=== PATIENT | female | born 1965 | race Caucasian/White ===

== ENCOUNTER 2019-09-28 11:21 | Outpatient (CLI) | payer MEDICARE, MEDICAID, SELFPAY ==
[2019-09-28 11:33] LABS: Basophils Absolute Auto 0.1 K/mm3 (0.0-0.1); Basophils Percent Auto 0.6 % (0.2-1.2); Eosinophils Absolute Auto 0.3 K/mm3 (0-0.3); Eosinophils Percent Auto 2.5 % (0-4.4); Hematocrit 42.4 % (37.0-47.0); Immature Granulocyte Absolute 0.05 K/mm3 (0.00-0.031); Immature Granulocyte Percent A 0.5 % (0-0.5); Lymphocytes Absolute Auto 1.52 K/mm3 (0.9-3.2); Lymphocytes Percent Auto 14.2 % (18.3-44.2); Mean Corpuscular Hemoglobin 30.5 pg (26-34); Mean Corpuscular Volume 92.4 fl (80-100); Monocytes Absolute Auto 0.6 K/mm3 (0.1-0.6); Monocytes Percent Auto 5.6 % (2.6-8.5); Neutrophils Absolute Auto 8.2 K/mm3 (1.3-6.7); Neutrophils Percent Auto 76.6 % (45.5-73.1); Platelet Count Result 306 k/mm3 (150-375); Red Blood Count 4.59 M/mm3 (4.2-5.4); Red Cell Distribution Width 14.4 % (11.5-14.5); White Blood Count 10.7 K/mm3 (4.5-10.0)
[2019-09-28 11:42] LABS: Blood Urea Nitrogen 22 mg/dL (8-26); Carbon Dioxide 29 mmol/L (22-30); Chloride 96 mmol/L (98-109); Estimated Glomerular Filt Rate 43; Glucose 428 mg/dL (70-105); Potassium 4.1 mmol/L (3.5-4.9); Sodium 136 mmol/L (138-146)
[2019-09-28 16:43] LABS: Alanine Aminotransferase 13 U/L (4-35); Albumin Level 3.8 g/dL (3.5-5.1); Alkaline Phosphatase 130 U/L (38-126); Aspartate Amino Transferase 17 U/L (14-36); Bilirubin,Total 0.4 mg/dL (0.2-1.3); Blood Urea Nitrogen 22 mg/dL (7-17); Calcium 9.4 mg/dL (8.4-10.2); Carbon Dioxide 28 mmol/L (22-30); Chloride 94 mmol/L (98-107); Estimated Glomerular Filt Rate 43; Glucose 415 mg/dL (65-105); Potassium 4.3 mmol/L (3.4-5.0); Sodium 137 mmol/L (137-145)
[2019-10-03 12:40] LABS: BCR/abl Prior Result See Report
[2019-10-03 13:28] LABS: BCR/abl P190 Not Detected; BCR/abl P210 Not Detected
[2019-10-03 13:29] LABS: BCR/abl P190 Chg YES; BCR/abl P210 Chg YES
== END 2019-09-28 11:22 | disposition home or self-care (01) ==
PROVIDERS: PCP Physician Assistant; Visit Provider Internal Medicine Hematology & Oncology
DX: C92.10 Chronic myeloid leukemia, BCR/ABL-positive, not having achieved remission (principal)
CPT/HCPCS: 36415; 80048; 80053; 81206; 81207; 85025

== ENCOUNTER 2020-04-04 10:24 | Outpatient (CLI) | payer MEDICARE, MEDICAID, SELFPAY ==
[2020-04-04 10:38] LABS: Basophils Absolute Auto 0.1 K/mm3 (0.0-0.1); Basophils Percent Auto 0.7 % (0.2-1.2); Eosinophils Absolute Auto 0.4 K/mm3 (0-0.3); Eosinophils Percent Auto 3.9 % (0-4.4); Hematocrit 37.6 % (37.0-47.0); Hemoglobin 12.4 g/dL (12.0-15.0); Immature Granulocyte Absolute 0.04 K/mm3 (0.00-0.031); Immature Granulocyte Percent A 0.4 % (0-0.5); Lymphocytes Percent Auto 15.9 % (18.3-44.2); Mean Corpuscular Hemoglobin 31.2 pg (26-34); Mean Corpuscular Volume 94.5 fl (80-100); Monocytes Absolute Auto 0.6 K/mm3 (0.1-0.6); Monocytes Percent Auto 6.8 % (2.6-8.5); Neutrophils Absolute Auto 6.8 K/mm3 (1.3-6.7); Neutrophils Percent Auto 72.3 % (45.5-73.1); Platelet Count Result 296 k/mm3 (150-375); Red Blood Count 3.98 M/mm3 (4.2-5.4); Red Cell Distribution Width 14.3 % (11.5-14.5); White Blood Count 9.5 K/mm3 (4.5-10.0)
[2020-04-09 15:59] LABS: BCR/abl Prior Result See Report
[2020-04-09 16:46] LABS: BCR/abl P190 Not Detected; BCR/abl P210 Not Detected
[2020-04-09 16:47] LABS: BCR/abl P190 Chg YES; BCR/abl P210 Chg YES
== END 2020-04-04 10:25 | disposition home or self-care (01) ==
PROVIDERS: PCP Physician Assistant; Visit Provider Internal Medicine Hematology & Oncology
DX: C92.11 Chronic myeloid leukemia, BCR/ABL-positive, in remission (principal)
CPT/HCPCS: 36415; 81206; 81207; 85025

== ENCOUNTER 2021-03-27 11:37 | Outpatient (CLI) | payer MEDICARE, OTHER, SELFPAY ==
[2021-03-27 12:23] LABS: Basophils Absolute Auto 0.1 K/mm3 (0.0-0.1); Basophils Percent Auto 0.6 % (0.2-1.2); Eosinophils Absolute Auto 0.4 K/mm3 (0-0.3); Eosinophils Percent Auto 2.9 % (0-4.4); Hematocrit 37.2 % (37.0-47.0); Immature Granulocyte Absolute 0.05 K/mm3 (0.00-0.031); Immature Granulocyte Percent A 0.4 % (0-0.5); Lymphocytes Absolute Auto 1.93 K/mm3 (0.9-3.2); Lymphocytes Percent Auto 15.4 % (18.3-44.2); Mean Corpuscular HGB Conc 32.3 g/dl (32-36); Mean Corpuscular Hemoglobin 29.3 pg (26-34); Mean Corpuscular Volume 90.7 fl (80-100); Mean Platelet Volume 9.8 fl (7.4-10.4); Monocytes Absolute Auto 0.7 K/mm3 (0.1-0.6); Monocytes Percent Auto 5.3 % (2.6-8.5); Neutrophils Absolute Auto 9.4 K/mm3 (1.3-6.7); Neutrophils Percent Auto 75.4 % (45.5-73.1); Platelet Count Result 294 k/mm3 (150-375); Red Cell Distribution Width 15.2 % (11.5-14.5); White Blood Count 12.5 K/mm3 (4.5-10.0)
[2021-03-27 12:26] LABS: Blood Urea Nitrogen 20 mg/dL (8-26); Carbon Dioxide 31 mmol/L (22-30); Chloride 100 mmol/L (98-109); Estimated Glomerular Filt Rate 33; Glucose 167 mg/dL (70-105); Potassium 4.5 mmol/L (3.5-4.9); Sodium 141 mmol/L (138-146)
[2021-03-27 14:20] LABS: Alanine Aminotransferase 13 U/L (4-35); Albumin Level 4.2 g/dL (3.5-5.1); Alkaline Phosphatase 81 U/L (38-126); Anion Gap 9 mmol/L (8-16); Aspartate Amino Transferase 22 U/L (14-36); Bilirubin,Total 0.4 mg/dL (0.2-1.3); Blood Urea Nitrogen 20 mg/dL (7-17); Calcium 9.9 mg/dL (8.4-10.2); Carbon Dioxide 28 mmol/L (22-30); Chloride 103 mmol/L (98-107); Estimated Glomerular Filt Rate 39; Glucose 167 mg/dL (65-110); Potassium 4.6 mmol/L (3.4-5.0); Sodium 140 mmol/L (137-145)
[2021-03-31 00:31] LABS: BCR/abl Prior Result See Report
[2021-03-31 01:23] LABS: BCR/abl P190 Not Detected; BCR/abl P190 Chg YES; BCR/abl P210 Not Detected; BCR/abl P210 Chg YES
== END 2021-03-27 11:38 | disposition home or self-care (01) ==
LOC: ANHLAB 12:12
PROVIDERS: PCP Physician Assistant; Visit Provider Internal Medicine Hematology & Oncology
DX: C92.11 Chronic myeloid leukemia, BCR/ABL-positive, in remission (principal)
CPT/HCPCS: 36415; 80048; 80053; 81206; 81207; 85025

== ENCOUNTER 2022-01-14 13:04 | Outpatient (CLI) | payer OTHER, SELFPAY ==
[2022-01-14 13:22] LABS: Basophils Absolute Auto 0.1 K/mm3 (0.0-0.1); Basophils Percent Auto 0.6 % (0.2-1.2); Eosinophils Absolute Auto 0.3 K/mm3 (0-0.3); Eosinophils Percent Auto 2.4 % (0-4.4); Hematocrit 39.5 % (37.0-47.0); Hemoglobin 12.8 g/dL (12.0-15.0); Immature Granulocyte Absolute 0.03 K/mm3 (0.00-0.031); Immature Granulocyte Percent A 0.3 % (0-0.5); Lymphocytes Absolute Auto 2.04 K/mm3 (0.9-3.2); Lymphocytes Percent Auto 18.9 % (18.3-44.2); Mean Corpuscular HGB Conc 32.4 g/dl (32-36); Mean Corpuscular Hemoglobin 30.7 pg (26-34); Mean Corpuscular Volume 94.7 fl (80-100); Mean Platelet Volume 9.9 fl (7.4-10.4); Monocytes Absolute Auto 0.7 K/mm3 (0.1-0.6); Monocytes Percent Auto 6.2 % (2.6-8.5); Neutrophils Absolute Auto 7.7 K/mm3 (1.3-6.7); Neutrophils Percent Auto 71.6 % (45.5-73.1); Platelet Count Result 289 k/mm3 (150-375); Red Blood Count 4.17 M/mm3 (4.2-5.4); Red Cell Distribution Width 14.2 % (11.5-14.5); White Blood Count 10.8 K/mm3 (4.5-10.0)
[2022-01-14 13:27] LABS: Blood Urea Nitrogen 29 mg/dL (8-26); Carbon Dioxide 23 mmol/L (22-30); Chloride 105 mmol/L (98-109); Estimated Glomerular Filt Rate 26; Glucose 152 mg/dL (70-105); Ionized Calcium (POC) 1.12 mmol/L (1.11-1.31); Potassium 4.7 mmol/L (3.5-4.9); Sodium 138 mmol/L (138-146)
[2022-01-14 15:04] LABS: Alanine Aminotransferase 14 U/L (6-35); Albumin Level 4.3 g/dL (3.5-5.1); Alkaline Phosphatase 73 U/L (38-126); Anion Gap 10 mmol/L (8-16); Aspartate Amino Transferase 19 U/L (14-36); Bilirubin,Total 0.3 mg/dL (0.2-1.3); Blood Urea Nitrogen 29 mg/dL (7-17); Carbon Dioxide 22 mmol/L (22-30); Chloride 106 mmol/L (98-107); Estimated Glomerular Filt Rate 29; Glucose 152 mg/dL (65-110); Potassium 4.6 mmol/L (3.4-5.0); Sodium 138 mmol/L (137-145)
== END 2022-01-14 13:05 | disposition home or self-care (01) ==
PROVIDERS: PCP Physician Assistant; Visit Provider Internal Medicine Hematology & Oncology
DX: C92.11 Chronic myeloid leukemia, BCR/ABL-positive, in remission (principal)
CPT/HCPCS: 36415; 80047; 80053; 85025

== ENCOUNTER 2022-09-01 10:59 | Outpatient (CLI) | payer MEDICARE, SELFPAY ==
[2022-09-01 11:13] LABS: Basophils Absolute Auto 0.1 K/mm3 (0.0-0.1); Basophils Percent Auto 0.7 % (0.2-1.2); Eosinophils Absolute Auto 0.3 K/mm3 (0-0.3); Eosinophils Percent Auto 3.1 % (0-4.4); Hematocrit 39.4 % (37.0-47.0); Immature Granulocyte Absolute 0.03 K/mm3 (0.00-0.031); Immature Granulocyte Percent A 0.4 % (0-0.5); Lymphocytes Absolute Auto 1.15 K/mm3 (0.9-3.2); Lymphocytes Percent Auto 13.6 % (18.3-44.2); Mean Corpuscular Hemoglobin 31.3 pg (26-34); Mean Corpuscular Volume 94.9 fl (80-100); Mean Platelet Volume 9.7 fl (7.4-10.4); Monocytes Absolute Auto 0.5 K/mm3 (0.1-0.6); Monocytes Percent Auto 6.2 % (2.6-8.5); Neutrophils Absolute Auto 6.4 K/mm3 (1.3-6.7); Platelet Count Result 260 k/mm3 (150-375); Red Blood Count 4.15 M/mm3 (4.2-5.4); Red Cell Distribution Width 15.1 % (11.5-14.5); White Blood Count 8.5 K/mm3 (4.5-10.0)
[2022-09-01 11:19] LABS: Blood Urea Nitrogen 22 mg/dL (8-26); Carbon Dioxide 28 mmol/L (22-30); Chloride 102 mmol/L (98-109); Estimated Glomerular Filt Rate 39; Glucose 205 mg/dL (70-105); Ionized Calcium (POC) 1.16 mmol/L (1.11-1.31); Potassium 4.3 mmol/L (3.5-4.9); Sodium 139 mmol/L (138-146)
[2022-09-01 15:43] LABS: Alanine Aminotransferase 15 U/L (6-35); Alkaline Phosphatase 115 U/L (38-126); Anion Gap 9 mmol/L (8-16); Aspartate Amino Transferase 18 U/L (14-36); Bilirubin,Total 0.4 mg/dL (0.2-1.3); Blood Urea Nitrogen 22 mg/dL (7-17); Calcium 9.1 mg/dL (8.4-10.2); Carbon Dioxide 26 mmol/L (22-30); Chloride 104 mmol/L (98-107); Estimated Glomerular Filt Rate 46; Glucose 198 mg/dL (65-110); Potassium 4.4 mmol/L (3.4-5.0); Sodium 139 mmol/L (137-145)
[2022-09-05 13:38] LABS: BCR/abl Prior Result See Report
[2022-09-05 14:25] LABS: BCR/abl P190 Not Detected; BCR/abl P210 Not Detected
[2022-09-05 14:26] LABS: BCR/abl P190 Chg YES; BCR/abl P210 Chg YES
== END 2022-09-01 11:00 | disposition home or self-care (01) ==
LOC: ANHLAB 11:01
PROVIDERS: PCP Physician Assistant; Visit Provider Internal Medicine Hematology & Oncology
DX: C92.10 Chronic myeloid leukemia, BCR/ABL-positive, not having achieved remission (principal)
CPT/HCPCS: 36415; 80047; 80053; 81206; 81207; 85025

== ENCOUNTER 2023-03-02 09:10 | Outpatient (CLI) | payer MEDICARE, SELFPAY ==
[2023-03-02 09:25] LABS: Basophils Absolute Auto 0.1 K/mm3 (0.0-0.1); Basophils Percent Auto 0.5 % (0.2-1.2); Eosinophils Absolute Auto 0.3 K/mm3 (0-0.3); Eosinophils Percent Auto 2.9 % (0-4.4); Hematocrit 36.8 % (37.0-47.0); Immature Granulocyte Absolute 0.07 K/mm3 (0.00-0.031); Immature Granulocyte Percent A 0.6 % (0-0.5); Lymphocytes Absolute Auto 1.93 K/mm3 (0.9-3.2); Lymphocytes Percent Auto 17.2 % (18.3-44.2); Mean Corpuscular HGB Conc 32.6 g/dl (32-36); Mean Corpuscular Volume 95.1 fl (80-100); Mean Platelet Volume 9.7 fl (7.4-10.4); Monocytes Absolute Auto 0.7 K/mm3 (0.1-0.6); Monocytes Percent Auto 6.1 % (2.6-8.5); Neutrophils Absolute Auto 8.2 K/mm3 (1.3-6.7); Neutrophils Percent Auto 72.7 % (45.5-73.1); Platelet Count Result 289 k/mm3 (150-375); Red Blood Count 3.87 M/mm3 (4.2-5.4); Red Cell Distribution Width 14.1 % (11.5-14.5); White Blood Count 11.2 K/mm3 (4.5-10.0)
[2023-03-02 11:19] LABS: Alanine Aminotransferase 14 U/L (6-35); Albumin Level 4.2 g/dL (3.5-5.1); Alkaline Phosphatase 92 U/L (38-126); Anion Gap 9 mmol/L (8-16); Aspartate Amino Transferase 18 U/L (14-36); Bilirubin,Total 0.4 mg/dL (0.2-1.3); Blood Urea Nitrogen 35 mg/dL (7-17); Calcium 9.2 mg/dL (8.4-10.2); Carbon Dioxide 25 mmol/L (22-30); Chloride 102 mmol/L (98-107); Estimated Glomerular Filt Rate 21; Glucose 129 mg/dL (65-110); Potassium 4.4 mmol/L (3.4-5.0); Sodium 136 mmol/L (137-145)
[2023-03-06 16:20] LABS: BCR/abl Prior Result See Report
[2023-03-06 17:07] LABS: BCR/abl P190 Not Detected; BCR/abl P210 Not Detected
[2023-03-06 17:08] LABS: BCR/abl P190 Chg YES; BCR/abl P210 Chg YES
== END 2023-03-02 09:11 | disposition home or self-care (01) ==
LOC: ANHLAB 09:12
PROVIDERS: PCP Physician Assistant; Visit Provider Internal Medicine Hematology & Oncology
DX: C92.10 Chronic myeloid leukemia, BCR/ABL-positive, not having achieved remission (principal)
CPT/HCPCS: 36415; 80053; 81206; 81207; 85025

== ENCOUNTER 2024-06-15 13:50 | Outpatient (CLI) | payer MEDICARE, SELFPAY ==
[2024-06-15 14:08] LABS: Basophils Absolute Auto 0.1 K/mm3 (0.0-0.1); Basophils Percent Auto 0.5 % (0.2-1.2); Eosinophils Absolute Auto 0.4 K/mm3 (0-0.3); Eosinophils Percent Auto 3.9 % (0-4.4); Hematocrit 39.7 % (37.0-47.0); Hemoglobin 13.1 g/dL (12.0-15.0); Immature Granulocyte Absolute 0.05 K/mm3 (0.00-0.031); Immature Granulocyte Percent A 0.4 % (0-0.5); Lymphocytes Absolute Auto 1.67 K/mm3 (0.9-3.2); Lymphocytes Percent Auto 14.9 % (18.3-44.2); Mean Corpuscular Hemoglobin 29.9 pg (26-34); Mean Corpuscular Volume 90.6 fl (80-100); Mean Platelet Volume 9.6 fl (7.4-10.4); Monocytes Absolute Auto 0.7 K/mm3 (0.1-0.6); Monocytes Percent Auto 5.8 % (2.6-8.5); Neutrophils Absolute Auto 8.4 K/mm3 (1.3-6.7); Neutrophils Percent Auto 74.5 % (45.5-73.1); Platelet Count Result 310 k/mm3 (150-375); Red Blood Count 4.38 M/mm3 (4.2-5.4); Red Cell Distribution Width 14.6 % (11.5-14.5); White Blood Count 11.2 K/mm3 (4.5-10.0)
[2024-06-15 16:53] LABS: INR 1.1; Prothrombin Time 14.7 Seconds (11.1-14.7)
[2024-06-15 18:49] LABS: Anion Gap 6 mmol/L (4-12); Blood Urea Nitrogen 19 mg/dL (7-17); Calcium 9.2 mg/dL (8.4-10.2); Carbon Dioxide 31 mmol/L (22-30); Chloride 100 mmol/L (98-107); Cholesterol 203 mg/dL (0-200); Estimated Glomerular Filt Rate 42; Glucose 241 mg/dL (65-110); HDL Direct 28 mg/dL; Potassium 4.7 mmol/L (3.4-5.0); Sodium 137 mmol/L (137-145); Triglycerides 462 mg/dL (<150)
[2024-06-15 18:59] LABS: LDL Cholesterol Direct 82 mg/dL
== END 2024-06-15 13:51 | disposition home or self-care (01) ==
LOC: ANHLAB 13:53
PROVIDERS: PCP Physician Assistant
DX: I70.25 Atherosclerosis of native arteries of other extremities with ulceration (principal); I70.223 Atherosclerosis of native arteries of extremities with rest pain, bilateral legs; E11.59 Type 2 diabetes mellitus with other circulatory complications; I50.9 Heart failure, unspecified; D64.9 Anemia, unspecified; L03.90 Cellulitis, unspecified; K59.03 Drug induced constipation; M79.606 Pain in leg, unspecified; E78.1 Pure hyperglyceridemia; I25.2 Old myocardial infarction; I34.0 Nonrheumatic mitral (valve) insufficiency; I47.10 Supraventricular tachycardia, unspecified; I42.9 Cardiomyopathy, unspecified; I47.20 Ventricular tachycardia, unspecified; I49.3 Ventricular premature depolarization; J44.9 Chronic obstructive pulmonary disease, unspecified; I65.23 Occlusion and stenosis of bilateral carotid arteries; G47.33 Obstructive sleep apnea (adult) (pediatric); I87.2 Venous insufficiency (chronic) (peripheral); N18.30 Chronic kidney disease, stage 3 unspecified; R60.1 Generalized edema; E61.1 Iron deficiency; C92.11 Chronic myeloid leukemia, BCR/ABL-positive, in remission; R06.02 Shortness of breath; I70.213 Atherosclerosis of native arteries of extremities with intermittent claudication, bilateral legs; I13.0 Hypertensive heart and chronic kidney disease with heart failure and stage 1 through stage 4 chronic kidney disease, or unspecified chronic kidney disease; I25.10 Atherosclerotic heart disease of native coronary artery without angina pectoris; E78.5 Hyperlipidemia, unspecified; E66.9 Obesity, unspecified; E11.22 Type 2 diabetes mellitus with diabetic chronic kidney disease
CPT/HCPCS: 36415; 80048; 80061; 85025; 85610

== ENCOUNTER 2024-08-09 10:52 | Outpatient (CLI) | payer MEDICARE, SELFPAY ==
[2024-08-09 11:24] LABS: Hematocrit 40.3 % (37.0-47.0); Hemoglobin 12.9 g/dL (12.0-15.0); Mean Corpuscular Hemoglobin 29.5 pg (26-34); Mean Corpuscular Volume 92.2 fl (80-100); Mean Platelet Volume 9.1 fl (7.4-10.4); Platelet Count Result 344 k/mm3 (150-375); Red Blood Count 4.37 M/mm3 (4.2-5.4); Red Cell Distribution Width 15.1 % (11.5-14.5); White Blood Count 9.5 K/mm3 (4.5-10.0)
[2024-08-09 12:51] LABS: Microalbumin Urine Random 68.6 mg/L (0-16.7)
[2024-08-09 12:54] LABS: Creatinine Urine 30.5 mg/dL; MALB Creatinine Ratio 224.9 mg/g (0-30)
[2024-08-09 12:56] LABS: Anion Gap 7 mmol/L (4-12); Blood Urea Nitrogen 16 mg/dL (7-17); Carbon Dioxide 29 mmol/L (22-30); Chloride 102 mmol/L (98-107); Estimated Glomerular Filt Rate 53; Glucose 142 mg/dL (65-110); Magnesium 1.8 mg/dL (1.6-2.3); Phosphorus 3.9 mg/dL (2.5-4.5); Potassium 4.7 mmol/L (3.4-5.0); Sodium 138 mmol/L (137-145); Uric Acid 9.3 mg/dL (2.5-7.5)
[2024-08-09 12:57] LABS: Creatinine Urine 31.8 mg/dL; Total Protein Urine Random 31 mg/dL; Ur Ttl Prot Creatinine Ratio 0.97 mg/mg (0-0.20)
[2024-08-09 19:02] LABS: Hemoglobin A1C 7.6 % (<5.7)
[2024-08-11 12:33] LABS: Cystatin C 1.75 mg/L (0.52-1.14); eGFR 34 (> OR = 60)
== END 2024-08-09 10:53 | disposition home or self-care (01) ==
LOC: ANHLAB 10:53
PROVIDERS: PCP Physician Assistant; Visit Provider Internal Medicine Nephrology
DX: I21.9 Acute myocardial infarction, unspecified (principal); E11.22 Type 2 diabetes mellitus with diabetic chronic kidney disease; N18.32 Chronic kidney disease, stage 3b; R80.1 Persistent proteinuria, unspecified; N30.00 Acute cystitis without hematuria; I73.9 Peripheral vascular disease, unspecified; I25.84 Coronary atherosclerosis due to calcified coronary lesion; C92.Z0 Other myeloid leukemia not having achieved remission; J41.1 Mucopurulent chronic bronchitis; E11.43 Type 2 diabetes mellitus with diabetic autonomic (poly)neuropathy; E78.00 Pure hypercholesterolemia, unspecified; K21.9 Gastro-esophageal reflux disease without esophagitis; E21.1 Secondary hyperparathyroidism, not elsewhere classified
CPT/HCPCS: 36415; 80069; 82043; 82570; 82610; 83036; 83735; 84156; 84550; 85027

== ENCOUNTER 2024-09-26 13:19 | Outpatient (CLI) | payer MEDICARE, SELFPAY ==
[2024-09-26 13:41] LABS: Basophils Absolute Auto 0.1 K/mm3 (0.0-0.1); Basophils Percent Auto 0.8 % (0.2-1.2); Eosinophils Absolute Auto 0.4 K/mm3 (0-0.3); Eosinophils Percent Auto 4.5 % (0-4.4); Hematocrit 39.4 % (37.0-47.0); Hemoglobin 12.7 g/dL (12.0-15.0); Immature Granulocyte Absolute 0.03 K/mm3 (0.00-0.031); Immature Granulocyte Percent A 0.3 % (0-0.5); Lymphocytes Absolute Auto 1.66 K/mm3 (0.9-3.2); Lymphocytes Percent Auto 18.8 % (18.3-44.2); Mean Corpuscular HGB Conc 32.2 g/dl (32-36); Mean Corpuscular Hemoglobin 29.2 pg (26-34); Mean Corpuscular Volume 90.6 fl (80-100); Mean Platelet Volume 9.6 fl (7.4-10.4); Monocytes Absolute Auto 0.6 K/mm3 (0.1-0.6); Monocytes Percent Auto 6.4 % (2.6-8.5); Neutrophils Absolute Auto 6.1 K/mm3 (1.3-6.7); Neutrophils Percent Auto 69.2 % (45.5-73.1); Platelet Count Result 311 k/mm3 (150-375); Red Blood Count 4.35 M/mm3 (4.2-5.4); Red Cell Distribution Width 15.6 % (11.5-14.5); White Blood Count 8.8 K/mm3 (4.5-10.0)
[2024-09-26 14:12] LABS: Alanine Aminotransferase 11 U/L (6-35); Alkaline Phosphatase 92 U/L (38-126); Anion Gap 9 mmol/L (4-12); Aspartate Amino Transferase 19 U/L (14-36); Bilirubin,Total 0.3 mg/dL (0.2-1.3); Blood Urea Nitrogen 16 mg/dL (7-17); Carbon Dioxide 26 mmol/L (22-30); Chloride 104 mmol/L (98-107); Estimated Glomerular Filt Rate 49; Glucose 130 mg/dL (65-110); Potassium 4.8 mmol/L (3.4-5.0); Sodium 139 mmol/L (137-145)
== END 2024-09-26 13:20 | disposition home or self-care (01) ==
LOC: ANHLAB 13:20
PROVIDERS: PCP Physician Assistant; Visit Provider Internal Medicine Hematology & Oncology
DX: C92.10 Chronic myeloid leukemia, BCR/ABL-positive, not having achieved remission (principal)
CPT/HCPCS: 36415; 80053; 85025

== ENCOUNTER 2024-10-17 11:34 | Outpatient (CLI) | payer MEDICARE, SELFPAY ==
[2024-10-17 12:11] LABS: Hematocrit 42.7 % (37.0-47.0); Hemoglobin 13.8 g/dL (12.0-15.0); Mean Corpuscular HGB Conc 32.3 g/dl (32-36); Mean Corpuscular Hemoglobin 29.7 pg (26-34); Mean Corpuscular Volume 91.8 fl (80-100); Mean Platelet Volume 9.7 fl (7.4-10.4); Platelet Count Result 300 k/mm3 (150-375); Red Blood Count 4.65 M/mm3 (4.2-5.4); Red Cell Distribution Width 15.6 % (11.5-14.5); White Blood Count 9.7 K/mm3 (4.5-10.0)
[2024-10-17 13:31] LABS: MALB Creatinine Ratio 217.8 mg/g (0-30); Microalbumin Urine Random 39.2 mg/L (0-16.7)
--- OUTSIDE RECORDS SUMMARY | 2024-10-17 13:39 | XMS_ITS | Encounter Summary ---
Author Organization [facility] Address [address] [facility] [place] [address] Phone Care Team Providers Care Gear Tooth Grinding Machine Operator Name Role Phone Farhad Dolan MD Primary Care Provider [phone] Reason for Visit * Reason Onset Date Comments Med Refill 05/10/2024 Encounter Details Date Type Department Care Team (Late st Contact Info) Description 05/10/2024 Refill [place] [facility] [address] [address] Rachel Temple CMA [address] [place] [address] Social History Tobacco Use Types Packs/Day Years Used Date Smoking Tobacco: Never Alcohol Use Standard Drinks/Week Comments No 0 (1 standard drink = 0.6 oz pur e alcohol) Comments Unknown Sex and Gender Information Value Date Recorded Sex Assigned at Not on file Legal Sex Female 2:53 PM EDT Gender Identity Not on file Sexual Orientation Not on file documented as of this encounter Plan of Treatment Upcoming Encounters Date Type Department Care Team (Late st Contact Info) Description 10/25/2024 1:45 PM CDT Office Visit [place] [facility] [address] [address] Giuseppe Lee DO [address] [place] [address] documented as of this encounter Visit Diagnoses Not on filedocumented in this encounter Care Teams Gear Tooth Grinding Machine Operator Relationship Specialty Start Date End Date Farhad Dolan MD [address] [place] [address] PCP - General Internal Medicine 10/28/22 documented as of this encounter
--- OUTSIDE RECORDS SUMMARY | 2024-10-17 13:39 | XMS_ITS | Encounter Summary ---
Author Organization [facility] , [facility] Address [address] [facility] [place] [address] Phone Care Team Providers Care Business Excellence Manager Name Role Phone Farhad Dolan MD Primary Care Provider [phone] Reason for Visit * Reason Comments Med Refill Encounter Details Date Type Department Care Team (Late st Contact Info) Description 01/16/2024 Refill [place] [facility], [facility] [address] [place] [address] 1 [place] [address] Giuseppe Lee DO [address] [facility] [address] [place] [address] Social History Tobacco Use Types [...] Description 10/25/2024 1:45 PM CDT Office Visit [place] [facility], [facility] [address] [facility] [address] [place] [address] Giuseppe Lee DO [address] [facility] 1 [place] [address] documented as of this encounter Visit Diagnoses Not on filedocumented in this encounter Care Teams Business Excellence Manager Relationship Specialty Start Date End Date Farhad Dolan MD [address] [place] [address] PCP - General Internal Medicine 10/28/22 documented as of this encounter
--- OUTSIDE RECORDS SUMMARY | 2024-10-17 13:39 | XMS_ITS | Data Portability ---
Author Organization [place] [facility] Main Office Address [address] [place] [address] Care Team Providers Care Media Marketing Director Name Role Phone TARYN DALEY Plow And Boring Machine Tender THERESA COHEN OTHER Assessment Encounter Date Assessment Date Assessment LastModified by Organization Details LastModified Time 12/02/2023 12/02/2023 This note is dictated and transcribed by [employer]. Welding Machine Tender variances may occur. Despite proofreading, typographical errors may occur. Occasional wrong-word or 'gycvh-a-lrnf' substitutions may have occurred due to the inherent limitations of voice recording. Read the chart carefully and recognize, using context, where substitutions have occurred. [email or web address] Not available 12/02/2023 15:36:07 Plan of Treatment Reminders Order Date Submit Date Provider Last Modified By Organization Details Last Modified Time Details Appointments None record ed. Lab None record ed. Referral None record ed. Procedures None record ed. Surgeries None record ed. Imaging None record ed. Medication Orders None record ed. Patient TargetsNo targets recorded. Patient InstructionsNo instructions recorded. Reason for Referral None Reported. Results Created Date Observation Date Name Description Value Unit Range Abnormal Flag Note LastModifiedBy Organization Detail LastModifiedTime 11/28/19 24 11/27/2023 imagi ng/di agnos tic resul t No observ ation record ed. [email or web address] [facility] [address], [place], [address], 12/02/2023 13:06:53 11/28/19 24 11/27/2023 imagi ng/di agnos tic resul t No observ ation record ed. [email or web address] [facility] [address], [place], [address], 12/02/2023 13:07:05 03/09/20 24 03/09/2024 imagi ng/di meganos tic resul t No observ ation record ed. [address] [facility] [address], [place], [address], 03/09/2024 16:28:32 Result Notes None recorded. Problems Name Problem SNOMED Code Status Onset Date Resolution Date Notes Provider Name and Address Organization Details Recorded Time Diabetic peripheral neuropathy 512847431 Active 024 Khanh Blackwell DPM [address], [place], [address], [employer] 15:36:23 Skin eschar 729337037 Active 024 Khanh Blackwell DPM [address], [place], [address], [employer] 15:36:27 Diabetes mellitus 38305578 Active 024 Khanh Blackwell DPM [address], [place], [address], [employer] 15:36:58 Ex-smoker 8448125 Active 024 Khanh Blackwell DPM [address], [place], [address], [employer] 15:38:31 Problem Notes None recorded. Procedures Surgical History Date Name Laterality Status Provider Name and Address Organization Details Recorded Time 12/02/2023 Wound Care-Podiat ry completed Ya Dyer, RN [place] [employer] [facility] 12/02/2023 15:28:36 Imaging Results Imaging Date Name Status LastModified by Organiz ation Details LastModified Time 11/27/2023 imaging/diag nostic result completed [address] [facility] [address], [place], [address], 12/02/2023 13:06:53 11/27/2023 imaging/diag nostic result completed [email or web address] [facility] [address], [place], [address], 12/02/2023 13:07:05 03/09/2024 imaging/diag nostic result completed [email or web address] [facility] [address], [place], [address], 03/09/2024 16:28:32 Procedure Notes None recorded. Medical Equipment None Reported. Allergies Allergen ID Allergen Name Allergen Category Reaction Reaction Severity Criticality Documentation Date Start Date Code Code System Note Provider Name and Address Organization Details Recorded Time Jardiance medicatio n rash moderate Not available 12/02/2023 29925 59 RxNorm JAKE Rodriguez, [facility] [employer] [facility] 14:46:15 27287 Trulicity medicatio n rash moderate Not available 12/02/2023 05202 96 RxNorm JAKE Rodriguez, [facility] [employer] [facility] 14:46:33 Medications Name Sig Start Date Stop Date Status Note LastModified by Organization Details LastModified Time carvedilol 6.25 mg tablet 12/01 completed Not Available Not Available Not Available carvedilol 12.5 mg tablet TK 1 T PO BID active Not Available Not Available No t Available nystatin 100,000 unit/gram topical ointment 12/01 completed Not Available Not Available Not Available fluconazole 150 mg tablet TK 1 T PO Q 72 H FOR 9 DAYS PRN IF YEAST INFECTION OCCURS FROM ANTIBIOTI CS 12/01 completed Not Available Not Available Not Available ondansetron HCl 4 mg tablet TK 1 T PO Q 8 H PRF NAUSEA OR VOM active Not Available Not Available No t Available famotidine 40 mg tablet active Not Available Not Available Not Available ciprofloxac in 500 mg tablet 12/01 completed Not Available Not Available Not Available tramadol 50 mg tablet 12/01 completed Not Available Not Available Not Available spironolact one 25 mg tablet 12/01 completed Not Available Not Available Not Available glimepiride 2 mg tablet active Not Available Not Available Not Available metformin 1,000 mg tablet active Not Available Not Available Not Available bumetanide 0.5 mg tablet TK 1 T PO QAM TO BE TAKEN IN COMBINATI ON WITH 1 MG T active Not Available Not Available No t Available bumetanide 1 mg tablet TK 1 T PO QAM ALONG WITH A 0.5MG T. active Not Available Not Available No t Available telmisartan 20 mg tablet TK 1 T PO HS active Not Available Not Available No t Available gabapentin 100 mg capsule active Not Available Not Available Not Available levofloxaci n 500 mg tablet 12/01 completed Not Available Not Available Not Available betamethaso ne dipropionat e 0.05 % topical ointment LANA THIN LAYER EXT AA QD active Not Available Not Available No t Available amoxicillin 875 mg-potassiu m clavulanate 125 mg tablet 12/01 completed Not Available Not Available Not Available ezetimibe 10 mg tablet 12/01 completed Not Available Not Available Not Available metformin ER 1,000 mg tablet,exte nded release 24hr (osmotic) active Not Available Not Available No t Available nitrofurant oin monohydrate /macrocryst als 100 mg capsule 12/01 completed Not Available Not Available Not Available prasugrel HCl 10 mg tablet TK 1 T PO QD active Not Available Not Available No t Available OneTouch Delica Lancets 33 gauge USE ON LANCET DAILY TO CHECK BLOOD SUGAR active Not Available Not Available No t Available Contour Next Test Strips TEST BLOOD SUGAR DAILY. active Not Available Not Available No t Available Bosulif 100 mg tablet active Not Available Not Available No t Available Jardiance 10 mg tablet TK 1 T PO QD 12/01 completed Not Available Not Available Not Available Trulicity 0.75 mg/0.5 mL subcutaneou s pen injector 12/01 completed Not Available Not Available Not Available Vitals Date Recorded Body temperature Oxygen saturation Oxygen saturation in Arterial blood by Pulse oximetry Heart rate Respiratory rate Systolic blood pressure Diastolic blood pressure Provider Name and Address Organization Details Last Updated DateTime 4 98.1 [degF] 95 % 95 % 72 /min 16 /min 144 mm[Hg] 70 mm[Hg] Ya Dyer RN [place] - [facility] [employer] 14:55:05 Social History Question Answer Notes LastModified by Organizat ion Details LastModified Time Tobacco Smoking Status Former Smoker Ya Dyer RN [facility], [place] - [facility] [email or web address] [facility] 12/02/2023 14:47:53 When Did You Quit Smoking? 16+yearssinc elastcigaret te [email or web address] Information not available 12/02/2023 How Many Years Have You Smoked Tobacco? 20 [email or web address] Information not available 12/02/2023 Sex: Unknown Functional Status None recorded. Mental Status None recorded. Family History Nothing Reported. Medical History Condition Response HEADACHES/MIGRAINES Y USE OF BLOOD THINNERS Y VASCULAR DISEASE Y HEART DISEASE/HEART PROBLEMS Y KIDNEY DISEASE Y DIABETES, TYPE Y LUNG DISEASE/DISORDER Y INSOMNIA Y HEARTBURN / REFLUX Y HIGH CHOLESTEROL / HYPERLIPIDEMIA Y CANCER: SPECIFY Y BLOOD CLOTS Y PULMONARY DISEASE Y URINARY/BLADDER/KIDNEY PROBLEMS Y CORONARY ARTERY DISEASE (CAD) Y GOUT Y BACK / NECK PROBLEMS Y Gynecological HistoryNo gynecological history recorded. Obstetrics History GPAL:G 0 P 0 0 0 0 Past Encounters Encounter ID Performer Location Encounter Start Date Encounter Closed Date Diagnosis/Indication Diagnosis SNOMED-CT Code Diagnosis ICD10 Code Diagnosis Note [id number] Khanh Blackwell DPM [facility] [address] [place] [address] 12/02/2023 14:00:07 12/02/2023 16:06:37 Ex-smoker 0524035 Z87.891 recommend continued non-smokin g Diabetes mellitus 655538 09 E11.51 Continue diabetic control per PCP recommenda tionsAIF with Vardi to be scheduledv ascular testing reviewed from vascular off- right lower extremity SFA occlusion 100% Diabetic p eripheral neuropathy 674094381 E11.40 This note is dictated and transcribe d by [employer]. Transcript ion variances may occur. Despite proofreadi ng, typographi nadeem errors may occur. Occasional wrong-word or 'sound-a-l franchesca' substituti ons may have occurred due to the inherent limitation s of voice recording. Read the chart carefully and recognize, using context, where substituti ons have occurred. Skin eschar 895410615 R2 3.4 multiple right lower extremityp ain with Betadineno strenuous activityno tight shoe gear or bandagingf ollow-up in 2-3 weeks Health Concerns Section Related Observation LastModified by Organization Detai ls LastModified Time None Recorded Concern Status LastModified by Organization Details LastModified Time None Recorded Advance Directives Directive None Recorded Payers Encounter Date Sequence Insurance Name Policy Number Policy Dorman Covered Member ID Dorman Member ID Guarantor Name 12/02/[address] [facility] (MEDICARE REPLACEMENT/A DVANTAGE - PPO) [id number] Gill Hough [id number] Gill Hough Notes Date Note Type Note Provider Name and Address Organization Details Recorded Time 12/02/2023 text/html . Patient is a 58-year-old female previous smoker with diabetes who presents to the office with complaints of multiple dry eschars to the right lower extremity. Patient states they have been present for approximately 2 months. Patient states the wounds have stayed dry and are eschars. 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 Patient is awaiting AIF scheduling. Patient denies any other complaints. Khanh Blackwell DPM [address] [facility] [place], [facility] [address], [place], [address], [place] [facility] 12/02/2023 15:39:05 OBGyn Episode No OBEpisode recorded.
--- OUTSIDE RECORDS SUMMARY | 2024-10-17 13:39 | XMS_ITS | Clinical Summary ---
Author Organization [facility] Address [address] [place] [address] Care Team Providers Care Taxonomy Teacher Name Role Phone Unavailable Primary Care Provider Unavailabl e Source Comments [facility],non-owned Affiliates and Associated Physician Practices is amultiple site organization consisting of ambulatory clinics and hospital sitesin [place], [place]. This disclosure is being madepursuant to the Care Everywhere program and may not contain all information available regarding this patient. Last updated 18.[facility] D1G Allergies Active Allergy Reactions Criticality Noted Date Comments Diphenoxylate-Atropine Rash Medium 05/06/2017 Medications * Be aware that medications may not be up to date on this document. Alwaysverify current medications with the patient. Medication Sig Dispensed Refills Start Date End Date Status bosutinib (BOSULIF) 100 MG tablet Take 500 mg by mouth 12/16/2016 A ctive bumetanide (BUMEX) 2 MG tablet Take 2 mg by mouth Active carvedilol (COREG) 6.25 MG tablet Take 6.25 mg by mouth Active VITAMIN D, CHOLECALCIFEROL, PO Take 5,000 Units by mouth Active COBALAMINE COMBINATIONS PO Take 1,000 mcg by mouth Active ondansetron (ZOFRAN) 4 MG tablet Take 4 mg by mouth every 8 hours 01/07/2017 Active prasugrel (EFFIENT) 10 MG tablet Take 10 mg by mouth Act kiel simvastatin (ZOCOR) 80 MG tablet Take 80 mg by mouth Act kiel spironolactone (ALDACTONE) 25 MG tablet Take 25 mg by mouth Activ e traMADol (ULTRAM) 50 MG tablet Take 100 mg by mouth every 6 hours Active olopatadine (PATADAY) 0.2 % ophthalmic solutionIndications: Allergic Conjunctivitis Instill 1 drop into both eyes once daily Reasons: Allergic Conjunctivitis 2.5 mL 05/13/2017 Active Active Problems Problem Noted Date Diagnosed Date Atherosclerosis of ho-chunk co ronary artery without angina pectoris 09/15/2016 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 Chronic renal insufficiency, stage III (moderate ) 09/15/2016 Type 2 diabetes mellitus without complication Social History Tobacco Use Types Packs/Day Years Used Date Smoking Tobacco: Former Cigarettes Smokeless Tobacco: Never Sex and Gender Information Value Date Recorded Sex Assigned at Not on file Gender Identity Not on file Sexual Orientation Not on file Last Filed Vital Signs Vital Sign Reading Time Taken Comments Blood Pressure 108/64 05/13/2017 6:39 PM CDT Pulse 64 05/13/2017 6:39 PM CDT Temperature 37 C (98.6 F) 05/13/2017 6:39 PM CDT Respiratory Rate 20 05/13/2017 6:39 PM CDT Oxygen Saturation - - Inhaled Oxygen Concentration - - Weight - - Height - - Body Mass Index - - Plan of Treatment Health Maintenance Due Date Last Done Comments COLOGUARD (AGES 45-75) - COL ON CA SCREENING 1964 COLON MONITORING 1964 COLONOSCOPY - COLON CA SCREENING 1964 CT COLONOGRAPHY - COLON CA SCREENING 1964 Colorectal Cancer Screening 1964 FIT - COLON CA SCREENING 1964 FLEX SIG - COLON CA SCREENING 1964 MAMMOGRAM 1964 MEDICARE AWV 12 MONTHS 1964 PAP SMEAR 1964 HIV SCREENING 1979 HEPATITIS C SCREENING 06/17/1982 DTAP/TDAP/TD VACCINES (1 - Tdap) 1983 PNEUMOCOCCAL VACCINE (1 of 2 - PCV) 1983 PNEUMOCOCCAL VACCINE 50+ (1 of 1 - PCV) 2014 ZOSTER VACCINE (1 of 2) 2014 COVID-19 VACCINE ( - 2023-2 5 season) 2024 INFLUENZA VACCINE (#1) 2024 DEPRESSION SCREENING 07/27/2024 Respiratory Syncytial Virus (RSV) Vaccine Pt: or over 60 yrs (1 - 1-dose 75+ series) 2039 HEPATITIS B VACCINE Aged Out No longe r eligible based on patient's age to complete this topic HIB VACCINE Aged Out No longer eligi ble based on patient's age to complete this topic HPV VACCINE Aged Out No longer eligi ble based on patient's age to complete this topic MENINGOCOCCAL (Group B) VACC INE SHARED DECISION-MAKING Aged Out No longer eligibl e based on patient's age to complete this topic MENINGOCOCCAL GROUPS A/C/Y/W VACCINE Aged Out No longer eligible b ased on patient's age to complete this topic
--- OUTSIDE RECORDS SUMMARY | 2024-10-17 13:39 | XMS_ITS | Clinical Summary ---
Author Organization [facility] Facility Address [address] [address] Care Team Providers Care Manager Image Name Role Phone Farhad Dolan MD Primary Care Provider [phone] Medications insulin lispro (HumaLOG) 100 UNIT/ML injection Inject 4 Units under the skin 1 (one) time daily 30-60 minutes before a meal 12 mL 1 04/23/2021 Active pregabalin (LYRICA) 75 MG capsule Take 1 capsule (75 mg total) by mouth every night 90 capsule 1 07/09/2021 Active insulin glargine (LANTUS) 100 UNIT/ML injection Inject 8 Units under the skin every night 10 mL 1 02/18/2022 Active amoxicillin (AMOXIL) 875 MG tablet Take 1 tablet (875 mg total) by mouth in the morning and 1 tablet (875 mg total) in the evening. 28 tablet 03/04/2022 Active minocycline (MINOCIN,DYNACI N) 100 MG capsule Take 1 capsule (100 mg total) by mouth in the morning and 1 capsule (100 mg total) in the evening. 28 capsule 03/04/2022 Active insulin degludec (TRESIBA FLEX TOUCH) 100 UNIT/ML injection Inject 25 Units under the skin every night 10 mL 1 03/25/2022 Active Tresiba 100 UNIT/ML solution INJECT 10 UNITS UNDER THE SKIN EVERY NIGHT AT BEDTIME 10 mL 1 04/24/2022 Active Tresiba 100 UNIT/ML solution INJECT 10 UNITS UNDER THE SKIN EVERY NIGHT AT BEDTIME 10 mL 1 04/24/2022 Active magnesium oxide (MAG-OX) 400 MG tablet Take 1 tablet (400 mg total) by mouth in the morning and 1 tablet (400 mg total) in the evening. 180 tablet 1 03/03/2023 Active amoxicillin-cla vulanate (AUGMENTIN) 875-125 MG per tablet Take 1 tablet by mouth in the morning and 1 tablet in the evening. 42 tablet 11/10/2023 Active ciprofloxacin (CIPRO) 500 MG tablet Take 1 tablet (500 mg total) by mouth 1 (one) time each day 5 tablet 12/11/2023 Active gabapentin (NEURONTIN) 100 MG capsule Take 1 capsule (100 mg total) by mouth 1 (one) time each day 90 capsule 1 01/18/2024 Active glimepiride (AMARYL) 4 MG tablet TAKE 1 TABLET(4 MG) BY MOUTH IN THE MORNING AND IN THE EVENING 180 tablet 1 02/11/2024 Active telmisartan (MICARDIS) 40 MG tablet Take 1 tablet (40 mg total) by mouth at bed time 90 tablet 1 05/10/2024 Active nitrofurantoin (MACRODANTIN) 100 MG capsule Take 1 capsule (100 mg total) by mouth in the morning and 1 capsule (100 mg total) in the evening. 10 capsule 05/10/2024 Active famotidine (PEPCID) 40 MG tablet TAKE 1 TABLET(40 MG) BY MOUTH 1 TIME EACH DAY 90 tablet 1 07/12/2024 Active bumetanide (BUMEX) 2 MG tablet Take 1 tablet (2 mg total) by mouth 1 (one) time each day in the morning 90 tablet 1 08/16/2024 Active atorvastatin (LIPITOR) 10 MG tablet Take 1 tablet (10 mg total) by mouth every night 90 tablet 1 08/16/2024 Active gabapentin (NEURONTIN) 300 MG capsule Take 1 capsule (300 mg total) by mouth in the morning and 1 capsule (300 mg total) at noon and 1 capsule (300 mg total) in the evening and 1 capsule (300 mg total) before bedtime. 120 capsule 1 08/29/2024 Active Encounters Date Type Department Care Team Description 08/29/2024 Refill [facility], [address] [address] Rachel Temple CMA 08/29/2024 Office Communication [facility], [address] [address] Giuseppe Lee DO 08/16/2024 1:45 PM TELEPHONE SALES REPRESENTATIVE Office Visit [facility], [facility] [address] [address] Giuseppe Lee DO Stage 3b chronic kidney disease (HCC) (Primary Dx); Persistent proteinuria; Peripheral vascular disease (HCC); Coronary artery disease due to calcified coronary lesion; Chronic myeloid leukemia (HCC); Mucopurulent chronic bronchitis (HCC); Type 2 diabetes mellitus with diabetic autonomic (poly)neuropathy (HCC); Hypertensive chronic kidney disease; Type 2 diabetes mellitus with diabetic chronic kidney disease (HCC); Pure hypercholesterolemia, not otherwise specified; Gastroesophageal reflux disease; Secondary hyperparathyroidism (HCC) 08/16/2024 Refill [facility], [facility] [address] [address] Rachel Temple CMA 08/12/2024 Documentation Only [facility], [address] [address] Giuseppe Lee DO 08/10/2024 Documentation Only [facility], [address] [address] Giuseppe Lee DO 08/10/2024 Documentation Only [facility], [address] [address] Giuseppe Lee DO from Last 3 Months Social History Tobacco Use Types Packs/Day Years [...] Sign Reading Time Taken Comments Blood Pressure 130/70 08/16/2024 1:33 PM TELEPHONE SALES REPRESENTATIVE Pulse 68 08/16/2024 1:33 PM TELEPHONE SALES REPRESENTATIVE Temperature 36.1 C (97 F) 08/16/2024 1:33 PM TELEPHONE SALES REPRESENTATIVE Respiratory Rate 18 08/16/2024 1:33 PM TELEPHONE SALES REPRESENTATIVE Oxygen Saturation 99% 08/16/2024 1:33 PM TELEPHONE SALES REPRESENTATIVE Inhaled Oxygen Concentration - - Weight 93.9 kg (207 lb) 08/16/2024 1:33 PM TELEPHONE SALES REPRESENTATIVE Height 170.2 cm (5' 7 ) 03/25/2022 12:57 PM CDT Body Mass Index 32.42 03/25/2022 12:57 PM CDT Plan of Treatment Upcoming Encounters Date Type Department Care Team (Late st Contact Info) Description 10/25/2024 1:45 PM CDT Office Visit [facility], [facility] [address] [facility] [address] [place] [address] Giuseppe Lee DO [address] [facility] [address] [place] [address] Health Maintenance Due Date Last Done Comments Breast Cancer Screening 1964 Pneumococcal Vaccine: Pediat rics (0 to 5 Years) and At-Risk Patients (6 to 64 Years) (1 of 2 - PCV) 1970 Colorectal Cancer Screening: Annual FOBT 2013 Colorectal Cancer Screening: Colonoscopy 2013 Colorectal Cancer Screening: Sigmoidoscopy 2013 Diabetes: Hemoglobin A1C 12/20/2020 Diabetes: Ophthalmology Exam 12/20/2020 Diabetes: Pedal Pulse Checked 12/20/2020 Diabetes: Sensory Foot Exam 12/20/2020 Diabetes: Visual Foot Exam 12/20/2020 Influenza Vaccine (#1) 2024 Hepatitis B Vaccine Aged Out No longe r eligible based on patient's age to complete this topic Insurance [facility] [place] [address] Care Teams Manager Image Relationship Specialty Start Date End Date Farhad Dolan MD [address] [place] [address] PCP - General Internal Medicine 10/28/22
--- OUTSIDE RECORDS SUMMARY | 2024-10-17 13:39 | XMS_ITS | Encounter Summary ---
Author Organization [facility] [employer] [facility] Address [address] [place] [address] Phone Care Team Providers Care Carding Doubler Name Role Phone Farhad Dolan MD Primary Care Provider [phone] Encounter Details Date Type Department Care Team (Late st Contact Info) Description 08/02/2021 Office Communication [place] [facility] [address] [facility] [address] [place] [address] Giuseppe Lee DO [address] [facility] 1 [place] [address] Social History Tobacco Use Types [...] on file documented as of this encounter Miscellaneous Notes * Telephone Encounter - Amina Rogers - 08/02/2021 10:38 AM CST Pt called an stated she needs diabetic mandy(one touch), insurance will no longer pay for the one she currently has. documented in this encounter Plan of Treatment Upcoming Encounters Date Type Department Care Team (Late st Contact Info) Description 10/25/2024 1:45 PM CDT Office Visit [place] [facility] [address] [facility] [address] [place] [address] Giuseppe Lee DO [address] [place] [address] documented as of this encounter Visit Diagnoses Not on filedocumented in this encounter Care Teams Carding Doubler Relationship Specialty Start Date End Date Farhad Dolan MD [address] [place] [address] PCP - General Internal Medicine 10/28/22 documented as of this encounter
--- OUTSIDE RECORDS SUMMARY | 2024-10-17 13:39 | XMS_ITS | Clinical Summary ---
Author Organization [facility] Address [address] [place] [address] Care Team Providers Care Clinic Specialist Name Role Phone [facility], External Provider Primary Care Provider Celia vailable Allergies Active Allergy Reactions Criticality Noted Date Comments Atropine Other (See Comments) 01/14/2022 Clopidogrel Blood Disorder High 11/15/2012 Diphenoxylate-Atropine Rash,Swelling Medium 05/06/2017 Dulaglutide Rash High 04/25/2020 Empagliflozin Other (See Comments),Rash High 020 Ezetimibe Muscle Pain High 02/25/2021 Medications carvedilol (COREG) 6.25 mg tablet Take 6.25 mg by mouth 2 times daily with meals. Active prasugrel (EFFIENT) 10 mg Tablet Take 10 mg by mouth daily. Active Cholecalciferol , Vitamin D3, 2,000 unit Capsule Take 2,000 Units by mouth daily . Active cyanocobalamin (VITAMIN B-12) 500 mcg tablet Take 1,000 mcg by mouth daily. Active bumetanide (BUMEX) 1 mg tablet 1 mg daily. 1 09/22/19 18 Active PROAIR HFA 90 mcg/actuation inhaler INL 2 PFS PO BID prn 2 03/28/20 18 Active metFORMIN (GLUCOPHAGE) 1,000 mg tablet TK 1 T PO BID. 1 02/09/20 19 Active gabapentin (NEURONTIN) 100 mg capsule Take 300 mg by mouth 3 times daily. 08/23/19 20 Active cholecalciferol , vitamin D3, (CHOLECALCIFERO L, VITD3,, BULK,) 100,000 unit/gram Powder Take 5,000 Units by mouth. Active vit B12/folic/B6 phos/B6/betn (COBALAMINE COMBINATIONS ORAL) Take 1,000 mcg by mouth. Active traMADoL (ULTRAM) 50 mg tabletIndicatio ns:CML in remission (CMS/HCC) TAKE 1 TABLET BY MOUTH EVERY 6 HOURS NEEDED FOR PAIN 90 Tablet 2 02/13/20 20 Active telmisartan (MICARDIS) 20 mg Tablet TK 1 T PO HS 02/21/20 20 Active nitroglycerin (NITROSTAT) 0.3 mg Tablet, Sublingual Place 0.3 mg under tongue. Active famotidine (PEPCID) 40 mg tablet TK 1 T PO D 01/03/20 20 Active ondansetron (ZOFRAN) 4 mg TabletIndicatio ns:CML in remission (CMS/HCC) TAKE 1 TABLET BY MOUTH EVERY 8 HOURS NEEDED FOR NAUSEA OR VOMITING 30 Tablet 01/26/20 21 Active alirocumab (Praluent Pen) 150 mg/mL Pen Injector Praluent Pen 150 mg/mL subcutaneous pen injector 08/16/19 22 Active glimepiride (AMARYL) 4 mg tablet glimepiride 4 mg tablet 02/12/20 22 Active icosapent ethyL (Vascepa) 1 gram Capsule Take by mouth. 01/11/20 21 Active rivaroxaban (Xarelto) 2.5 mg Tablet Xarelto 2.5 mg tablet 05/27/20 21 Active pregabalin (Lyrica) 75 mg Capsule Take 1 Capsule (75 mg) by mouth every 12 hours. 60 Capsule 09/01/19 23 Active bosutinib (Bosulif) 100 mg tabletIndicatio ns:CML (chronic myelocytic leukemia) (CMS/HCC) TAKE 3 TABLETS BY MOUTH EVERY DAY 90 Tablet 6 10/11/19 25 Active bosutinib (Bosulif) 100 mg tabletIndicatio ns:CML (chronic myelocytic leukemia) (CMS/HCC) Take 3 Tablets (300 mg) by mouth daily. 90 Tablet 09/13/19 25 2024 Discontinued nitrofurantoin (MACROBID) 100 mg capsule Take 1 Capsule (100 mg) by mouth 2 times daily for 7 days. 14 Capsule 10/06/19 25 2024 Active Problems Problem Noted Date Diagnosed Date COPD (chronic obstructive pulmonary disease) 03/2020 CML in remission 09/15/2016 Chronic renal insufficiency, stage III (moderate ) 09/15/2016 Type 2 diabetes mellitus without complication Atherosclerosis of nikolski co ronary artery without angina pectoris 09/15/2016 Encounters Date Type Department Care Team Description 10/10/2024 Refill [facility] Oncology and Hematology - [place] Jennifer [address] [place] [place] [id number] Zelalem Shah MD CML (chronic myelocytic leukemia) ([facility]) 10/05/2024 2:15 PM CDT Office Visit [facility] Oncology and Hematology - [place] [address] [place] [id number] Zelalem Shah MD CML (chronic myelocytic leukemia) ([facility]) (Primary Dx) 10/04/2024 Orders Only [facility] Oncology and Hematology - [place] [address] [place] [phone] Zelalem Shah MD 09/27/2024 Orders Only [facility] Oncology and Hematology - [place] [address] [place] [address] Zelalem Shah MD 09/14/2024 External Device Data STL ABSTRACTION Provider, Abstract 09/13/2024 Refill [facility] Oncology and Hematology [facility] [address] [place] [address] Zelalem Shah MD CML (chronic myelocytic leukemia) ([facility]) 08/24/2024 External Device Data STL ABSTRACTION Provider, Abstract 08/18/2024 External Device Data STL ABSTRACTION Provider, Abstract 08/16/2024 Refill [facility] Oncology and Hematology - [place] [address] [place] [address] Zelalem Shah MD CML (chronic myelocytic leukemia) ([facility]) 07/19/2024 Refill [facility] Oncology and Hematology - [place] [address] [place] [phone] Zelalem Shah MD CML (chronic myelocytic leukemia) (CMS/HCC) from Last 3 Months Family History Medical History Relation Name Comments Diabetes Father Heart Disease Father Relation Name Status Comments Brother Alive Father Mother Other Sister Alive Social History Tobacco Use Types Packs/Day Years Used Date Smoking Tobacco: Former Cigarettes 2 26 1 981 - 2006 Tobacco Cessation:Counseling Given: Not Answered Alcohol Use Standard Drinks/Week Comments No 0 (1 standard drink = 0.6 oz pur e alcohol) Comments No Sex and Gender Information Value Date Recorded Sex Assigned at Not on file Legal Sex Female 3:28 PM ACCOUNT EXECUTIVE Gender Identity Not on file Sexual Orientation Not on file Last Filed Vital Signs Vital Sign Reading Time Taken Comments Blood Pressure 130/73 10/05/2024 2:18 PM CDT Pulse 68 10/05/2024 2:18 PM CDT Temperature 36 C (96.8 F) 10/05/2024 2:18 PM CDT Respiratory Rate 16 10/05/2024 2:18 PM CDT Oxygen Saturation 95% 10/05/2024 2:18 PM CDT Inhaled Oxygen Concentration - - Weight 89.9 kg (198 lb 3.2 oz) 10/05/2024 2:18 P M CDT Height 170.2 cm (5' 7 ) 01/14/2022 1:30 PM CDT Body Mass Index 31.04 01/14/2022 1:30 PM CDT Plan of Treatment Upcoming Encounters Date Type Department Care Team (Late st Contact Info) Description 04/10/2025 2:45 PM CDT Office Visit [facility] Oncology and Hematology - [place] [address] [email or web address] [address] [place] [address] Zelalem Shah MD [address] [facility] [address] [place] [address] Health Maintenance Due Date Last Done Comments DIABETES ANNUAL FOOT EXAM 1982 DIABETES MICROALBUMIN ANNUAL SCREEN 1982 LDL CHOLESTEROL ANNUAL 1982 DTAP/TDAP/TD VACCINES (1 - Tdap) 1983 ZOSTER VACCINE (1 of 2) 1983 PAP SMEAR 1985 CERVICAL CANCER SCREENING 1994 HPV/Cotest 1994 PAP SMEAR 1994 BREAST CANCER SCREENING 2004 COLORECTAL SCREENING 2009 Colorectal Cancer Screening 2009 FIT-DNA Q 3 years 2009 FIT/FOBT Q 1 year 2009 Flex Sig/CT Colonography Q 5 years 2009 DIABETES ANNUAL RETINAL EXAM 12/31/2016 01/01/2016, 05/03/2015 DIABETES HBA1C Q 6 MONTHS 04/25/20212020, 09/18/2020, 03/27/2020, Additional history exists INFLUENZA VACCINE (#1) 2024 RSV VACCINE (60+ or ) (1 - Risk 60-74 years 1-dose series) 2024 Medicare [place] ([place]) Preventative Visit/Annual Wellness Visit 07/27/2024 HEPATITIS B VACCINES Aged Out No long er eligible based on patient's age to complete this topic Procedures Procedure Name Priority Date/Time Associated Diagnosis Comments COMPREHENSIVE METABOLIC PANEL Routine 09/26/2024 11:17 AM ACCOUNT EXECUTIVE BCR/ABL DIAGNOSTIC ASSAY W/REFLEX Routine 09/26/2024 10:17 AM ACCOUNT EXECUTIVE from Last 3 Months Results * COMPREHENSIVE METABOLIC PANEL (09/26/2024 11:17 AM ACCOUNT EXECUTIVE) Blood us Zelalem Shah MD CHEMISTRY ORDERABLES Final Resu lt * BCR/ABL DIAGNOSTIC ASSAY W/REFLEX (09/26/2024 10:17 AM ACCOUNT EXECUTIVE) us Zelalem Shah MD BODY FLUIDS AND STOOLS Final Re sult from Last [address] [place], [place] [address]O [facility] [id number] Care Teams Clinic Specialist Relationship Specialty Start Date End Date [facility], External Provider PCP - General 09/01/18
--- OUTSIDE RECORDS SUMMARY | 2024-10-17 13:39 | XMS_ITS | Encounter Summary ---
Author Organization [facility] , [facility] Address [address] [facility] [place] [address] Phone Care Team Providers Care Enrollment Management Director Name Role Phone Farhad Dolan MD Primary Care Provider [phone] Reason for Visit * Reason Comments Med Refill Encounter Details Date Type Department Care Team (Late st Contact Info) Description 02/22/2021 Refill [facility], [address] [place] [address] Giuseppe Lee DO [address] [facility] 1 [place] [address] Social History Tobacco Use Types [...] Description 10/25/2024 1:45 PM CDT Office Visit [facility], [facility] [address] [facility] [address] [place] [address] Giuseppe Lee DO [address] [facility] 1 [place] [address] documented as of this encounter Visit Diagnoses Not on filedocumented in this encounter Care Teams Enrollment Management Director Relationship Specialty Start Date End Date Farhad Dolan MD [address] [place] [address] PCP - General Internal Medicine 10/28/22 documented as of this encounter
--- OUTSIDE RECORDS SUMMARY | 2024-10-17 13:40 | XMS_ITS | CONTINUITY OF CARE DOCUMENT ---
Author Name mari guerra Address Unknown Organization [facility] Address [address] [place] [address] Phone [phone] Care Team Providers Care Warehouse Loader Name Role Phone Joseph Grace MD Unavailable [phone] WALI BAI Unavailable [phone] VIGNESH HERNANDES MD Unavailable [phone] PROBLEMS Condition Status Date Provider Notes Exposure to SARS-associated coronavirus active Amanda Cassius Anemia active Gary Montoya Cellulitis active Gary Montoya Constipation, opioid induced active Antonietand kuldeep Montoya Leg pain, bilateral active Gary Lerner rg Myocardial infarction active Joseph Grace MD SVT active Porsha Puente OBESITY active Ioana Arriaza DIABETES MELLITUS active Ioana Arriaza CAD - OCCL RCA S/P LAD/LCX STENTS 02/2019 active Gary Montoya CHEST PAIN completed - Joseph Grace MD Iron deficiency active Nieves Zimmer MD Tobacco use quit active Joseph Grace MD Chronic kidney disease stage 3 active Joseph Grace MD COPD active Nieves Zimmer MD Ventricular tachycardia, nonsustained active Nieves Zimmer MD Mitral regurgitation active Gary perez CHF active Gary Montoya Atherosclerosis of [place] arteries of the extremities with ulceration, right active Joseph Grace MD Cardiology examination active Joseph Forrest Atherosclerosis of [place] arteries of extremities with rest pain, bilateral legs active Joseph Grace MD Diabetes Mellitus, Type II, uncontrolled w/vascular complication active Linda Saeed Screening - equivocal IgM an d neg swab 01/2020 active Gary Montoya Dehydration completed - Gary Montoya Cardiomyopathy - 12/2018 CAT H EF 35-40% active Gary Montoya PVC's active Nieves Zimmer MD Carotid artery stenosis, <50 % ICA b/l active Nieves Zimmer MD Obstructive sleep apnea active Joseph Grace MD Venous insufficiency active Nieves Zimmer MD Hypercholesterolemia completed - Joseph Grace MD Hypertriglyceridemia active Gary Avalos erg Insomnia active Joseph Grace MD Anasarca active Nieves Zimmer MD CML, in remission active Cruz Peter MD SHORTNESS OF BREATH active Nieves Forrest PVD - B/L SFA STENTS 2019 active Gary Montoya PSEUDOANEURYSM-04/07 LOW EXT DOP NEG completed - Joseph Grace MD PALPITATIONS completed - Gary Montoya HTN - nml renal angio 12/2018 active Gely Dowling LEG PAIN completed - Joseph Grace MD Fatigue completed - Gary Montoya Hypercholesterolemia active Salena Tinoco Angina pectoris active Joseph Grace MD CAD-01/31 PTCA-STENT RCA MID & DIS completed - Joseph Grace MD last vision stent 09/2007 ENCOUNTERS Date Type Provider Location Encounter Diag nosis - In-person encounter Office Visit Joseph Grace MD [facility] Cardiology examination - In-person encounter Office Visit Joseph Grace MD [facility] - In-person encounter Office Visit Joseph Grace MD [facility] Atherosclerosis of [place] arteries of extremities with rest pain, bilateral legsAtherosclerosis of [place] arteries of the extremities with ulceration, right - In-person encounter Office Visit Joseph Grace MD [facility] - In-person encounter Office Visit Joseph Grace MD [facility] - In-person encounter Office Visit Joseph Grace MD [facility] - In-person encounter Office Visit Joseph Grace MD [facility] - In-person encounter Office Visit Joseph Grace MD [facility] - In-person encounter Office Visit Joseph Grace MD [facility] - In-person encounter Office Visit Joseph Grace MD [facility] - In-person encounter Office Visit Joseph Grace MD [facility] - In-person encounter Office Visit Joseph Grace MD [facility] - In-person encounter Office Visit Joseph Grace MD [facility] - In-person encounter Office Visit Joseph Grace MD [facility] Diabetes Mellitus, Type II, uncontrolled w/vascular complication - In-person encounter Office Visit Joseph Grace MD [facility] - In-person encounter Office Visit Joseph Grace MD [facility] Screening - equivocal IgM and neg swab 01/2020 - In-person encounter Office Visit Joseph Grace MD [facility] CHF - In-person encounter Office Visit Joseph Grace MD [facility] Screening - equivocal IgM and neg swab 01/2020 - In-person encounter Office Visit Joseph Grace MD [facility] HTN - nml renal angio 12/2018PALPITATIONSDehydration Screening - equivocal IgM and neg swab 01/2020 - In-person encounter Office Visit Joseph Grace MD [facility] FatigueLEG PAINCHEST PAIN - In-person encounter Office Visit Joseph Grace MD [facility] CAD - OCCL RCA S/P LAD/LCX STENTS 02/2019 - In-person encounter Office Visit Joseph Grace MD [facility] CAD - OCCL RCA S/P LAD/LCX STENTS 02/2019PVD - B/L SFA STENTS 2019Cardiomyopathy - 12/2018 CATH EF 35-40%Mitral regurgitation - In-person encounter Office Visit Joseph Grace MD [facility] PVD - B/L SFA STENTS 2019 - In-person encounter Office Visit Joseph Grace MD [facility] - In-person encounter Office Visit Joseph Grace MD [facility] Cardiomyopathy - 12/2018 CATH EF 35-40% - In-person encounter Office Visit Nieves Zimmer MD [facility] PVD - B/L SFA STENTS 2019SHORTNESS OF BREATHIron deficiencyAnasarcaVenous insufficiencyCarotid artery stenosis, <50% ICA b/lCOPDPVC'sVentricular tachycardia, nonsustained - In-person encounter Office Visit Joseph Grace MD [facility] Angina pectorisCAD - OCCL RCA S/P LAD/LCX STENTS 02/2019HTN - nml renal angio 12/2018PVD - B/L SFA STENTS 2018Chronic kidney disease stage 3HypertriglyceridemiaHyperchol esterolemiaVenous insufficiencyObstructive sleep apnea - In-person encounter Office Visit Cruz Peter MD [facility] - In-person encounter Office Visit Joseph Grace MD [facility] InsomniaChronic kidney disease stage 3 - In-person encounter Office Visit Cruz Peter MD [facility] - In-person encounter Office Visit Cruz Peetr MD [facility] - In-person encounter Office Visit Joseph Grace MD [facility] Angina pectorisFatigueCAD - OCCL RCA S/P LAD/LCX STENTS 02/2019HTN - nml renal angio 12/2018PSEUDOANEURYSM-04/07 LOW EXT DOP NEGTobacco use quit - In-person encounter Office Visit Cruz Peter MD [facility] Anasarca - In-person encounter Office Visit Cruz Peter MD [facility] CML, in remissionIron deficiency - In-person encounter Office Visit Joseph Grace MD [facility] - In-person encounter Office Visit Joseph Grace MD [facility] - In-person encounter Office Visit Joseph Grace MD [facility] - In-person encounter Office Visit Joseph Grace MD [facility] - In-person encounter Office Visit Joseph Grace MD [facility] - In-person encounter Office Visit Joseph Grace MD [facility] - In-person encounter Office Visit Joseph Grace MD [facility] - In-person encounter Office Visit Joseph Grace MD [facility] SHORTNESS OF BREATH - In-person encounter Office Visit Joseph Grace MD [facility] SHORTNESS OF BREATH - In-person encounter Office Visit Joseph Grace MD [facility] - In-person encounter Office Visit Josehp Grace MD [facility] - In-person encounter Office Visit Joseph Grace MD [facility] - In-person encounter Office Visit Joseph Grace MD [facility] - In-person encounter Office Visit Joseph Grace MD [facility] - In-person encounter Office Visit Joseph Grace MD [facility] - In-person encounter Office Visit Joseph Grace MD [facility] - In-person encounter Office Visit Joseph Grace MD [facility] - In-person encounter Office Visit Joseph Grace MD [facility] - In-person encounter Office Visit Joseph Grace MD [facility] CHEST PAIN - In-person encounter Office Visit Joseph Grace MD [facility] - In-person encounter Office Visit Joseph Grace MD [facility] PALPITATIONS - In-person encounter Office Visit Joseph Grace MD [facility] PALPITATIONS - In-person encounter Office Visit Joseph Grace MD [facility] - In-person encounter Office Visit Joseph Grace MD [facility] CHEST PAIN - In-person encounter Office Visit Joseph Grace MD [facility] - In-person encounter Office Visit Joseph Grace MD [facility] - In-person encounter Office Visit Joseph Grace MD [facility] - In-person encounter Office Visit Joseph Grace MD [facility] - In-person encounter Office Visit Joseph Grace MD [facility] LEG PAINCAD - OCCL RCA S/P LAD/LCX STENTS 02/2019 - In-person encounter Office Visit Joseph Grace MD [facility] LEG PAIN - In-person encounter Office Visit Joseph Grace MD [facility] Hypercholesterolemia - In-person encounter Office Visit Joseph Grace MD [facility] CAD-01/31 PTCA-STENT RCA MID & DIS VITAL SIGNS Date Observation Value Provider Body Mass Index (Ratio) 30.56 kg/m2 Franklin adriane Mick blood pressure, diastolic 82 mm[Hg] Milan [facility] blood pressure, systolic 134 mm[Hg] Corazon parry Ruiz blood pressure, cuff size regular [facility] oxygen saturation, oximetry 96 % [facility] pulse rate 76 /min [facility]&M 201.0 [lb_av] [facility] height E&M 68 [in_i] [facility] Body Mass Index (Ratio) 31.01 kg/m2 Franklin Saenzjostin blood pressure, cuff size regular rri Kirillmarrykalinacleveland emergency hospital blood pressure, diastolic 82 mm[Hg] rri [facility] blood pressure, systolic 124 mm[Hg] Michael ri Travis oxygen saturation, oximetry 97 % Dianne Travis respiratory rate E&M 12 /min Dianne G joanneenenfeldkuldeep pulse rate 54 /min Dianne Susan er weight E&M 204 [lb_av] Dianne Susan lder height E&M 68 [in_i] Dianne Susan [facility] Body Mass Index (Ratio) 31.14 kg/m2 Joseph Grace MD blood pressure, cuff size regular Baljit nobles Gormania blood pressure, diastolic 78 mm[Hg] Ta giuliano Gormania blood pressure, systolic 138 mm[Hg] Shaq montana Gormania oxygen saturation, oximetry 98 % Tonia Gormania pulse rate 74 /min Tonia Gormania weight E&M 204.8 [lb_av] Tonia Gormania respiratory rate E&M 12 /min Tonia Gormania height E&M 68 [in_i] Tonia Gormania Body Mass Index (Ratio) 31.17 kg/m2 Bud steven Hawkmispeedy [employer] pulse rate 74 /min Lauren Hector blood pressure, diastolic 70 mm[Hg] An unique Hector blood pressure, systolic 119 mm[Hg] Any mo Young oxygen saturation, oximetry 98 % Lauren Hector weight E&M 205 [lb_av] Lauren Hector blood pressure, cuff size large An unique Hector height E&M 68 [in_i] Lauren Hector Body Mass Index (Ratio) 31.93 kg/m2 Yusuf cuevas Nataliia blood pressure, diastolic 78 mm[Hg] Arlyn nkLogfarhan blood pressure, systolic 115 mm[Hg] Saba Laguerreogfarhan blood pressure, diastolic 78 mm[Hg] hilda Lugo blood pressure, systolic 115 mm[Hg] She meri Brittney weight E&M 210 [lb_av] Chel Brittney pulse rate 80 /min Chel Lugo respiratory rate E&M 20 /min Chel Lugo oxygen saturation, oximetry 98 % Chel Brittney blood pressure, cuff size regular Chasidy mascorrokurtis Lugo height E&M 68 [in_i] Chel Lugo Body Mass Index (Ratio) 31.93 kg/m2 oJseph Grace MD oxygen saturation, oximetry 98 % Lauren Hector pulse rate 82 /min Lauren Hector blood pressure, diastolic 66 mm[Hg] An unique Hector blood pressure, systolic 124 mm[Hg] Any mo Hector weight E&M 210 [lb_av] Lauren Hector blood pressure, cuff size large An unique Hector height E&M 68 [in_i] Lauren Hector Body Mass Index (Ratio) 32.54 kg/m2 Tonja ssa Puhse blood pressure, cuff size regular hilda Brittney blood pressure, diastolic 77 mm[Hg] Sh hilda Lugo blood pressure, systolic 159 mm[Hg] She meri Brittney temperature site 81 [facility] oxygen saturation, oximetry 98 % Chel Brittney weight E&M 214 [lb_av] Chel Lugo height E&M 68 [in_i] Chel Brittney Body Mass Index (Ratio) 32.84 kg/m2 Joseph Grace MD blood pressure, diastolic 71 mm[Hg] Shala Sanabria blood pressure, systolic 124 mm[Hg] [facility] nely Sanabria blood pressure, cuff size large Shala Sanabria oxygen saturation, oximetry 98 % Toña Sanabria respiratory rate E&M 16 /min Veronica Sanabria pulse rate 78 /min Toña forrest weight E&M 216 [lb_av] Toña forrest height E&M 68 [in_i] Toña forrest Body Mass Index (Ratio) 32.87 kg/m2 Kelli Saeed blood pressure, diastolic 75 mm[Hg] St mary Caban blood pressure, systolic 142 mm[Hg] Ewelina martel Arsh oxygen saturation, oximetry 97 % Bertha Arsh respiratory rate E&M 18 /min Bertha Adriane taylor pulse rate 75 /min Bertha Arsh blood pressure, cuff size regular St hernandez Arsh weight E&M 216.2 [lb_av] Bertha Arsh height E&M 68 [in_i] Bertha Arsh Body Mass Index (Ratio) 32.54 kg/m2 Kelli Blissmario blood pressure, cuff size large Shala george Daniele blood pressure, diastolic 64 mm[Hg] Shala george Sanabria blood pressure, systolic 118 mm[Hg] [facility] nely Daniele oxygen saturation, oximetry 97 % Toña Sanabria respiratory rate E&M 16 /min Veronica Sanabria pulse rate 81 /min Toña forrest weight E&M 214 [lb_av] Toña forrest height E&M 68 [in_i] Toña forrest blood pressure, diastolic 66 mm[Hg] Norma Chamorro blood pressure, systolic 138 mm[Hg] Maxx Chamorro oxygen saturation, oximetry 99 % Juwan Chamorro pulse rate 63 /min Juwan pace respiratory rate E&M 18 /min Margarita Chamorro Body Mass Index (Ratio) 32.69 kg/m2 Femi Chamorro weight in kilograms E&M 97.52 kg Femi Chamorro weight E&M 215 [lb_av] Juwan pace blood pressure, cuff size regular Norma Chamorro height E&M 68 [in_i] Juwan pace height in centimeters E&M 172.72 cm Norma Chamorro Body Mass Index (Ratio) 34.42 kg/m2 Kelli Blissmario blood pressure, diastolic 70 mm[Hg] Arlyn nkLogic blood pressure, systolic 118 mm[Hg] Saba kLogic blood pressure, diastolic 70 mm[Hg] Johny Busch blood pressure, systolic 118 mm[Hg] Laura Busch oxygen saturation, oximetry 98 % Sidra Busch respiratory rate E&M 16 /min Faviola Busch pulse rate 80 /min Sidra becerra weight E&M 226.4 [lb_av] Sidra hua height E&M 68 [in_i] Sidra Salcido anyaiman Body Mass Index (Ratio) 33.60 kg/m2 Kelli boone Darlin blood pressure, cuff size large Ke rri Kirillnevalarie blood pressure, diastolic 60 mm[Hg] Ke rri Chanceuenenfleser blood pressure, systolic 112 mm[Hg] Michael ri Travis oxygen saturation, oximetry 96 % Dianne Travis respiratory rate E&M 16 /min Dianne lord pulse rate 68 /min Dianne Gruenenfe lder weight E&M 221 [lb_av] Dianne Gruenenfe lder height E&M 68 [in_i] Dianne Gruenenfe lder Body Mass Index (Ratio) 33.60 kg/m2 Michael Montoya blood pressure, cuff size regular Cy grzegorz Guallpa blood pressure, diastolic 70 mm[Hg] Cy grzegorz Guallpa blood pressure, systolic 134 mm[Hg] Denise thia Guallpa pulse rate 72 /min Wanda enriquez oxygen saturation, oximetry 98 % Wanda Guallpa respiratory rate E&M 16 /min Wanda Guallpa weight E&M 221 [lb_av] Wanda Ramirez l height E&M 68 [in_i] Wanda Ramirez l Body Mass Index (Ratio) 32.84 kg/m2 Michael amalia Lindsay pulse rate 74 /min Gary Malvernresmio [facility] blood pressure, diastolic 71 mm[Hg] [facility], systolic 122 mm[Hg] [facility]per [facility] weight E&M 216 [lb_av] Gary [facility] height E&M 68 [in_i] [facility] Body Mass Index (Ratio) 32.54 kg/m2 Michael [facility] blood pressure, diastolic 95 mm[Hg] Al claytonMedStar [facility] blood pressure, systolic 180 mm[Hg] Piper adityaUC [facility] E&M 214 [lb_av] Gary [facility] height E&M 68 [in_i] Gary [facility] blood pressure, diastolic 65 mm[Hg] Al claytonMedStar [facility] blood pressure, systolic 110 mm[Hg] Piper adityaUC [facility] height E&M 68 [in_i] Gary [facility] Body Mass Index (Ratio) 32.23 kg/m2 Michael varnerer Lindsay blood pressure, diastolic 76 mm[Hg] Cy grzegorz Guallpa blood pressure, systolic 117 mm[Hg] Denise jose Guallpa blood pressure, cuff size regular Cy grzegorz Guallpa pulse rate 75 /min Wanda Ramirez zoe respiratory rate E&M 16 /min Wanda Guallpa oxygen saturation, oximetry 96 % Wanda Guallpa weight E&M 212 [lb_av] Wanda enriquez height E&M 68 [in_i] Wanda enriquez Body Mass Index (Ratio) 33.45 kg/m2 Michael [facility] blood pressure, diastolic 93 mm[Hg] Cy grzegorz Guallpa blood pressure, systolic 157 mm[Hg] Denise Guallpa pulse rate 87 /min Wanda enriquez oxygen saturation, oximetry 97 % Wanda Guallpa respiratory rate E&M 16 /min Wanda Guallpa weight E&M 220 [lb_av] Wanda enriquez blood pressure, cuff size regular Cy grzegorz Guallpa height E&M 68 [in_i] Wanda enriquez Body Mass Index (Ratio) 32.69 kg/m2 [facility] respiratory rate E&M 18 /min [facility] blood pressure, diastolic 84 mm[Hg] To [facility] blood pressure, systolic 134 mm[Hg] [facility] oxygen saturation, oximetry 99 % [facility] pulse rate 77 /min [facility] weight E&M 215 [lb_av] [facility] height E&M 68 [in_i] [facility] Body Mass Index (Ratio) 33.45 kg/m2 [facility] blood pressure, diastolic, left arm 70 mm [Hg] [facility] blood pressure, systolic, left arm 114 mm [Hg] [facility] blood pressure, diastolic, right arm 70 m m[Hg] [facility] blood pressure, systolic, right arm 118 m m[Hg] [facility] blood pressure, diastolic 70 mm[Hg] Reuben hunt [facility] blood pressure, systolic 114 mm[Hg] Piper burgess [facility] oxygen saturation, oximetry 96 % Gary Venegasberg respiratory rate E&M 16 /min Eliza light Lindsay pulse rate 75 /min Gary Venegasb erg weight E&M 220 [lb_av] Gary Venegasb erg height E&M 68 [in_i] Wanda Stewartbel l Body Mass Index (Ratio) 33.90 kg/m2 Michael Montoya blood pressure, cuff size large Cr dequan Hector blood pressure, diastolic 70 mm[Hg] Cr dequan Hector blood pressure, systolic 130 mm[Hg] Cry stazoe Young oxygen saturation, oximetry 98 % China Young respiratory rate E&M 17 /min China Young pulse rate 93 /min China hernandez weight E&M 223 [lb_av] China hernandez height E&M 68 [in_i] China Lee s Body Mass Index (Ratio) 34.82 kg/m2 Michael Montoya blood pressure, cuff size regular Cy grzegorz Guallpa blood pressure, diastolic 68 mm[Hg] Cy grzegorz Guallpa blood pressure, systolic 118 mm[Hg] Denise jose Guallpa oxygen saturation, oximetry 96 % Wandajose Guallpa respiratory rate E&M 16 /min Wanda Guallpa pulse rate 92 /min Wanda Terrybel l weight E&M 229 [lb_av] Wanda Campbel l height E&M 68 [in_i] Wanda Campbel l Body Mass Index (Ratio) 34.33 kg/m2 Michael Montoya blood pressure, diastolic 81 mm[Hg] Johny Busch blood pressure, systolic 127 mm[Hg] Laura Busch oxygen saturation, oximetry 98 % Sidra Busch respiratory rate E&M 18 /min Faviola Busch pulse rate 77 /min Sidra becerra weight E&M 225.8 [lb_av] Sidra hua height E&M 68 [in_i] Sidra becerra Body Mass Index (Ratio) 32.72 kg/m2 Michael Montoya blood pressure, diastolic 74 mm[Hg] Johny Busch blood pressure, systolic 124 mm[Hg] Laura Busch oxygen saturation, oximetry 98 % Sidra Busch respiratory rate E&M 18 /min Faviola Busch pulse rate 67 /min Sidra becerra weight E&M 215.2 [lb_av] Sidra hua height E&M 68 [in_i] Sidra becerra Body Mass Index (Ratio) 35.12 kg/m2 Michael Montoya blood pressure, cuff size regular Norma adkins Mohsen blood pressure, diastolic 80 mm[Hg] Norma adkins Mohsen blood pressure, systolic 110 mm[Hg] Robert Connolly oxygen saturation, oximetry 95 % Sowmya Connolly respiratory rate E&M 16 /min Sowmya Connolly pulse rate 69 /min Sowmya Connolly weight E&M 231 [lb_av] Sowmyamo Connolly height E&M 68 [in_i] Sowmyamo Connolly Body Mass Index (Ratio) 35.27 kg/m2 Michael Montoya blood pressure, resting Yes Joseph Grace MD blood pressure, cuff size large Ke rri Travis blood pressure, diastolic 68 mm[Hg] Ke rri Travis blood pressure, systolic 126 mm[Hg] Michael Robles oxygen saturation, oximetry 95 % Dianne Robles respiratory rate E&M 16 /min Dianne ambrociocleveland emergency [facility] pulse rate 88 /min Dianne Davis er weight E&M 232 [lb_av] Dianne Davis er height E&M 68 [in_i] Dianne Davis [facility] blood pressure, diastolic 70 mm[Hg] Ish Downeyclevel[facility] blood pressure, systolic 140 mm[Hg] Michael ri Nasreencleveland emergency hospital pulse rate 77 /min Dianne Davis [facility] oxygen saturation, oximetry 95 % Dianne Downeycleveland emergency [facility] respiratory rate E&M 16 /min Dianne Ceballos joannetrinicleveland emergency hospital Body Mass Index (Ratio) 34.06 kg/m2 Villanueva jeremie Chanceesperanzacleveland emergency hospital weight E&M 224 [lb_av] Dianne Davis er blood pressure, diastolic 70 mm[Hg] Johny Cutaereymundo Busch blood pressure, systolic 120 mm[Hg] Laura Busch pulse rate 70 /min Sidra becerra oxygen saturation, oximetry 92 % Sidra Busch respiratory rate E&M 16 /min Faviola Busch Body Mass Index (Ratio) 34.09 kg/m2 Jaquelin Busch weight E&M 224.2 [lb_av] Sidra hua blood pressure, diastolic 80 mm[Hg] [place] fatimah Santana blood pressure, systolic 132 mm[Hg] Padmini elidia Santana pulse rate 70 /min Stella Santana oxygen saturation, oximetry 98 % Stella Santana respiratory rate E&M 16 /min Stella Santana Body Mass Index (Ratio) 34.30 kg/m2 Tonja maribel Santana weight E&M 225.6 [lb_av] Stella Santana blood pressure, diastolic 73 mm[Hg] Johny Busch blood pressure, systolic 128 mm[Hg] Laura Busch pulse rate 68 /min Sidra becerra oxygen saturation, oximetry 94 % Sidra Busch respiratory rate E&M 16 /min Faviola Busch Body Mass Index (Ratio) 35.45 kg/m2 Jaquelin Busch weight E&M 233.2 [lb_av] Sidra hua blood pressure, diastolic 74 mm[Hg] Johny Busch blood pressure, systolic 125 mm[Hg] Laura Busch pulse rate 67 /min Sidra becerra oxygen saturation, oximetry 97 % Sidra Busch respiratory rate E&M 16 /min Faviola Busch Body Mass Index (Ratio) 35.00 kg/m2 Jaquelin Busch weight E&M 230.2 [lb_av] Sidra olmoson blood pressure, diastolic 64 mm[Hg] Ke rose Robles blood pressure, systolic 126 mm[Hg] Michael Robles pulse rate 68 /min Dianne petersoner oxygen saturation, oximetry 95 % Dianne Robles respiratory rate E&M 16 /min Dianne lord Body Mass Index (Ratio) 35.12 kg/m2 Villanueva jeremie Robles weight E&M 231 [lb_av] Dianne Davis lder blood pressure, diastolic 93 mm[Hg] Johny Busch blood pressure, systolic 167 mm[Hg] Laura Busch pulse rate 76 /min Sidra Salcido anyaon oxygen saturation, oximetry 98 % Sidra Busch respiratory rate E&M 16 /min Faviola Busch Body Mass Index (Ratio) 32.66 kg/m2 Jaquelin Busch weight E&M 214.8 [lb_av] Sidra hua blood pressure, diastolic 82 mm[Hg] Johny Busch blood pressure, systolic 144 mm[Hg] Laura Busch Body Mass Index (Ratio) 33.99 kg/m2 Jaquelin Busch pulse rate 63 /min Sidra becerra oxygen saturation, oximetry 95 % Sidra Busch respiratory rate E&M 16 /min Faviola Busch weight E&M 223.6 [lb_av] Sidra hua blood pressure, diastolic, left arm 77 mm [Hg] Stella Villagomez blood pressure, systolic, left arm 115 mm [Hg] Stella Villagomez blood pressure, diastolic, right arm 58 m m[Hg] Stella Villagomez blood pressure, systolic, right arm 104 m m[Hg] Stella Villagomez blood pressure, diastolic 77 mm[Hg] Mn fatimah blood pressure, systolic 115 mm[Hg] Padmini elidia Villagomez Body Mass Index (Ratio) 36.03 kg/m2 Tonja maribel pulse rate 85 /min Stella Villagomez oxygen saturation, oximetry 96 % Stella Villagomez respiratory rate E&M 15 /min Stella Villagomez weight E&M 237 [lb_av] Stella Villagomez blood pressure, diastolic, left arm 64 mm [Hg] Stella Villagomez blood pressure, systolic, left arm 125 mm [Hg] Stella Villagomez blood pressure, diastolic, right arm 67 m m[Hg] Stella Villagomez blood pressure, systolic, right arm 139 m m[Hg] Stella Villagomez Body Mass Index (Ratio) 35.12 kg/m2 Tonja ssa Villagomez blood pressure, diastolic 64 mm[Hg] Me fatimah Villagomez blood pressure, systolic 125 mm[Hg] Padmini elidia Villagomez pulse rate 84 /min Stella Villagomez oxygen saturation, oximetry 96 % Stella Villagomez respiratory rate E&M 15 /min Stella Villagomez weight E&M 231 [lb_av] Stella Villagomez Body Mass Index (Ratio) 33.60 kg/m2 Anea romy [facility] blood pressure, diastolic, left arm 76 mm [Hg] Aneatris [facility] blood pressure, systolic, left arm 136 mm [Hg] Aneatris [facility] blood pressure, diastolic, right arm 76 m m[Hg] [facility] 140 m m[Hg] Aneatris [facility] blood pressure, diastolic 76 mm[Hg] An eatris [facility] blood pressure, systolic 140 mm[Hg] Ane atris [facility] pulse rate 82 /min [facility], [facility] /min Aneatri s [facility] weight E&M 221 [lb_av] [facility], [facility], left arm 86 mm [Hg] Stella Villagomez blood pressure, systolic, left arm 145 mm [Hg] Stella Villagomez blood pressure, diastolic, right arm 84 m m[Hg] Stella Villagomez blood pressure, systolic, right arm 153 m m[Hg] Stella Villagomez Body Mass Index (Ratio) 33.75 kg/m2 Tonja ssa Villagomez blood pressure, diastolic 86 mm[Hg] Me fatimah Villagomez blood pressure, systolic 145 mm[Hg] Padmini elidia Villagomez pulse rate 88 /min Stella Villagomez oxygen saturation, oximetry 98 % Stella Villagomez respiratory rate E&M 17 /min Stella Villagomez weight E&M 222 [lb_av] Stella Villagomez pulse rate 98 /min Johnson Villatoro RN oxygen saturation, oximetry 98 % Johnson Villatoro RN Body Mass Index (Ratio) 31.59 kg/m2 Johnson Villatoro RN weight E&M 207 [lb_av] Johnson Villatoro RN blood pressure, diastolic 84 mm[Hg] Shalini Grace MD blood pressure, systolic 150 mm[Hg] Joseph Grace MD respiratory rate E&M 16 /min Joseph vanessa MD Body Mass Index (Ratio) 32.08 kg/m2 Alpesh Love blood pressure, diastolic, left arm 70 mm [Hg] Karin Love blood pressure, systolic, left arm 126 mm [Hg] Karin Love blood pressure, diastolic, right arm 62 m m[Hg] Karin Love blood pressure, systolic, right arm 128 m m[Hg] Karin Love blood pressure, diastolic 70 mm[Hg] Morales blood pressure, systolic 126 mm[Hg] Sebastian Love pulse rate 75 /min Karin Love oxygen saturation, oximetry 98 % Karin Love respiratory rate E&M 16 /min Karin Love weight E&M 210.25 [lb_av] Karin Persaud an blood pressure, diastolic, left arm 97 mm [Hg] Johnson Villatoro RN blood pressure, systolic, left arm 156 mm [Hg] Johnson Villatoro RN blood pressure, diastolic, right arm 85 m m[Hg] Johnson Villatoro RN blood pressure, systolic, right arm 149 m m[Hg] Johnson Villatoro RN blood pressure, diastolic 97 mm[Hg] Segundo Villatoro RN blood pressure, systolic 156 mm[Hg] Johnson Villatoro RN pulse rate 89 /min Johnson Villatoro RN oxygen saturation, oximetry 98 % Johnson Villatoro RN respiratory rate E&M 16 /min Johnson mattson RN weight E&M 203 [lb_av] Johnson Villatoro RN Body Mass Index (Ratio) 30.67 kg/m2 Damir moore [place] blood pressure, diastolic, left arm 88 mm [Hg] Nader [place] blood pressure, systolic, left arm 152 mm [Hg] Nader [place] blood pressure, diastolic, right arm 90 m m[Hg] Nader [place] blood pressure, systolic, right arm 160 m m[Hg] Nader [place] blood pressure, diastolic 90 mm[Hg] Sherice mo [place] blood pressure, systolic 160 mm[Hg] Aman weston [place] pulse rate 88 /min Nader [place] oxygen saturation, oximetry 98 % Nader [place] respiratory rate E&M 16 /min Nader [place] weight E&M 201 [lb_av] Nader [place] blood pressure, diastolic, left arm 96 mm [Hg] Johnson Villatoro RN blood pressure, systolic, left arm 158 mm [Hg] Johnson Villatoro RN blood pressure, diastolic, right arm 90 m m[Hg] Johnson Villatoro RN blood pressure, systolic, right arm 170 m m[Hg] Johnson Villatoro RN blood pressure, diastolic 96 mm[Hg] Segundo Villatoro RN blood pressure, systolic 158 mm[Hg] Johnson Villatoro RN pulse rate 83 /min Johnson Villatoro RN oxygen saturation, oximetry 98 % Johnson Villatoro RN respiratory rate E&M 17 /min Johnson mattson RN Body Mass Index (Ratio) 31.13 kg/m2 Johnson Villatoro RN weight E&M 204 [lb_av] Johnson Xiongs RN height E&M 68 [in_i] Johnson Xiongs RN blood pressure, diastolic, left arm 85 mm [Hg] Johnson Xiongs RN blood pressure, systolic, left arm 151 mm [Hg] Johnson Xiongs RN blood pressure, diastolic, right arm 95 m m[Hg] Johnson Villatoro RN blood pressure, systolic, right arm 161 m m[Hg] Johnson Villatoro RN blood pressure, diastolic 85 mm[Hg] Segundo Villatoro RN blood pressure, systolic 157 mm[Hg] Johnson Villatoro RN pulse rate 73 /min Johnson Villatoro RN oxygen saturation, oximetry 95 % Johnson Xiongs RN respiratory rate E&M 17 /min Johnson mattson RN weight E&M 200 [lb_av] Johnson Xiongs RN height E&M 6869 [in_i] Johnson Xiongs RN blood pressure, diastolic, left arm 89 mm [Hg] Johnson Xiongs RN blood pressure, systolic, left arm 146 mm [Hg] Johnson Xiongs RN blood pressure, diastolic, right arm 94 m m[Hg] Johnson Xiongs RN blood pressure, systolic, right arm 157 m m[Hg] Johnson Xiongs RN blood pressure, diastolic 89 mm[Hg] Segundo Villatoro RN blood pressure, systolic 146 mm[Hg] Johnson Villatoro RN pulse rate 68 /min Johnson Villatoro RN oxygen saturation, oximetry 97 % Johnson Villatoro RN respiratory rate E&M 17 /min Johnson Hensley rks RN weight E&M 198 [lb_av] Johnson Villatoro RN Body Mass Index (Ratio) 29.51 kg/m2 Alpesh Love blood pressure, diastolic, left arm 86 mm [Hg] Karin Love blood pressure, systolic, left arm 153 mm [Hg] Karin Love blood pressure, diastolic, right arm 90 m m[Hg] Sebastiankylah Love blood pressure, systolic, right arm 137 m m[Hg] Karin Love blood pressure, diastolic 86 mm[Hg] Femi ganga Love blood pressure, systolic 153 mm[Hg] Sebastian hanna Love pulse rate 74 /min [facility] saturation, oximetry 98 % [facility] respiratory rate E&M 16 /min [facility] weight E&M 199.13 [lb_av] Sebastiankylah De Andar an pulse rate #2 69 Seth McPherso n blood pressure, pnealoza tolic, second observation 65 mm[Hg] Seth Casillas blood pressure, syst olic, second observation 106 mm[Hg] Seth Casillas oxygen saturation, oximetry 96 % Seth Casillas pulse rate 77 /min Seth Casillas blood pressure, diastolic 69 mm[Hg] Ra ndy Casillas blood pressure, systolic 133 mm[Hg] Ran dy Casillas pulse rate #2 73 Seth McPherso n blood pressure, penaloza tolic, second observation 68 mm[Hg] Seth Casillas blood pressure, syst olic, second observation 116 mm[Hg] Seth Casillas oxygen saturation, oximetry 96 % Seth Casillas pulse rate 74 /min Seth Casillas blood pressure, diastolic 68 mm[Hg] Ra ndy Casillas blood pressure, systolic 107 mm[Hg] Ran dy Casillas pulse rate #2 74 Seth McPherso n blood pressure, penaloza tolic, second observation 67 mm[Hg] Seth Casillas blood pressure, syst olic, second observation 119 mm[Hg] Seth Casillas oxygen saturation, oximetry 96 % Seth Casillas pulse rate 83 /min Seth Casillas blood pressure, diastolic 81 mm[Hg] Ra ndy Casillas blood pressure, systolic 129 mm[Hg] Ran dy Casillas pulse rate #2 73 Seth McPherso n blood pressure, penaloza tolic, second observation 68 mm[Hg] Seth Casillas blood pressure, syst olic, second observation 122 mm[Hg] Seth Casillas oxygen saturation, oximetry 96 % Seth Casillas pulse rate 80 /min Seth Casillas blood pressure, diastolic 74 mm[Hg] Ra paolay Casillas blood pressure, systolic 136 mm[Hg] Ran dy Casillas pulse rate #2 73 Seth McPherso n blood pressure, penaloza tolic, second observation 73 mm[Hg] Seth Casillas blood pressure, syst olic, second observation 128 mm[Hg] Seth Casillas oxygen saturation, oximetry 96 % Seth Casillas pulse rate 78 /min Seth Casillas blood pressure, diastolic 81 mm[Hg] Ra paolay Casillas blood pressure, systolic 144 mm[Hg] Ran dy Casillas pulse rate #2 71 Seth McPherso n blood pressure, penaloza tolic, second observation 71 mm[Hg] Seth Casillas blood pressure, syst olic, second observation 117 mm[Hg] Seth Casillas oxygen saturation, oximetry 96 % Seth Casillas pulse rate 75 /min Seth Casillas blood pressure, diastolic 81 mm[Hg] Ra paolay Casillas blood pressure, systolic 135 mm[Hg] Ran dy Casillas pulse rate #2 71 Seth McPherso n blood pressure, penaloza tolic, second observation 73 mm[Hg] Seth Casillas blood pressure, syst olic, second observation 125 mm[Hg] Seth Casillas oxygen saturation, oximetry 96 % Seth Casillas pulse rate 77 /min Seth Casillas blood pressure, diastolic 54 mm[Hg] Ra ndy Casillas blood pressure, systolic 117 mm[Hg] Ran dy Casillas pulse rate #2 78 Seth McPherso n blood pressure, penaloza tolic, second observation 72 mm[Hg] Seth Casillas blood pressure, syst olic, second observation 110 mm[Hg] Seth Casillas oxygen saturation, oximetry 96 % Seth Casillas pulse rate 86 /min Seth Casillas blood pressure, diastolic 72 mm[Hg] Ra paolay Casillas blood pressure, systolic 115 mm[Hg] Ran dy Casillas pulse rate #2 75 Seth McPherso n blood pressure, penaloza tolic, second observation 70 mm[Hg] Seth Casillas blood pressure, syst olic, second observation 117 mm[Hg] Seth Casillas oxygen saturation, oximetry 96 % Seth Casillas pulse rate 76 /min Seth Casillas blood pressure, diastolic 77 mm[Hg] Ra paolay Casillas blood pressure, systolic 139 mm[Hg] Ran dy Casillas pulse rate #2 73 Seth McPherso n blood pressure, penaloza tolic, second observation 61 mm[Hg] Seth Casillas blood pressure, syst olic, second observation 100 mm[Hg] Seth Casillas oxygen saturation, oximetry 96 % Seth Casillas pulse rate 80 /min Seth Casillas blood pressure, diastolic 71 mm[Hg] Ra paolay Casillas blood pressure, systolic 116 mm[Hg] Ran dy Casillas pulse rate #2 76 Seth McPherso n blood pressure, penaloza tolic, second observation 70 mm[Hg] Seth Casillas blood pressure, syst olic, second observation 127 mm[Hg] Seth Casillas oxygen saturation, oximetry 96 % Seth Casillas pulse rate 78 /min Seth Casillas blood pressure, diastolic 73 mm[Hg] Ra ndy Casillas blood pressure, systolic 131 mm[Hg] Ran dy aCsillas pulse rate #2 73 Seth McPherso n blood pressure, penaloza tolic, second observation 66 mm[Hg] Seth Casillas blood pressure, syst olic, second observation 116 mm[Hg] Seth Casillas oxygen saturation, oximetry 96 % Seth Casillas pulse rate 81 /min Seth Casillas blood pressure, diastolic 74 mm[Hg] Ra ndy Casillas blood pressure, systolic 115 mm[Hg] Ran dy Casillas pulse rate #2 72 Seth McPherso n blood pressure, penaloza tolic, second observation 73 mm[Hg] Seth Casillas blood pressure, syst olic, second observation 126 mm[Hg] Seth Casillas oxygen saturation, oximetry 96 % Seth Casillas pulse rate 79 /min Seth Casillas blood pressure, diastolic 77 mm[Hg] Ra ndy Casillas blood pressure, systolic 131 mm[Hg] Ran dy Casillas pulse rate #2 71 Seth McPherso n blood pressure, penaloza tolic, second observation 77 mm[Hg] Seth Casillas blood pressure, syst olic, second observation 131 mm[Hg] Seth Casillas oxygen saturation, oximetry 96 % Seth Casillas pulse rate 78 /min Seth Casillas blood pressure, diastolic 70 mm[Hg] Ra ndy Casillas blood pressure, systolic 126 mm[Hg] Ran dy Casillas pulse rate #2 72 Seth McPherso n blood pressure, penaloza tolic, second observation 65 mm[Hg] Seth Casillas blood pressure, syst olic, second observation 112 mm[Hg] Seth Casillas oxygen saturation, oximetry 96 % Seth Casillas pulse rate 80 /min Seth Casillas blood pressure, diastolic 71 mm[Hg] Ra ndy Casillas blood pressure, systolic 121 mm[Hg] Ran dy Casillas pulse rate #2 73 Seth McPherso n blood pressure, penaloza tolic, second observation 70 mm[Hg] Seth Casillas blood pressure, syst olic, second observation 109 mm[Hg] Seth Casillas oxygen saturation, oximetry 96 % Seth Casillas pulse rate 79 /min Seth Casillas blood pressure, diastolic 67 mm[Hg] Ra ndy Casillas blood pressure, systolic 117 mm[Hg] Ran dy Casillas pulse rate #2 73 Seth McPherso n blood pressure, penaloza tolic, second observation 62 mm[Hg] Seth Casillas blood pressure, syst olic, second observation 108 mm[Hg] Seth Casillas oxygen saturation, oximetry 96 % Seth Casillas pulse rate 83 /min Seth Casillas blood pressure, diastolic 83 mm[Hg] Ra ndy Casillas blood pressure, systolic 129 mm[Hg] Ran dy Casillas pulse rate #2 70 Seth McPherso n blood pressure, penaloza tolic, second observation 71 mm[Hg] Seth Casillas blood pressure, syst olic, second observation 112 mm[Hg] Seth Casillas oxygen saturation, oximetry 96 % Seth Casillas pulse rate 76 /min Seth Casillas blood pressure, diastolic 67 mm[Hg] Ra ndy Casillas blood pressure, systolic 135 mm[Hg] Ran dy Casillas pulse rate #2 74 Seth McPherso n blood pressure, penaloza tolic, second observation 73 mm[Hg] Seth Casillas blood pressure, syst olic, second observation 110 mm[Hg] Seth Casillas oxygen saturation, oximetry 96 % Seth Casillas pulse rate 76 /min Seth Casillas blood pressure, diastolic 69 mm[Hg] Ra ndy Casillas blood pressure, systolic 139 mm[Hg] Ran dy Casillas pulse rate #2 70 Seth McPherso n blood pressure, penaloza tolic, second observation 67 mm[Hg] Seth Casillas blood pressure, syst olic, second observation 133 mm[Hg] Seth Casillas oxygen saturation, oximetry 96 % Seth Casillas pulse rate 81 /min Seth Casillas blood pressure, diastolic 64 mm[Hg] Ra ndy Casillas blood pressure, systolic 127 mm[Hg] Ran dy Casillas pulse rate #2 73 Seth McPherso n blood pressure, penaloza tolic, second observation 69 mm[Hg] Seth Casillas blood pressure, syst olic, second observation 115 mm[Hg] Seth Casillas oxygen saturation, oximetry 96 % Seth Casillas pulse rate 76 /min Seth Casillas blood pressure, diastolic 70 mm[Hg] Ra ndy Casillas blood pressure, systolic 132 mm[Hg] Ran dy Casillas pulse rate #2 75 Seth McPherso n blood pressure, penaloza tolic, second observation 73 mm[Hg] Seth Casillas blood pressure, syst olic, second observation 113 mm[Hg] Seth Casillas oxygen saturation, oximetry 96 % Seth Casillas pulse rate 84 /min Seth Casillas blood pressure, diastolic 80 mm[Hg] Ra ndy Casillas blood pressure, systolic 119 mm[Hg] Ran dy Casillas pulse rate #2 70 Seth McPherso n blood pressure, penaloza tolic, second observation 72 mm[Hg] Seth Casillas blood pressure, syst olic, second observation 112 mm[Hg] Seth Casillas oxygen saturation, oximetry 96 % Seth Casillas pulse rate 85 /min Seth Casillas blood pressure, diastolic 83 mm[Hg] Ra ndy Casillas blood pressure, systolic 135 mm[Hg] Ran dy Casillas pulse rate #2 67 Seth McPherso n blood pressure, penaloza tolic, second observation 67 mm[Hg] Seth Casillas blood pressure, syst olic, second observation 114 mm[Hg] Seth Casillas oxygen saturation, oximetry 96 % Seth Casillas pulse rate 73 /min Seth Casillas blood pressure, diastolic 76 mm[Hg] Ra ndy Casillas blood pressure, systolic 123 mm[Hg] Ran dy Casillas pulse rate #2 70 Seth McPherso n blood pressure, penaloza tolic, second observation 73 mm[Hg] Seth Casillas blood pressure, syst olic, second observation 115 mm[Hg] Seth Casillas oxygen saturation, oximetry 96 % Seth Casillas pulse rate 77 /min Seth Casillas blood pressure, diastolic 70 mm[Hg] Ra ndy Casillas blood pressure, systolic 121 mm[Hg] Ran dy Casillas pulse rate #2 70 Seth McPherso n blood pressure, penaloza tolic, second observation 70 mm[Hg] Seth Casillas blood pressure, syst olic, second observation 112 mm[Hg] Seth Casillas oxygen saturation, oximetry 96 % Seth Casillas pulse rate 79 /min Seth Casillas blood pressure, diastolic 70 mm[Hg] Ra ndy Casillas blood pressure, systolic 115 mm[Hg] Ran dy Casillas pulse rate #2 71 Seth McPherso n blood pressure, penaloza tolic, second observation 65 mm[Hg] Seth Casillas blood pressure, syst olic, second observation 110 mm[Hg] Seth Casillas oxygen saturation, oximetry 96 % Seth Casillas pulse rate 83 /min Seth Casillas blood pressure, diastolic 79 mm[Hg] Ra ndy Casillas blood pressure, systolic 131 mm[Hg] Ran dy Casillas pulse rate #2 72 Seth McPherso n blood pressure, penaloza tolic, second observation 74 mm[Hg] Seth Casillas blood pressure, syst olic, second observation 129 mm[Hg] Seth Casillas oxygen saturation, oximetry 96 % Seth Casillas pulse rate 80 /min Seth Casillas blood pressure, diastolic 64 mm[Hg] Ra ndy Casillas blood pressure, systolic 116 mm[Hg] Ran dy Casillas pulse rate #2 78 Seth McPherso n blood pressure, penaloza tolic, second observation 61 mm[Hg] Seth Casillas blood pressure, syst olic, second observation 114 mm[Hg] Seth Casillas oxygen saturation, oximetry 96 % Seth Casillas pulse rate 88 /min Seth Casillas blood pressure, diastolic 63 mm[Hg] Ra garland Casillas blood pressure, systolic 104 mm[Hg] Corey Casillas Body Mass Index (Ratio) 29.20 kg/m2 [place] Travis blood pressure, diastolic 70 mm[Hg] Ke curtisi Travis blood pressure, systolic 120 mm[Hg] Michael Robles pulse rate 75 /min Dianne grimes oxygen saturation, oximetry 98 % Dianne Robles respiratory rate E&M 16 /min Dianne lord weight E&M 197 [lb_av] Dianne petersoner blood pressure, diastolic 85 mm[Hg] Ish acevedojeremie Travis blood pressure, systolic 147 mm[Hg] Michael Robles pulse rate 88 /min Dianne petersoner oxygen saturation, oximetry 97 % Dianne Robles respiratory rate E&M 16 /min Dianne lord weight E&M 191 [lb_av] Dianne petersoner blood pressure, diastolic, left arm 64 mm [Hg] Nader [place] blood pressure, systolic, left arm 126 mm [Hg] Nader [place] blood pressure, diastolic, right arm 68 m m[Hg] Nader [place] blood pressure, systolic, right arm 126 m m[Hg] Nader [place] blood pressure, diastolic 68 mm[Hg] Sherice Livingstonacoifrah blood pressure, systolic 126 mm[Hg] Aman weston [place] pulse rate 78 /min Nader [place] oxygen saturation, oximetry 99 % [facility] 16 /min Nader [place] weight E&M 187.4 [lb_av] [facility], [facility] 73 mm[Hg] Morales blood pressure, systolic 130 mm[Hg] Sebastian hanna Love pulse rate 73 /min Karin Love oxygen saturation, oximetry 99 % Karin Love respiratory rate E&M 16 /min Karin Love weight E&M 177 [lb_av] [facility] blood pressure, diastolic, left arm 74 mm [Hg] Karin Love blood pressure, systolic, left arm 129 mm [Hg] Karin Love blood pressure, diastolic, right arm 72 m m[Hg] Karin Love blood pressure, systolic, right arm 146 m m[Hg] Karin Love blood pressure, diastolic 74 mm[Hg] Buitrago Love blood pressure, systolic 129 mm[Hg] Sebastian hanna Love pulse rate 74 /min [facility] oxygen saturation, oximetry 98 % Karin Love respiratory rate E&M 16 /min Sebastiankylah Love weight E&M 206 [lb_av] [facility] [place] blood pressure, diastolic, left arm 70 mm [Hg] [facility], [facility], left arm 126 mm [Hg] [facility], [facility], right arm 56 m m[Hg] [facility], systolic, right arm 116 m m[Hg] [place]ader [place] blood pressure, diastolic 56 mm[Hg] Sherice mo [place] blood pressure, systolic 116 mm[Hg] Aman eph [place] pulse rate 67 /min [place] oxygen saturation, oximetry 99 % Nader [place] respiratory rate E&M 16 /min Nader [place] weight E&M 200 [lb_av] Nader [place] blood pressure, diastolic, left arm 72 mm [Hg] [place] blood pressure, systolic, left arm 128 mm [Hg] [place] blood pressure, diastolic, right arm 62 m m[Hg] [place] blood pressure, systolic, right arm 136 m m[Hg] Nader [place] blood pressure, diastolic 62 mm[Hg] Sherice seph [place] blood pressure, systolic 136 mm[Hg] Aman eph [place] pulse rate 63 /min [place] oxygen saturation, oximetry 98 % [facility] E&M 16 /min [facility]&M 200 [lb_av] [facility], diastolic, left arm 78 mm [Hg] Johnson Villatoro RN blood pressure, systolic, left arm 142 mm [Hg] Johnson Villatoro RN blood pressure, diastolic, right arm 78 m m[Hg] Johnson Villatoro RN blood pressure, systolic, right arm 156 m m[Hg] Johnson Villatoro RN blood pressure, diastolic 78 mm[Hg] Segundo Villatoro RN blood pressure, systolic 156 mm[Hg] Johnson Villatoro RN pulse rate 62 /min Johnson Villatoro RN oxygen saturation, oximetry 98 % Johnson Villatoro RN respiratory rate E&M 16 /min Johnson mattson RN weight E&M 200 [lb_av] Johnson Villatoro RN pulse rate #2 64 Seth dwyer blood pressure, tremaine odell, second observation 77 mm[Hg] Seth Casillas blood pressure, syst olic, second observation 126 mm[Hg] Seth Casillas oxygen saturation, oximetry 96 % Seth Casillas pulse rate 66 /min Seth Casillas blood pressure, diastolic 75 mm[Hg] Ra ndy Casillas blood pressure, systolic 124 mm[Hg] Ran dy Casillas pulse rate #2 61 Seth McPherso n blood pressure, penaloza tolic, second observation 76 mm[Hg] Seth Casillas blood pressure, syst olic, second observation 126 mm[Hg] Seth Casillas oxygen saturation, oximetry 96 % Seth Casillas pulse rate 63 /min Seth Csaillas blood pressure, diastolic 73 mm[Hg] Ra paolay Casillas blood pressure, systolic 125 mm[Hg] Ran dy Casillas pulse rate #2 62 Seth McPherso n blood pressure, penaloza tolic, second observation 77 mm[Hg] Seth Casillas blood pressure, syst olic, second observation 127 mm[Hg] Seth Casillas oxygen saturation, oximetry 96 % Seth Casillas pulse rate 63 /min Seth Casillas blood pressure, diastolic 75 mm[Hg] Ra paolay Casillas blood pressure, systolic 127 mm[Hg] Ran dy Casillas pulse rate #2 62 Seth McPherso n blood pressure, penaloza tolic, second observation 78 mm[Hg] Seth Casillas blood pressure, syst olic, second observation 126 mm[Hg] Seth Casillas oxygen saturation, oximetry 96 % Seth Casillas pulse rate 66 /min Seth Casillas blood pressure, diastolic 78 mm[Hg] Ra ndy Casillas blood pressure, systolic 125 mm[Hg] Ran dy Casillas pulse rate #2 69 Seth Romero n blood pressure, penaloza tolic, second observation 65 mm[Hg] Seth Casillas blood pressure, syst olic, second observation 105 mm[Hg] Seth Casillas oxygen saturation, oximetry 96 % Sethkurtis Casillas pulse rate 70 /min Sethkurtis Casillas blood pressure, diastolic 67 mm[Hg] Ra paolakurtis RizoCasillas blood pressure, systolic 111 mm[Hg] Ran carlos Rizoson pulse rate #2 62 Seth Romero n blood pressure, penaloza tolic, second observation 74 mm[Hg] Sethkurtis RizoCasillas blood pressure, syst olic, second observation 130 mm[Hg] Sethkurtis RizoCasillas oxygen saturation, oximetry 96 % Sethkurtis RizoCasillas pulse rate 75 /min Sethkurtis RizoaCsillas blood pressure, diastolic 80 mm[Hg] Ra garland Casillas blood pressure, systolic 140 mm[Hg] Ran carlos Casillas blood pressure, diastolic, left arm 86 mm [Hg] Johnson Villatoro RN blood pressure, systolic, left arm 151 mm [Hg] Johnson Villatoro RN blood pressure, diastolic, right arm 83 m m[Hg] Johnson Villatoro RN blood pressure, systolic, right arm 154 m m[Hg] Johnson Villatoro RN blood pressure, diastolic 86 mm[Hg] Segundo Villatoro RN blood pressure, systolic 151 mm[Hg] Johnson Villatoro RN pulse rate 67 /min Johnson Villatoro RN oxygen saturation, oximetry 99 % Johnson Villatoro RN respiratory rate E&M 18 /min Johnson mattson RN weight E&M 199 [lb_av] Johnson Villatoro RN JNC systolic blood pressure goal 130 m m/[Hg] CHINA [employer] pulse rate 72 /min CHINA Singh [employer] blood pressure, diastolic 68 mm[Hg] CR DEQUAN [employer] blood pressure, systolic 124 mm[Hg] CRY SADE [employer] weight E&M 206 [lb_av] CHINA Singh [employer] height E&M 69 [in_i] CHINA ROSS K [employer] blood pressure, diastolic, left arm 92 mm [Hg] Karin Love blood pressure, systolic, left arm 143 mm [Hg] Karin Love blood pressure, diastolic, right arm 95 m m[Hg] Sebastiankylah Love blood pressure, systolic, right arm 151 m m[Hg] Karin Love blood pressure, diastolic 95 mm[Hg] Morales blood pressure, systolic 151 mm[Hg] Sebastian Love pulse rate 73 /min Karin Love oxygen saturation, oximetry 97 % Karin Love respiratory rate E&M 20 /min Karin Love weight E&M 209 [lb_av] Karin Love blood pressure, diastolic 80 mm[Hg] Segundo Villatoro RN blood pressure, systolic 141 mm[Hg] Johnson Villatoro RN pulse rate 80 /min Johnson Villatoro RN oxygen saturation, oximetry 98 % Johnson Villatoro RN respiratory rate E&M 16 /min Johnson mattson RN weight E&M 214 [lb_av] Johnson Villatoro RN blood pressure, diastolic, left arm 87 mm [Hg] Nader Matos blood pressure, systolic, left arm 128 mm [Hg] Nader Matos blood pressure, diastolic, right arm 82 m m[Hg] Nader [place] blood pressure, systolic, right arm 136 m m[Hg] Nader [place] blood pressure, diastolic 82 mm[Hg] Sherice Matos blood pressure, systolic 136 mm[Hg] Aman enrico Manacop pulse rate 80 /min Nader [place] oxygen saturation, oximetry 97 % Nader [place] respiratory rate E&M 16 /min Nader [place] weight E&M 235 [lb_av] Nader [facility] blood pressure, diastolic, left arm 96 mm [Hg] Jessica Pinedo CA blood pressure, systolic, left arm 138 mm [Hg] Jessica Pinedo CA blood pressure, diastolic, right arm 86 m m[Hg] Jessica Pinedo CA blood pressure, systolic, right arm 130 m m[Hg] Jessica Pinedo CA oxygen saturation, oximetry 96 % Jessica Pinedo CA blood pressure, diastolic 96 mm[Hg] Jessica Pinedo CA blood pressure, systolic 138 mm[Hg] Janie tellez Khris CA pulse rate 74 /min Jessica Khris CA respiratory rate E&M 18 /min Jessica Pinedo CA weight E&M 239 [lb_av] Jessica Khris SHEPARD blood pressure, diastolic 74 mm[Hg] Segundo Villatoro RN blood pressure, systolic 119 mm[Hg] Johnson Villatoro RN pulse rate 77 /min Johnson Villatoro RN oxygen saturation, oximetry 98 % Johnson Villatoro RN respiratory rate E&M 16 /min Johnson mattson RN weight E&M 235 [lb_av] Johnson Villatoro RN pulse rate #2 72 Seth dwyer blood pressure, penaloza tolic, second observation 80 mm[Hg] Seth Casillas blood pressure, syst olic, second observation 124 mm[Hg] Seth Casillas oxygen saturation, oximetry 97 % Seth Casillas pulse rate 76 /min Seth Casillas blood pressure, diastolic 80 mm[Hg] Ra garland Casillas blood pressure, systolic 130 mm[Hg] Ran dy Casillas pulse rate #2 77 Seth McPherso n blood pressure, penaloza tolic, second observation 81 mm[Hg] Seth Casillas blood pressure, syst olic, second observation 111 mm[Hg] Seth Casillas oxygen saturation, oximetry 97 % Seth Casillas pulse rate 82 /min Seth Casillas blood pressure, diastolic 82 mm[Hg] Ra ndy Casillas blood pressure, systolic 130 mm[Hg] Ran dy Casillas pulse rate #2 77 Seth McPherso n blood pressure, penaloza tolic, second observation 77 mm[Hg] Seth Casillas blood pressure, syst olic, second observation 136 mm[Hg] Seth Casillas oxygen saturation, oximetry 97 % Seth Casillas pulse rate 77 /min Seth Casillas blood pressure, diastolic 85 mm[Hg] Ra ndy Casillas blood pressure, systolic 143 mm[Hg] Ran dy Casillas pulse rate #2 70 Seth McPherso n blood pressure, penaloza tolic, second observation 85 mm[Hg] Seth Casillas blood pressure, syst olic, second observation 130 mm[Hg] Seth Casillas oxygen saturation, oximetry 97 % Seth Casillas pulse rate 68 /min Seth Casillas blood pressure, diastolic 87 mm[Hg] Ra ndy Casillas blood pressure, systolic 128 mm[Hg] Ran dy Casillas pulse rate #2 74 Seth McPherso n blood pressure, penaloza tolic, second observation 71 mm[Hg] Seth Casillas blood pressure, syst olic, second observation 111 mm[Hg] Seth Casillas oxygen saturation, oximetry 97 % Seth Casillas pulse rate 76 /min Seth Casillas blood pressure, diastolic 85 mm[Hg] Ra ndy Casillas blood pressure, systolic 129 mm[Hg] Ran dy Casillas pulse rate #2 72 Seth McPherso n blood pressure, penaloza tolic, second observation 70 mm[Hg] Seth Casillas blood pressure, syst olic, second observation 104 mm[Hg] Seth Casillas oxygen saturation, oximetry 97 % Seth Casillas pulse rate 74 /min Seth Casillas blood pressure, diastolic 80 mm[Hg] Ra ndy Casillas blood pressure, systolic 128 mm[Hg] Ran dy Casillas pulse rate #2 72 Seth Alfredoherso n blood pressure, penaloza tolic, second observation 74 mm[Hg] Seth Casillas blood pressure, syst olic, second observation 111 mm[Hg] Seth Casillas oxygen saturation, oximetry 97 % Seth Casillas pulse rate 85 /min Seth Casillas blood pressure, diastolic 79 mm[Hg] Ra paolay Casillas blood pressure, systolic 113 mm[Hg] Ran dy Casillas pulse rate #2 71 Seth McPherso n blood pressure, penaloza tolic, second observation 70 mm[Hg] Seth Casillas blood pressure, syst olic, second observation 102 mm[Hg] Seth Casillas oxygen saturation, oximetry 97 % Seth Casillas pulse rate 69 /min Seth Casillas blood pressure, diastolic 76 mm[Hg] Ra ndy Casillas blood pressure, systolic 113 mm[Hg] Ran dy Casillas pulse rate #2 70 Sandy Stalling s blood pressure, penaloza tolic, second observation 79 mm[Hg] [facility] blood pressure, syst olic, second observation 104 mm[Hg] [facility] oxygen saturation, oximetry 97 % [facility] pulse rate 71 /min [facility] blood pressure, diastolic 73 mm[Hg] [facility] blood pressure, systolic 108 mm[Hg] [facility] pulse rate #2 60 Seth McPherso n blood pressure, penaloza tolic, second observation 55 mm[Hg] Seth Casillas blood pressure, syst olic, second observation 104 mm[Hg] Seth Casillas oxygen saturation, oximetry 97 % Seth Casillas pulse rate 67 /min Seth Casillas blood pressure, diastolic 57 mm[Hg] Ra guevaray Casillas blood pressure, systolic 102 mm[Hg] Ran dy Casillas pulse rate #2 69 Seth McPherso n blood pressure, penaloza tolic, second observation 80 mm[Hg] Seth Casillas blood pressure, syst olic, second observation 112 mm[Hg] Seth Casillas oxygen saturation, oximetry 97 % Seth Casillas pulse rate 72 /min Seth Casillas blood pressure, diastolic 77 mm[Hg] Ra paolay Casillas blood pressure, systolic 123 mm[Hg] Ran dy Casillas pulse rate #2 68 Seth McPherso n blood pressure, penaloza tolic, second observation 77 mm[Hg] Seth Casillas blood pressure, syst olic, second observation 112 mm[Hg] Seth Casillas oxygen saturation, oximetry 96 % Seth Casillas pulse rate 65 /min Seth Casillas blood pressure, diastolic 80 mm[Hg] Ra paolay Casillas blood pressure, systolic 124 mm[Hg] Ran dy Casillas pulse rate #2 70 Seth McPherso n blood pressure, penaloza tolic, second observation 70 mm[Hg] Seth Casillas blood pressure, syst olic, second observation 100 mm[Hg] Seth Casillas oxygen saturation, oximetry 97 % Seth Casillas pulse rate 76 /min Seth Casillas blood pressure, diastolic 73 mm[Hg] Ra ndy Casillas blood pressure, systolic 106 mm[Hg] Ran dy Casillas pulse rate #2 70 Seth McPherso n blood pressure, penaloza tolic, second observation 65 mm[Hg] Seth Casillas blood pressure, syst olic, second observation 105 mm[Hg] Seth Casillas oxygen saturation, oximetry 96 % Seth Casillas pulse rate 76 /min Seth Casillas blood pressure, diastolic 73 mm[Hg] Ra ndy Casillas blood pressure, systolic 116 mm[Hg] Ran dy Casillas pulse rate #2 69 Seth McPherso n blood pressure, penaloza tolic, second observation 70 mm[Hg] Seth Casillas blood pressure, syst olic, second observation 119 mm[Hg] Seth Casillas oxygen saturation, oximetry 96 % Seth Casillas pulse rate 70 /min Seth Casillas blood pressure, diastolic 73 mm[Hg] Ra ndy Casillas blood pressure, systolic 113 mm[Hg] Ran dy Casillas pulse rate #2 63 Seth McPherso n blood pressure, penaloza tolic, second observation 70 mm[Hg] Seth Casillas blood pressure, syst olic, second observation 108 mm[Hg] Seth Casillas oxygen saturation, oximetry 96 % Seth Casillas pulse rate 71 /min Seth Casillas blood pressure, diastolic 73 mm[Hg] Ra ndy Casillas blood pressure, systolic 111 mm[Hg] Ran dy Casillas pulse rate #2 71 Seth McPherso n blood pressure, penaloza tolic, second observation 75 mm[Hg] Seth Casillas blood pressure, syst olic, second observation 120 mm[Hg] Seth Casillas oxygen saturation, oximetry 96 % Seth Casillas pulse rate 78 /min Seth Casillas blood pressure, diastolic 79 mm[Hg] Ra ndy Casillas blood pressure, systolic 128 mm[Hg] Ran dy Casillas pulse rate #2 78 Seth McPherso n blood pressure, penaloza tolic, second observation 66 mm[Hg] Seth Casillas blood pressure, syst olic, second observation 106 mm[Hg] Seth Casillas oxygen saturation, oximetry 96 % Seth Casillas pulse rate 73 /min Seth Casillas blood pressure, diastolic 63 mm[Hg] Ra ndy Casillas blood pressure, systolic 103 mm[Hg] Ran dy Casillas pulse rate #2 67 Seth McPherso n blood pressure, penaloza tolic, second observation 71 mm[Hg] Seth Casillas blood pressure, syst olic, second observation 102 mm[Hg] Seth Casillas oxygen saturation, oximetry 96 % Seth Casillas pulse rate 72 /min Seth Casillas blood pressure, diastolic 76 mm[Hg] Ra ndy Casillas blood pressure, systolic 120 mm[Hg] Ran dy Casillas pulse rate #2 71 Seth McPherso n blood pressure, penaloza tolic, second observation 77 mm[Hg] Seth Casillas blood pressure, syst olic, second observation 116 mm[Hg] Seth Casillas oxygen saturation, oximetry 96 % Seth Casillas pulse rate 79 /min Seth Casillas blood pressure, diastolic 80 mm[Hg] Ra ndy Casillas blood pressure, systolic 124 mm[Hg] Ran dy Casillas pulse rate #2 76 Seth McPherso n blood pressure, penaloza tolic, second observation 60 mm[Hg] Seth Casillas blood pressure, syst olic, second observation 102 mm[Hg] Seth Casillas oxygen saturation, oximetry 96 % Seth Casillas pulse rate 78 /min Seth Casillas blood pressure, diastolic 60 mm[Hg] Ra ndy Casillas blood pressure, systolic 126 mm[Hg] Ran dy Casillas pulse rate #2 77 Seth McPherso n blood pressure, penaloza tolic, second observation 79 mm[Hg] Seth Casillas blood pressure, syst olic, second observation 120 mm[Hg] Seth Casillas oxygen saturation, oximetry 97 % Seth Casillas pulse rate 78 /min Seth Casillas blood pressure, diastolic 67 mm[Hg] Ra ndy Casillas blood pressure, systolic 120 mm[Hg] Ran dy Casillas pulse rate #2 75 Seth McPherso n blood pressure, penaloza tolic, second observation 70 mm[Hg] Seth Casillas blood pressure, syst olic, second observation 100 mm[Hg] Seth Casillas oxygen saturation, oximetry 96 % Seth Casillas pulse rate 88 /min Seth Casillas blood pressure, diastolic 74 mm[Hg] Ra ndy Casillas blood pressure, systolic 106 mm[Hg] Ran dy Casillas pulse rate #2 75 Seth McPherso n blood pressure, penaloza tolic, second observation 64 mm[Hg] Seth Casillas blood pressure, syst olic, second observation 100 mm[Hg] Seth Casillas oxygen saturation, oximetry 96 % Seth Casillas pulse rate 79 /min Seth Casillas blood pressure, diastolic 64 mm[Hg] Ra ndy Casillas blood pressure, systolic 129 mm[Hg] Ran dy Casillas pulse rate #2 73 Seth McPherso n blood pressure, penaloza tolic, second observation 74 mm[Hg] Seth Casillas blood pressure, syst olic, second observation 109 mm[Hg] Seth Casillas oxygen saturation, oximetry 96 % Seth Casillas pulse rate 80 /min Seth Casillas blood pressure, diastolic 75 mm[Hg] Ra ndy Casillas blood pressure, systolic 101 mm[Hg] Ran dy Casillas pulse rate #2 76 Seth McPherso n blood pressure, penaloza tolic, second observation 71 mm[Hg] Seth Casillas blood pressure, syst olic, second observation 103 mm[Hg] Seth Casillas oxygen saturation, oximetry 96 % Seth Casillas pulse rate 78 /min Seth Casillas blood pressure, diastolic 67 mm[Hg] Ra ndy Casillas blood pressure, systolic 100 mm[Hg] Ran dy Casillas pulse rate #2 89 Seth McPherso n blood pressure, penaloza tolic, second observation 72 mm[Hg] Seth Casillas blood pressure, syst olic, second observation 110 mm[Hg] Seth Casillas oxygen saturation, oximetry 96 % Seth Casillas pulse rate 90 /min Seth Casillas blood pressure, diastolic 80 mm[Hg] Ra ndy Casillas blood pressure, systolic 114 mm[Hg] Ran dy Casillas pulse rate #2 89 Seth McPherso n blood pressure, penaloza tolic, second observation 77 mm[Hg] Seth Casillas blood pressure, syst olic, second observation 111 mm[Hg] Seth Casillas oxygen saturation, oximetry 96 % Seth Casillas pulse rate 90 /min Seth Casillas blood pressure, diastolic 80 mm[Hg] Ra ndy Casillas blood pressure, systolic 118 mm[Hg] Ran dy Casillas pulse rate #2 74 Seth McPherso n blood pressure, penaloza tolic, second observation 82 mm[Hg] Seth Casillas blood pressure, syst olic, second observation 113 mm[Hg] Seth Casillas oxygen saturation, oximetry 96 % Seth Casillas pulse rate 79 /min Seth Casillas blood pressure, diastolic 75 mm[Hg] Ra ndy Casillas blood pressure, systolic 116 mm[Hg] Ran dy Casillas pulse rate #2 85 Seth McPherso n blood pressure, penaloza tolic, second observation 85 mm[Hg] Seth Casillas blood pressure, syst olic, second observation 108 mm[Hg] Seth Caslilas oxygen saturation, oximetry 96 % Seth Casillas pulse rate 88 /min Seth Casillas blood pressure, diastolic 82 mm[Hg] Ra ndy Casillas blood pressure, systolic 123 mm[Hg] Ran dy Casillas pulse rate #2 77 Seth McPherso n blood pressure, penaloza tolic, second observation 73 mm[Hg] Seth Casillas blood pressure, syst olic, second observation 107 mm[Hg] Seth Casillas oxygen saturation, oximetry 96 % Seth Casillas pulse rate 75 /min Seth Casillas blood pressure, diastolic 80 mm[Hg] Ra ndy Casillas blood pressure, systolic 115 mm[Hg] Ran dy Casillas pulse rate #2 84 Seth McPherso n blood pressure, penaloza tolic, second observation 80 mm[Hg] Seth Casillas blood pressure, syst olic, second observation 112 mm[Hg] Seth Casillas oxygen saturation, oximetry 96 % Seth Casillas pulse rate 89 /min Seth Casillas blood pressure, diastolic 76 mm[Hg] Ra paolay Casillas blood pressure, systolic 132 mm[Hg] Ran dy Casillas pulse rate #2 79 Seth McPherso n blood pressure, penaloza tolic, second observation 85 mm[Hg] Seth Casillas blood pressure, syst olic, second observation 115 mm[Hg] Seth Casillas oxygen saturation, oximetry 96 % Seth Casillas pulse rate 91 /min Seth Casillas blood pressure, diastolic 71 mm[Hg] Ra paolay Casillas blood pressure, systolic 119 mm[Hg] Ran dy Casillas pulse rate #2 74 Seth McPherso n blood pressure, penaloza tolic, second observation 75 mm[Hg] Seth Casillas blood pressure, syst olic, second observation 107 mm[Hg] Seth Casillas oxygen saturation, oximetry 96 % Seth Casillas pulse rate 72 /min Seth Casillas blood pressure, diastolic 81 mm[Hg] Ra paolay Casillas blood pressure, systolic 118 mm[Hg] Ran dy Casillas pulse rate #2 73 Seth Romero n blood pressure, penaloza tolic, second observation 80 mm[Hg] Seth Casillas blood pressure, syst olic, second observation 118 mm[Hg] Seth Casillas oxygen saturation, oximetry 97 % Seth Casillas pulse rate 88 /min Seth Casillas blood pressure, diastolic 95 mm[Hg] Ra paolakurtis RizoCasillas blood pressure, systolic 140 mm[Hg] Ran carlos Casillas blood pressure, diastolic 85 mm[Hg] Segundo Villatoro RN blood pressure, systolic 143 mm[Hg] Johnson Villatoro RN pulse rate 78 /min Johnson Villatoro RN oxygen saturation, oximetry 98 % Johnson Villatoro RN respiratory rate E&M 18 /min Johnson mattson RN weight E&M 238 [lb_av] Johnson Shauna RN blood pressure, diastolic 84 mm[Hg] Sherice seph Manacop blood pressure, systolic 131 mm[Hg] Aman eph Manacop pulse rate 65 /min Nader Manacop oxygen saturation, oximetry 98 % Nader Manacop respiratory rate E&M 16 /min Nader Manacop weight E&M 227 [lb_av] Nader Manacop blood pressure, diastolic 85 mm[Hg] Jono Arriaza blood pressure, systolic 140 mm[Hg] Castaneda pulse rate 87 /min Ioana Arriaza oxygen saturation, oximetry 96 % Ioana Arriaza respiratory rate E&M 18 /min Ioana marshall weight E&M 228 [lb_av] Ioana Arriaza ALLERGIES Allergy Name Onset Date Reaction Criticality Status BETA BLOCKERS SOB SOB Low Criticality suspen ded FELODIPINE High Criticality aborted ZETIA myalgias myalgias High Criticality a ctive STATINS Diarrhea, tiredn ess, foggy-headedness High Criticality active LOMOTIL skin redness and warmth High Critica lity active TRULICITY High Criticality active PLAVIX EXCESSIVE BLEEDI NG - SEE CATH REPORT 11/15/2012 High Criticality active JARDIANCE DEHYDRATION DEHYDRATION High Critica lity active RESULTS Date Observation Value Provider Reference Range Interpretation Location ferritin, serum 44 ng/mL [facility] 15-150 iron saturation percent, serum 11 % [facility] 15-55 Low iron, serum 35 ug/dL [facility] 27-159 iron binding capacity, unsaturated 275 ug/dL [facility] [phone]/10/ 02 iron binding capacity, total 310 ug/dL [facility] [phone]/10/ 02 basophil count, absolute 0.1 x10E3/uL [facility] 0.0-0.2 Eosinophil Absolute Count 0.3 X10E3/UL [facility] 0.0-0.4 monocyte count, blood, automated 0.6 X10E3/UL [facility] 0.1-0.9 lymphocyte count, blood, automated 1.6 X10E3/UL [facility] 0.7-3.1 Absolute Neutrophils 7.9 X10E3/UL [facility] 1.4-7.0 High basophils as percent of blood leukocytes 1 % [facility] Not Estab. eosinophils as percent of blood leukocytes 3 % [facility] Not Estab. monocytes as percent of blood leukocytes 6 % [facility] Not Est[facility]. lymphocytes as percent of blood leukocytes 15 % [facility] Not Est[facility]. neutrophils as percent of blood leukocytes 74 % [facility] Not Estab. platelet count 315 X10E3/UL [facility] [phone]/10/ 02 red blood cell distribution width 14.9 % [facility] 11.7-15.4 mean corpuscular hemoglobin concentration, RBC 32.0 G/DL [facility] 31.5-35.7 mean corpuscular hemoglobin, RBC 29.0 pg [facility] 26.6-33.0 mean corpuscular volume, RBC 91 fL [facility] 79-97 hematocrit, blood 37.5 % [facility] 34.0-46.6 hemoglobin, blood 12.0 g/dL [facility] 11.1-15.9 erythrocyte (RBC) count 4.14 X10E6/UL [facility] 3.77-5.28 leukocyte count, blood 10.5 X10E3/UL [facility] 3.4-10.8 lipoprotein, beta, serum, point, quantitative, calculated 50 mg/dL [facility] 0-99 HDL cholesterol, serum 25 mg/dL [facility] >39 Low triglyceride, serum, random 299 mg/dL [facility] 0-149 High cholesterol, serum 121 mg/dL [facility] [phone]/06/ 12 prothrombin time (patient) 10.2 s [facility] 9.1-12.0 international normalized ratio (INR) 1.0 [facility] 0.9-1.2 calcium, serum 9.8 mg/dL [facility] 8.7-10.2 carbon dioxide, venous blood 23 mmol/L [facility] 20-29 chloride, serum 103 mmol/L [facility] 96-106 potassium, serum 4.8 mmol/L [facility] 3.5-5.2 sodium, serum 141 mmol/L [facility] [phone]/06/ 12 urea nitrogen/creatinine ratio, serum 14 [facility] 9-23 eGFR if 53 mL/min/{1 .73_m2} [facility] >59 Low eGFR if not 46 mL/min/{1 .73_m2} [facility] >59 Low creatinine, serum 1.30 mg/dL [facility] 0.57-1.00 High urea nitrogen, blood 18 mg/dL [facility] 6-24 blood glucose, random 170 mg/dL [facility] 65-99 High basophil count, absolute 0.1 x10E3/uL [facility] 0.0-0.2 Eosinophil Absolute Count 0.4 X10E3/UL [facility] 0.0-0.4 monocyte count, blood, automated 0.7 X10E3/UL [facility] 0.1-0.9 lymphocyte count, blood, automated 1.6 X10E3/UL [facility] 0.7-3.1 Absolute Neutrophils 7.9 X10E3/UL [facility] 1.4-7.0 High basophils as percent of blood leukocytes 1 % [facility] Not Estab. eosinophils as percent of blood leukocytes 4 % [facility] Not Estab. monocytes as percent of blood leukocytes 6 % [facility] Not Estab. lymphocytes as percent of blood leukocytes 15 % [facility] Not Estab. neutrophils as percent of blood leukocytes 73 % [facility] Not Estab. platelet count 336 X10E3/UL [facility] [phone]/06/ 12 red blood cell distribution width 15.0 % [facility] 11.7-15.4 mean corpuscular hemoglobin concentration, RBC 33.1 G/DL [facility] 31.5-35.7 mean corpuscular hemoglobin, RBC 30.6 pg [facility] 26.6-33.0 mean corpuscular volume, RBC 93 fL [facility] 79-97 hematocrit, blood 39.6 % [facility] 34.0-46.6 hemoglobin, blood 13.1 g/dL [facility] 11.1-15.9 erythrocyte (RBC) count 4.28 X10E6/UL [facility] 3.77-5.28 leukocyte count, blood 10.7 X10E3/UL [facility] 3.4-10.8 ferritin, serum 98 ng/mL [facility] 15-150 pro brain natriuretic peptide 507 pg/mL [facility] 0-287 High iron saturation percent, serum 12 % [facility] 15-55 Low iron, serum 42 ug/dL [facility] 27-159 iron binding capacity, unsaturated 300 ug/dL [facility] [phone]/12/ 18 iron binding capacity, total 342 ug/dL [facility] [phone]/12/ 18 lipoprotein, beta, serum, point, quantitative, calculated 118 mg/dL [facility] 0-99 High HDL cholesterol, serum 31 mg/dL [facility] >39 Low triglyceride, serum, random 325 mg/dL [facility] 0-149 High cholesterol, serum 206 mg/dL [facility] 100-199 High calcium, serum 9.5 mg/dL [facility] 8.7-10.2 carbon dioxide, venous blood 22 mmol/L [facility] 20-29 chloride, serum 101 mmol/L [facility] 96-106 potassium, serum 4.6 mmol/L [facility] 3.5-5.2 sodium, serum 137 mmol/L [facility] [phone]/12/ 18 urea nitrogen/creatinine ratio, serum 18 [facility] 9-23 eGFR if 53 mL/min/{1 .73_m2} [facility] >59 Low eGFR if not 46 mL/min/{1 .73_m2} [facility] >59 Low creatinine, serum 1.30 mg/dL [facility] 0.57-1.00 High urea nitrogen, blood 24 mg/dL [facility] 6-24 blood glucose, random 165 mg/dL [facility] 65-99 High basophil count, absolute 0.1 x10E3/uL [facility] 0.0-0.2 Eosinophil Absolute Count 0.4 X10E3/UL [facility] 0.0-0.4 monocyte count, blood, automated 0.6 X10E3/UL [facility] 0.1-0.9 lymphocyte count, blood, automated 1.9 X10E3/UL [facility] 0.7-3.1 Absolute Neutrophils 7.4 X10E3/UL [facility] 1.4-7.0 High basophils as percent of blood leukocytes 1 % [facility] Not Estab. eosinophils as percent of blood leukocytes 4 % [facility] Not Estab. monocytes as percent of blood leukocytes 6 % [facility] Not Estab. lymphocytes as percent of blood leukocytes 18 % [facility] Not Estab. neutrophils as percent of blood leukocytes 71 % [facility] Not Estab. platelet count 308 X10E3/UL [facility] [phone]/12/ 18 red blood cell distribution width 14.9 % [facility] 11.7-15.4 mean corpuscular hemoglobin concentration, RBC 32.9 G/DL [facility] 31.5-35.7 mean corpuscular hemoglobin, RBC 29.2 pg [facility] 26.6-33.0 mean corpuscular volume, RBC 89 fL [facility] 79-97 hematocrit, blood 35.3 % [facility] 34.0-46.6 hemoglobin, blood 11.6 g/dL [facility] 11.1-15.9 erythrocyte (RBC) count 3.97 X10E6/UL [facility] 3.77-5.28 leukocyte count, blood 10.4 X10E3/UL [facility] 3.4-10.8 prothrombin time (patient) 11.5 s Fadumo Martinez international normalized ratio (INR) 1.0 Fadumo Martinez Normal prothrombin time (patient) 10.0 s [facility] 9.1-12.0 international normalized ratio (INR) 0.9 [facility] 0.8-1.2 HDL cholesterol, serum 25 mg/dL [facility] >39 Low triglyceride, serum, random 591 mg/dL [facility] 0-149 Critical high cholesterol, serum 248 mg/dL [facility] 100-199 High calcium, serum 9.7 mg/dL [facility] 8.7-10.2 carbon dioxide, venous blood 25 mmol/L [facility] 20-29 chloride, serum 103 mmol/L [facility] 96-106 potassium, serum 5.2 mmol/L [facility] 3.5-5.2 sodium, serum 142 mmol/L [facility] [phone]/10/ 01 urea nitrogen/creatinine ratio, serum 15 [facility] 9-23 eGFR if 39 mL/min/{1 .73_m2} [facility] >59 Low eGFR if not 34 mL/min/{1 .73_m2} [facility] >59 Low creatinine, serum 1.69 mg/dL [facility] 0.57-1.00 High urea nitrogen, blood 26 mg/dL [facility] 6-24 High blood glucose, random 166 mg/dL [facility] 65-99 High basophil count, absolute 0.0 x10E3/uL [facility] 0.0-0.2 Eosinophil Absolute Count 0.5 X10E3/UL [facility] 0.0-0.4 High monocyte count, blood, automated 0.6 X10E3/UL [facility] 0.1-0.9 lymphocyte count, blood, automated 0.6 X10E3/UL [facility] 0.7-3.1 Low Absolute Neutrophils 9.3 X10E3/UL [facility] 1.4-7.0 High basophils as percent of blood leukocytes 0 % [facility] Not Estab. eosinophils as percent of blood leukocytes 4 % [facility] Not Estab. monocytes as percent of blood leukocytes 5 % [facility] Not Estab. lymphocytes as percent of blood leukocytes 6 % [facility] Not Estab. neutrophils as percent of blood leukocytes 85 % [facility] Not Estab. platelet count 296 X10E3/UL [facility] [phone]/10/ 01 red blood cell distribution width 13.9 % [facility] 11.7-15.4 mean corpuscular hemoglobin concentration, RBC 33.3 G/[facility] mean corpuscular hemoglobin, RBC 31.1 pg [facility] 26.[facility]-33.0 mean corpuscular volume, RBC 93 fL [facility] hematocrit, blood 38.1 % [facility] 34.0-46.6 hemoglobin, blood 12.7 g/dL [facility] 11.1-15.9 erythrocyte (RBC) count 4.08 X10E6/UL [facility] 3.77-5.28 leukocyte count, blood 11.1 X10E3/UL [facility] 3.4-10.8 High hemoglobin A1C, blood, as % of total hemoglobin 9.0 % [facility] hemoglobin, blood 12.8 g/dL [facility] triglyceride, serum, fasting 878 mg/dL [facility] calcium, serum 9.1 mg/dL [facility] creatinine, serum 1.18 mg/dL [facility] urea nitrogen, blood 17 mg/dL [facility] carbon dioxide, serum, total 27 mmol/L [facility] potassium, serum 4.8 mmol/L [facility] sodium, serum 135 mmol/L [facility] prothrombin time (patient) 9.8 s [facility] 9.1-12.0 international normalized ratio (INR) 0.9 [facility] 0.8-1.2 hemoglobin A1C, blood, as % of total hemoglobin 9.3 % [facility] 4.8-5.6 High lipoprotein, beta, serum, point, quantitative, calculated See report mg/dL [facility] 0-99 very low density lipoproteins See report mg/dL [facility] 5-40 HDL cholesterol, serum 26 mg/dL [facility] >39 Low triglyceride, serum, random 695 mg/dL [facility] 0-149 Critical high cholesterol, serum 253 mg/dL [facility] 100-199 High calcium, serum 9.4 mg/dL [facility] 8.7-10.2 carbon dioxide, venous blood 25 mmol/L [facility] 20-29 chloride, serum 98 mmol/L [facility] 96-106 potassium, serum 4.2 mmol/L [facility] 3.5-5.2 sodium, serum 140 mmol/L [facility] [phone]/07/ 23 urea nitrogen/creatinine ratio, serum 11 [facility] 9-23 eGFR if 51 mL/min/{1 .73_m2} [facility] >59 Low eGFR if not 45 mL/min/{1 .73_m2} [facility] >59 Low creatinine, serum 1.34 mg/dL [facility] 0.57-1.00 High urea nitrogen, blood 15 mg/dL [facility] 6-24 blood glucose, random 266 mg/dL [facility] 65-99 High basophil count, absolute 0.1 x10E3/uL [facility] 0.0-0.2 Eosinophil Absolute Count 0.3 X10E3/UL [facility] 0.0-0.4 monocyte count, blood, automated 0.5 X10E3/UL [facility] 0.1-0.9 lymphocyte count, blood, automated 1.3 X10E3/UL [facility] 0.7-3.1 Absolute Neutrophils 6.9 X10E3/UL [facility] 1.4-7.0 basophils as percent of blood leukocytes 1 % [facility] eosinophils as percent of blood leukocytes 3 % [facility] monocytes as percent of blood leukocytes 6 % [facility]. lymphocytes as percent of blood leukocytes 14 % [facility]. neutrophils as percent of blood leukocytes 76 % [facility] platelet count 293 X10E3/UL [facility] [phone]/07/ 23 red blood cell distribution width 13.8 % [facility] 11.7-15.4 mean corpuscular hemoglobin concentration, RBC 33.7 G/DL [facility] 31.5-35.7 mean corpuscular hemoglobin, RBC 31.8 pg [facility] 26.6-33.0 mean corpuscular volume, RBC 95 fL [facility] 79-97 hematocrit, blood 39.2 % [facility] 34.0-46.6 hemoglobin, blood 13.2 [facility] erythrocyte (RBC) count 4.15 X10E6/UL [facility] 3.77-5.28 leukocyte count, blood 9.1 X10E3/UL [facility] 3.4-10.8 vitamin D 25-hydroxy, serum 35 ng/mL [facility] folate, serum 16 ng/mL [facility] ferritin, serum 78 ng/mL [facility] B-12, serum 257 pg/mL [facility] hemoglobin, blood 13.4 g/dL [facility] calcium, serum 9.8 mg/dL [facility] creatinine, serum 1.51 mg/dL [facility] urea nitrogen, blood 27 mg/dL [facility] carbon dioxide, serum, total 26 mmol/L [facility] potassium, serum 4.6 mmol/L [facility] sodium, serum 134 mmol/L [facility] pro brain natriuretic peptide 314 pg/mL [facility] 0-287 High magnesium, serum 1.8 mg/dL [facility] 1.6-2.3 calcium, serum 9.8 mg/dL [facility] 8.7-10.2 carbon dioxide, venous blood 24 mmol/L [facility] 20-29 chloride, serum 101 mmol/L [facility] 96-106 potassium, serum 4.6 mmol/L [facility] 3.5-5.2 sodium, serum 140 mmol/L [facility] [phone]/01/ 16 urea nitrogen/creatinine ratio, serum 14 [facility] 9-23 eGFR if 55 mL/min/{1 .73_m2} [facility] >59 Low eGFR if not 48 mL/min/{1 .73_m2} [facility] >59 Low creatinine, serum 1.27 mg/dL [facility] 0.57-1.00 High urea nitrogen, blood 18 mg/dL [facility] 6-24 blood glucose, random 155 mg/dL [facility] 65-99 High basophil count, absolute 0.1 x10E3/uL [facility] 0.0-0.2 Eosinophil Absolute Count 0.3 X10E3/UL [facility] 0.0-0.4 monocyte count, blood, automated 0.6 X10E3/UL [facility] 0.1-0.9 lymphocyte count, blood, automated 1.6 X10E3/UL [facility] 0.7-3.1 Absolute Neutrophils 8.2 X10E3/UL [facility] 1.4-7.0 High basophils as percent of blood leukocytes 1 % [facility] eosinophils as percent of blood leukocytes 3 % [facility] monocytes as percent of blood leukocytes 6 % [facility]. lymphocytes as percent of blood leukocytes 15 % [facility]. neutrophils as percent of blood leukocytes 74 % [facility] platelet count 332 X10E3/UL [facility] [phone]/01/ 16 red blood cell distribution width 14.9 % [facility] 11.7-15.4 mean corpuscular hemoglobin concentration, RBC 33.0 G/DL [facility] 31.5-35.7 mean corpuscular hemoglobin, RBC 30.9 pg [facility] 26.6-33.0 mean corpuscular volume, RBC 94 fL [facility] 79-97 hematocrit, blood 44.0 % [facility] 34.0-46.6 hemoglobin, blood 14.5 g/dL [facility] 11.1-15.9 erythrocyte (RBC) count 4.69 X10E6/UL [facility] 3.77-5.28 leukocyte count, blood 10.8 X10E3/UL [facility] 3.4-10.8 LDL cholesterol, serum 46 mg/dL [facility] prothrombin time (patient) 9.7 s [facility] 9.1-12.0 international normalized ratio (INR) 0.9 [facility] 0.8-1.2 calcium, serum 9.6 mg/dL [facility] 8.7-10.2 carbon dioxide, venous blood 22 mmol/L [facility] 20-29 chloride, serum 98 mmol/L [facility] 96-106 potassium, serum 5.0 mmol/L [facility] 3.5-5.2 sodium, serum 139 mmol/L [facility] [phone]/08/ 07 urea nitrogen/creatinine ratio, serum 12 [facility] 9-23 eGFR if 44 mL/min/{1 .73_m2} [facility] >59 Low eGFR if not 38 mL/min/{1 .73_m2} [facility] >59 Low creatinine, serum 1.54 mg/dL [facility] 0.57-1.00 High urea nitrogen, blood 19 mg/dL [facility] 6-24 blood glucose, random 154 mg/dL [facility] 65-99 High basophil count, absolute 0.1 x10E3/uL [facility] 0.0-0.2 Eosinophil Absolute Count 0.3 X10E3/UL [facility] 0.0-0.4 monocyte count, blood, automated 0.6 X10E3/UL [facility] 0.1-0.9 lymphocyte count, blood, automated 1.6 X10E3/UL [facility] 0.7-3.1 Absolute Neutrophils 9.6 X10E3/UL [facility] 1.4-7.0 High basophils as percent of blood leukocytes 1 % [facility] Not Est[facility]. eosinophils as percent of blood leukocytes 2 % [facility] monocytes as percent of blood leukocytes 5 % [facility]. lymphocytes as percent of blood leukocytes 13 % [facility]. neutrophils as percent of blood leukocytes 79 % [facility] platelet count 401 X10E3/UL [facility] [phone]/08/ 07 red blood cell distribution width 15.1 % [facility] 12.3-15.4 mean corpuscular hemoglobin concentration, RBC 33.0 G/DL [facility] 31.5-35.7 mean corpuscular hemoglobin, RBC 29.8 pg [facility] 26.6-33.0 mean corpuscular volume, RBC 90 fL [facility] 79-97 hematocrit, blood 39.4 % [facility] 34.0-46.6 hemoglobin, blood 13.0 g/dL [facility] 11.1-15.9 erythrocyte (RBC) count 4.36 X10E6/UL [facility] 3.77-5.28 leukocyte count, blood 12.1 X10E3/UL [facility] 3.4-10.8 High prothrombin time (patient) 9.9 s [facility] 9.1-12.0 international normalized ratio (INR) 0.9 [facility] 0.8-1.2 calcium, serum 9.6 mg/dL [facility] 8.7-10.2 carbon dioxide, venous blood 24 mmol/L [facility] 20-29 chloride, serum 96 mmol/L [facility] 96-106 potassium, serum 4.8 mmol/L [facility] 3.5-5.2 sodium, serum 136 mmol/L [facility] [phone]/06/ 28 urea nitrogen/creatinine ratio, serum 18 [facility] 9-23 eGFR if 46 mL/min/{1 .73_m2} [facility] >59 Low eGFR if not 40 mL/min/{1 .73_m2} [facility] >59 Low creatinine, serum 1.48 mg/dL [facility] 0.57-1.00 High urea nitrogen, blood 27 mg/dL [facility] 6-24 High blood glucose, random 261 mg/dL [facility] 65-99 High basophil count, absolute 0.0 x10E3/uL [facility] 0.0-0.2 Eosinophil Absolute Count 0.3 X10E3/UL [facility] 0.0-0.4 monocyte count, blood, automated 0.5 X10E3/UL [facility] 0.1-0.9 lymphocyte count, blood, automated 1.7 X10E3/UL [facility] 0.7-3.1 Absolute Neutrophils 7.5 X10E3/UL [facility] 1.4-7.0 High basophils as percent of blood leukocytes 0 % [facility] Not [facility] eosinophils as percent of blood leukocytes 3 % [facility] monocytes as percent of blood leukocytes 5 % [facility]. lymphocytes as percent of blood leukocytes 17 % [facility]. neutrophils as percent of blood leukocytes 75 % [facility] Not [facility] platelet count 404 X10E3/UL [facility] [phone]/06/ 28 red blood cell distribution width 14.8 % [facility] 12.3-15.4 mean corpuscular hemoglobin concentration, RBC 33.3 G/DL [facility] 31.5-35.7 mean corpuscular hemoglobin, RBC 30.3 pg [facility] 26.6-33.0 mean corpuscular volume, RBC 91 fL [facility] 79-97 hematocrit, blood 42.4 % [facility] 34.0-46.6 hemoglobin, blood 14.1 g/dL [facility] 11.1-15.9 erythrocyte (RBC) count 4.65 X10E6/UL [facility] 3.77-5.28 leukocyte count, blood 10.1 X10E3/UL [facility] 3.4-10.8 pro brain natriuretic peptide 135 pg/mL [facility] 0-249 ferritin, serum 215 ng/mL [facility] 15-150 High iron saturation percent, serum 16 % [facility] 15-55 iron, serum 48 ug/dL [facility] 27-159 iron binding capacity, unsaturated 245 ug/dL [facility] [phone]/05/ 23 iron binding capacity, total 293 ug/dL [facility] [phone]/05/ 23 hemoglobin A1C, blood, as % of total hemoglobin 13.4 % [facility] 4.8-5.6 High prothrombin time (patient) 9.8 s [facility] 9.1-12.0 international normalized ratio (INR) 0.9 [facility] 0.8-1.2 lipoprotein, beta, serum, point, quantitative, calculated See report mg/dL [facility] 0-99 very low density lipoproteins See report mg/dL [facility] 5-40 HDL cholesterol, serum 25 mg/dL [facility] >39 Low triglyceride, serum, random 671 mg/dL [facility] 0-149 Critical high cholesterol, serum 267 mg/dL [facility] 100-199 High calcium, serum 9.6 mg/dL [facility] 8.7-10.2 carbon dioxide, venous blood 22 mmol/L [facility] 20-29 chloride, serum 92 mmol/L [facility] 96-106 Low potassium, serum 4.8 mmol/L [facility] 3.5-5.2 sodium, serum 132 mmol/L [facility] 134-144 Low urea nitrogen/creatinine ratio, serum 15 [facility] 9-23 eGFR if 45 mL/min/{1 .73_m2} [facility] >59 Low eGFR if not 39 mL/min/{1 .73_m2} [facility] >59 Low creatinine, serum 1.51 mg/dL [facility] 0.57-1.00 High urea nitrogen, blood 22 mg/dL [facility] 6-24 blood glucose, random 417 mg/dL [facility] 65-99 High basophil count, absolute 0.1 x10E3/uL [facility] 0.0-0.2 Eosinophil Absolute Count 0.3 X10E3/UL [facility] 0.0-0.4 monocyte count, blood, automated 0.5 X10E3/UL [facility] 0.1-0.9 lymphocyte count, blood, automated 1.5 X10E3/UL [facility] 0.7-3.1 Absolute Neutrophils 7.7 X10E3/UL [facility] 1.4-7.0 High basophils as percent of blood leukocytes 1 % [facility] Not Estab. eosinophils as percent of blood leukocytes 3 % [facility] Not Estab. monocytes as percent of blood leukocytes 5 % [facility] Not Est[facility]. lymphocytes as percent of blood leukocytes 15 % [facility] Not Est[facility]. neutrophils as percent of blood leukocytes 76 % [facility] Not Estab. platelet count 306 X10E3/UL [facility] [phone]/05/ 23 red blood cell distribution width 14.5 % [facility] 12.3-15.4 mean corpuscular hemoglobin concentration, RBC 33.6 G/DL [facility] 31.5-35.7 mean corpuscular hemoglobin, RBC 30.9 pg [facility] 26.6-33.0 mean corpuscular volume, RBC 92 fL [facility] 79-97 hematocrit, blood 42.2 % [facility] 34.0-46.6 hemoglobin, blood 14.2 g/dL [facility] 11.1-15.9 erythrocyte (RBC) count 4.59 X10E6/UL [facility] 3.77-5.28 leukocyte count, blood 10.1 X10E3/UL [facility] 3.4-10.8 folate, serum 9.1 NG/MLM [facility] 4.4 - 31.0 vitamin b12, serum 290.1 pg/mL [facility] 211.0 - 946.0 ferritin, serum 151.5 ng/mL [facility] 13.0 - 150.0 High red blood cell distribution width, size density 57.6 fL [facility] - immature granulocytes, percentage of total cells, blood 0.5 % [facility] - nucleated red blood cells as percent of blood leukocytes 0.0 % [facility] - red blood cell (erythrocyte) count, per high power field 0.0 10*3/UL [facility] - eosinophils as percent of blood leukocytes 2.7 % [facility] - neutrophils as percent of blood leukocytes 77.5 % [facility] - Absolute Neutrophils 7.4 CELLS/UL [facility] 1.5 - 7.8 basophils as percent of blood leukocytes 0.5 % [facility] - Absolute Basophils 0.1 CELLS/UL [facility] 0.0 - 0.2 monocytes as percent of blood leukocytes 7.4 % [facility] - Absolute Monocytes 0.7 CELLS/UL [facility] 0.2 - 1.0 lymphocytes as percent of blood leukocytes 11.4 % [facility] - Absolute Lymphocytes 1.1 CELLS/UL [facility] 0.9 - 3.9 mean platelet volume 9.8 (?) [facility] - platelet count 422.0 THOUSAND/ UL [facility] 100.0 - 400.0 High mean corpuscular hemoglobin concentration, RBC 30.8 G/DL [facility] 31.0 - 38.0 Low mean corpuscular hemoglobin, RBC 31.0 pg [facility] 25.0 - 35.0 mean corpuscular volume, RBC 100.8 fL [facility] 75.0 - 100.0 High hematocrit, blood 39.0 % [facility] 35.0 - 55.0 hemoglobin, blood 12.0 g/dL [facility] 11.5 - 16.5 erythrocyte count, whole blood 3.9 MILLION/U L [facility] 3.5 - 5.5 iron, serum 68.0 ug/dL [facility] 25.0 - 156.0 iron saturation percent, serum 18.5 % [facility] 20.0 - 50.0 Low iron binding capacity, total 368.2 ug/dL [facility] 250.0 - 450.0 reticulocyte count, absolute 0.105 10*6 CELLS/UL [facility] - reticulocyte count, blood, uncorrected 2.70 % [facility] 0.50 - 2.00 High anion gap, serum 16.6 [facility] - albumin/globulin ratio, serum 2.5 g/dL [facility] 1.1 - 2.5 High globulin, serum 3.0 [facility] 2.3 - 3.8 urea nitrogen/creatinine ratio, serum 17.1 [facility] - Estimated Glomerular Filtration Rate (calc) 26.4 (?) [facility] 59.0 - Low chloride, serum 98.4 mmol/L [facility] 98.0 - 107.0 potassium, serum 4.5 mmol/L [facility] 3.5 - 5.1 sodium, serum 141.0 mmol/L [facility] 136.0 - 145.0 creatinine, serum 2.1 mg/dL [facility] 0.5 - 1.0 High carbon dioxide, venous blood 26.0 mmol/L [facility] 22.0 - 29.0 albumin, serum 4.3 g/dL [facility] 3.5 - 5.2 calcium, serum 10.7 mg/dL [facility] 8.6 - 10.2 High aspartate aminotransferase (SGOT), serum 18.0 1/L [facility] 0.0 - 32.0 alkaline phosphatase, serum 55.0 1/L [facility] 40.0 - 130.0 alanine aminotransferase (SGPT), serum 10.0 1/L [facility] 0.0 - 33.0 protein, total, serum 7.3 g/dL [facility] 6.6 - 8.7 bilirubin, serum, total 0.2 mg/dL [facility] 0.0 - 1.2 urea nitrogen, blood 36.0 mg/dL [facility] 6.0 - 20.0 High blood glucose, random 114.0 mg/dL [facility] 74.0 - 99.0 High red blood cell distribution width, size density 59.1 fL [facility] - immature granulocytes, percentage of total cells, blood 0.4 % [facility] nucleated red blood cells as percent of blood leukocytes 0.2 % [facility] - red blood cell (erythrocyte) count, per high power field 0.0 *3/UL [facility] - eosinophils as percent of blood leukocytes 2.6 % [facility] - neutrophils as percent of blood leukocytes 78.2 % [facility] - Absolute Neutrophils 8.1 CELLS/UL [facility] 1.5 - 7.8 High basophils as percent of blood leukocytes 0.4 % [facility] - Absolute Basophils 0.0 CELLS/UL [facility] 0.0 - 0.2 monocytes as percent of blood leukocytes 6.8 % [facility] - Absolute Monocytes 0.7 CELLS/UL [facility] 0.2 - 1.0 lymphocytes as percent of blood leukocytes 11.6 % [facility] - Absolute Lymphocytes 1.2 CELLS/UL [facility] 0.9 - 3.9 mean platelet volume 10.1 (?) [facility] - platelet count 342.0 THOUSAND/ UL [facility] 100.0 - 400.0 mean corpuscular hemoglobin concentration, RBC 31.8 G/DL [facility] 31.0 - 38.0 mean corpuscular hemoglobin, RBC 32.4 pg [facility] 25.0 - 35.0 mean corpuscular volume, RBC 101.9 fL [facility] 75.0 - 100.0 High hematocrit, blood 37.7 % [facility] 35.0 - 55.0 hemoglobin, blood 12.0 g/dL [facility] 11.5 - 16.5 erythrocyte count, whole blood 3.7 MILLION/U L [facility] 3.5 - 5.5 thyroid stimulating hormone, serum 0.896 ??IU/ML [facility] 0.270 - 4.200 anion gap, serum 14.2 [facility] - albumin/globulin ratio, serum 2.6 g/dL [facility] 1.1 - 2.5 High globulin, serum 3.3 [facility] 2.3 - 3.8 urea nitrogen/creatinine ratio, serum 17.0 [facility] - Estimated Glomerular Filtration Rate (calc) 27.9 (?) [facility] 59.0 - Low chloride, serum 99.8 mmol/L [facility] 98.0 - 107.0 potassium, serum 4.2 mmol/L [facility] 3.5 - 5.1 sodium, serum 141.0 mmol/L [facility] 136.0 - 145.0 creatinine, serum 2.0 mg/dL [facility] 0.5 - 1.0 High carbon dioxide, venous blood 27.0 mmol/L [facility] 22.0 - 29.0 albumin, serum 4.5 g/dL [facility] 3.5 - 5.2 calcium, serum 10.0 mg/dL [facility] 8.6 - 10.2 aspartate aminotransferase (SGOT), serum 19.0 1/L [facility] 0.0 - 32.0 alkaline phosphatase, serum 55.0 1/L [facility] 40.0 - 130.0 alanine aminotransferase (SGPT), serum 12.0 1/L [facility] 0.0 - 33.0 protein, total, serum 7.8 g/dL [facility] 6.6 - 8.7 bilirubin, serum, total 0.2 mg/dL [facility] 0.0 - 1.2 urea nitrogen, blood 34.0 mg/dL [facility] 6.0 - 20.0 High blood glucose, random 118.0 [facility] - 99.0 High red blood cell distribution width, size density 57.9 fL [facility] - immature granulocytes, percentage of total cells, blood 0.2 % [facility] - nucleated red blood cells as percent of blood leukocytes 0.0 % [facility] - red blood cell (erythrocyte) count, per high power field 0.0 10*3/UL [facility] - eosinophils as percent of blood leukocytes 2.0 % [facility] - neutrophils as percent of blood leukocytes 77.5 % [facility] - Absolute Neutrophils 6.2 CELLS/UL [facility] 1.5 - 7.8 basophils as percent of blood leukocytes 0.4 % [facility] - Absolute Basophils 0.0 CELLS/UL [facility] 0.0 - 0.2 monocytes as percent of blood leukocytes 7.2 % [facility] - Absolute Monocytes 0.6 CELLS/UL [facility] 0.2 - 1.0 lymphocytes as percent of blood leukocytes 12.7 % [facility] - Absolute Lymphocytes 1.0 CELLS/UL [facility] 0.9 - 3.9 mean platelet volume 9.9 (?) [facility] - platelet count 318.0 THOUSAND/ UL [facility] 100.0 - 400.0 mean corpuscular hemoglobin concentration, RBC 30.8 G/DL [facility] 31.0 - 38.0 Low mean corpuscular hemoglobin, RBC 31.8 pg [facility] 25.0 - 35.0 mean corpuscular volume, RBC 103.4 fL [facility] 75.0 - 100.0 High hematocrit, blood 39.0 % [facility] 35.0 - 55.0 hemoglobin, blood 12.0 g/dL [facility] 11.5 - 16.5 erythrocyte count, whole blood 3.8 MILLION/U L [facility] 3.5 - 5.5 reticulocyte count, absolute 0.097 10*6 CELLS/UL [facility] - reticulocyte count, blood, uncorrected 2.56 % [facility] 0.50 - 2.00 High red blood cell distribution width, size density 62.4 fL [facility] - immature granulocytes, percentage of total cells, blood 0.2 % [facility] - nucleated red blood cells as percent of blood leukocytes 0.0 % [facility] - red blood cell (erythrocyte) count, per high power field 0.0 10*3/UL [facility] - eosinophils as percent of blood leukocytes 1.7 % [facility] - neutrophils as percent of blood leukocytes 78.2 % [facility] - Absolute Neutrophils 8.0 CELLS/UL [facility] 1.5 - 7.8 High basophils as percent of blood leukocytes 0.4 % [facility] - Absolute Basophils 0.0 CELLS/UL [facility] 0.0 - 0.2 monocytes as percent of blood leukocytes 7.7 % [facility] - Absolute Monocytes 0.8 CELLS/UL [facility] 0.2 - 1.0 lymphocytes as percent of blood leukocytes 11.8 % [facility] - Absolute Lymphocytes 1.2 CELLS/UL [facility] 0.9 - 3.9 mean platelet volume 9.5 (?) [facility] - platelet count 349.0 THOUSAND/ UL [facility] 100.0 - 400.0 mean corpuscular hemoglobin concentration, RBC 30.1 G/DL [facility] 31.0 - 38.0 Low mean corpuscular hemoglobin, RBC 32.5 pg [facility] 25.0 - 35.0 mean corpuscular volume, RBC 108.1 fL [facility] 75.0 - 100.0 High hematocrit, blood 38.9 % [facility] 35.0 - 55.0 hemoglobin, blood 11.7 g/dL [facility] 11.5 - 16.5 erythrocyte count, whole blood 3.6 MILLION/U L [facility] 3.5 - 5.5 iron binding capacity, unsaturated 293.0 ??G/DL [facility] 112.0 - 347.0 ferritin, serum 72.2 ng/mL [facility] 13.0 - 150.0 iron binding capacity, total 350.0 (?) [facility] - iron, serum 57.0 ug/dL [facility] 25.0 - 156.0 anion gap, serum 18.1 [facility] - albumin/globulin ratio, serum 2.8 g/dL [facility] 1.1 - 2.5 High globulin, serum 3.2 [facility] 2.3 - 3.8 urea nitrogen/creatinine ratio, serum 17.5 [facility] - Estimated Glomerular Filtration Rate (calc) 27.9 (?) [facility] 59.0 - Low chloride, serum 96.9 mmol/L [facility] 98.0 - 107.0 Low potassium, serum 4.3 mmol/L [facility] 3.5 - 5.1 sodium, serum 142.0 mmol/L [facility] 136.0 - 145.0 creatinine, serum 2.0 mg/dL [facility] 0.5 - 0.9 High carbon dioxide, venous blood 27.0 mmol/L [facility] 22.0 - 29.0 albumin, serum 4.7 g/dL [facility] 3.5 - 5.2 calcium, serum 9.7 mg/dL [facility] 8.6 - 10.2 aspartate aminotransferase (SGOT), serum 21.0 1/L [facility] 0.0 - 32.0 alkaline phosphatase, serum 52.0 1/L [facility] 40.0 - 130.0 alanine aminotransferase (SGPT), serum 13.0 1/L [facility] 0.0 - 33.0 protein, total, serum 7.9 g/dL [facility] 6.6 - 8.7 bilirubin, serum, total 0.2 mg/dL [facility] 0.0 - 1.2 urea nitrogen, blood 35.0 mg/dL [facility] 6.0 - 20.0 High blood glucose, random 118.0 mg/dL [facility] 74.0 - 99.0 High red blood cell distribution width, size density 57.1 fL [facility] - immature granulocytes, percentage of total cells, blood 0.6 % [facility] nucleated red blood cells as percent of blood leukocytes 0.0 % [facility] - red blood cell (erythrocyte) count, per high power field 0.0 10*3/UL [facility] eosinophils as percent of blood leukocytes 2.5 % [facility] - neutrophils as percent of blood leukocytes 65.2 % [facility] - Absolute Neutrophils 7.9 CELLS/UL [facility] 1.5 - 7.8 High basophils as percent of blood leukocytes 0.6 % [facility] Absolute Basophils 0.1 CELLS/UL [facility] 0.0 - 0.2 monocytes as percent of blood leukocytes 9.1 % [facility] Absolute Monocytes 1.1 CELLS/UL [facility] 0.2 - 1.0 High lymphocytes as percent of blood leukocytes 22.0 % [facility] - Absolute Lymphocytes 2.7 CELLS/UL [facility] 0.9 - 3.9 mean platelet volume 9.6 (?) [facility] - platelet count 317.0 THOUSAND/ UL [facility] 100.0 - 400.0 mean corpuscular hemoglobin concentration, RBC 31.1 G/DL [facility] 31.0 - 38.0 mean corpuscular hemoglobin, RBC 31.8 pg [facility] 25.0 - 35.0 mean corpuscular volume, RBC 102.2 fL [facility] 75.0 - 100.0 High hematocrit, blood 37.3 % [facility] 35.0 - 55.0 hemoglobin, blood 11.6 g/dL [facility] 11.5 - 16.5 erythrocyte count, whole blood 3.7 MILLION/U L [facility] 3.5 - 5.5 iron binding capacity, unsaturated 280.0 ??G/DL [facility] 112.0 - 347.0 ferritin, serum 70.1 ng/mL [facility] 13.0 - 150.0 iron binding capacity, total 362.0 (?) [facility], serum 82.0 ug/dL [facility] 25.0 - 156.0 folate, serum 17.0 NG/MLM [facility] 4.4 - 31.0 vitamin b12, serum 452.0 pg/mL [facility] 211.0 - 946.0 creatinine, serum 1.40 mg/dL [facility] potassium, serum 4.6 mmol/L [facility] sodium, serum 139 mmol/L [facility] platelet count 243 10*3/mm3 [facility] hematocrit, blood 44.0 % [facility] international normalized ratio (INR) 1.0 [facility] B-type natriuretic peptide 195 pg/mL [facility] alanine aminotransferase (SGPT), serum 30 1/L [facility] aspartate aminotransferase (SGOT), serum 32 1/L [facility] creatinine, serum 0.84 mg/dL [facility] potassium, serum 4.2 mmol/L [facility] sodium, serum 145 mmol/L [facility] platelet count 186 10*3/mm3 [facility] hematocrit, blood 42.9 % [facility] international normalized ratio (INR) 1.0 [facility] creatinine, serum 0.80 mg/dL [facility] potassium, serum 4.1 mmol/L [facility] sodium, serum 145 mmol/L [facility] nitrate usage none [facility] nitrate usage none [facility] nitrate usage none [facility] nitrate usage none [facility] nitrate usage none [facility] nitrate usage none [facility] nitrate usage none [facility] nitrate usage none [facility] nitrate usage none [facility] nitrate usage none [facility] nitrate usage none [facility] nitrate usage none [facility] nitrate usage none [facility] nitrate usage none [facility] nitrate usage none [facility] nitrate usage none [facility] nitrate usage none [facility] nitrate usage none [facility] nitrate usage none [facility] platelet count 170 10*3/mm3 [facility] hematocrit, blood 38.3 % [facility] international normalized ratio (INR) 1.0 [facility] alanine aminotransferase (SGPT), serum 30 1/L [facility] aspartate aminotransferase (SGOT), serum 41 1/L [facility] creatinine, serum 0.67 mg/dL [facility] potassium, serum 4.3 mmol/L [facility] sodium, serum 140 mmol/L [facility] nitrate usage none [facility] nitrate usage none [facility] platelet count 196 10*3/mm3 [facility] hematocrit, blood 40.4 % [facility] lipoprotein, beta, serum, point, quantitative, calculated 46 mg/dL [facility] cholesterol, serum 124 mg/dL [facility] thyroid stimulating hormone, serum 0.698 u[IU]/mL [facility] alanine aminotransferase (SGPT), serum 16 1/L [facility] aspartate aminotransferase (SGOT), serum 22 1/L [facility] creatinine, serum 0.77 mg/dL [facility] potassium, serum 4.4 mmol/L [facility] sodium, serum 139 mmol/L [facility] nitrate usage none [facility] nitrate usage none [facility] nitrate usage none [facility] nitrate usage none [facility] nitrate usage none [facility] nitrate usage none [facility] nitrate usage none [facility] nitrate usage none [facility] platelet count 196 10*3/mm3 [facility] hematocrit, blood 37.1 % [facility] international normalized ratio (INR) 0.9 [facility] creatinine, serum 0.84 mg/dL [facility] potassium, serum 3.8 mmol/L [facility] sodium, serum 134 mmol/L [facility] globulins, serum, total 3.5 g/dL [facility] estimated glomerular filtration rate >60 [facility] anion gap, serum 7.1 [facility] albumin/globulin ratio, serum 1.2 [facility] protein, total, serum 7.6 g/dL [facility] albumin, serum 4.1 g/dL [facility] bilirubin, serum, total 0.38 mg/dL [facility] alkaline phosphatase, serum 45 1/L [facility] alanine aminotransferase (SGPT), serum 31 1/L [facility] aspartate aminotransferase (SGOT), serum 32 1/L [facility] calcium, serum 9.4 mg/dL [facility] blood glucose, fasting 95 mg/dL [facility] creatinine, serum 0.95 mg/dL [facility] urea nitrogen, blood 6.9 mg/dL [facility] carbon dioxide, serum, total 28 mmol/L [facility] chloride, serum 106 mmol/L [facility] potassium, serum 4.1 mmol/L [facility] sodium, serum 137 mmol/L [facility] platelet count 135 10*3/uL [facility] red blood cell distribution width 16.7 % [facility] mean corpuscular hemoglobin concentration, RBC 34.6 g/dL [facility] mean corpuscular hemoglobin, RBC 35.2 pg [facility] mean corpuscular volume, RBC 101.8 fL [facility] hematocrit, blood 39.6 % [facility] hemoglobin, blood 13.7 g/dL [facility] erythrocyte (RBC) count 3.89 10*6/mm3 [facility] monocytes as percent of blood leukocytes 10.4 % [facility] lymphocytes as percent of blood leukocytes 24.6 % [facility] leukocyte count, blood 10.5 10*3/mm3 [facility] nitrate usage none [facility] nitrate usage none [facility] nitrate usage none [facility] nitrate usage none [facility] nitrate usage none [facility] nitrate usage none [facility] nitrate usage 0 Sandy Gomes alanine aminotransferase (SGPT), serum 19 1/L Terri Sethi RN aspartate aminotransferase (SGOT), serum 10 1/L Terri Sethi RN blood glucose, fasting 123 mg/dL Terri Sethi RN creatinine, serum 0.84 mg/dL Terri Sethi RN urea nitrogen, blood 4 mg/dL Terri Sethi RN carbon dioxide, serum, total 28 mmol/L Terri Sethi RN chloride, serum 101 mmol/L Terri Sethi potassium, serum 4.4 mmol/L Terri Sethi RN sodium, serum 137 mmol/L Terri Sethi platelet count 495 10*3/uL Terriderrek Sethi hematocrit, blood 41.4 % Terri Sethi hemoglobin, blood 13.3 g/dL Terriderrek Sethi leukocyte count, blood 13.5 10*3/mm3 Terri Sethi triglyceride, serum, fasting 184 mg/dL Terri Sethi HDL cholesterol, serum 37 mg/dL Terri Sethi RN LDL cholesterol, serum 45 mg/dL Terri Sethi RN cholesterol, serum 119 mg/dL Terri Sethi RN HISTORY OF MEDICATION USE Medication Status Instructions Dates Provider Indications Com ments Eliquis 5 mg tablet active TAKE 1 TABLET BY MOUTH TWICE DAILY 09/21 Niviamo Eaton clindamycin HCl 150 mg capsule completed Take 1 capsule by mouth twice a day for 14 days 02/02 - 02/23 Dianne Robles icosapent ethyl 1 gram capsule completed TAKE 2 CAPSULES BY MOUTH TWICE DAILY 08/18 - 11/10 Tameka Hawkmiglia [employer] metformin 1,000 mg tablet active TAKE 1 TABLET BY MOUTH TWICE DAILY 08/18 Kristian Mondragon Praluent Pen 150 mg/mL pen injector active INJECT 1 PEN(150MG) SUBCUTANEOUS EVERY 2 WEEKS 08/24 [facility] Bactrim DS 800-160 mg tablet completed Take 1 tablet by mouth twice a day 03/11 - 11/10 Tameka Ventimiglia [employer] Eliquis 5 mg tablet completed Take 1 tablet by mouth twice a day 10/07 - 09/21 Nivia Ruple cephalexin 500 mg capsule completed Take 1 capsule by mouth three times a day 10/07 - 11/24 Tamekabrandi Hawkmiglia [employer] Praluent Pen 150 mg/mL pen injector completed INJECT 1 PEN(150MG) SUBCUTANEOUS EVERY 2 WEEKS 09/29 - 11/24 Tameka Carineshalaspeedy [employer] metformin 1,000 mg tablet completed TAKE 1 TABLET BY MOUTH TWICE A DAY 08/25 - 08/18 Vascepa 1 gram capsule completed Take 2 capsule by mouth twice a day TAKE TWO CAPSULES BY MOUTH TWICE A DAY 08/25 - 08/18 cephalexin 250 mg capsule completed Take 1 capsule by mouth three times a day for 2 weeks - 10/07 Kyaw Lyle RN cephalexin 250 mg tablet completed Take 1 tablet by mouth three times a day 08/23 - 08/24 Danica Jaquez Xarelto 2.5 mg tablet completed TAKE 1 TABLET BY MOUTH TWICE DAILY 08/02 - 10/07 Kyaw Lyle RN Praluent Pen 150 mg/mL pen injector completed Inject 1 pen injector subcutaneously every two weeks 08/16 - 09/29 Dianne Robles Xarelto 2.5 mg tablet completed TAKE 1 TABLET TWICE A DAY 07/27 - 08/02 Joseph Grace MD ezetimibe 10 mg tablet completed TAKE 1 TABLET BY MOUTH DAILY - 07/27 Khanh Murphyick 140 mg/mL pen injector completed Inject 1 pen injector subcutaneously once every two weeks - 08/16 Jose Angel Alvarez RN Praluent Pen 150 mg/mL pen injector completed Inject 1 pen injector subcutaneously once every two weeks 02/25 - 03/21 Joseph Grace MD carvedilol 12.5 mg tablet active TAKE 1 TABLET BY MOUTH TWICE DAILY 02/23 Danica Jaquez prasugrel HCl 10 mg tablet active TAKE 1 TABLET BY MOUTH EVERY DAY [facility] 1 gram capsule completed Take 2 capsule twice a day 01/10 - 08/25 Joseph Grace MD Crestor 40 mg tablet completed Take 1 once a day 01/10 - 02/25 Joseph Grace MD LANTUS SOLUTION completed Inject 20 unit every night 11/26 - 11/24 [facility] metformin 1,000 mg tablet completed Take 1 tablet twice a day 11/26 - 08/25 Joseph Grace MD glimepiride 4 mg tablet active 1 tablet once a day 08/29 Dianne Robles OMEGA 3 CAPSULE DELAYED RELEASE completed 1000 mg once a day 08/29 - 07/27 Sidra Busch famotidine 10 mg tablet active as needed 08/29 Amina Carreno telmisartan 40 mg tablet active 1 tablet once a day 08/29 Tameka Hawkctspeedy MARSP melatonin 5 mg tablet active 1 tablet every night 08/29 Amina Carreno Benadryl Allergy 25 mg tablet active 1 tablet every night 08/29 Amina Carreno CEPHALEXIN 500 MG ORAL CAPSULE completed Take one capsule four times a day for two weeks 08/19 - 09/03 Gary Montoya tramadol 50 mg tablet completed as needed 07/30 - 11/24 [facility] Amitiza 24 mcg capsule completed Take 1 tablet 07/30 - 11/24 [facility] CEPHALEXIN 500 MG ORAL CAPSULE completed Take one capsule four times a day for 2 weeks 07/30 - 08/13 Gary Montoya CILOSTAZOL 100 MG ORAL TABLET completed Take one tablet twice daily 07/29 - 08/29 Gary [facility], 90 days supply, Filled 05/29/2020 GLIPIZIDE 5 MG ORAL TABLET completed TAKE 1 TABLET BY MOUTH ONCE DAILY - 08/29 Gary Montoya #30, 30 days supply, Prescribed by AGATHA LLOYD, Filled 05/18/2020 ezetimibe 10 mg tablet completed 1 tablet once a day 04/25 - 02/25 Joseph Grace MD gabapentin 300 mg capsule active Take 1 tablet by mouth three times a day as needed for pain 04/25 Dianne Robles ROSUVASTATIN CALCIUM 40 MG ORAL TABLET completed Take one tablet daily 02/23 - 02/14 Wanda Guallpa Replaces Simvastatin TRESIBA FLEXTOUCH SOLUTION PEN-INJECTOR completed injection once daily - 02/14 Wanda Guallpa METFORMIN HCL ER (OSM) 500 MG ORAL TABLET EXTENDED RELEASE 24 HOUR completed take 2 tabs in evening time 02/14 - 08/29 Gary Montoya ondansetron HCl 4 mg tablet active once a day Sidra Busch Bosulif 100 mg tablet active Take 1 tablet by mouth once a day 04/25 Dianne Robles ProAir HFA 90 mcg/actuation HFA aerosol inhaler active 2 puff every six hours as needed 11/26 Nieves Zimmer MD CLINDAMYCIN HCL 300 MG ORAL CAPSULE completed take every 6 hours 11/26 - 02/18 Sidra Busch ZITHROMAX PACKET completed Take as directed 10/01 - 02/18 Sidra Busch OK to take with Simvastatin AMBIEN 5 MG ORAL TABLET completed ONE TAB AT BEDTIME NEEDED 04/16 - 02/18 Dianne Robles BUMETANIDE 1 MG ORAL TABLET completed one tablet once daily - 02/18 Dianne Robles EUCERIN ECZEMA RELIEF CREAM completed apply topical twice daily to affected areas 11/07 - 02/18 Dianne Robles TRAMADOL HCL 50 MG ORAL TABLET completed 1 tablet po daily PRN pain 11/07 - 08/29 Gary Montoya CARAFATE 1 GM ORAL TABLET completed po QID 08/02 - 02/18 Stella Dillon ULTRAM 50 MG ORAL TABLET completed po q 6 hours PRN seizure 08/02 - 02/18 Sidra Busch bumetanide 1 mg tablet active Take 1.5 tablet once a day 08/25 Amina Carreno CARAFATE 1 GM/10ML ORAL SUSPENSION completed 1 gm po QID with prior to meals and bedtime 07/31 - 02/18 Dianne Robles ZITHROMAX PACKET completed As directed 04/11 - 02/18 Sidra Busch LASIX 40 MG ORAL TABLET completed 2 tabs daily. - 02/18 Dianne Robles SPIRONOLACTONE 25 MG ORAL TABLET completed ONE TAB. DAILY - 02/14 Wanda Ramu ZITHROMAX Z-SKINNY 250 MG ORAL TABLET completed One pack takens as directed 09/06 - 11/27 Stella Villagomez ISOSORBIDE MONONITRATE ER 120 MG ORAL TABLET EXTENDED RELEASE 24 HOUR completed one half tab. daily 09/17 - 02/18 Dianne Robles cyanocobalamin (vitamin B-12) 1,000 mcg capsule active once a day 09/17 Stella Villagomez Vitamin D3 50 mcg (2,000 unit) tablet active 1 tablet once a day 08/29 Amina Carreno [facility] STOOL SOFTENER 100 MG ORAL CAPSULE completed once daily 09/17 - 02/18 Dianne Robles carvedilol 12.5 mg tablet completed Take 1 tablet by mouth twice a day 08/30 - 02/23 Amina Carreno IRBESARTAN 75 MG ORAL TABLET completed 2 tabs once daily 10/24 - 02/18 Sidra Busch ALLOPURINOL 300 MG ORAL TABLET completed one tab daily. 10/24 - 02/18 Sidra Busch SIMVASTATIN 80 MG ORAL TABLET completed ONE TAB. AT BEDTIME 12/06 - 02/23 Joseph Grace MD RANEXA 1000 MG ORAL TABLET EXTENDED RELEASE 12 HOUR completed ONE TAB. TWICE DAILY for chronic angina - 02/18 Dianne Robles prasugrel 10 mg tablet completed Take 1 tablet by mouth once a day 08/30 - 02/23 Amina Carreno AVAPRO 150 MG ORAL TABLET completed 1 tablet by mouth daily 10/27 - 08/15 Karin Love BYSTOLIC 10 MG ORAL TABLET completed ONE TAB. DAILY 09/20 - 10/27 Nader Manacop PLAVIX 75 MG ORAL TABLET completed ONE TAB. DAILY - 12/01 Johnson Villatoro RN RANEXA 1000 MG ORAL TABLET EXTENDED RELEASE 12 HOUR completed 1 tablet by mouth twice daily 09/14 - 08/30 Johnson Villatoro RN BRILINTA 90 MG ORAL TABLET completed 1 tablet by mouth twice daily 09/14 - 08/18 Johnson Villatoro RN EFFIENT 10 MG ORAL TABLET completed take one pill a day - Jaquelin Connolly RN PERCOCET 7.5-325 MG ORAL TABLET completed 1 tablet every 8 hours as needed for pain - 02/18 Dianne Robles AVAPRO 75 MG ORAL TABLET completed 1 tab daily - 02/18 Nader Manacoifrah FENOFIBRATE MICRONIZED 134 MG ORAL CAPSULE completed 1 tab daily - 10/27 Nader Matos LOSARTAN POTASSIUM 50 MG ORAL TABLET completed Take 1 tab by mouth daily 11/12 - 08/30 Joseph Grace MD VENOFER 20 MG/ML INTRAVENOUS SOLUTION completed once monthly - 09/10 Johnson Villatoro RN SPRYCEL 80 MG ORAL TABLET completed po daily 08/02 - 02/18 Sidra Busch VITAMIN D TABS completed 50,000 international units weekly - 03/05 Johnson Villatoro RN RANEXA 1000 MG ORAL TABLET EXTENDED RELEASE 12 HOUR completed ONE TAB. TWICE DAILY for chronic angina - 03/05 Johnson Villatoro RN TRICOR TABLET completed 145mg daily - 09/10 Johnson Villatoro RN NIASPAN 1000 MG ORAL TABLET EXTENDED RELEASE completed ONE TAB. AT BEDTIME - Dispense as written - 04/21 Angie Ramachandran RN SIMVASTATIN 40 MG ORAL TABLET completed 1 tablet by mouth daily - 12/06 Jaquelin Connolly RN IMDUR 60 MG ORAL TABLET EXTENDED RELEASE 24 HOUR completed ONE TAB. DAILY 03/19 - 02/18 Jessica Pinedo MA ASPIRIN 325 MG ORAL TABLET completed one tab daily - 02/18 Sidra Busch PERCOCET 5-325 MG ORAL TABLET completed one tablet for pain every 6 hours. 10/23 - 11/22 Johnson Villatoro RN RANEXA 1000 MG ORAL TABLET EXTENDED RELEASE 12 HOUR completed ONE TAB. TWICE DAILY for chronic angina - 02/18 Nader Matos RANEXA 500 MG ORAL TABLET EXTENDED RELEASE 12 HOUR completed TAKE TWO (2) TABLETS BY MOUTH TWICE DAILY - 02/01 Joseph Grace MD SPIRONOLACTONE 25 MG ORAL TABLET completed ONE TAB. DAILY ( ) 04/04 - 09/17 Stella Villagomez Nitrostat 0.4 mg tablet, sublingual active 1 tablet under tongue as needed 03/30 Amina Carreno PLAVIX 75 MG ORAL TABLET completed daily - 02/18 Dianne Robles CARVEDILOL 25 MG ORAL TABLET completed Take 1/2 tab twice daily. ( ) 03/26 - 09/10 Johnson Villatoro RN AVAPRO 150 MG ORAL TABLET completed one tab daily 09/02 - 11/12 Johnson Walker RN ADVICOR 1000-20 MG ORAL TABLET EXTENDED RELEASE 24 HOUR completed 2 pills daily - 01/04 Sherice La ZETIA 10 MG ORAL TABLET completed daily - 09/20 Joseph Grace MD METFORMIN HCL 850 MG ORAL TABLET completed 2 tab twice daily 10/24 - 09/17 Stella Villagomez SOCIAL HISTORY Date Observation Value Provider personal history of marijuana use no Joseph Grace MD drug use no Joseph Grace MD alcohol use no Joseph Grace MD passive cigarette sm erik exposure yes Joseph Grace MD smoking, year quit 2000 Joseph valentine MD number of years as a smoker 21 a Joseph Grace MD smoking, date started 1979 Joseph Grace MD smoking history, tot al pack/year 21 Joseph Grace MD smoking history, tot al pack/day 3 Joseph Grace MD cigarette use yes Joseph Grace MD smoking status Former smoker Joseph Grace MD personal history of marijuana use no [facility]olito Barton [facility] passive cigarette sm erik exposure yes Hipolito Barton smoking, year quit 2000 Hipolito wisdom number of years as a smoker 21 a Hipolito Barton smoking, date started 1979 Hipolito Barton smoking history, tot al pack/year 21 Hipolito Barton smoking history, tot al pack/day 3 Hipolito Barton cigarette use yes Hipolito Hodge smoking status Former smoker Hipolito Bazzi [facility] personal history of marijuana use no Joseph Grace MD drug use no Joseph Grace MD alcohol use no Joseph Grace MD passive cigarette sm erik exposure yes Joseph Grace MD smoking, year quit 2000 Joseph valentine MD number of years as a smoker 21 a Joseph Grace MD smoking, date started 1979 Joseph Grace MD smoking history, tot al pack/year 21 Joseph Grace MD smoking history, tot al pack/day 3 Joseph Grace MD cigarette use yes Joseph Grace MD smoking status Former smoker Joseph Grace MD personal history of marijuana use no Tameka Ventimiglia [facility] drug use no Tameka Ventimig lenora [employer] alcohol use no Tameka Ventimig lenora [employer] passive cigarette sm erik exposure yes Tameka Ventimiglia [facility] smoking, year quit 2000 Tameka kulkarniimiglshea [facility] number of years as a smoker 21 a Tameka Ventimiglia [facility] smoking, date started 1979 Tameka Hawkmiglia [facility] smoking history, tot al pack/year 21 Tameka Ventimiglia [facility] smoking history, tot al pack/day 3 Tameka Ventimiglia [facility] cigarette use yes Tameka Hawkmi glia [facility] smoking status Former smoker Tameka castorenaa [facility] physical exercise, frequency, days per week yes Joseph Grace MD caffeine use, averag e drinks per day 1+ Joseph Grace MD passive cigarette sm erik exposure yes Joseph Grace MD smoking, year quit 2000 Joseph valentine MD number of years as a smoker 21 a Joseph Grace MD smoking, date started 1979 Joseph Grace MD smoking history, tot al pack/year 21 Joseph Grace MD smoking history, tot al pack/day 3 Joseph Grace MD cigarette use yes Joseph Grace MD smoking status Former smoker Joseph Grace MD social history reviewed E&M damián ewed - no changes required Joseph Grace MD social history reviewed E&M damián ewed - no changes required Joseph Grace MD physical exercise, frequency, days per week yes Lauren Young caffeine use, averag e drinks per day 1+ Lauren Young passive cigarette sm erik exposure yes Lauren Young smoking, year quit 2000 Lauren Nomi valdiviams number of years as a smoker 21 a Lauren Young smoking, date started 1979 Laurenmo mckinnon smoking history, tot al pack/year 21 Lauren Hector smoking history, tot al pack/day 3 Lauren Hector cigarette use yes Lauren Hector smoking status Former smoker Lauren hernandez social history E&M Marital Statu s: L pato with family/friends E thnicity: Smoking History: P atjenna is a former smoker. Linda Saeed social history reviewed E&M revi ewed - no changes required Linda Saeed drug use no Tameka Ventimig lenora [employer] alcohol use no Tameka Ventimig lenora [employer] cigarette use yes Chel Lugo smoking status Former smoker Chel Hernandez darnell smoking history, tot al pack/year 21 Kyaw Lyle RN social history E&M Marital Statu s: L pato with family/friends E thnicity: Smoking History: P atient is a former smoker. Joseph Grace MD social history reviewed E&M revi ewed - no changes required Joseph Grace MD physical exercise, frequency, days per week yes Toña Sanabria caffeine use, averag e drinks per day 1+ Toña Sanabria passive cigarette sm erik exposure yes Toña Sanabria smoking, year quit 2000 Toña Sanabria number of years as a smoker 21 a Toña Sanabria smoking, date started 1979 Scar Madsen smoking history, tot al pack/year 41 Toña Daniele smoking history, tot al pack/day 3 Toña Daniele cigarette use yes Toña Darrius guevara smoking status Former smoker Toña Kerri salgado social history E&M Marital Statu s: L pato with family/friends E thnicity: Smoking History: P atjenna is a former smoker. Joseph Grace MD social history reviewed E&M revi ewed - no changes required Joseph Grace MD physical exercise, frequency, days per week yes Bertha Caban caffeine use, averag e drinks per day 1+ Bertha Caban passive cigarette sm erik exposure yes Bertha Caban smoking, year quit 2000 Bertha mendiola number of years as a smoker 21 a Bertha Caban smoking, date started 1979 Bertha Caban smoking history, tot al pack/year 41 Bertha Caban smoking history, tot al pack/day 3 Bertha Caban cigarette use yes Bertha Caban smoking status Former smoker Bertha Caban social history E&M Marital Statu s: L pato with family/friends E thnicity: Smoking History: P atient is a former smoker. Linda Saeed social history reviewed E&M revi ewed - no changes required Linda Saeed physical exercise, frequency, days per week yes Toña Sanabria caffeine use, averag e drinks per day 1+ Toña Sanabria passive cigarette sm erik exposure yes Toña Sanabria smoking, year quit 2000 Toña Sanabria number of years as a smoker 21 a Toña Sanabria smoking, date started 1979 Scar ana Sanabria smoking history, tot al pack/year 41 Toña Sanabria smoking history, tot al pack/day 3 Toña Sanabria cigarette use yes Toña Rizo paola smoking status Former smoker Toña Manning naomi social history reviewed E&M revi ewed - no changes required Joseph Grace MD social history E&M Marital Statu s: L pato with family/friends E thnicity: Smoking History: P atient is a former smoker. Joseph Grace MD social history reviewed E&M revi ewed - no changes required Joseph Grace MD physical exercise, frequency, days per week yes Sidra Busch caffeine use, averag e drinks per day 1+ Sidra Busch passive cigarette sm erik exposure yes Sidra Busch smoking, year quit 2000 Sidra Busch number of years as a smoker 21 a Sidra Busch smoking, date started 1979 Dinesh Busch smoking history, tot al pack/year 41 Sidra Busch smoking history, tot al pack/day 3 Sidra Busch cigarette use yes Sidra hua smoking status Former smoker Sidra Norris social history reviewed E&M revi ewed - no changes required Linda Saeed smoking history, tot al pack/year 41 Danica Jaquez social history E&M Marital Statu s: L pato with family/friends E thnicity: Smoking History: Ifrah jarrell is a former smoker. Linda Saeed social history reviewed E&M revi ewed - no changes required Linda Saeed physical exercise, frequency, days per week yes Dianne Robles caffeine use, averag e drinks per day 1+ Dianne Robles passive cigarette sm erik exposure yes Dianne Robles smoking, year quit 2000 Dianne christianson number of years as a smoker 21 a Dianne Robles smoking, date started 1979 Dianne Robles smoking history, tot al pack/year 41 Dianne Robles smoking history, tot al pack/day 3 Dianne Robles cigarette use yes Dianne espino smoking status Former smoker Dianne Hernandez nfelder smoking history, tot al pack/year 41 Jose Angel Alvarez RN social history reviewed E&M revi ewed - no changes required Gary Montoya physical exercise, frequency, days per week yes Wanda Ramu caffeine use, averag e drinks per day 1+ Wanda Ramu passive cigarette sm erik exposure yes Wanda Ramu smoking, year quit 2000 Wanda tejeda number of years as a smoker 21 a Wanda Ramu smoking, date started 1979 Junie mo Ramu smoking history, tot al pack/year 40 Wanda Ramu smoking history, tot al pack/day 3 Wanda Guallpa cigarette use yes Wanda loving smoking status Former smoker Wanda Terry [place]ijer[place] smoking history, tot al pack/year 40 Galina Barkley RN social history reviewed E&M revi ewed - no changes required Gary Montoya social history reviewed E&M revi ewed - no changes required Gary Montoya physical exercise, frequency, days per week yes Wanda Guallpa caffeine use, averag e drinks per day 1+ Wanda Guallpa passive cigarette sm erik exposure yes Wanda Guallpa smoking, year quit 2000 Wanda tejeda number of years as a smoker 21 a Wanda Ramu smoking, date started 1979 Junie mo Ramu smoking history, tot al pack/year 30+ Wanda Guallpa smoking history, tot al pack/day 3 Wanda Guallpa cigarette use yes Wanda loving smoking status Former smoker Wanda Terry tijerina social history reviewed E&M revi ewed - no changes required Gary Montoya physical exercise, frequency, days per week yes Wanda Guallpa caffeine use, averag e drinks per day 1+ Wanda Guallpa passive cigarette sm erik exposure yes Wanda Guallpa smoking, year quit 2000 Wanda tejeda number of years as a smoker 21 a Wanda Guallpa smoking, date started 1979 Junie Guallpa smoking history, tot al pack/year 30+ Gary Montoya smoking history, tot al pack/day 3 Wanda Guallpa cigarette use yes Wanda loving smoking status Former smoker Wanda tijerina social history reviewed E&M revi ewed - no changes required Joseph Grace MD physical exercise, frequency, days per week yes [facility] caffeine use, averag e drinks per day 1+ [facility] passive cigarette sm erik exposure yes [facility] smoking, year quit 2000 [facility] number of years as a smoker 21 a [facility] smoking, date started 1979 [facility] smoking history, tot al pack/year 31 [facility] smoking history, tot al pack/day 3 [facility] cigarette use yes [facility] smoking status Former smoker [facility] physical exercise, frequency, days per week yes [facility] caffeine use, averag e drinks per day 1+ [facility] passive cigarette sm erik exposure yes [facility] smoking, year quit 2000 [facility] number of years as a smoker 21 a [facility] smoking, date started 1979 Gely perez [facility] smoking history, tot al pack/year 31 [facility] smoking history, tot al pack/day 3 [facility] cigarette use yes [facility] smoking status Former smoker Gary [facility] social history reviewed E&M revi ewed - no changes required [facility] alcohol use no Gary perez physical exercise, frequency, days per week yes [facility] caffeine use, averag e drinks per day 1+ [facility] passive cigarette sm erik exposure yes [facility] smoking, year quit 2000 [facility] number of years as a smoker 21 a [facility] smoking, date started 1979 Gely ana [facility] smoking history, tot al pack/year 31 [facility] smoking history, tot al pack/day 3 [facility] smoking status Former smoker Gary [facility] social history reviewed E&M revi ewed - no changes required [facility] cigarette use yes China Martínez ms social history reviewed E&M revi ewed - no changes required Joseph Grace MD physical exercise, frequency, days per week yes Wanda Guallpa alcohol use, average drinks per day none Wanda Guallpa alcohol use no Wanda enriquez caffeine use, averag e drinks per day 1+ Wanda Guallpa drug use no Wanda enriquez passive cigarette sm erik exposure yes Wanda Guallpa smoking, year quit 2000 Wanda tejeda number of years as a smoker 21 a Joseph Grace MD smoking, date started 1979 Joseph Grace MD smoking history, tot al pack/day 3 Wanda Guallpa cigarette use yes Wanda loving smoking status Former smoker Wanda tijerina social history reviewed E&M revi ewed - no changes required [facility] physical exercise, frequency, days per week yes Sidra Busch alcohol use, average drinks per day none Sidra Busch alcohol use no Sidra joyneron caffeine use, averag e drinks per day 1+ Sidra Busch drug use no Sidra becerra passive cigarette sm erik exposure yes Sidra Busch smoking, year quit 2000 Sidra Busch number of years as a smoker 15 a Sidra Busch smoking, date started 1985 Dinesh Busch smoking history, tot al pack/day 3 Sidra Busch cigarette use yes Sidra hua smoking status Former smoker Sidra Norris social history reviewed E&M revi ewed - no changes required Gary Montoya physical exercise, frequency, days per week yes Sidra Busch alcohol use, average drinks per day none Sidra Busch alcohol use no Sidra becerra caffeine use, averag e drinks per day 1+ Sidra Busch drug use no Sidra becerra passive cigarette sm erik exposure yes Sidra Busch smoking, year quit 2000 Sidra Busch number of years as a smoker 15 a Sidra Busch smoking, date started 1985 Dinehs Busch smoking history, tot al pack/day 3 Sidra Busch cigarette use yes Sidra hua smoking status Former smoker Sidra Norris social history reviewed E&M revi ewed - no changes required Nieves Zimmer MD physical exercise, frequency, days per week yes Sowmya Connolly alcohol use, average drinks per day none Sowmya Connolly alcohol use no Sowmya Connolly caffeine use, averag e drinks per day 1+ Sowmya Connolly drug use no Sowmya Connolly passive cigarette sm erik exposure yes Sowmya Connolly smoking, year quit 2000 Sowmya kenny smoking, date started 1985 Sowmya Connolly smoking history, tot al pack/day 3 Sowmya Mohsen cigarette use yes Sowmyanatasah Connolly smoking status Former smoker Sowmya Connolly social history reviewed E&M revi ewed - no changes required Gary Montoya social history E&M Marital Statu s: L pato with family/friends E thnicity: Smoking History: Ifrah jarrell is a former smoker. Gary Montoya number of grandchildren Joseph Grace MD physical exercise, frequency, days per week yes Dianne Robles alcohol use, average drinks per day none Dianne Robles alcohol use no Dianne grimes caffeine use, averag e drinks per day 1+ Gary Montoya drug use no Gary perez passive cigarette sm erik exposure yes Dianne Robles smoking, year quit 2000 Dianne christianson number of years as a smoker 15 a Dianne Robles smoking, date started 1985 Dianen Robles smoking history, tot al pack/day 3 Dianne Robles cigarette use yes Dianne espino smoking status Former smoker Dianne sheppard smoking history, tot al pack/year 31 Salena Tinoco social history reviewed E&M revi ewed - no changes required Cruz Peter MD physical exercise, frequency, days per week yes Dianne Robles alcohol use, average drinks per day none Dianne Robles alcohol use no Dianne petersoner caffeine use, averag e drinks per day yes Dianne Robles drug use none Dianne Davis lder passive cigarette sm erik exposure yes Dianne Robles smoking, year quit 2000 Dianne christainson number of years as a smoker 15 a Dianne Robles smoking, date started 1985 Dianne Robles smoking history, tot al pack/year 90 Dianne Robles smoking history, tot al pack/day 3 Dianne Robles cigarette use yes Dianne espino smoking status Former smoker Dianne sheppard social history E&M Marital Statu s: L pato with family/friends E thnicity: Smoking History: Patient is a former smoker. Joseph Grace MD smoking, date started 1985 Joseph Grace MD number of years as a smoker 15 a Joseph Grace MD social history reviewed E&M revi ewed - no changes required Joseph Grace MD smoking history, tot al pack/day 3 Joseph Grace MD smoking, year quit 2000 Joseph valentine MD smoking/tobacco cess ation, patient education and counseling yes Joseph Grace MD cigarette use yes Joseph Grace MD smoking status Former smoker Joseph Grace MD number of grandchildren Cruz Grace MD physical exercise, frequency, days per week yes Sidra Busch alcohol use, average drinks per day none Sidra Busch alcohol use no Sidra becerra caffeine use, averag e drinks per day yes Sidra Busch drug use none Sidra Salcido mariam passive cigarette sm erik exposure yes Sidra Busch social history reviewed E&M revi ewed - no changes required Cruz Peter MD smoking status Former smoker Stella Dillon physical exercise, frequency, days per week yes Stella Dillon alcohol use, average drinks per day none Stella Dillon alcohol use no Stella Dillon caffeine use, averag e drinks per day yes Stella Dillon drug use none Stella Dillon passive cigarette sm erik exposure yes Stella Dillon social history reviewed E&M revi ewed - no changes required Cruz Peter MD physical exercise, frequency, days per week yes Sidra Busch alcohol use, average drinks per day none Sidra Busch alcohol use no Sidra becerra caffeine use, averag e drinks per day yes Sidra Busch drug use none Sidra becerra passive cigarette sm erik exposure yes Sidra Busch smoking status Former smoker Sidra Norris social history reviewed E&M revi ewed - no changes required Joseph Grace MD physical exercise, frequency, days per week yes Sidra Busch alcohol use, average drinks per day none Sidra Busch alcohol use no Sidra becerra caffeine use, averag e drinks per day yes Sidra Busch drug use none Sidra becerra passive cigarette sm erik exposure yes Sidra Busch smoking status Former smoker Sidra Norris physical exercise, frequency, days per week yes Cruz Peter MD alcohol use, average drinks per day none Cruz Peter MD alcohol use no Cruz Forrest caffeine use, averag e drinks per day yes Cruz Peter MD drug use none Cruz Forrest smoking/tobacco cess ation, patient education and counseling yes Cruz Peter MD passive cigarette sm erik exposure yes Cruz Peter MD smoking status Former smoker Cruz forrest MD social history reviewed E&M revi ewed - no changes required Cruz Peter MD social history reviewed E&M revi ewed - no changes required Cruz Peter MD social history E&M Marital Statu s: L pato with family/friends E thnicity: Smoking History: Ifrah jarrell is a former smoker. Ifrah jarrell has been counseled to quit. 3 PPD x 15 years; Quit 13 years ago Cruz Peter MD physical exercise, frequency, days per week yes Sidra Busch alcohol use, average drinks per day none Sidra Busch alcohol use no Sidra becerra caffeine use, averag e drinks per day yes Sidra Busch drug use none Sidra becerra passive cigarette sm erik exposure yes Sidra Busch smoking status Former smoker Sidra Rodriguezson social history E&M Marital Statu s: L pato with family/friends E thnicity: Smoking History: Ifrah jarrell is a former smoker. Ifrah jarrell has been counseled to quit. Joseph Grace MD social history reviewed E&M revi ewed - no changes required Joseph Grace MD physical exercise, frequency, days per week yes Sidra Busch alcohol use, average drinks per day none Sidra Busch caffeine use, averag e drinks per day yes Sidra Busch drug use none Sidra becerra passive cigarette sm erik exposure yes Sidra Busch smoking/tobacco cess ation, patient education and counseling yes Sidra Busch smoking status Former smoker Sidra Rodriguezson social history reviewed E&M revi ewed - no changes required Joseph Grace MD physical exercise, frequency, days per week yes Stella Villagomez alcohol use, average drinks per day none Stella Villagomez caffeine use, averag e drinks per day yes Stella Villagomez drug use none Stellaelidia Villagomez passive cigarette sm erik exposure yes Stella Villagomez smoking/tobacco cess ation, patient education and counseling yes Stella Villagomez smoking status Former smoker Stella Johnson nn social history reviewed E&M revi ewed - no changes required [facility] physical exercise, frequency, days per week yes Stella Villagomez alcohol use, average drinks per day none Stella Villagomez caffeine use, averag e drinks per day yes Stella Villagomez drug use none Stella Villagomez passive cigarette sm erik exposure yes Stella Villagomez smoking/tobacco cess ation, patient education and counseling yes Stellaelidia Villagomez smoking status Former smoker Stella Johnson nn physical exercise, frequency, days per week yes [facility] alcohol use, average drinks per day none [facility] caffeine use, averag e drinks per day yes [facility] drug use none [facility] passive cigarette sm erik exposure yes [facility] smoking/tobacco cess ation, patient education and counseling yes [facility] smoking status Former smoker Maritza Warren james social history reviewed E&M revi ewed - no changes required [facility] smoking/tobacco cess ation, patient education and counseling yes Joseph Grace MD physical exercise, frequency, days per week yes Stella Villagomez alcohol use, average drinks per day none Stella Villagomez caffeine use, averag e drinks per day yes Stella Villagomez drug use none Stella Villagomez passive cigarette sm erik exposure yes Stella Villagomez smoking status Former smoker Stella Johnson nn social history reviewed E&M reviewed Joseph Grace MD social history reviewed E&M reviewed Johnson Villatoro RN social history reviewed E&M reviewed Johnson Villatoro RN social history reviewed E&M reviewed Johnson Villatoro RN social history reviewed E&M reviewed Johnson Villatoro RN social history reviewed E&M reviewed Johnson Villatoro RN smoking history, tot al pack/year 90 Johnson Vilaltoro RN social history reviewed E&M reviewed Johnson Villatoro RN social history reviewed E&M reviewed Johnson Villatoro RN social history reviewed E&M reviewed Marizta Atwood drug use none Maritza Angelic passive cigarette sm erik exposure yes Dianne Robles smoking history, tot al pack/year 3.5ppd for 30years Dianne Robles smoking, year quit 2002 Dianne christianson smoking status former smoker Dianne sheppard social history reviewed E&M reviewed Joseph Grace MD social history reviewed E&M reviewed Johnson Villatoro RN drug use none Joseph Grace MD social history reviewed E&M reviewed Johnson Villatoro RN social history reviewed E&M reviewed Johnson Villatoro RN social history reviewed E&M reviewed Johnson Villatoro RN social history reviewed E&M reviewed Maritza Atwood social history reviewed E&M reviewed Johnson Villatoro RN social history reviewed E&M reviewed Johnson Villatoro RN social history reviewed E&M reviewed CHINA MCFARLAND NP social history reviewed E&M reviewed Joseph Grace MD social history reviewed E&M reviewed Johnson Villatoro RN social history reviewed E&M reviewed Johnson Villatoro RN social history reviewed E&M reviewed Johnson Villatoro RN social history reviewed E&M reviewed Johnson Villatoro RN social history reviewed E&M reviewed Johnson Villatoro RN social history reviewed E&M reviewed Johnson Villatoro RN social history E&M Marital Statu s: L pato with family/friends E thnicity: Joseph Grace MD physical exercise, frequency, days per week yes [employer] caffeine use, averag e drinks per day yes [employer] alcohol use, average drinks per day none [employer] number of years as a smoker 10 years or m ore [employer] smoking status Quit [employer] FUNCTIONAL STATUS Date Observation Value Provider HRA, CV Assess/Plan, Angina (inactive) Management Plan continue current therapy Hipolito Barton HRA, CV Assess/Plan, Angina (inactive) Management Plan continue current therapy Hipolito Barton HRA, CV Assess/Plan, Angina (inactive) Management Plan continue current therapy Joseph Grace MD HRA, CV Assess/Plan, Angina (inactive) Management Plan continue current therapy Tameka Ventimiglia [employer] HRA, CV Assess/Plan, Angina (inactive) Management Plan continue current therapy Joseph Grace MD HRA, CV Assess/Plan, Angina (inactive) Management Plan continue current therapy Joseph Grace MD HRA, CV Assess/Plan, Angina (inactive) Management Plan continue current therapy Tameka Ventimiglia [employer] HRA, CV Assess/Plan, Angina (inactive) Management Plan continue current therapy Joseph Grace MD HRA, CV Assess/Plan, Angina (inactive) Management Plan continue current therapy Joseph Grace MD HRA, CV Assess/Plan, Angina (inactive) Management Plan continue current therapy Linda Saeed HRA, CV Assess/Plan, Angina (inactive) Management Plan continue current therapy Linda Saeed HRA, CV Assess/Plan, Angina (inactive) Management Plan continue current therapy Joseph Grace MD HRA, CV Assess/Plan, Angina (inactive) Management Plan continue current therapy Linda Jacobsmeyer HRA, CV Assess/Plan, Angina (inactive) Management Plan continue current therapy Linda Saeed HRA, CV Assess/Plan, Angina (inactive) Management Plan continue current therapy Lindapaolo Saeed HRA, CV Assess/Plan, Angina (inactive) Management Plan continue current therapy Gary Lindsay HRA, CV Assess/Plan, Angina (inactive) Management Plan continue current therapy Gary Lindsay HRA, CV Assess/Plan, Angina (inactive) Management Plan continue current therapy Gary [facility] HRA, CV Assess/Plan, Angina (inactive) Management Plan continue current therapy Joseph Grace MD HRA, CV Assess/Plan, Angina (inactive) Management Plan continue current therapy Joseph Grace MD HRA, CV Assess/Plan, Angina (inactive) Management Plan schedule PCI Joseph Grace MD HRA, CV Assess/Plan, Angina (inactive) Management Plan schedule PCI Joseph Grace MD HRA, CV Assess/Plan, Angina (inactive) Management Plan continue current therapy Joseph Grace MD HRA, CV Assess/Plan, Angina (inactive) Management Plan continue current therapy Gary [facility] HRA, CV Assess/Plan, Angina (inactive) Management Plan continue current therapy Nieves Zimmer MD HRA, CV Assess/Plan, Angina (inactive) Management Plan continue current therapy Joseph Grace MD HRA, CV Assess/Plan, Angina (inactive) Management Plan continue current therapy Joseph Grace MD MENTAL STATUS Date Observation Value Provider assessment of judgme nt and insight E&M Alert and oriented to time, place and person. Mood and affect are normal. Maritza Atwood assessment of judgme nt and insight E&M Alert and oriented to time, place and person. Mood and affect are normal. Johnson Villatoro RN assessment of judgme nt and insight E&M Alert and oriented to time, place and person. Mood and affect are normal. Johnson Villatoro RN assessment of judgme nt and insight E&M Alert and oriented to time, place and person. Mood and affect are normal. Johnson Villatoro RN assessment of judgme nt and insight E&M Alert and oriented to time, place and person. Mood and affect are normal. Johnson Villatoro RN assessment of judgme nt and insight E&M Alert and oriented to time, place and person. Mood and affect are normal. Johnson Villatoro RN assessment of judgme nt and insight E&M Alert and oriented to time, place and person. Mood and affect are normal. Johnson Villatoro RN assessment of judgme nt and insight E&M Alert and oriented to time, place and person. Mood and affect are normal. Johnson Villatoro RN energy level yes Seth Casillas energy level yes Seth Casillas energy level yes Seth Casillas energy level yes Seth Casillas energy level yes Seth Casillas energy level yes Seth Casillas energy level yes Seth Casillas energy level yes Seth Casillas energy level yes Seth Casillas energy level yes Seth Casillas energy level yes Seth Casillas energy level yes Seth Casillas energy level yes Seth Casillas energy level yes Seth Casillas energy level yes Seth Casillas energy level yes Seth Casillas energy level yes Seth Casillas energy level yes Seth Casillas energy level yes Seth Casillas energy level yes Seth Casillas energy level yes Seth Casillas energy level yes Seth Casillas energy level yes Seth Casillas energy level no Seth Casillas energy level no Seth Casillas energy level yes Seth Casillas energy level yes Seth Casillas energy level no Seth Casillas energy level no Seth Casillas assessment of judgme nt and insight E&M Alert and oriented to time, place and person. Mood and affect are normal. Joseph Grace MD assessment of judgme nt and insight E&M Alert and oriented to time, place and person. Mood and affect are normal. Joseph Grace MD assessment of judgme nt and insight E&M Alert and oriented to time, place and person. Mood and affect are normal. Johnson Villatoro RN assessment of judgme nt and insight E&M Alert and oriented to time, place and person. Mood and affect are normal. Johnson Villatoro RN assessment of judgme nt and insight E&M Alert and oriented to time, place and person. Mood and affect are normal. Johnson Villatoro RN assessment of judgme nt and insight E&M Alert and oriented to time, place and person. Mood and affect are normal. Johnson Villatoro RN assessment of judgme nt and insight E&M Alert and oriented to time, place and person. Mood and affect are normal. Maritza Blunt assessment of judgme nt and insight E&M Alert and oriented to time, place and person. Mood and affect are normal. Johnson Villatoro RN energy level yes Seth Casillas energy level yes Seth Casillas energy level yes Seth Casillas energy level no Seth Casillas energy level yes Seth Casillas energy level no Seth Casillas assessment of judgme nt and insight E&M Alert and oriented to time, place and person. Mood and affect are normal. Johnson Villatoro RN assessment of judgme nt and insight E&M Alert and oriented to time, place and person. Mood and affect are normal. CHINA MCFARLAND NP assessment of judgme nt and insight E&M Alert and oriented to time, place and person. Mood and affect are normal. Joseph Grace MD assessment of judgme nt and insight E&M Alert and oriented to time, place and person. Mood and affect are normal. Johnson Villatoro RN assessment of judgme nt and insight E&M Alert and oriented to time, place and person. Mood and affect are normal. Johnson Villatoro RN assessment of judgme nt and insight E&M Alert and oriented to time, place and person. Mood and affect are normal. Johnson Villatoro RN assessment of judgme nt and insight E&M Alert and oriented to time, place and person. Mood and affect are normal. Johnson Villatoro RN energy level yes Seth Casillas energy level yes Seth Casillas energy level yes Seth Casillas energy level yes Seth Casillas energy level yes Seth Casillas energy level yes Seth Casillas energy level yes Seth Casillas energy level yes Seth Casillas energy level yes Sandy Gomes energy level yes Seth Casillas energy level yes Seth Casillas energy level yes Seth Casillas energy level yes Seth Casillas energy level yes Seth Casillas energy level yes Seth Casillas energy level yes Seth Casillas energy level yes Seth Casillas energy level yes Seth Casillas energy level yes Seth Casillas energy level yes Seth Casillas energy level yes Seth Casillas energy level yes Seth Casillas energy level yes Seth Casillas energy level yes Seth Casillas energy level yes Seth Casillas energy level yes Seth Casillas energy level yes Seth Casillas energy level yes Sethkurtis Casillas energy level no Sethkurtis Casillas energy level no Sethkurtis Casillas energy level no Sethkurtis Casillas energy level yes Seth Casillas energy level no Seth Casillas energy level no Seth Casillas energy level no Seth Rizoson assessment of judgme nt and insight E&M Alert and oriented to time, place and person. Mood and affect are normal. Johnson Villatoro RN assessment of judgme nt and insight E&M Alert and oriented to time, place and person. Mood and affect are normal. Johnson Villatoro RN assessment of judgme nt and insight E&M Alert and oriented to time, place and person. Mood and affect are normal. Joseph Grace MD FAMILY HISTORY Family Member Condition Father [place] male <55 Father Family History of Tabor dden Cardiac : Father Family History of Hy pertension: Father Family History of Di abetes: Father Family History of Co ronary Artery Disease: INSURANCE PROVIDERS Payer name Policy type / Coverage type [place] [employer] [facility] COMPLETE [facility] [id number] (PPO C-SNP) The [employer] insurance [employer] [id number] [facility] Medicaid 1 [id number] ADVANCE DIRECTIVES Name Date DISCUSSED - NO DECISION MADE TREATMENT PLAN Date Name Performer [id number],S,C HOL: 121 (03/02/2021) HDL: 25 (03/02/2021) H er updated medication list for this problem includes: Vascepa 1 Gram Capsule (Icosapent ethyl) ..... Take 2 capsule by mouth twice a day take two capsules by mouth twice a day Joseph Grace MD [id number],S, H er updated medication list for this problem includes: Vascepa 1 Gram Capsule (Icosapent ethyl) ..... Take 2 capsule by mouth twice a day take two capsules by mouth twice a day C HOL: 121 (03/02/2021) HDL: 25 (03/02/2021) Joseph Grace MD [id number],S, Joseph Grace MD [id number],B, Joseph Grace MD [id number],S, H er updated medication list for this problem includes: Carvedilol 12.5 Mg Tablet (Carvedilol) ..... Take 1 tablet by mouth twice daily Prasugrel 10 Mg Tablet (Prasugrel) ..... Take 1 tablet by mouth every day Telmisartan 40 Mg Tablet (Telmisartan) ..... 1 tablet once a day Bumetanide 1 Mg Tablet (Bumetanide) ..... Take 1.5 tablet once a day Nitrostat 0.4 Mg Tablet, Sublingual (Nitroglycerin) ..... 1 tablet under tongue as needed Joseph Grace MD [id number],S, H er updated medication list for this problem includes: Telmisartan 40 Mg Tablet (Telmisartan) ..... 1 tablet once a day Metformin 1,000 Mg Tablet (Metformin) ..... Take 1 tablet by mouth twice a day Glimepiride 2 Mg Tablet (Glimepiride) ..... 1 tablet once a day Joseph Grace MD [id number],C, l ifestyle modification Joseph Grace MD [id number],C, B P today: 124/66 P rior BP: 159/77 (11/24/2022) Prior 10 Yr Risk Heart Disease: N/A (10/08/2010) Labs Reviewed: C reat: 1.30 (01/05/2021) C hol: 121 (03/02/2021) HDL: 25 (03/02/2021) Her updated medication list for this problem includes: Carvedilol 12.5 Mg Tablet (Carvedilol) ..... Take 1 tablet by mouth twice daily Telmisartan 40 Mg Tablet (Telmisartan) ..... 1 tablet once a day Bumetanide 1 Mg Tablet (Bumetanide) ..... Take 1.5 tablet once a day Joseph Grace MD [id number],C, C mari Chao Her updated medication list for this problem includes: Carvedilol 12.5 Mg Tablet (Carvedilol) ..... Take 1 tablet by mouth twice daily Prasugrel 10 Mg Tablet (Prasugrel) ..... Take 1 tablet by mouth every day Nitrostat 0.4 Mg Tablet, Sublingual (Nitroglycerin) ..... 1 tablet under tongue as needed Joseph Grace MD [id number],C, H er updated medication list for this problem includes: Vascepa 1 Gram Capsule (Icosapent ethyl) ..... Take 2 capsule by mouth twice a day take two capsules by mouth twice a day Joseph Grace MD [id number],C, C ath showed EF 35-40%. ProBNP was 135. Her updated medication list for this problem includes: Carvedilol 12.5 Mg Tablet (Carvedilol) ..... Take 1 tablet by mouth twice daily Prasugrel 10 Mg Tablet (Prasugrel) ..... Take 1 tablet by mouth every day Telmisartan 40 Mg Tablet (Telmisartan) ..... 1 tablet once a day Bumetanide 1 Mg Tablet (Bumetanide) ..... Take 1.5 tablet once a day Nitrostat 0.4 Mg Tablet, Sublingual (Nitroglycerin) ..... 1 tablet under tongue as needed Joseph Grace MD [id number],C, H er updated medication list for this problem includes: Telmisartan 40 Mg Tablet (Telmisartan) ..... 1 tablet once a day Metformin 1,000 Mg Tablet (Metformin) ..... Take 1 tablet by mouth twice a day Glimepiride 2 Mg Tablet (Glimepiride) ..... 1 tablet once a day Joseph Grace MD [id number],C, R ight leg pain and coldness, left leg numbness and coldness. Joseph Grace MD [id number],C, H er updated medication list for this problem includes: Carvedilol 12.5 Mg Tablet (Carvedilol) ..... Take 1 tablet by mouth twice daily Prasugrel 10 Mg Tablet (Prasugrel) ..... Take 1 tablet by mouth every day Nitrostat 0.4 Mg Tablet, Sublingual (Nitroglycerin) ..... 1 tablet under tongue as needed Joseph Grace MD [id number],C, R ight leg is causing pain and left goes numb after elevation. Has arterial duplex due for 03/03. Joseph Grace MD [id number],S, C lass II Her updated medication list for this problem includes: Carvedilol 12.5 Mg Tablet (Carvedilol) ..... Take 1 tablet by mouth twice daily Prasugrel 10 Mg Tablet (Prasugrel) ..... Take 1 tablet by mouth every day Telmisartan 40 Mg Tablet (Telmisartan) ..... 1 tablet once a day Bumetanide 1 Mg Tablet (Bumetanide) ..... Take 1.5 tablet once a day Nitrostat 0.4 Mg Tablet, Sublingual (Nitroglycerin) ..... 1 tablet under tongue as needed Repeat echo Echo 10/15 C ONCLUSIONS: 1 . Normal left ventricular systolic function. Mild enlargement of left ventricular chamber. Normal wall thickness. E/E': 12.0. L eft ventricular ejection fraction is measured at 60 %. 2 . No significant valvular abnormalities Joseph Grace MD [id number],C,lifestyle mod ification Tameka Ventimiglia [facility] [id number],C,B P 159/77 this am. Slightly above goal. will monitor. If elevated at f/u can adjust meds further H er updated medication list for this problem includes: Telmisartan 40 Mg Tablet (Telmisartan) ..... 1 tablet once a day Carvedilol 12.5 Mg Tablet (Carvedilol) ..... Take 1 tablet by mouth twice daily Bumetanide 1 Mg Tablet (Bumetanide) ..... Take 1.5 tablet once a day [facility] [id number],C,[facility] [id number],C,P atient back on metformin. Has failed muliptle diabetic agents in the past. lifestyle modification encoruaged H er updated medication list for this problem includes: Telmisartan 40 Mg Tablet (Telmisartan) ..... 1 tablet once a day Metformin 1,000 Mg Tablet (Metformin) ..... Take 1 tablet by mouth twice a day Glimepiride 2 Mg Tablet (Glimepiride) ..... 1 tablet once a day [facility] [id number],C,l ipids not at goal. Her Trig were 814 on recent labs and TC 206. She is statin intolerant d/t nausea. She is on Vascepa. Her insurance does not cover Praluent. Will screen for Prevail. T he following medications were removed from the medication list: Praluent Pen 150 Mg/ml Pen Injector (Alirocumab) ..... Inject 1 pen(150mg) subcutaneous every 2 weeks Her updated medication list for this problem includes: Vascepa 1 Gram Capsule (Icosapent ethyl) ..... Take 2 capsule by mouth twice a day take two capsules by mouth twice a day [facility] [id number],C,S he is s/p recent successful intervention to RLE. Has had reduction in pain, but still reports swelling, numbness and tingling in the feet at night that keep her awake at night. She has significant rest pain. Given this will plan for further intervention below of RLE and plan to intervene on Left at a later date. O rders: 9 9214 MOD 30-39min (CPT-62065) F emoral, Left, access (*) [facility] [id number],S,Will schedule AIF Intervention Joseph Grace MD [id number],S, Joseph Grace MD [id number],S, H er updated medication list for this problem includes: Carvedilol 12.5 Mg Tablet (Carvedilol) ..... Take 1 tablet by mouth twice daily Prasugrel 10 Mg Tablet (Prasugrel) ..... Take 1 tablet by mouth every day Nitrostat 0.4 Mg Tablet, Sublingual (Nitroglycerin) ..... 1 tablet under tongue as needed Joseph Grace MD [id number],Laly B P today: 124/71 P rior BP: 142/75 (04/28/2022) Prior 10 Yr Risk Heart Disease: N/A (10/08/2010) Labs Reviewed: C reat: 1.30 (01/05/2021) C hol: 121 (03/02/2021) HDL: 25 (03/02/2021) Her updated medication list for this problem includes: Carvedilol 12.5 Mg Tablet (Carvedilol) ..... Take 1 tablet by mouth twice daily Telmisartan 20 Mg Tablet (Telmisartan) ..... 1 tablet once a day Bumetanide 1 Mg Tablet (Bumetanide) ..... Take 1.5 tablet once a day Joseph Grace MD [id number],S W eight loss advised Linda Saeed [id number],C, H er updated medication list for this problem includes: Carvedilol 12.5 Mg Tablet (Carvedilol) ..... Take 1 tablet by mouth twice daily Prasugrel 10 Mg Tablet (Prasugrel) ..... Take 1 tablet by mouth every day Telmisartan 20 Mg Tablet (Telmisartan) ..... 1 tablet once a day Bumetanide 1 Mg Tablet (Bumetanide) ..... Take 1.5 tablet once a day Nitrostat 0.4 Mg Tablet, Sublingual (Nitroglycerin) ..... 1 tablet under tongue as needed Linda Darlin [id number],C, B P today: 142/75 P rior BP: 118/64 (01/13/2022) Prior 10 Yr Risk Heart Disease: N/A (10/08/2010) Labs Reviewed: C reat: 1.30 (01/05/2021) C hol: 121 (03/02/2021) HDL: 25 (03/02/2021) Her updated medication list for this problem includes: Carvedilol 12.5 Mg Tablet (Carvedilol) ..... Take 1 tablet by mouth twice daily Telmisartan 20 Mg Tablet (Telmisartan) ..... 1 tablet once a day Bumetanide 1 Mg Tablet (Bumetanide) ..... Take 1.5 tablet once a day Linda Saeed [id number],C, H er updated medication list for this problem includes: Praluent Pen 150 Mg/ml Pen Injector (Alirocumab) ..... Inject 1 pen injector subcutaneously every two weeks Vascepa 1 Gram Capsule (Icosapent ethyl) ..... Take 2 capsule twice a day Linda Saeed [id number],C, H er updated medication list for this problem includes: Metformin 1,000 Mg Tablet (Metformin) ..... Take 1 tablet twice a day Glimepiride 2 Mg Tablet (Glimepiride) ..... 1 tablet once a day Telmisartan 20 Mg Tablet (Telmisartan) ..... 1 tablet once a day Linda Darlin [id number],C,C omplaining of worsening pain in the left leg and has sores in the lateral aspect of the left martinez. Will proceed to AIF with possible intervention, at later time we will have to treat her known venous insufficiency. Linda Darlin [id number],C,C omplaining of worsening pain in the left leg and has sores in the lateral aspect of the left martinez. Will proceed to AIF with possible intervention, at later time we will have to treat her known venous insufficiency. Linda Darlin [id number],C, B P today: 118/64 P rior BP: 138/66 (11/25/2021) Prior 10 Yr Risk Heart Disease: N/A (10/08/2010) Labs Reviewed: C reat: 1.30 (01/05/2021) C hol: 121 (03/02/2021) HDL: 25 (03/02/2021) Her updated medication list for this problem includes: Carvedilol 12.5 Mg Tablet (Carvedilol) ..... Take 1 tablet by mouth twice daily Telmisartan 20 Mg Tablet (Telmisartan) ..... 1 tablet once a day Bumetanide 1 Mg Tablet (Bumetanide) ..... Take 1.5 tablet once a day Linda Saeed [id number],C, H er updated medication list for this problem includes: Praluent Pen 150 Mg/ml Pen Injector (Alirocumab) ..... Inject 1 pen injector subcutaneously every two weeks Vascepa 1 Gram Capsule (Icosapent ethyl) ..... Take 2 capsule twice a day Linda Saeed [id number],C, H er updated medication list for this problem includes: Metformin 1,000 Mg Tablet (Metformin) ..... Take 1 tablet twice a day Glimepiride 2 Mg Tablet (Glimepiride) ..... 1 tablet once a day Telmisartan 20 Mg Tablet (Telmisartan) ..... 1 tablet once a day Linda Saeed [id number],S, W eight loss advised Linda Saeed [id number],C, H er updated medication list for this problem includes: Carvedilol 12.5 Mg Tablet (Carvedilol) ..... Take 1 tablet by mouth twice daily Prasugrel 10 Mg Tablet (Prasugrel) ..... Take 1 tablet by mouth every day Nitrostat 0.4 Mg Tablet, Sublingual (Nitroglycerin) ..... 1 tablet under tongue as needed Linda Darlin [id number],C, She denies chest pain or SOB. Her updated medication list for this problem includes: Carvedilol 12.5 Mg Tablet (Carvedilol) ..... Take 1 tablet by mouth twice daily Prasugrel 10 Mg Tablet (Prasugrel) ..... Take 1 tablet by mouth every day Telmisartan 20 Mg Tablet (Telmisartan) ..... 1 tablet once a day Bumetanide 1 Mg Tablet (Bumetanide) ..... Take 1.5 tablet once a day Nitrostat 0.4 Mg Tablet, Sublingual (Nitroglycerin) ..... 1 tablet under tongue as needed Linda Saeed [id number],C,S /P successful intervention of the right leg with signficiant improvement. C/o of worsening pain in the left leg, will schedule AIF with intention to stent the left leg. Linda Saeed [id number],C, B P today: 138/66 P rior BP: 118/70 (05/27/2021) Prior 10 Yr Risk Heart Disease: N/A (10/08/2010) Labs Reviewed: C reat: 1.30 (01/05/2021) C hol: 121 (03/02/2021) HDL: 25 (03/02/2021) Her updated medication list for this problem includes: Telmisartan 20 Mg Tablet (Telmisartan) ..... 1 tablet once a day Bumetanide 1 Mg Tablet (Bumetanide) ..... Take 1.5 tablet once a day Carvedilol 12.5 Mg Tablet (Carvedilol) ..... Take 1 tablet by mouth twice daily Linda Saeed [id number],S, W eight loss advised Linda Saeed [id number],C, H er updated medication list for this problem includes: Metformin 1,000 Mg Tablet (Metformin) ..... Take 1 tablet twice a day Glimepiride 2 Mg Tablet (Glimepiride) ..... 1 tablet once a day Telmisartan 20 Mg Tablet (Telmisartan) ..... 1 tablet once a day Linda Blissmario [id number],C, H er updated medication list for this problem includes: Praluent Pen 150 Mg/ml Pen Injector (Alirocumab) ..... Inject 1 pen injector subcutaneously every two weeks Vascepa 1 Gram Capsule (Icosapent ethyl) ..... Take 2 capsule twice a day Linda Darlin [id number],C, P t denies chest pain or SOB. Her updated medication list for this problem includes: Prasugrel 10 Mg Tablet (Prasugrel) ..... Take 1 tablet by mouth every day Nitrostat 0.4 Mg Tablet, Sublingual (Nitroglycerin) ..... 1 tablet under tongue as needed Carvedilol 12.5 Mg Tablet (Carvedilol) ..... Take 1 tablet by mouth twice daily Lindapaolo Blissmario [id number],C, Back in 2021 after the second injection of Covid vaccine, felt a lot of palpitations. Will obtain an echo and arterial duplex. H er updated medication list for this problem includes: Prasugrel 10 Mg Tablet (Prasugrel) ..... Take 1 tablet by mouth every day Nitrostat 0.4 Mg Tablet, Sublingual (Nitroglycerin) ..... 1 tablet under tongue as needed Carvedilol 12.5 Mg Tablet (Carvedilol) ..... Take 1 tablet by mouth twice daily Linda Darlin [id number],C, P t complains of pain including resting pain in her right leg, started two weeks ago. Will obtain an echo and arterial duplex. An AIF may be required soon. Linda Darlin [id number],S, W eight loss advised Linda Blissmario [id number],C, T he following medications were removed from the medication list: Ezetimibe 10 Mg Tablet (Ezetimibe) ..... Take 1 tablet by mouth daily Her updated medication list for this problem includes: Repatha Sureclick 140 Mg/ml Pen Injector (Evolocumab) ..... Inject 1 pen injector subcutaneously once every two weeks Vascepa 1 Gram Capsule (Icosapent ethyl) ..... Take 2 capsule twice a day Lindapaolo Blissmario [id number],C, H er updated medication list for this problem includes: Metformin 1,000 Mg Tablet (Metformin) ..... Take 1 tablet twice a day Glimepiride 2 Mg Tablet (Glimepiride) ..... 1 tablet once a day Telmisartan 20 Mg Tablet (Telmisartan) ..... 1 tablet once a day Lindapaolo Blissmario [id number],C, B P today: 118/70 P rior BP: 112/60 (02/25/2021) Prior 10 Yr Risk Heart Disease: N/A (10/08/2010) Labs Reviewed: C reat: 1.30 (01/05/2021) C hol: 121 (03/02/2021) HDL: 25 (03/02/2021) Her updated medication list for this problem includes: Telmisartan 20 Mg Tablet (Telmisartan) ..... 1 tablet once a day Bumetanide 1 Mg Tablet (Bumetanide) ..... Take 1.5 tablet once a day Carvedilol 12.5 Mg Tablet (Carvedilol) ..... Take 1 tablet by mouth twice daily Lindapaolo Blissmario [id number],C, She denies chest pain or SOB. H er updated medication list for this problem includes: Telmisartan 20 Mg Tablet (Telmisartan) ..... 1 tablet once a day Bumetanide 1 Mg Tablet (Bumetanide) ..... Take 1.5 tablet once a day Nitrostat 0.4 Mg Tablet, Sublingual (Nitroglycerin) ..... 1 tablet under tongue as needed Carvedilol 12.5 Mg Tablet (Carvedilol) ..... Take 1 tablet by mouth twice daily Prasugrel 10 Mg Tablet (Prasugrel) ..... Take 1 tablet by mouth every day Linda Blissmario [id number],C, D enies chest pain or excessive SOB. Her updated medication list for this problem includes: Nitrostat 0.4 Mg Tablet, Sublingual (Nitroglycerin) ..... 1 tablet under tongue as needed Carvedilol 12.5 Mg Tablet (Carvedilol) ..... Take 1 tablet by mouth twice daily Prasugrel 10 Mg Tablet (Prasugrel) ..... Take 1 tablet by mouth every day Linda Darlin [id number],C,S /P successful repeat intervention of the right lower extremitity. She is completely pain free. We started her on Xarelto 2.5 mg BID. WIll check CRP level. Linda Darlin [id number],C, H er updated medication list for this problem includes: Repatha Sureclick 140 Mg/ml Pen Injector (Evolocumab) ..... Inject 1 pen injector subcutaneously once every two weeks Vascepa 1 Gram Capsule (Icosapent ethyl) ..... Take 2 capsule twice a day Linda Darlin [id number],C, P rior BP: 112/60 (02/25/2021) Prior 10 Yr Risk Heart Disease: N/A (10/08/2010) Labs Reviewed: C reat: 1.30 (01/05/2021) C hol: 121 (03/02/2021) HDL: 25 (03/02/2021) Her updated medication list for this problem includes: Telmisartan 20 Mg Tablet (Telmisartan) ..... 1 tablet once a day Bumetanide 1 Mg Tablet (Bumetanide) ..... Take 1.5 tablet once a day Carvedilol 12.5 Mg Tablet (Carvedilol) ..... Take 1 tablet by mouth twice daily Linda Servinrory [id number],S, W eight loss advised Linda Blissmario [id number],C, H er updated medication list for this problem includes: Glimepiride 2 Mg Tablet (Glimepiride) ..... 1 tablet once a day Telmisartan 20 Mg Tablet (Telmisartan) ..... 1 tablet once a day Metformin 500 Mg Tablet (Metformin) ..... Take 1 tablet twice a day Linda Servinrory [id number],S, She complains of fatigue. She denies chest pain or SOB. H er updated medication list for this problem includes: Telmisartan 20 Mg Tablet (Telmisartan) ..... 1 tablet once a day Bumetanide 1 Mg Tablet (Bumetanide) ..... Take 1.5 tablet once a day Nitrostat 0.4 Mg Tablet, Sublingual (Nitroglycerin) ..... 1 tablet under tongue as needed Carvedilol 12.5 Mg Tablet (Carvedilol) ..... Take 1 tablet by mouth twice daily Prasugrel 10 Mg Tablet (Prasugrel) ..... Take 1 tablet by mouth every day Linda Servinrory [id number],S, D enies chest pain or excessive SOB. Her updated medication list for this problem includes: Nitrostat 0.4 Mg Tablet, Sublingual (Nitroglycerin) ..... 1 tablet under tongue as needed Carvedilol 12.5 Mg Tablet (Carvedilol) ..... Take 1 tablet by mouth twice daily Prasugrel 10 Mg Tablet (Prasugrel) ..... Take 1 tablet by mouth every day Linda Blissmario [id number],C,T he pt complains of pain including nocturnal rest pain in right leg. Can't lie flat and she has to bring leg down to sitting position to avoid pain. 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 Linda Blissmario [id number],C,Weight loss a dvised Linda Blissmario [id number],C, H er updated medication list for this problem includes: Glimepiride 2 Mg Tablet (Glimepiride) ..... 1 tablet once a day Telmisartan 20 Mg Tablet (Telmisartan) ..... 1 tablet once a day Metformin 500 Mg Tablet (Metformin) ..... Take 1 tablet twice a day Linda Blissmario [id number],C, P rior BP: 112/60 (02/25/2021) Labs Reviewed: C reat: 1.30 (01/05/2021) C hol: 206 (07/13/2020) HDL: 31 (07/13/2020) Her updated medication list for this problem includes: Telmisartan 20 Mg Tablet (Telmisartan) ..... 1 tablet once a day Bumetanide 1 Mg Tablet (Bumetanide) ..... Take 1.5 tablet once a day Carvedilol 12.5 Mg Tablet (Carvedilol) ..... Take 1 tablet by mouth twice daily Linda Blissmario [id number],C, D enies chest pain or excessive SOB. Her updated medication list for this problem includes: Nitrostat 0.4 Mg Tablet, Sublingual (Nitroglycerin) ..... 1 tablet under tongue as needed Carvedilol 12.5 Mg Tablet (Carvedilol) ..... Take 1 tablet by mouth twice daily Prasugrel 10 Mg Tablet (Prasugrel) ..... Take 1 tablet by mouth every day Linda Blissmario [id number],C, She cannot tolerate Rosuvastatin and Zetia due to muscle ache. Will start Praluent. H er updated medication list for this problem includes: Praluent Pen 150 Mg/ml Pen Injector (Alirocumab) ..... Inject 1 pen injector subcutaneously once every two weeks Vascepa 1 Gram Capsule (Icosapent ethyl) ..... Take 2 capsule twice a day Linda Saeed [id number],C, She complains of fatigue. She denies chest pain or SOB. H er updated medication list for this problem includes: Telmisartan 20 Mg Tablet (Telmisartan) ..... 1 tablet once a day Bumetanide 1 Mg Tablet (Bumetanide) ..... Take 1.5 tablet once a day Nitrostat 0.4 Mg Tablet, Sublingual (Nitroglycerin) ..... 1 tablet under tongue as needed Carvedilol 12.5 Mg Tablet (Carvedilol) ..... Take 1 tablet by mouth twice daily Prasugrel 10 Mg Tablet (Prasugrel) ..... Take 1 tablet by mouth every day Linda Saeed [id number],C,N ow S/P successful intervention of the right and left lower extremities. She did have some pain in the right thigh which is now improved. She complains of fatigue. Will obtain venous and arterial duplex. Linda Saeed Cardiology: H er updated medication list for this problem includes: Prasugrel 10 Mg Tablet (Prasugrel) ..... Take 1 tablet by mouth every day Carvedilol 12.5 Mg Tablet (Carvedilol) ..... Take 1 tablet by mouth twice daily Telmisartan 40 Mg Tablet (Telmisartan) ..... 1 tablet once a day Bumetanide 1 Mg Tablet (Bumetanide) ..... Take 1.5 tablet once a day Nitrostat 0.4 Mg Tablet, Sublingual (Nitroglycerin) ..... 1 tablet under tongue as needed [facility]:Pt compla ining of new onset of severe rest pain in LLE. On the right she is still having some pain, especially at night time. In view of sx and severe known PAD, we will schedule AIF with possible intervention. [facility]: B P today: 134/82 P rior BP: 124/82 (02/24/2024) Prior 10 Yr Risk Heart Disease: N/A (10/08/2010) Labs Reviewed: C reat: 1.30 (01/05/2021) C hol: 121 (03/02/2021) HDL: 25 (03/02/2021) LDL: 50 (03/02/2021) T (03/02/2021) Her updated medication list for this problem includes: Carvedilol 12.5 Mg Tablet (Carvedilol) ..... Take 1 tablet by mouth twice daily Telmisartan 40 Mg Tablet (Telmisartan) ..... 1 tablet once a day Bumetanide 1 Mg Tablet (Bumetanide) ..... Take 1.5 tablet once a day This visit has been a part of the consistent, comprehensive, and ongoing management of the chronic medical condition(s) listed above for the patient. [facility]: H er updated medication list for this problem includes: Praluent Pen 150 Mg/ml Pen Injector (Alirocumab) ..... Inject 1 pen(150mg) subcutaneous every 2 weeks This visit has been a part of the consistent, comprehensive, and ongoing management of the chronic medical condition(s) listed above for the patient. [facility]: We will screen her for [facility] trial(Trigs). H er updated medication list for this problem includes: Praluent Pen 150 Mg/ml Pen Injector (Alirocumab) ..... Inject 1 pen(150mg) subcutaneous every 2 weeks [facility]:Pt underw ent successful laser atherectomy/DCB angioplasty of SFA. Reports significant improvement of cladication However continues to have pain in her right leg. No longer has sores. We will obtain arterial duplex to assess patency of right SFA. [facility]: B P today: 124/82 P rior BP: 138/78 (12/28/2023) Her updated medication list for this problem includes: Carvedilol 12.5 Mg Tablet (Carvedilol) ..... Take 1 tablet by mouth twice daily Telmisartan 40 Mg Tablet (Telmisartan) ..... 1 tablet once a day Bumetanide 1 Mg Tablet (Bumetanide) ..... Take 1.5 tablet once a day This visit has been a part of the consistent, comprehensive, and ongoing management of the chronic medical condition(s) listed above for the patient. [facility]: H er updated medication list for this problem includes: Prasugrel 10 Mg Tablet (Prasugrel) ..... Take 1 tablet by mouth every day Carvedilol 12.5 Mg Tablet (Carvedilol) ..... Take 1 tablet by mouth twice daily Telmisartan 40 Mg Tablet (Telmisartan) ..... 1 tablet once a day Bumetanide 1 Mg Tablet (Bumetanide) ..... Take 1.5 tablet once a day Nitrostat 0.4 Mg Tablet, Sublingual (Nitroglycerin) ..... 1 tablet under tongue as needed Hipolito Barton [facility]: H er updated medication list for this problem includes: Praluent Pen 150 Mg/ml Pen Injector (Alirocumab) ..... Inject 1 pen(150mg) subcutaneous every 2 weeks This visit has been a part of the consistent, comprehensive, and ongoing management of the chronic medical condition(s) listed above for the patient. Hipolito Barton [facility] Hipolito Barton [facility]: H er updated medication list for this problem includes: Glimepiride 4 Mg Tablet (Glimepiride) ..... 1 tablet once a day Metformin 1,000 Mg Tablet (Metformin) ..... Take 1 tablet by mouth twice daily Telmisartan 40 Mg Tablet (Telmisartan) ..... 1 tablet once a day Hipolito Barton [facility]: H er updated medication list for this problem includes: Praluent Pen 150 Mg/ml Pen Injector (Alirocumab) ..... Inject 1 pen(150mg) subcutaneous every 2 weeks Joseph Grace MD Cardiology: B P today: 138/78 P rior BP: 119/70 (11/11/2023) Prior 10 Yr Risk Heart Disease: N/A (10/08/2010) Labs Reviewed: C reat: 1.30 (01/05/2021) C hol: 121 (03/02/2021) HDL: 25 (03/02/2021) LDL: 50 (03/02/2021) T (03/02/2021) Her updated medication list for this problem includes: Carvedilol 12.5 Mg Tablet (Carvedilol) ..... Take 1 tablet by mouth twice daily Telmisartan 40 Mg Tablet (Telmisartan) ..... 1 tablet once a day Bumetanide 1 Mg Tablet (Bumetanide) ..... Take 1.5 tablet once a day Joseph Grace MD Cardiology:Will proc eed with AIF and possible intervention due to total occulsion of right SFA and pain/ulceration Joseph Grace MD Cardiology:Pt still continues to have intense resting pain in her right leg/foot. The sores have not yet healed. I reviewed her arterial and venous duplexes consistent with total occlusion of right SFA. In view of the findings/symptoms, will proceed with AIF and possible intervention. Joseph Grace MD Cardiology:Pt still continues to have intense resting pain in her right leg/foot. The sores have not yet healed. I reviewed her arterial and venous duplexes consistent with total occlusion of right SFA. In view of the findings/symptoms, will proceed with AIF and possible intervention. Joseph Grace MD Cardiology:remains u ncontrolled her pcp is managing and meds recently adjusted. H er updated medication list for this problem includes: Glimepiride 2 Mg Tablet (Glimepiride) ..... 1 tablet twice a day Metformin 1,000 Mg Tablet (Metformin) ..... Take 1 tablet by mouth twice daily Telmisartan 40 Mg Tablet (Telmisartan) ..... 1 tablet once a day Tameka Vela [facility] Cardiology:LDL 78 on last labs o n praluent i nsurance will not cover vaskeniaa T he following medications were removed from the medication list: Icosapent Ethyl 1 Gram Capsule (Icosapent ethyl) ..... Take 2 capsules by mouth twice daily Her updated medication list for this problem includes: Praluent Pen 150 Mg/ml Pen Injector (Alirocumab) ..... Inject 1 pen(150mg) subcutaneous every 2 weeks Tamekabrandi Vela [facility] Cardiology:BP at goa l continues present med regimen H er updated medication list for this problem includes: Carvedilol 12.5 Mg Tablet (Carvedilol) ..... Take 1 tablet by mouth twice daily Telmisartan 40 Mg Tablet (Telmisartan) ..... 1 tablet once a day Bumetanide 1 Mg Tablet (Bumetanide) ..... Take 1.5 tablet once a day Tamekabrandi Vela [facility] Cardiology:Has known PAD of bilateral LE. She has had non-healing ulceration of rt foot present x 2 months. Unable to palpate distal pulses. Will update venous and arterial studies for further evaluation. Will need angiogram if suggestion of stenosis noted. Tamekabrandi Vela [facility] Cardiology:CHOL: 121 (03/02/2021) HDL: 25 (03/02/2021) H er updated medication list for this problem includes: Vascepa 1 Gram Capsule (Icosapent ethyl) ..... Take 2 capsule by mouth twice a day take two capsules by mouth twice a day Joseph Grace MD Cardiology: H er updated medication list for this problem includes: Vascepa 1 Gram Capsule (Icosapent ethyl) ..... Take 2 capsule by mouth twice a day take two capsules by mouth twice a day C HOL: 121 (03/02/2021) HDL: 25 (03/02/2021) Joseph Grace MD Cardiology Joseph Grace MD Cardiology Joseph Grace MD Cardiology: H er updated medication list for this problem includes: Carvedilol 12.5 Mg Tablet (Carvedilol) ..... Take 1 tablet by mouth twice daily Prasugrel 10 Mg Tablet (Prasugrel) ..... Take 1 tablet by mouth every day Telmisartan 40 Mg Tablet (Telmisartan) ..... 1 tablet once a day Bumetanide 1 Mg Tablet (Bumetanide) ..... Take 1.5 tablet once a day Nitrostat 0.4 Mg Tablet, Sublingual (Nitroglycerin) ..... 1 tablet under tongue as needed Joseph Grace MD Cardiology: H er updated medication list for this problem includes: Telmisartan 40 Mg Tablet (Telmisartan) ..... 1 tablet once a day Metformin 1,000 Mg Tablet (Metformin) ..... Take 1 tablet by mouth twice a day Glimepiride 2 Mg Tablet (Glimepiride) ..... 1 tablet once a day Joseph Grace MD Cardiology: l ras modification Joseph Grace MD Cardiology: B P today: 124/66 P rior BP: 159/77 (11/24/2022) Prior 10 Yr Risk Heart Disease: N/A (10/08/2010) Labs Reviewed: C reat: 1.30 (01/05/2021) C hol: 121 (03/02/2021) HDL: 25 (03/02/2021) Her updated medication list for this problem includes: Carvedilol 12.5 Mg Tablet (Carvedilol) ..... Take 1 tablet by mouth twice daily Telmisartan 40 Mg Tablet (Telmisartan) ..... 1 tablet once a day Bumetanide 1 Mg Tablet (Bumetanide) ..... Take 1.5 tablet once a day Joseph Grace MD Cardiology: C mari Chao Her updated medication list for this problem includes: Carvedilol 12.5 Mg Tablet (Carvedilol) ..... Take 1 tablet by mouth twice daily Prasugrel 10 Mg Tablet (Prasugrel) ..... Take 1 tablet by mouth every day Nitrostat 0.4 Mg Tablet, Sublingual (Nitroglycerin) ..... 1 tablet under tongue as needed Joseph Grace MD Cardiology: H er updated medication list for this problem includes: Vascepa 1 Gram Capsule (Icosapent ethyl) ..... Take 2 capsule by mouth twice a day take two capsules by mouth twice a day Joseph Grace MD Cardiology: C ath showed EF 35-40%. ProBNP was 135. Her updated medication list for this problem includes: Carvedilol 12.5 Mg Tablet (Carvedilol) ..... Take 1 tablet by mouth twice daily Prasugrel 10 Mg Tablet (Prasugrel) ..... Take 1 tablet by mouth every day Telmisartan 40 Mg Tablet (Telmisartan) ..... 1 tablet once a day Bumetanide 1 Mg Tablet (Bumetanide) ..... Take 1.5 tablet once a day Nitrostat 0.4 Mg Tablet, Sublingual (Nitroglycerin) ..... 1 tablet under tongue as needed Joseph Grace MD Cardiology: H er updated medication list for this problem includes: Telmisartan 40 Mg Tablet (Telmisartan) ..... 1 tablet once a day Metformin 1,000 Mg Tablet (Metformin) ..... Take 1 tablet by mouth twice a day Glimepiride 2 Mg Tablet (Glimepiride) ..... 1 tablet once a day Joseph Grace MD Cardiology: R ight leg pain and coldness, left leg numbness and coldness. Joseph Grace MD Cardiology: H er updated medication list for this problem includes: Carvedilol 12.5 Mg Tablet (Carvedilol) ..... Take 1 tablet by mouth twice daily Prasugrel 10 Mg Tablet (Prasugrel) ..... Take 1 tablet by mouth every day Nitrostat 0.4 Mg Tablet, Sublingual (Nitroglycerin) ..... 1 tablet under tongue as needed Joseph Grace MD Cardiology: R ight leg is causing pain and left goes numb after elevation. Has arterial duplex due for 03/03. Joseph Grace MD Cardiology: C lass II Her updated medication list for this problem includes: Carvedilol 12.5 Mg Tablet (Carvedilol) ..... Take 1 tablet by mouth twice daily Prasugrel 10 Mg Tablet (Prasugrel) ..... Take 1 tablet by mouth every day Telmisartan 40 Mg Tablet (Telmisartan) ..... 1 tablet once a day Bumetanide 1 Mg Tablet (Bumetanide) ..... Take 1.5 tablet once a day Nitrostat 0.4 Mg Tablet, Sublingual (Nitroglycerin) ..... 1 tablet under tongue as needed Repeat echo Echo 10/15 C ONCLUSIONS: 1 . Normal left ventricular systolic function. Mild enlargement of left ventricular chamber. Normal wall thickness. E/E': 12.0. L eft ventricular ejection fraction is measured at 60 %. 2 . No significant valvular abnormalities Joseph Grace MD Cardiology:lifestyle modificatio n Tameka Vela [facility] Cardiology:BP 159/77 this am. Slightly above goal. will monitor. If elevated at f/u can adjust meds further H er updated medication list for this problem includes: Telmisartan 40 Mg Tablet (Telmisartan) ..... 1 tablet once a day Carvedilol 12.5 Mg Tablet (Carvedilol) ..... Take 1 tablet by mouth twice daily Bumetanide 1 Mg Tablet (Bumetanide) ..... Take 1.5 tablet once a day Tameka Vela [facility] Cardiology:follows with Dr. Alfred Vela [facility] Cardiology:Patient b ack on metformin. Has failed muliptle diabetic agents in the past. lifestyle modification encoruaged H er updated medication list for this problem includes: Telmisartan 40 Mg Tablet (Telmisartan) ..... 1 tablet once a day Metformin 1,000 Mg Tablet (Metformin) ..... Take 1 tablet by mouth twice a day Glimepiride 2 Mg Tablet (Glimepiride) ..... 1 tablet once a day Tamekabrandi Floreskristinshea [facility] Cardiology:lipids no t at goal. Her Trig were 814 on recent labs and TC 206. She is statin intolerant d/t nausea. She is on Vascepa. Her insurance does not cover Praluent. Will screen for Prevail. The following medications were removed from the medication list: Praluent Pen 150 Mg/ml Pen Injector (Alirocumab) ..... Inject 1 pen(150mg) subcutaneous every 2 weeks Her updated medication list for this problem includes: Vascepa 1 Gram Capsule (Icosapent ethyl) ..... Take 2 capsule by mouth twice a day take two capsules by mouth twice a day Tamekabrandi Floresspeedy [facility] Cardiology:She is s/ p recent successful intervention to RLE. Has had reduction in pain, but still reports swelling, numbness and tingling in the feet at night that keep her awake at night. She has significant rest pain. Given this will plan for further intervention below of RLE and plan to intervene on Left at a later date. O rders: [id number] MOD 30-39min (CPT-21127) F emoral, Left, access (*) Tamekabrandi Vela [facility] Cardiology:Will schedule AIF Int ervention Joseph Grace MD Cardiology Joseph Grace MD Cardiology: H er updated medication list for this problem includes: Carvedilol 12.5 Mg Tablet (Carvedilol) ..... Take 1 tablet by mouth twice daily Prasugrel 10 Mg Tablet (Prasugrel) ..... Take 1 tablet by mouth every day Nitrostat 0.4 Mg Tablet, Sublingual (Nitroglycerin) ..... 1 tablet under tongue as needed Joseph Grace MD Cardiology: B P today: 124/71 P rior BP: 142/75 (04/28/2022) Prior 10 Yr Risk Heart Disease: N/A (10/08/2010) Labs Reviewed: C reat: 1.30 (01/05/2021) C hol: 121 (03/02/2021) HDL: 25 (03/02/2021) Her updated medication list for this problem includes: Carvedilol 12.5 Mg Tablet (Carvedilol) ..... Take 1 tablet by mouth twice daily Telmisartan 20 Mg Tablet (Telmisartan) ..... 1 tablet once a day Bumetanide 1 Mg Tablet (Bumetanide) ..... Take 1.5 tablet once a day Joseph Grace MD Cardiology: W eight loss advised Linda Saeed Cardiology: H er updated medication list for this problem includes: Carvedilol 12.5 Mg Tablet (Carvedilol) ..... Take 1 tablet by mouth twice daily Prasugrel 10 Mg Tablet (Prasugrel) ..... Take 1 tablet by mouth every day Telmisartan 20 Mg Tablet (Telmisartan) ..... 1 tablet once a day Bumetanide 1 Mg Tablet (Bumetanide) ..... Take 1.5 tablet once a day Nitrostat 0.4 Mg Tablet, Sublingual (Nitroglycerin) ..... 1 tablet under tongue as needed Linda Saeed Cardiology: B P today: 142/75 P rior BP: 118/64 (01/13/2022) Prior 10 Yr Risk Heart Disease: N/A (10/08/2010) Labs Reviewed: C reat: 1.30 (01/05/2021) C hol: 121 (03/02/2021) HDL: 25 (03/02/2021) Her updated medication list for this problem includes: Carvedilol 12.5 Mg Tablet (Carvedilol) ..... Take 1 tablet by mouth twice daily Telmisartan 20 Mg Tablet (Telmisartan) ..... 1 tablet once a day Bumetanide 1 Mg Tablet (Bumetanide) ..... Take 1.5 tablet once a day Linda Saeed Cardiology: H er updated medication list for this problem includes: Praluent Pen 150 Mg/ml Pen Injector (Alirocumab) ..... Inject 1 pen injector subcutaneously every two weeks Vascepa 1 Gram Capsule (Icosapent ethyl) ..... Take 2 capsule twice a day Linda Blissmario Cardiology: H er updated medication list for this problem includes: Metformin 1,000 Mg Tablet (Metformin) ..... Take 1 tablet twice a day Glimepiride 2 Mg Tablet (Glimepiride) ..... 1 tablet once a day Telmisartan 20 Mg Tablet (Telmisartan) ..... 1 tablet once a day Linda Darlin Cardiology:Complaini ng of worsening pain in the left leg and has sores in the lateral aspect of the left martinez. Will proceed to AIF with possible intervention, at later time we will have to treat her known venous insufficiency. Linda Darlin Cardiology:Complaini ng of worsening pain in the left leg and has sores in the lateral aspect of the left martinez. Will proceed to AIF with possible intervention, at later time we will have to treat her known venous insufficiency. Linda Darlin Cardiology: B P today: 118/64 P rior BP: 138/66 (11/25/2021) Prior 10 Yr Risk Heart Disease: N/A (10/08/2010) Labs Reviewed: C reat: 1.30 (01/05/2021) C hol: 121 (03/02/2021) HDL: 25 (03/02/2021) Her updated medication list for this problem includes: Carvedilol 12.5 Mg Tablet (Carvedilol) ..... Take 1 tablet by mouth twice daily Telmisartan 20 Mg Tablet (Telmisartan) ..... 1 tablet once a day Bumetanide 1 Mg Tablet (Bumetanide) ..... Take 1.5 tablet once a day Linda Darlin Cardiology: H er updated medication list for this problem includes: Praluent Pen 150 Mg/ml Pen Injector (Alirocumab) ..... Inject 1 pen injector subcutaneously every two weeks Vascepa 1 Gram Capsule (Icosapent ethyl) ..... Take 2 capsule twice a day Linda Saeed Cardiology: H er updated medication list for this problem includes: Metformin 1,000 Mg Tablet (Metformin) ..... Take 1 tablet twice a day Glimepiride 2 Mg Tablet (Glimepiride) ..... 1 tablet once a day Telmisartan 20 Mg Tablet (Telmisartan) ..... 1 tablet once a day Linda Saeed Cardiology: W eight loss advised Linda Saeed Cardiology: H er updated medication list for this problem includes: Carvedilol 12.5 Mg Tablet (Carvedilol) ..... Take 1 tablet by mouth twice daily Prasugrel 10 Mg Tablet (Prasugrel) ..... Take 1 tablet by mouth every day Nitrostat 0.4 Mg Tablet, Sublingual (Nitroglycerin) ..... 1 tablet under tongue as needed Linda Saeed Cardiology: She denies chest pain or SOB. Her updated medication list for this problem includes: Carvedilol 12.5 Mg Tablet (Carvedilol) ..... Take 1 tablet by mouth twice daily Prasugrel 10 Mg Tablet (Prasugrel) ..... Take 1 tablet by mouth every day Telmisartan 20 Mg Tablet (Telmisartan) ..... 1 tablet once a day Bumetanide 1 Mg Tablet (Bumetanide) ..... Take 1.5 tablet once a day Nitrostat 0.4 Mg Tablet, Sublingual (Nitroglycerin) ..... 1 tablet under tongue as needed Linda Saeed Cardiology:S/P succe ssful intervention of the right leg with signficiant improvement. C/o of worsening pain in the left leg, will schedule AIF with intention to stent the left leg. Linda Saeed Cardiology: B P today: 138/66 P rior BP: 118/70 (05/27/2021) Prior 10 Yr Risk Heart Disease: N/A (10/08/2010) Labs Reviewed: C reat: 1.30 (01/05/2021) C hol: 121 (03/02/2021) HDL: 25 (03/02/2021) Her updated medication list for this problem includes: Telmisartan 20 Mg Tablet (Telmisartan) ..... 1 tablet once a day Bumetanide 1 Mg Tablet (Bumetanide) ..... Take 1.5 tablet once a day Carvedilol 12.5 Mg Tablet (Carvedilol) ..... Take 1 tablet by mouth twice daily Linda Saeed Cardiology: W eight loss advised Linda Saeed Cardiology: H er updated medication list for this problem includes: Metformin 1,000 Mg Tablet (Metformin) ..... Take 1 tablet twice a day Glimepiride 2 Mg Tablet (Glimepiride) ..... 1 tablet once a day Telmisartan 20 Mg Tablet (Telmisartan) ..... 1 tablet once a day Linda Saeed Cardiology: H er updated medication list for this problem includes: Praluent Pen 150 Mg/ml Pen Injector (Alirocumab) ..... Inject 1 pen injector subcutaneously every two weeks Vascepa 1 Gram Capsule (Icosapent ethyl) ..... Take 2 capsule twice a day Linda Saeed Cardiology: P t denies chest pain or SOB. Her updated medication list for this problem includes: Prasugrel 10 Mg Tablet (Prasugrel) ..... Take 1 tablet by mouth every day Nitrostat 0.4 Mg Tablet, Sublingual (Nitroglycerin) ..... 1 tablet under tongue as needed Carvedilol 12.5 Mg Tablet (Carvedilol) ..... Take 1 tablet by mouth twice daily Linda Saeed Cardiology: Back in 2021 after the second injection of Covid vaccine, felt a lot of palpitations. Will obtain an echo and arterial duplex. H er updated medication list for this problem includes: Prasugrel 10 Mg Tablet (Prasugrel) ..... Take 1 tablet by mouth every day Nitrostat 0.4 Mg Tablet, Sublingual (Nitroglycerin) ..... 1 tablet under tongue as needed Carvedilol 12.5 Mg Tablet (Carvedilol) ..... Take 1 tablet by mouth twice daily Linda Saeed Cardiology: P t complains of pain including resting pain in her right leg, started two weeks ago. Will obtain an echo and arterial duplex. An AIF may be required soon. Linda Saeed Cardiology: W eight loss advised Linda Saeed Cardiology: T he following medications were removed from the medication list: Ezetimibe 10 Mg Tablet (Ezetimibe) ..... Take 1 tablet by mouth daily Her updated medication list for this problem includes: Repatha Sureclick 140 Mg/ml Pen Injector (Evolocumab) ..... Inject 1 pen injector subcutaneously once every two weeks Vascepa 1 Gram Capsule (Icosapent ethyl) ..... Take 2 capsule twice a day Linda Saeed Cardiology: H er updated medication list for this problem includes: Metformin 1,000 Mg Tablet (Metformin) ..... Take 1 tablet twice a day Glimepiride 2 Mg Tablet (Glimepiride) ..... 1 tablet once a day Telmisartan 20 Mg Tablet (Telmisartan) ..... 1 tablet once a day Linda Saeed Cardiology: B P today: 118/70 P rior BP: 112/60 (02/25/2021) Prior 10 Yr Risk Heart Disease: N/A (10/08/2010) Labs Reviewed: C reat: 1.30 (01/05/2021) C hol: 121 (03/02/2021) HDL: 25 (03/02/2021) Her updated medication list for this problem includes: Telmisartan 20 Mg Tablet (Telmisartan) ..... 1 tablet once a day Bumetanide 1 Mg Tablet (Bumetanide) ..... Take 1.5 tablet once a day Carvedilol 12.5 Mg Tablet (Carvedilol) ..... Take 1 tablet by mouth twice daily Linda Blissmario Cardiology: She denies chest pain or SOB. H er updated medication list for this problem includes: Telmisartan 20 Mg Tablet (Telmisartan) ..... 1 tablet once a day Bumetanide 1 Mg Tablet (Bumetanide) ..... Take 1.5 tablet once a day Nitrostat 0.4 Mg Tablet, Sublingual (Nitroglycerin) ..... 1 tablet under tongue as needed Carvedilol 12.5 Mg Tablet (Carvedilol) ..... Take 1 tablet by mouth twice daily Prasugrel 10 Mg Tablet (Prasugrel) ..... Take 1 tablet by mouth every day Linda Blissmario Cardiology: D enies chest pain or excessive SOB. Her updated medication list for this problem includes: Nitrostat 0.4 Mg Tablet, Sublingual (Nitroglycerin) ..... 1 tablet under tongue as needed Carvedilol 12.5 Mg Tablet (Carvedilol) ..... Take 1 tablet by mouth twice daily Prasugrel 10 Mg Tablet (Prasugrel) ..... Take 1 tablet by mouth every day Linda Blissmario Cardiology:S/P succe ssful repeat intervention of the right lower extremitity. She is completely pain free. We started her on Xarelto 2.5 mg BID. WIll check CRP level. Linda Darlin [facility]: H er updated medication list for this problem includes: Repatha Sureclick 140 Mg/ml Pen Injector (Evolocumab) ..... Inject 1 pen injector subcutaneously once every two weeks Vascepa 1 Gram Capsule (Icosapent ethyl) ..... Take 2 capsule twice a day Linda Darlin [facility]: P rior BP: 112/60 (02/25/2021) Prior 10 Yr Risk Heart Disease: N/A (10/08/2010) Labs Reviewed: C reat: 1.30 (01/05/2021) C hol: 121 (03/02/2021) HDL: 25 (03/02/2021) Her updated medication list for this problem includes: Telmisartan 20 Mg Tablet (Telmisartan) ..... 1 tablet once a day Bumetanide 1 Mg Tablet (Bumetanide) ..... Take 1.5 tablet once a day Carvedilol 12.5 Mg Tablet (Carvedilol) ..... Take 1 tablet by mouth twice daily Linda Saeed [facility]: W eight loss advised Linda Saeed [facility]: H er updated medication list for this problem includes: Glimepiride 2 Mg Tablet (Glimepiride) ..... 1 tablet once a day Telmisartan 20 Mg Tablet (Telmisartan) ..... 1 tablet once a day Metformin 500 Mg Tablet (Metformin) ..... Take 1 tablet twice a day Linda Saeed [facility]: She complains of fatigue. She denies chest pain or SOB. H er updated medication list for this problem includes: Telmisartan 20 Mg Tablet (Telmisartan) ..... 1 tablet once a day Bumetanide 1 Mg Tablet (Bumetanide) ..... Take 1.5 tablet once a day Nitrostat 0.4 Mg Tablet, Sublingual (Nitroglycerin) ..... 1 tablet under tongue as needed Carvedilol 12.5 Mg Tablet (Carvedilol) ..... Take 1 tablet by mouth twice daily Prasugrel 10 Mg Tablet (Prasugrel) ..... Take 1 tablet by mouth every day Linda Saeed [facility]: D enies chest pain or excessive SOB. Her updated medication list for this problem includes: Nitrostat 0.4 Mg Tablet, Sublingual (Nitroglycerin) ..... 1 tablet under tongue as needed Carvedilol 12.5 Mg Tablet (Carvedilol) ..... Take 1 tablet by mouth twice daily Prasugrel 10 Mg Tablet (Prasugrel) ..... Take 1 tablet by mouth every day Linda Saeed [facility]:The pt co mplains of pain including nocturnal rest pain in right leg. Can't lie flat and she has to bring leg down to sitting position to avoid pain. 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 Linda Darlin Cardiology:Weight loss advised B germainkurtis Darlin Cardiology: H er updated medication list for this problem includes: Glimepiride 2 Mg Tablet (Glimepiride) ..... 1 tablet once a day Telmisartan 20 Mg Tablet (Telmisartan) ..... 1 tablet once a day Metformin 500 Mg Tablet (Metformin) ..... Take 1 tablet twice a day Linda Darlin Cardiology: P rior BP: 112/60 (02/25/2021) Labs Reviewed: C reat: 1.30 (01/05/2021) C hol: 206 (07/13/2020) HDL: 31 (07/13/2020) Her updated medication list for this problem includes: Telmisartan 20 Mg Tablet (Telmisartan) ..... 1 tablet once a day Bumetanide 1 Mg Tablet (Bumetanide) ..... Take 1.5 tablet once a day Carvedilol 12.5 Mg Tablet (Carvedilol) ..... Take 1 tablet by mouth twice daily Linda Darlin Cardiology: D enies chest pain or excessive SOB. Her updated medication list for this problem includes: Nitrostat 0.4 Mg Tablet, Sublingual (Nitroglycerin) ..... 1 tablet under tongue as needed Carvedilol 12.5 Mg Tablet (Carvedilol) ..... Take 1 tablet by mouth twice daily Prasugrel 10 Mg Tablet (Prasugrel) ..... Take 1 tablet by mouth every day Linda Darlin Cardiology: She lana ot tolerate Rosuvastatin and Zetia due to muscle ache. Will start Praluent. H er updated medication list for this problem includes: Praluent Pen 150 Mg/ml Pen Injector (Alirocumab) ..... Inject 1 pen injector subcutaneously once every two weeks Vascepa 1 Gram Capsule (Icosapent ethyl) ..... Take 2 capsule twice a day Lindapaolo Saeed Cardiology: She comp lains of fatigue. She denies chest pain or SOB. H er updated medication list for this problem includes: Telmisartan 20 Mg Tablet (Telmisartan) ..... 1 tablet once a day Bumetanide 1 Mg Tablet (Bumetanide) ..... Take 1.5 tablet once a day Nitrostat 0.4 Mg Tablet, Sublingual (Nitroglycerin) ..... 1 tablet under tongue as needed Carvedilol 12.5 Mg Tablet (Carvedilol) ..... Take 1 tablet by mouth twice daily Prasugrel 10 Mg Tablet (Prasugrel) ..... Take 1 tablet by mouth every day Linda Saeed Cardiology:Now S/P s uccessful intervention of the right and left lower extremities. She did have some pain in the right thigh which is now improved. She complains of fatigue. Will obtain venous and arterial duplex. [facility] follow up :Her updated medication list for this problem includes: Lantus Solution (Insulin glargine soln) ..... Inject 20 units at bedtime Metformin Hcl 500 Mg Oral Tablet (Metformin hcl) ..... Take 1 tab twice a day Glimepiride 2 Mg Oral Tablet (Glimepiride) ..... One tablet daily Telmisartan 20 Mg Oral Tablet (Telmisartan) ..... One tablet daily [facility] follow up :Her updated medication list for this problem includes: Ezetimibe 10 Mg Oral Tablet (Ezetimibe) ..... One tab. daily [facility] follow up :BP today: 134/70 P rior BP: 122/71 (08/29/2020) Her updated medication list for this problem includes: Telmisartan 20 Mg Oral Tablet (Telmisartan) ..... One tablet daily Bumetanide 1 Mg Oral Tablet (Bumetanide) ..... Take one and a half tablet daily Carvedilol 12.5mg Tablets (Carvedilol) ..... Take 1 tablet by mouth twice daily [facility] follow up :Denies chest pain or excessive SOB. Will obtain f/u echo. Her updated medication list for this problem includes: Carvedilol 12.5mg Tablets (Carvedilol) ..... Take 1 tablet by mouth twice daily Nitrostat 0.4 Mg Sublingual Tablet Sublingual (Nitroglycerin) ..... One tab. under tongue as needed. may repeat twice in 10 minutes. Prasugrel 10mg Tablets (Prasugrel hcl) ..... Take 1 tablet by mouth every day [facility] follow up :Today she reports she has been feeling much better. Denies chest pain or excessive SOB. Will obtain f/u echo. Her updated medication list for this problem includes: Telmisartan 20 Mg Oral Tablet (Telmisartan) ..... One tablet daily Bumetanide 1 Mg Oral Tablet (Bumetanide) ..... Take one and a half tablet daily Carvedilol 12.5mg Tablets (Carvedilol) ..... Take 1 tablet by mouth twice daily [facility] follow up :Orders: V enous Doppler Bilateral LE - Reflux (CPT-06897) A rterial Duplex Bi-Lower EX (CPT-88669) [facility] follow up :She did not get the testing ordered during her last visit. Today she reports she has been feeling much better. Pain is signifcantly improved. Will obtain f/u ARNULFO's. [facility]:The follo wing medications were removed from the medication list: Glipizide 5 Mg Oral Tablet (Glipizide) ..... Take 1 tablet by mouth once daily Metformin Hcl Er (osm) 500 Mg Oral Tablet Extended Release 24 Hour (Metformin hcl) ..... Take 2 tabs in evening time Her updated medication list for this problem includes: Glimepiride 2 Mg Oral Tablet (Glimepiride) ..... One tablet daily Telmisartan 20 Mg Oral Tablet (Telmisartan) ..... One tablet daily [facility]:Her [facility] ed medication list for this problem includes: Ezetimibe 10 Mg Oral Tablet (Ezetimibe) ..... One tab. daily [facility]:Her [facility] ed medication list for this problem includes: Ezetimibe 10 Mg Oral Tablet (Ezetimibe) ..... One tab. daily [facility]:BP today (per patient): 122/71 P rior BP: 180/95 (06/25/2020) Her updated medication list for this problem includes: Telmisartan 20 Mg Oral Tablet (Telmisartan) ..... One tablet daily Bumetanide 1 Mg Oral Tablet (Bumetanide) ..... Take one and a half tablet daily Carvedilol 12.5 Mg Oral Tablet (Carvedilol) ..... One tab twice a day [facility]:Her [facility] ed medication list for this problem includes: Telmisartan 20 Mg Oral Tablet (Telmisartan) ..... One tablet daily Bumetanide 1 Mg Oral Tablet (Bumetanide) ..... Take one and a half tablet daily Carvedilol 12.5 Mg Oral Tablet (Carvedilol) ..... One tab twice a day [facility]:No chest pain. Her updated medication list for this problem includes: Carvedilol 12.5 Mg Oral Tablet (Carvedilol) ..... One tab twice a day Nitrostat 0.4 Mg Sublingual Tablet Sublingual (Nitroglycerin) ..... One tab. under tongue as needed. may repeat twice in 10 minutes. Prasugrel 10mg Tablets (Prasugrel hcl) ..... Take 1 tablet by mouth every day [facility]:S/P succe ssful intervention of the R SFA. Initially she had improvement in the pain. Has had issues with cellulitis and gout since then. She has recently noted coldness of the feet and also has had more ankle swelling. Will obtain f/u ARNULFO's and check venous duplex. Gary [facility] TeleHealth:S/P succe ssful intervention of the R SFA. Initially she had improvement in the pain. Has had issues with cellulitis and gout since then. She has recently noted coldness of the feet and also has had more ankle swelling. Will obtain f/u ARNULFO's. Gary [facility] TeleHealth:Has not t aken medications this morning. BP today (provided by pt): 180/95 P rior BP: 110/65 (05/30/2020) Her updated medication list for this problem includes: Bumetanide 1 Mg Oral Tablet (Bumetanide) ..... Take one and a half tablet daily Carvedilol 12.5 Mg Oral Tablet (Carvedilol) ..... One tab twice a day [facility]:Movantik replaced by Amitiza due to insurance. [facility]:Negative swab at [facility] 06/06/2020. [facility]:Labs Revi ewed: H gb: 10.2 (06/06/2020) Hct: 33.3 (06/06/2020) Orders: P ROBNP, N TERMINAL (35960) C BC (INCLUDES DIFF/PLT) (7422) F ERRITIN (457) I MILO AND TOTAL IRON BINDING CAPACITY (7573) [facility]:Labs Revi ewed: B UN: 15 (06/06/2020) Cr: 1.47 (06/06/2020) Hgb: 10.2 (06/06/2020) Hct: 33.3 (06/06/2020) Ca++: 9.9 (06/06/2020) TP: 8.3 (06/06/2020) Alb: 3.7 (06/06/2020) [facility]:No chest pain at this time. Her updated medication list for this problem includes: Carvedilol 12.5 Mg Oral Tablet (Carvedilol) ..... One tab twice a day Nitrostat 0.4 Mg Sublingual Tablet Sublingual (Nitroglycerin) ..... One tab. under tongue as needed. may repeat twice in 10 minutes. Prasugrel 10mg Tablets (Prasugrel hcl) ..... Take 1 tablet by mouth every day [facility]:In the of May, pt had an admission to [facility] for orthopnea and leg swelling and was treated for CHF exacerbation (BNP was 790). She was treated with diuretics IV. She's doing better now. Her updated medication list for this problem includes: Bumetanide 1 Mg Oral Tablet (Bumetanide) ..... Take one and a half tablet daily Carvedilol 12.5 Mg Oral Tablet (Carvedilol) ..... One tab twice a day Orders: P ROBNP, N TERMINAL (42594) C BC (INCLUDES DIFF/PLT) (6101) F ERRITIN (457) I MILO AND TOTAL IRON BINDING CAPACITY (7939) [facility]:There is some improvement of the redness with antibiotics. Continues to have claudication of the RLE and we will schedule intervention of the R SFA (GoBack (new crossing device) vs retrograde approach). [facility]:There is some improvement of the redness with antibiotics. Continues to have claudication of the RLE and we will schedule intervention of the R SFA (GoBack (new crossing device) vs retrograde approach). [facility]:Follows ronald Lee. Labs Reviewed: B UN: 26 (04/26/2020) Cr: 1.69 (04/26/2020) Hgb: 12.7 (04/26/2020) Hct: 38.1 (04/26/2020) Ca++: 9.7 (04/26/2020) Labs from [facility] also reviewed. [facility]:Her updat ed medication list for this problem includes: Glipizide 5 Mg Oral Tablet (Glipizide) ..... Take 1 tablet by mouth once daily Metformin Hcl Er (osm) 500 Mg Oral Tablet Extended Release 24 Hour (Metformin hcl) ..... Take 2 tabs in evening time [facility]:Her [facility] ed medication list for this problem includes: Ezetimibe 10 Mg Oral Tablet (Ezetimibe) ..... One tab. daily [facility]:BP today provided by the pt): 110/65 P rior BP: 117/76 (04/25/2020) Her updated medication list for this problem includes: Bumetanide 1 Mg Oral Tablet (Bumetanide) ..... 1 tab once daily Carvedilol 12.5 Mg Oral Tablet (Carvedilol) ..... One tab twice a day [facility]:No chest pain at this time. Her updated medication list for this problem includes: Cilostazol 100 Mg Oral Tablet (Cilostazol) ..... Take one tablet twice daily Carvedilol 12.5 Mg Oral Tablet (Carvedilol) ..... One tab twice a day Nitrostat 0.4 Mg Sublingual Tablet Sublingual (Nitroglycerin) ..... One tab. under tongue as needed. may repeat twice in 10 minutes. Prasugrel 10mg Tablets (Prasugrel hcl) ..... Take 1 tablet by mouth every day [facility] Tele[facility]:We were u nable to cross the total occlusion of the R SFA via antegrade approach. Shortly after the AIF, she developed redness, swelling and severe pain in both legs and was treated for cellulitis at [place]. Since the admission, the symptoms have improved but she still has severe pain, some residual swelling and persistent redness, worse on the right. She denies any ulcers. She wants to wait on intervention of the R SFA at this time. She was treated with Tramadol but ended up in the ER due to constipation. We will start Keflex for 2 weeks. [facility]:We were u nable to cross the total occlusion of the R SFA via antegrade approach. Shortly after the AIF, she developed redness, swelling and severe pain in both legs and was treated for cellulitis at [place]. Since the admission, the symptoms have improved but she still has severe pain, some residual swelling and persistent redness, worse on the right. She denies any ulcers. She wants to wait on intervention of the R SFA at this time. She was treated with Tramadol but ended up in the ER due to constipation. We will give her Movantik for the opioid-induced constipation. Gary [facility] Telehealth:We were michael tsai to cross the total occlusion of the R SFA via antegrade approach. Shortly after the AIF, she developed redness, swelling and severe pain in both legs and was treated for cellulitis at [place]. Since the admission, the symptoms have improved but she still has severe pain, some residual swelling and persistent redness, worse on the right. She denies any ulcers. She wants to wait on intervention of the R SFA at this time. [facility]:We were u quin to cross the total occlusion of the R SFA via antegrade approach. Shortly after the AIF, she developed redness, swelling and severe pain in both legs and was treated for cellulitis at [place]. Since the admission, the symptoms have improved but she still has severe pain, some residual swelling and persistent redness, worse on the right. She denies any ulcers. She wants to wait on intervention of the R SFA at this time. [facility] follow up :BP today: 117/76 P rior BP: 157/93 (02/15/2020) Her updated medication list for this problem includes: Bumetanide 1 Mg Oral Tablet (Bumetanide) ..... 1 tab once daily Carvedilol 12.5 Mg Oral Tablet (Carvedilol) ..... One tab twice a day [facility] follow up :Per Dr. Lee. Labs Reviewed: B UN: 17 (03/27/2020) Cr: 1.18 (03/27/2020) Hgb: 12.8 (03/27/2020) Hct: 39.2 (02/16/2020) Ca++: 9.1 (03/27/2020) [facility] follow up :HgA1c was 9.0%. Recommended endocrinology consult. Labs Reviewed: H gBA1c: 9.0 (03/27/2020) Creat: 1.18 (03/27/2020) Her updated medication list for this problem includes: Metformin Hcl Er (osm) 500 Mg Oral Tablet Extended Release 24 Hour (Metformin hcl) ..... Take 2 tabs in evening time [facility] follow up :She cannot tolerate statins. Her LDL and triglyerides are uncontrolled. We will start Zetia. If LDL remains elevated, will consider PCSK9 inhibitors. HgA1c was 9.0%. If triglyerides do not improve with better diabetic control, we will consider Vascepa. [facility] follow up :She cannot tolerate statins. Her LDL and triglyerides are uncontrolled. We will start Zetia. If LDL remains elevated, will consider PCSK9 inhibitors. HgA1c was 9.0%. If triglyerides do not improve with better diabetic control, we will consider Vascepa. CHOL: 253 (02/16/2020) HDL: 26 (02/16/2020) T (03/27/2020) Her updated medication list for this problem includes: Ezetimibe 10 Mg Oral Tablet (Ezetimibe) ..... One tab. daily [facility] follow up :No chest pain or SOB. Her updated medication list for this problem includes: Carvedilol 12.5 Mg Oral Tablet (Carvedilol) ..... One tab twice a day Nitrostat 0.4 Mg Sublingual Tablet Sublingual (Nitroglycerin) ..... One tab. under tongue as needed. may repeat twice in 10 minutes. Prasugrel 10mg Tablets (Prasugrel hcl) ..... Take 1 tablet by mouth every day [facility] follow up :S/P successful laser atherectomy, balloon angioplasty and DCB treatment of the L SFA and popliteal artery. Her left leg pain has significantly improved. There is also total occlusion of the R SFA. She does still have pain in the right leg. We will schedule intervention of the R SFA. [facility] follow up :Labs Reviewed: H gBA1c: 13.4 (12/16/2018) Creat: 1.51 (12/27/2019) The following medications were removed from the medication list: Tresiba Flextouch Solution Pen-injector (Insulin degludec sopn) ..... Injection once daily Her updated medication list for this problem includes: Metformin Hcl 500 Mg Oral Tablet (Metformin hcl) ..... Two tablets in the morning and one tablet in the evening Orders: B ASIC METABOLIC PANEL W/EGFR (91547) H EMOGLOBIN A1c (496) [facility] follow up :Orders: L IPID PANEL (7600) [facility] follow up :No chest pain. Her updated medication list for this problem includes: Carvedilol 12.5 Mg Oral Tablet (Carvedilol) ..... One tab twice a day Nitrostat 0.4 Mg Sublingual Tablet Sublingual (Nitroglycerin) ..... One tab. under tongue as needed. may repeat twice in 10 minutes. Prasugrel 10mg Tablets (Prasugrel hcl) ..... Take 1 tablet by mouth every day [facility] follow up :Followed by Dr. Lee and renal function is stable. Labs Reviewed: B UN: 27 (12/27/2019) Cr: 1.51 (12/27/2019) Hgb: 13.4 (12/27/2019) Hct: 44.0 (08/11/2019) Ca++: 9.8 (12/27/2019) Orders: B ASIC METABOLIC PANEL W/EGFR (11149) [facility] follow up :BP is elevated today but pt states it is likely related to pain and that it is better at home. BP today: 157/93 P rior BP: 134/84 (08/10/2019) Labs Reviewed: C reat: 1.51 (12/27/2019) The following medications were removed from the medication list: Spironolactone 25 Mg Oral Tablet (Spironolactone) ..... One tab. daily Her updated medication list for this problem includes: Bumetanide 1 Mg Oral Tablet (Bumetanide) ..... 1 tab once daily Carvedilol 12.5 Mg Oral Tablet (Carvedilol) ..... One tab twice a day [facility] follow up :Pt complains of severe claudication, including at night, worse on the left. We will schedule arterial duplex and proceed to AIF. Gary [facility] Cardiology:Per Dr. Lee. Gely perez [facility] Cardiology:Her [facility] ed medication list for this problem includes: Rosuvastatin Calcium 40 Mg Oral Tablet (Rosuvastatin calcium) ..... Take one tablet daily [facility]:Pt devanitha ped severe dehyration due to Jardiance and she stopped taking it. Labs Reviewed: H gBA1c: 8.4 (05/06/2019) Creat: 1.81 (05/06/2019) Her updated medication list for this problem includes: Tresiba Flextouch Solution Pen-injector (Insulin degludec sopn) ..... Injection once daily Metformin Hcl 500 Mg Oral Tablet (Metformin hcl) ..... Take one tablet by mouth twice daily [facility]:Pt develo ped severe dehyration due to Jardiance and she stopped taking it. Since then, she had a few episodes of palpitations, including an episode that lasted a few hours. Will check electrolytes. Will increase Coreg from 6.25mg BID to 12.5mg BID. [facility]:No chest pain. Her updated medication list for this problem includes: Carvedilol 12.5 Mg Oral Tablet (Carvedilol) ..... One tab twice a day Nitrostat 0.4 Mg Sublingual Tablet Sublingual (Nitroglycerin) ..... One tab. under tongue as needed. may repeat twice in 10 minutes. Prasugrel 10mg Tablets (Prasugrel hcl) ..... Take 1 tablet by mouth every day [facility]:Pt develo ped severe dehyration due to Jardiance and she stopped taking it. Since then, she had a few episodes of palpitations, including an episode that lasted a few hours. Will check electrolytes. Will increase Coreg from 6.25mg BID to 12.5mg BID. [facility] follow up :Labs Reviewed: B UN: 19 (03/02/2019) Cr: 1.54 (03/02/2019) Hgb: 13.0 (03/02/2019) Hct: 39.4 (03/02/2019) Ca++: 9.6 (03/02/2019) [facility] follow up :Her updated medication list for this problem includes: Rosuvastatin Calcium 40 Mg Oral Tablet (Rosuvastatin calcium) ..... Take one tablet daily [facility] hospital follow up :BP today: 114/70 P rior BP: 130/70 (02/23/2019) Her updated medication list for this problem includes: Bumetanide 1 Mg Oral Tablet (Bumetanide) ..... 1 tab once daily Spironolactone 25 Mg Oral Tablet (Spironolactone) ..... One tab. daily Carvedilol 6.25 Mg Oral Tablet (Carvedilol) ..... One tab. twice daily [facility] follow up :HgA1c in November was 13.4% and creatinine was stable at 1.54 in February. We discussed the [employer] clinical trial and she is interested in participating if HgA1c remains > 7% on her labwork next month. Her updated medication list for this problem includes: Tresiba Flextouch Solution Pen-injector (Insulin degludec sopn) ..... Injection once daily Metformin Hcl 500 Mg Oral Tablet (Metformin hcl) ..... Take one tablet by mouth twice daily [facility] follow up :S/P intervention of the LCX and LAD. Pt is feeling much better and is able to do her normal activities without limitations now. Her updated medication list for this problem includes: Carvedilol 6.25 Mg Oral Tablet (Carvedilol) ..... One tab. twice daily Nitrostat 0.4 Mg Sublingual Tablet Sublingual (Nitroglycerin) ..... One tab. under tongue as needed. may repeat twice in 10 minutes. Effient 10 Mg Oral Tablet (Prasugrel hcl) ..... One tablet daily [facility]:CHOL: 267 (12/16/2018) HDL: 25 (12/16/2018) TRI (12/16/2018) The following medications were stopped: Simvastatin 80 Mg Oral Tablet (Simvastatin) ..... One tab. at bedtime The following medications were started: Rosuvastatin Calcium 40 Mg Oral Tablet (Rosuvastatin calcium) ..... Take one tablet daily [facility]:Per Dr. [place] rivera. Labs Reviewed: H gBA1c: 13.4 (12/16/2018) Creat: 1.48 (01/21/2019) Her updated medication list for this problem includes: Tresiba Flextouch Solution Pen-injector (Insulin degludec sopn) ..... Injection once daily Metformin Hcl 500 Mg Oral Tablet (Metformin hcl) ..... Take one tablet by mouth twice daily [facility]:BP today: 130/70 P rior BP: 118/68 (12/15/2018) Her updated medication list for this problem includes: Bumetanide 1 Mg Oral Tablet (Bumetanide) ..... 1 tab once daily Spironolactone 25 Mg Oral Tablet (Spironolactone) ..... One tab. daily Carvedilol 6.25 Mg Oral Tablet (Carvedilol) ..... One tab. twice daily [facility]:Labs Revi ewed: B UN: 27 (01/21/2019) Cr: 1.48 (01/21/2019) Hgb: 14.1 (01/21/2019) Hct: 42.4 (01/21/2019) Ca++: 9.6 (01/21/2019) Per Dr. Lee. [facility]:Cath showed EF 35-40% . ProBNP was 135. [facility]:We perfor med succesful interventions of both SFAs and her claudication is much better. 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 Continues to have chest tightness on exertion. We discussed options of CABG vs stents and pt prefers percutaneous intervention. We will schedule stenting at [facility]. [facility]:We perfor med succesful interventions of both SFAs and her claudication is much better. 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 Continues to have chest tightness on exertion. We discussed options of CABG vs stents and pt prefers percutaneous intervention. We will schedule stenting at [facility]. Her updated medication list for this problem includes: Carvedilol 6.25 Mg Oral Tablet (Carvedilol) ..... One tab. twice daily Nitrostat 0.4 Mg Sublingual Tablet Sublingual (Nitroglycerin) ..... One tab. under tongue as needed. may repeat twice in 10 minutes. Effient 10 Mg Oral Tablet (Prasugrel hcl) ..... One tablet daily [facility] follow up :Orders: B ASIC METABOLIC PANEL W/EGFR (12749) H EMOGLOBIN A1c (496) [facility] follow up :Her updated medication list for this problem includes: Simvastatin 80 Mg Oral Tablet (Simvastatin) ..... One tab. at bedtime Orders: L IPID PANEL (5490) [facility] follow up :BP today: 118/68 P rior BP: 127/81 (12/16/2017) Her updated medication list for this problem includes: Bumetanide 1 Mg Oral Tablet (Bumetanide) ..... 1 tab once daily Spironolactone 25 Mg Oral Tablet (Spironolactone) ..... One tab. daily Carvedilol 6.25 Mg Oral Tablet (Carvedilol) ..... One tab. twice daily [facility] follow up :Labs Reviewed: B UN: 36.0 (05/09/2016) Cr: 2.1 (05/09/2016) Hgb: 12.0 (10/02/2016) Hct: 39.0 (10/02/2016) Ca++: 10.7 (05/09/2016) TP: 7.3 (05/09/2016) Alb: 4.3 (05/09/2016) Orders: B ASIC METABOLIC PANEL W/EGFR (25752) [facility] follow up :Orders: C BC (INCLUDES DIFF/PLT) (5836) F ERRITIN (457) I MILO AND TOTAL IRON BINDING CAPACITY (1268) P ROBNP, N TERMINAL (77571) [facility] follow up :Orders: C ardiac Cath - L/R- [facility] ([facility]-[id number]) F ERRITIN (457) I MILO AND TOTAL IRON BINDING CAPACITY (6678) P ROBNP, N TERMINAL (47401) [facility] follow up :Pt complains of worsening claudication. She now has to stop and rest 15 minutes after walking due to leg pain. Will schedule AIF. [facility] follow up :She has exertional angina cleaning the house. Will schedule cardiac cath. Her updated medication list for this problem includes: Carvedilol 6.25 Mg Oral Tablet (Carvedilol) ..... One tab. twice daily Nitrostat 0.4 Mg Sublingual Tablet Sublingual (Nitroglycerin) ..... One tab. under tongue as needed. may repeat twice in 10 minutes. Effient 10 Mg Oral Tablet (Prasugrel hcl) ..... One tablet daily Gary [facility] Card[facility]:BP today: 127/81 P rior BP: 124/74 (04/01/2017) Her updated medication list for this problem includes: Bumetanide 1 Mg Oral Tablet (Bumetanide) ..... 1 tab once daily Spironolactone 25 Mg Oral Tablet (Spironolactone) ..... One tab. daily Carvedilol 6.25 Mg Oral Tablet (Carvedilol) ..... One tab. twice daily Gary [facility] Cardiology:No chest pain or SOB. Her updated medication list for this problem includes: Carvedilol 6.25 Mg Oral Tablet (Carvedilol) ..... One tab. twice daily Nitrostat 0.4 Mg Sublingual Tablet Sublingual (Nitroglycerin) ..... One tab. under tongue as needed. may repeat twice in 10 minutes. Effient 10 Mg Oral Tablet (Prasugrel hcl) ..... One tablet daily Gary [facility] Cardiology:Her updat ed medication list for this problem includes: Simvastatin 80 Mg Tabs (Simvastatin) ..... One tab. at bedtime [facility]:BP today: 124/74 P rior BP: 110/80 (11/26/2016) Her updated medication list for this problem includes: Bumetanide 2 Mg Oral Tabs (Bumetanide) ..... Take one pill a day Spironolactone 50 Mg Oral Tabs (Spironolactone) ..... Once daily Carvedilol 6.25 Mg Tabs (Carvedilol) ..... One tab. twice daily Gary [facility] Cardiology:Not inter ested in further evaluation or treatment. [facility]:No chest pain. Her updated medication list for this problem includes: Carvedilol 6.25 Mg Tabs (Carvedilol) ..... One tab. twice daily Nitrostat 0.4 Mg Subl (Nitroglycerin) ..... One tab. under tongue as needed. may repeat twice in 10 minutes. Effient 10 Mg Tabs (Prasugrel hcl) ..... One tablet daily [facility]:Venous du plex showed venous insufficiency. The pt is not interested in any intervention at this time. [facility] severe tibial disease on the left. The pt is not interested in any intervention at this time. [facility]:Venous du plex showed venous insufficiency. The pt is not interested in any intervention at this time She states that her leg swelling improved by stopping her Sprycel and with diuretics. [facility]ULFO[facility] severe tibial disease on the left. Venous duplex showed venous insufficiency. The pt is not interested in any intervention at this time. [facility]:Ferritin level was low. She's not interested in treatment at this time. [facility]:PFT[facility] severe obstructive disease. Will refer her for pulmonary consultation. [facility]:PFT[facility] severe obstructive disease. Ferritin level was low. Will refer her for pulmonary consultation. [facility] Follow up :Her recent PFT's show severe obstruction. She may benefit from a bronchodilator. I've given her Proair to use as needed. Nieves Zimmer MD Cardiology Follow up:Follows Dr. Lee. Nieves Zimmer MD Cardiology Follow up :Mild SUKHDEEP. There were episodes of desaturation. She correlates those with her breath-holding. Once symptoms improve, she may benefit from a titration study. 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 She continues on a diuretic. Compression stockings were discussed again, but they were very uncomfortable and she is reluctant to use them. Nieves Zimmer MD Cardiology Follow up :Orders: S leep Study Home (CPT-78146) [facility] Follow up :Orders: R enal Artery Duplex (CPT-85029) [facility] Follow up :BP today: 126/68 P rior BP: 140/70 (05/08/2016) Her updated medication list for this problem includes: Bumetanide 2 Mg Oral Tabs (Bumetanide) ..... Take one pill a day Spironolactone 50 Mg Oral Tabs (Spironolactone) ..... Once daily Carvedilol 6.25 Mg Tabs (Carvedilol) ..... One tab. twice daily Orders: R enal Artery Duplex (CPT-50431) [facility] Cardiology Follow up :No chest pain. The following medications were removed from the medication list: Isosorbide Mononitrate Cr 120 Mg Tb24 (Isosorbide mononitrate) ..... One half tab. daily Her updated medication list for this problem includes: Carvedilol 6.25 Mg Tabs (Carvedilol) ..... One tab. twice daily Nitrostat 0.4 Mg Subl (Nitroglycerin) ..... One tab. under tongue as needed. may repeat twice in 10 minutes. Effient 10 Mg Tabs (Prasugrel hcl) ..... One tablet daily [facility] Follow up :She has SOB and fluid retention which she believes is related to the Sprycel. Will obtain iron studies, echo, PFT's. [facility] Follow up :Pt complains of pain and numbness in the left lower extremity. Will obtain arterial and venous duplexes. [facility] Hem/Onc Follow u p:T he patient has had an undetectable transcript on Dastanib 80 mg po daily. Her volume overload is better managed on this dose of Dastanib. I will repeat BCR-ABL. If it remains undetectable, I will space out follow up to every 6 months. Orders: B CR-ABL1, CML/ALL, PCR, Quant ([id number]) C BC (INCLUDES DIFF/PLT) (6399) C OMPREHENSIVE METABOLIC PANEL W/EGFR (87955) L DH (143878) 9 5414 MOD Complex (CPT-96991) Cruz Peter MD Cardiology:Labs Revi ewed: B UN: 34.0 (11/09/2015) Cr: 2.0 (11/09/2015) H gb: 12.0 (11/09/2015) Hct: 39.0 (11/09/2015) Ca++: 10.0 (11/09/2015) T P: 7.8 (11/09/2015) Alb: 4.5 (11/09/2015) Joseph Grace MD Cardiology:BP today: 120/70 P rior BP: 132/80 (02/07/2016) Her updated medication list for this problem includes: Bumetanide 1 Mg Oral Tabs (Bumetanide) ..... One tablet once daily Bumetanide 2 Mg Oral Tabs (Bumetanide) ..... Take one pill a day Spironolactone 50 Mg Oral Tabs (Spironolactone) ..... Once daily Carvedilol 6.25 Mg Tabs (Carvedilol) ..... One tab. twice daily Joseph Grace MD Cardiology:Complaini ng of insomnia. Will try Ambien 5mg as needed. Joseph Grace MD Cardiology:No SOB or chest pain. Joseph Grace MD Hem/Onc:As of last a ssessment, the patient had no detectable BCR-ABL transcript. She will continue current dose of Sprycel. Repeat labs today. She will return in three months. Orders: B CR-ABL1, CML/ALL, PCR, Quant ([id number]) 9 9214 MOD Complex (CPT-03151) Cruz Peter MD Hem/Onc:The patient appears to be tolerating lower dose of sprycel. I will repeat CBC and BCR-ABL today. I will call her with results of testing. She will return in three months for follow up. & #13;Orders: B CR-ABL1, CML/ALL, PCR, Quant ([id number]) C BC (INCLUDES DIFF/PLT) (6399) T SH (244100) R ETICULOCYTE COUNT, MANUAL (8699) L DH (317068) C OMPREHENSIVE METABOLIC PANEL W/EGFR (32611) 9 6514 MOD Complex (CPT-32165) Cruz Peter MD Cardiology:BP today: 125/74 P rior BP: 126/64 (08/02/2015) Her updated medication list for this problem includes: Bumetanide 2 Mg Oral Tabs (Bumetanide) ..... Take one pill a day Spironolactone 25 Mg Tabs (Spironolactone) ..... One half tab. daily Carvedilol 6.25 Mg Tabs (Carvedilol) ..... One tab. twice daily Joseph Grace MD Cardiology:CHOL: 124 (03/12/2012) LDL: 46 (03/12/2012) HDL: 37 (10/13/2008) T (10/13/2008) Her updated medication list for this problem includes: Simvastatin 80 Mg Tabs (Simvastatin) ..... One tab. at bedtime Joseph Grace MD Cardiology:Labs Revi ewed: C reat: 2.0 (08/03/2015) Joseph Grace MD Cardiology:Pt was di agnosed with an ulcer and hernia by Dr. Loyola. Joseph Grace MD Cardiology:he has oc casional fluid retention. I recommend to add Lasix on a prn basis. Joseph Grace MD Cardiology:She has o ccasional fluid retention. I recommend to add Lasix on a prn basis. Joseph Grace MD Hem/Onc Follow up:Re check iron stores today. Continue folic acid and Vit B12. O rders: S NOMED-CT: [id number] Current Medications Documented (SCT-[id number]) 9 9214 MOD Complex (CPT-39043) Cruz Peter MD Hem/Onc Follow up:Th e patient complains of fluid retention. Dasatanib can cause fluid retention. She states that she is on maximal diuretic therapy allowed. Her last BCR-ABL revealed remission. I will check a repeat BCR-ABL PCR tody. I will make one dose reduction in Dasatanib to 80 mg po daily. She will return in three months for follow up. I discussed that if her BCR-ABL becomes detectable that we may need to consider switching to a different TKI. Orders: C BC (INCLUDES DIFF/PLT) (6399) C OMPREHENSIVE METABOLIC PANEL W/EGFR (16907) I MILO AND TOTAL IRON BINDING CAPACITY (7573) F ERRITIN (457) B CR-ABL1, CML/ALL, PCR, Quant ([id number]) 9 9214 MOD Complex (CPT-96302) Cruz Peter MD Hem/Onc:Work up as a mee. Orders: C BC (INCLUDES DIFF/PLT) (6399) R ETICULOCYTE COUNT, MANUAL (8699) V ITAMIN B12 (927) F ERRITIN (457) F olic acid; RBC (24336) I MILO AND TOTAL IRON BINDING CAPACITY (7573) B CR-ABL1 RT-PCR, Qual CML/ALL (940834) Cruz Peter MD Hem/Onc:The patient has been in MMR as of last assessment. I will repeat BCR-ABL trascript today. She has a macrocytic anemia for which I will check Vitamin B12 and folaic acid levels. I will also recheck iron stores and retic count. The patient was started on protonix which can lead to decreased dasatanib levels. I have switched her to sucralfate 1 gm po QID with meals and at bedtime. She will return in 3 months for follow up. Orders: C BC (INCLUDES DIFF/PLT) (6399) R ETICULOCYTE COUNT, MANUAL (8699) V ITAMIN B12 (927) F ERRITIN (457) F olic acid; RBC (23559) I MILO AND TOTAL IRON BINDING CAPACITY (8773) B CR-ABL1 RT-PCR, Qual CML/ALL (737091) Cruz Peter MD Cardiology:BP today: 144/82 P rior BP: 115/77 (01/01/2015) Joseph Grace MD Cardiology:BNP was n ormal (30). She had good clinical response to Lasix. Joseph Grace MD follow up: T he following medications were removed from the medication list: Plavix 75 Mg Tabs (Clopidogrel bisulfate) ..... Daily Her updated medication list for this problem includes: Simvastatin 40 Mg Tabs (Simvastatin) ..... 1 tablet by mouth daily Zetia 10 Mg Tabs (Ezetimibe) ..... Daily Aspirin 325 Mg Tabs (Aspirin) ..... One tab daily Nitrostat 0.4 Mg Subl (Nitroglycerin) ..... One tab. under tongue as needed. may repeat twice in 10 minutes. Niaspan 1000 Mg Tbcr (Niacin (antihyperlipidemic)) ..... One tab. at bedtime - dispense as written Fenofibrate Micronized 134 Mg Caps (Fenofibrate micronized) ..... 1 tab daily Effient 10 Mg Tabs (Prasugrel hcl) ..... Take one pill a day Orders: C omplete Echo (CPT-26251) Joseph Grace MD HTN Mgmt: H er updated medication list for this problem includes: Carvedilol 25 Mg Tabs (Carvedilol) ..... Take one tablet by mouth twice daily ( ) Aspirin 325 Mg Tabs (Aspirin) ..... One tab daily Avapro 150 Mg Tabs (Irbesartan) ..... One tab daily Spironolactone 25 Mg Tabs (Spironolactone) ..... One tab. daily ( ) B /P much improved. Encouraged pt to continue to monitor b/p at least 3x weekly. Continue current Rx. Encouraged to increase activity. CHINA MCFARLAND NP Routine Follow-up: T he following medications were removed from the medication list: Ranexa 1000 Mg Tb12 (Ranolazine) ..... One tab. twice daily for chronic angina Her updated medication list for this problem includes: Zocor 40 Mg Tabs (Simvastatin) ..... One tab. at bedtime Zetia 10 Mg Tabs (Ezetimibe) ..... Daily Carvedilol 25 Mg Tabs (Carvedilol) ..... Take one tablet by mouth twice daily ( ) Aspirin 325 Mg Tabs (Aspirin) ..... One tab daily Plavix 75 Mg Tabs (Clopidogrel bisulfate) ..... Daily Niaspan 1000 Mg Tbcr (Niacin (antihyperlipidemic)) ..... One tab. at bedtime - dispense as written BP today: 136/82 Prior BP: 138/96 (04/25/2009) N uclear Stress Findings: No EKG changes diagnostic for ischemia because of inability to achieve target heart rate. (04/10/2003) C ardiac Cath: Continued patency to the stent in the LAD, left circumflex, and proximal to mid RCA. An 80% in-stent restenosis of the stent of the distal RCA. An 80% stenosis of the PDA. An 80% stenosis of the small right ventricular branch. Moderate LV systolic dysfunction with 35% to 40% akinesis of the infeiror segment. & #13;[facility] (10/18/2008) C ardiac Cath Comments: Successful stenting of the distal RCA with a 2.5 x 80mm Elias stent. [facility] (10/18/2008) C arotid Doppler/Duplex: normal: (02/26/2005) C HOL: 119 (10/13/2008) LDL: 45 (10/13/2008) HDL: 37 (10/13/2008) T (10/13/2008) H gb: 13.3 (10/13/2008) HCT: 41.4 (10/13/2008) WBC: 13.5 (10/13/2008) B UN: 4 (10/13/2008) Creat: 0.84 (10/13/2008) Glucose: 123 (10/13/2008) N a+: 137 (10/13/2008) K+: 4.4 (10/13/2008) Cl: 101 (10/13/2008) O rders: C omplete Echo (CPT-72053) C arotid Duplex Bilateral (CPT-51303) Joseph Grace MD routine: H er updated medication list for this problem includes: Ranexa 500 Mg Tb12 (Ranolazine) ..... 2 tablet by mouth twice daily Zetia 10 Mg Tabs (Ezetimibe) ..... Daily Plavix 75 Mg Tabs (Clopidogrel bisulfate) ..... Daily Carvedilol 25 Mg Tabs (Carvedilol) ..... Take one tablet by mouth twice daily ( ) Aspirin 325 Mg Tabs (Aspirin) ..... One tab daily Niaspan 1000 Mg Tbcr (Niacin (antihyperlipidemic)) ..... One tab. at bedtime - dispense as written Zocor 40 Mg Tabs (Simvastatin) ..... One tab. at bedtime BP today: 138/96 Prior BP: 119/74 (03/19/2009) N uclear Stress Findings: No EKG changes diagnostic for ischemia because of inability to achieve target heart rate. (04/10/2003) C ardiac Cath: Continued patency to the stent in the LAD, left circumflex, and proximal to mid RCA. An 80% in-stent restenosis of the stent of the distal RCA. An 80% stenosis of the PDA. An 80% stenosis of the small right ventricular branch. Moderate LV systolic dysfunction with 35% to 40% akinesis of the infeiror segment. [facility] (10/18/2008) C ardiac Cath Comments: Successful stenting of the distal RCA with a 2.5 x 80mm Elias stent. [facility] (10/18/2008) C arotid Doppler/Duplex: normal: (02/26/2005) C HOL: 119 (10/13/2008) LDL: 45 (10/13/2008) HDL: 37 (10/13/2008) T (10/13/2008) H gb: 13.3 (10/13/2008) HCT: 41.4 (10/13/2008) WBC: 13.5 (10/13/2008) B UN: 4 (10/13/2008) Creat: 0.84 (10/13/2008) Glucose: 123 (10/13/2008) N a+: 137 (10/13/2008) K+: 4.4 (10/13/2008) Cl: 101 (10/13/2008) Joseph Grace MD post ecp: H er updated medication list for this problem includes: Ranexa 500 Mg Tb12 (Ranolazine) ..... 2 tablet by mouth twice daily Zetia 10 Mg Tabs (Ezetimibe) ..... Daily Plavix 75 Mg Tabs (Clopidogrel bisulfate) ..... Daily Carvedilol 25 Mg Tabs (Carvedilol) ..... Take one tablet by mouth twice daily ( ) Aspirin 325 Mg Tabs (Aspirin) ..... One tab daily Niaspan 1000 Mg Tbcr (Niacin (antihyperlipidemic)) ..... [place] tab. at bedtime - dispense as written Imdur 60 Mg Tb24 (Isosorbide mononitrate) ..... One tab. daily Zocor 40 Mg Tabs (Simvastatin) ..... One tab. at bedtime BP today: 119/74 Prior BP: 130/80 (02/22/2009) N uclear Stress Findings: No EKG changes diagnostic for ischemia because of inability to achieve target heart rate. (04/10/2003) C ardiac Cath: Continued patency to the stent in the LAD, left circumflex, and proximal to mid RCA. An 80% in-stent restenosis of the stent of the distal RCA. An 80% stenosis of the PDA. An 80% stenosis of the small right ventricular branch. Moderate LV systolic dysfunction with 35% to 40% akinesis of the infeiror segment. [facility] (10/18/2008) C ardiac Cath Comments: Successful stenting of the distal RCA with a 2.5 x 80mm Loraine stent. [facility] (10/18/2008) C arotid Doppler/Duplex: normal: (02/26/2005) C HOL: 119 (10/13/2008) LDL: 45 (10/13/2008) HDL: 37 (10/13/2008) T (10/13/2008) H gb: 13.3 (10/13/2008) HCT: 41.4 (10/13/2008) WBC: 13.5 (10/13/2008) B UN: 4 (10/13/2008) Creat: 0.84 (10/13/2008) Glucose: 123 (10/13/2008) N a+: 137 (10/13/2008) K+: 4.4 (10/13/2008) Cl: 101 (10/13/2008) Joseph Grace MD routine: H er updated medication list for this problem includes: Ranexa 500 Mg Tb12 (Ranolazine) ..... 2 tablet by mouth twice daily Zetia 10 Mg Tabs (Ezetimibe) ..... Daily Plavix 75 Mg Tabs (Clopidogrel bisulfate) ..... Daily Advicor 1000-20 Mg Tb24 (Niacin-lovastatin) ..... 2 pills daily Carvedilol 25 Mg Tabs (Carvedilol) ..... Take one tablet by mouth twice daily ( ) Aspirin 325 Mg Tabs (Aspirin) ..... One tab daily BP today: 143/85 Prior BP: 131/84 (10/11/2008) N uclear Stress Findings: No EKG changes diagnostic for ischemia because of inability to achieve target heart rate. (04/10/2003) C ardiac Cath: Continued patency to the stent in the LAD, left circumflex, and proximal to mid RCA. An 80% in-stent restenosis of the stent of the distal RCA. An 80% stenosis of the PDA. An 80% stenosis of the small right ventricular branch. Moderate LV systolic dysfunction with 35% to 40% akinesis of the infeiror segment. [facility] (10/18/2008) C ardiac Cath Comments: Successful stenting of the distal RCA with a 2.5 x 80mm Loraine stent. [facility] (10/18/2008) C arotid Doppler/Duplex: normal: (02/26/2005) CHOL: 119 (10/13/2008) LDL: 45 (10/13/2008) HDL: 37 (10/13/2008) T (10/13/2008) H gb: 13.3 (10/13/2008) HCT: 41.4 (10/13/2008) WBC: 13.5 (10/13/2008) B UN: 4 (10/13/2008) Creat: 0.84 (10/13/2008) Glucose: 123 (10/13/2008) N a+: 137 (10/13/2008) K+: 4.4 (10/13/2008) Cl: 101 (10/13/2008) Joseph Grace MD : O rders: V enous Doppler Bilateral LE (15176) A rterial Duplex to r/o psuedoanuerysim (CPT-55840) Joseph Grace MD discuss disability: H er updated medication list for this problem includes: Ranexa 500 Mg Tb12 (Ranolazine) ..... 1 tablet by mouth twice daily Plavix 75 Mg Tabs (Clopidogrel bisulfate) ..... Daily Carvedilol 25 Mg Tabs (Carvedilol) ..... Take one tablet by mouth twice daily ( ) BP today: 131/84 Prior BP: 140/85 (02/02/2008) N uclear Stress Findings: No EKG changes diagnostic for ischemia because of inability to achieve target heart rate. (04/10/2003) C ardiac Cath: EF 35%. Akinesis of the inferior segment. An 80% stenosis of the proximal to mid and the distal RCA and total occlusion of the posterolateral branch and 70% stenosis of the PDA. Contiued patency of the stents in the LAD and the obtuse marginal branch. Successful angioplasty of totally occluded posteolateral branch, successful stenting with Taxus stents of the proximal to mid and distal RCA. (02/21/2008) C ardiac Cath Comments: PTCA and stenting was performed to distal RCA 3.0 x 20mm Taxus stent & 3.0 x 20mm Taxus stent mid RCA. (02/21/2008) C arotid Doppler/Duplex: normal: (02/26/2005) Orders: C ardiac Cath - (*) Joseph Grace MD chest : H er updated medication list for this problem includes: Metformin Hcl 850 Mg Tabs (Metformin hcl) ..... Bid Avapro 75 Mg Tabs (Irbesartan) ..... Daily Joseph Grace MD chest : H er updated medication list for this problem includes: Zetia 10 Mg Tabs (Ezetimibe) ..... Daily Advicor 1000-20 Mg Tb24 (Niacin-lovastatin) ..... Daily Joseph Grace MD chest : T he following medications were removed from the medication list: Ranexa 500 Mg Tb12 (Ranolazine) ..... Take two (2) tablets by mouth twice daily Her updated medication list for this problem includes: Zetia 10 Mg Tabs (Ezetimibe) ..... Daily Advicor 1000-20 Mg Tb24 (Niacin-lovastatin) ..... Daily Carvedilol 25 Mg Tabs (Carvedilol) ..... Bid Plavix 75 Mg Tabs (Clopidogrel bisulfate) ..... Daily Ranexa 1000 Mg Tb12 (Ranolazine) ..... One tab. twice daily Orders: Dakotah phelps Cath - GC (*) Joseph Grace MD chest : H er updated medication list for this problem includes: Zetia 10 Mg Tabs (Ezetimibe) ..... Daily Advicor 1000-20 Mg Tb24 (Niacin-lovastatin) ..... Daily Carvedilol 25 Mg Tabs (Carvedilol) ..... Bid Plavix 75 Mg Tabs (Clopidogrel bisulfate) ..... Daily Ranexa 500 Mg Tb12 (Ranolazine) ..... Take two (2) tablets by mouth twice daily Joseph Grace MD Date Name Pulmonology PROTHROMBIN TIME WIT H INR LIPID PANEL CBC (INCLUDES DIFF/P LT) BASIC METABOLIC PANE L W/EGFR Arterial Duplex Bi-L ower EX PROTHROMBIN TIME WIT H INR LIPID PANEL CBC (INCLUDES DIFF/P LT) BASIC METABOLIC PANE L W/EGFR Venous Doppler Bilat eral LE - Reflux Arterial Duplex Bi-L ower EX PROBNP, N TERMINAL Microalb/Creatinine Urine, Random BASIC METABOLIC PANE L W/EGFR CRP, high sensitivit y Lipoprotein (a) PROTHROMBIN TIME WIT H INR LIPID PANEL CBC (INCLUDES DIFF/P LT) BASIC METABOLIC PANE L W/EGFR Complete Echo PROTHROMBIN TIME WIT H INR LIPID PANEL CBC (INCLUDES DIFF/P LT) BASIC METABOLIC PANE L W/EGFR DIRECT LDL PROTHROMBIN TIME WIT H INR LIPID PANEL CBC (INCLUDES DIFF/P LT) BASIC METABOLIC PANE L W/EGFR AIF Intervention - S LHV PROTHROMBIN TIME WIT H INR LIPID PANEL CBC (INCLUDES DIFF/P LT) BASIC METABOLIC PANE L W/EGFR Carotid Duplex Bilat eral PROTHROMBIN TIME WIT H INR LIPID PANEL CBC (INCLUDES DIFF/P LT) BASIC METABOLIC PANE L W/EGFR AIF Intervention - G C PROTHROMBIN TIME WIT H INR LIPID PANEL CBC (INCLUDES DIFF/P LT) BASIC METABOLIC PANE L W/EGFR AIF Intervention - G C CRP, high sensitivit y PROTHROMBIN TIME WIT H INR LIPID PANEL CBC (INCLUDES DIFF/P LT) BASIC METABOLIC PANE L W/EGFR RPM (remote patient monitoring) Arterial Duplex Bi-L ower EX Complete Echo C-REACTIVE PROTEIN ( CRP), HIGHLY SENSITIVE, CSF LIPID PANEL LIPID PANEL Venous Doppler Bilat eral LE - Reflux Arterial Duplex Bi-L ower EX COVID19 Rapid POC PROTHROMBIN TIME WIT H INR CBC (INCLUDES DIFF/P LT) BASIC METABOLIC PANE L W/EGFR Arterial Duplex Bi-L ower EX Venous Doppler Bilat eral LE - Reflux Complete Echo Venous Doppler Bilat eral LE - Reflux Arterial Duplex Bi-L ower EX IRON AND TOTAL IRON BINDING CAPACITY FERRITIN CBC (INCLUDES DIFF/P LT) PROBNP, N TERMINAL AIF Intervention - S LHV IRON AND TOTAL IRON BINDING CAPACITY FERRITIN CBC (INCLUDES DIFF/P LT) PROTHROMBIN TIME WIT H INR LIPID PANEL CBC (INCLUDES DIFF/P LT) BASIC METABOLIC PANE L W/EGFR AIF Intervention - S LHV Arterial Duplex Bi-L ower EX COVID19 nasal swab ( LC) Covid Antibody IgA ( LC) Covid Antibody IgM ( LC) Covid Antibody Igg HEMOGLOBIN A1c PROTHROMBIN TIME WIT H INR LIPID PANEL CBC (INCLUDES DIFF/P LT) BASIC METABOLIC PANE L W/EGFR AIF Intervention - S LHV Arterial Duplex Bi-L ower EX CBC (INCLUDES DIFF/P LT) PROBNP, N TERMINAL MAGNESIUM BASIC METABOLIC PANE L W/EGFR PROTHROMBIN TIME WIT H INR CBC (INCLUDES DIFF/P LT) BASIC METABOLIC PANE L W/EGFR Coronary Stent - CNE PROTHROMBIN TIME WIT H INR CBC (INCLUDES DIFF/P LT) BASIC METABOLIC PANE L W/EGFR PROBNP, N TERMINAL IRON AND TOTAL IRON BINDING CAPACITY FERRITIN HEMOGLOBIN A1c PROTHROMBIN TIME WIT H INR LIPID PANEL CBC (INCLUDES DIFF/P LT) BASIC METABOLIC PANE L W/EGFR Cardiac Cath - L/R- SL[facility] AIF Intervention - S LHV Renal Artery Duplex VITAMIN B12 RETICULOCYTE COUNT IRON AND TOTAL IRON BINDING CAPACITY FOLATE, SERUM FERRITIN CBC (INCLUDES DIFF/P LT) Carotid Duplex Bilat eral Complete Echo Sleep Study Home DLCO - 41135 FRC - 85988 FVC - 54422 Arterial Duplex Bi-L ower EX Venous Doppler Bilat eral LE - Reflux LDH COMPREHENSIVE METABO LIC PANEL W/EGFR CBC (INCLUDES DIFF/P LT) BCR-ABL1, CML/ALL, P CR, Quant BCR-ABL1, CML/ALL, P CR, Quant COMPREHENSIVE METABO LIC PANEL W/EGFR TSH LDH RETICULOCYTE COUNT, MANUAL CBC (INCLUDES DIFF/P LT) BCR-ABL1, CML/ALL, P CR, Quant BCR-ABL1, CML/ALL, P CR, Quant FERRITIN IRON AND TOTAL IRON BINDING CAPACITY COMPREHENSIVE METABO LIC PANEL W/EGFR CBC (INCLUDES DIFF/P LT) BCR-ABL1 RT-PCR, Chris l CML/ALL IRON AND TOTAL IRON BINDING CAPACITY Folic acid; RBC FERRITIN VITAMIN B12 RETICULOCYTE COUNT, MANUAL CBC (INCLUDES DIFF/P LT) B TYPE NATRIURETIC P EPTIDE (BNP) BASIC METABOLIC PANE L W/EGFR Complete Echo B TYPE NATRIURETIC P EPTIDE (BNP) Kidney Ultrasound Gallbladder Ultrasou nd Venous Doppler Bilat eral LE - Standing Other Test Cardiac Cath - Left - GC Cardiac Cath - Left - GC Arterial Duplex Uppe r Extremity Bilateral Complete Echo Cardiac Cath - Left - CNE Cardiac Cath - Left - GC Stress Test - Nuclea r Holter Monitor 24 Hr ECP - Medicare Renal Artery Duplex Complete Echo Carotid Duplex Bilat eral Complete Echo Arterial Duplex to r /o psuedoanuerysim Venous Doppler Bilat eral LE CBC (INCLUDES DIFF/P LT) COMPREHENSIVE METABO LIC PANEL W/EGFR LIPID PANEL Cardiac Cath - GC Cardiac Cath - GC HISTORY OF PROCEDURES Procedure Date Procedure Name Provider Procedure Notes S tatus Complex e/m visit add on Joseph Grace MD completed EKG Joseph Grace MD completed Complex e/m visit add on Joseph Grace MD completed EKG Joseph Grace MD completed EKG Joseph Grace MD completed SARS-CoV-2 (COVID-19) POC Joseph Grace MD completed Sandeep Morocho MD completed EKG Joseph Grace MD completed CCM MD La Grace MD completed EKG Joseph Grace MD completed EKG Joseph Grace MD completed Mobile Cardiac Telem etry - Tech Joseph Grace MD completed Mobile Cardiac Telem etry - Prof Joseph Grace MD completed SNOMED-CT: 27642483 Physical Exam, Performed: Pulse Exam of Foot Joseph Grace MD completed SNOMED-CT: [id number] 558870 Current Medications Documented Joseph Grace MD completed SNOMED-CT: 68827059 Physical Exam, Performed: Pulse Exam of Foot Nieves Zimmer MD completed EKG Nieves Zimmer MD complet ed SNOMED-CT: 732669266 248297 Current Medications Documented Nieves Zimmer MD completed BLOOD COUNT HEMOGLOBIN Joseph Grace MD completed FVC / MVV - 78398 Joseph Grace MD com pleted FRC - 31427 Joseph Grace MD completed SpO2 - 55958 Joseph Grace MD complete d DLCO - 62272 Joseph Grace MD complete d SNOMED-CT: 08417470 Physical Exam, Performed: Pulse Exam of Foot Joseph Grace MD completed EKG Joseph Grace MD completed SNOMED-CT: 277216769 383110 Current Medications Documented Joseph Grace MD completed SNOMED-CT: [id number] Current Medications Documented Cruz Peter MD completed SNOMED-CT: [id number] Physical Exam, Performed: Pulse Exam of Foot Joseph Grace MD completed SNOMED-CT: [id number] Current Medications Documented Joseph Grace MD completed SNOMED-CT: [id number] Current Medications Documented Cruz Peter MD completed SNOMED-CT: [id number] Current Medications Documented Cruz Peter MD completed SNOMED-CT: [id number] Smoking Cessation Counseling Joseph Grace MD completed SNOMED-CT: [id number] Physical Exam, Performed: Pulse Exam of Foot Joseph Grace MD completed EKG Joseph Grace MD completed SNOMED-CT: [id number] Current Medications Documented Joseph Grace MD completed SNOMED-CT: [id number] Current Medications Documented Cruz Peter MD completed SNOMED-CT: [id number] 495203 Current Medications Documented Cruz Peter MD completed EKG Joseph Grace MD completed EKG Joseph Grace MD completed ePrescribe - Check t his box if eRx is used Joseph Grace MD completed EKG Joseph Grace MD completed EKG Joseph Grace MD completed EKG Joseph Grace MD completed EKG Joseph Grace MD completed ePrescribe - Check t his box if eRx is used Joseph Grace MD completed EKG Joseph Grace MD completed ePrescribe - Check t his box if eRx is used Joseph Grace MD completed EKG Joseph Grace MD completed EKG Joseph Grace MD completed EKG Joseph Grace MD completed EKG Joseph Grace MD completed EKG Joseph Grace MD completed EKG Joseph Grace MD completed
--- OUTSIDE RECORDS SUMMARY | 2024-10-17 13:40 | XMS_ITS | Data Portability ---
Author Organization [facility] JONELLEAngelito Address [address] [place] [address] Assessment No assessment recorded. Plan of Treatment Reminders Order Date Submit Date Provider Last Modified By Organization Details Last Modified Time Details Appointments None recorded . Lab HbA1c (hemoglo bin A1c), blood 2021 022 [email or web address] In-Office Order, Internal Use Only DO Not Attach Compendium DO Not Attach Compendium, Do Not Delete/merge, [id number] 12:26:26 microalb umin, urine 2021 022 KARAN In-Office Order, Internal Use Only DO Not Attach Compendium DO Not Attach Compendium, Do Not Delete/merge, [id number] 16:52:20 HbA1c (hemoglo bin A1c), blood 2021 022 KARAN In-Office Order, Internal Use Only DO Not Attach Compendium DO Not Attach Compendium, Do Not Delete/merge, [id number] 16:51:27 HbA1c (hemoglo bin A1c), blood 2020 021 [email or web address] In-Office Order, Internal Use Only DO Not Attach Compendium DO Not Attach Compendium, Do Not Delete/merge, [id number] 10:11:45 Referral neurolog ist referral - choked on water 1.5 months ago , migraine for a week , now down to a headache . , if coughs has a pain in forehead momentar simon . dizzy , double vison when lying down , no pronator drift but leans to the right and posterio rly . raising arms or looking up makes her dizzy . ordered a CT of brain without contrast . Pleae eval and treat.. also pain with eye movement . eye [place] [facility], but she is trying to refer to an eye doctor at [facility] , Dr. Dudley . 2021 [email or web address] Harish Nogueira MD, [address], [place], [address], 3 09:55:[address] referral - Last colonosc opy was in 2003 . Please eval and treat . one rectal polyp too vlose to the nerves to take . 2021 UNA Loyola MD, [address] [facility], [address], [address], 2 13:10:[address] referral - Last colonosc opy 2003 UNA Loyola MD, [address] [facility], [facility], [place], [address], 2 11:05:07 diabetic ophthalm ology referral 2020 [email or web address] [facility], [address] , [place], [address], 1 10:28:45 Procedures None recorded . Surgeries None recorded . Imaging CT, brain, w/o contrast 2021 [facility] ([facility]), [address] [facility] [place], [address], 2 17:48:52 Medication Orders meclizin e 12.5 mg tablet 2021 [facility] #93104, [address], [place], [place], [id number], 10:30:12 amoxicil dianne 875 mg tablet 2021 [facility] #28880, [address], [place], [place], [id number], 12:22:15 fluconaz ole 150 mg tablet 2021 [facility] #37968, [address], [place], [place], [id number], 10:24:56 betameth asone dipropio zandra 0.05 % topical ointment 2021 [facility] #75513, [address] , [place], [place], [id number], 10:24:56 pioglita zone 15 mg tablet 2021 [facility] #74336, [address] [place], [place], [id number], 09:55:20 predniso ne 10 mg tablet 2021 [facility] #81159, [address], [id number], 09:44:50 ondanset sohan HCl 4 mg tablet 2020 021 [facility] #39294, [address], [place], [id number], 09:58:46 gabapent in 100 mg capsule 2020 021 [facility] #87473, [address], [place], [id number], 09:58:46 Lyrica 75 mg capsule 2020 [facility], [address] [place] [address], [id number], 09:54:15 Lantus U-100 Insulin 100 unit/mL subcutan eous solution 2020 [facility] #66479, [address], [place], [place], [id number], 09:38:35 Januvia 50 mg tablet 2020 [facility] #68459, [address] , [place], [place], [id number], 09:54:11 Patient TargetsNo targets recorded. Patient Instructions Encounter Date Encounter Id Patient Instructions Last Modified By Organization Details Last Modified Time 10/24/2020 [id number] counseled re: diet , exercise Not available 10/24/2020 17:04:21 06/16/2022 [id number] Peripheral Arterial Disease (PAD): Care Instructions [facility] Not available 06/16/2022 12:31:24 A healthy lifestyle: care instructions [facility] Not available 06/16/2022 12:42:41 learning about type 2 diabetes si Not available 06/16/2022 12:31:24 type 2 diabetes: care instructions [facility] Not available 06/16/2022 12:31:24 psoriasis: care instructions [facility] Not available 06/16/2022 12:31:24 Reason for Referral Diabetic Ophthalmology Refer ral for Type 2 diabetes mellitus Referring Physician: [facility], Encounter Date: 10/24/2020 Accountant Referral for Screening for malignant neoplasm of colon Last colonoscopy 2003 Referring Physician: [facility], Encounter Date: 09/09/2021 Neurologist Referral for Hea [email or web address] choked on water 1.5 months ago , migraine for a week , now down to a headache . , if coughs has a pain in forehead momentarily . dizzy , double vison when lying down , no pronator drift but leans to the right and posteriorly . raising arms or looking up makes her dizzy . ordered a CT of brain without contrast . Pleae eval and treat.. also pain with eye movement. eye exam at [employer] [facility] art [facility] [place], but she is trying to refer to an eye doctor at [facility] , Dr. Dudley . Referring Physician: Hesham Bess, Family Medicine, Encounter Date: 04/23/2022 Accountant Referral for Screening for malignant neoplasm of colon Last colonoscopy was in 2003 . Please eval and treat . one rectal polyp too vlose to the nerves to take . Referring Physician: Hesham Bess [facility], Encounter Date: 04/23/2022 Results Created Date Observation Date Name Description Value Unit Range Abnormal Flag Note LastModifiedBy Organization Detail LastModifiedTime 10/25/19 21 10/24/2020 HbA1c (hemo globi n A1c), blood HbA1c 11.2% Not Available In-Office Order Internal Use Only DO Not Attach Compendium DO Not Attach Compendium, Do Not Delete/merge, [id number] 10/24/2020 09:52:53 09/09/19 22 09/09/2021 micro album in, urine Microalbumin Abnorm al Not Available In-Office Order Internal Use Only DO Not Attach Compendium DO Not Attach Compendium, Do Not Delete/merge, [id number] 09/09/2021 15:51:57 09/09/19 22 09/09/2021 HbA1c (hemo globi n A1c), blood HbA1c 7.3% Not Available In-Office Order Internal Use Only DO Not Attach Compendium DO Not Attach Compendium, Do Not Delete/merge, [id number] 09/09/2021 15:51:59 04/23/20 22 04/23/2022 HbA1c (hemo globi n A1c), blood HbA1c 9.8% Not Available In-Office Order Internal Use Only DO Not Attach Compendium DO Not Attach Compendium, Do Not Delete/merge, [id number] 04/23/2022 12:16:38 12/21/19 21 12/20/2020 US, lower extre mity, vascu lar No observ ation record ed. [facility] [address], [place], [address], 01/10/2021 12:14:21 12/22/19 21 12/20/2020 trans -thor acic echoc ardio gram (TTE) (PROC ) No observ ation record ed. [facility] [address], [place], [address], 01/10/2021 12:13:37 12/11/19 22 12/10/2021 US, joshua bal arter ial, lower extre mity No observ ation record ed. [facility] [address], [place], [address], 12/24/2021 13:57:08 12/14/19 22 12/12/2021 trans -thor acic echoc ardio gram (TTE) (PROC ) No observ ation record ed. [facility] [address], [place], [address], 12/24/2021 14:02:19 04/30/20 22 04/30/2022 CT, brain , w/o contr ast No observ ation record ed. [facility] [address] [place], [address], 05/21/2022 16:15:09 05/08/20 22 05/05/2022 US, joshua bal, carot id arter y No observ ation record ed. [email or web address] [facility] [address], [place], [address], 05/15/2022 16:17:13 03/06/20 23 03/03/2023 US, joshua bal venou s, lower extre mity No observ ation record ed. [email or web address] [facility] [address], [place], [address], 03/06/2023 15:03:40 03/06/20 23 03/03/2023 arter ial study , extre mity, multi ple level No observ ation record ed. [facility] [address], [place], [address], 03/06/2023 16:11:43 03/12/20 23 03/12/2023 imagi ng/di agnos tic resul t No observ ation record ed. [facility] [address], [place], [address], 03/13/2023 18:48:25 04/09/20 23 04/06/2023 trans -thor acic echoc ardio gram (TTE) (PROC ) No observ ation record ed. [facility] [address], [place], [address], 04/10/2023 17:45:24 03/09/20 24 03/09/2024 US, duple x, arter ial, lower extre mity No observ ation record ed. [email or web address] [facility] [address], [place], [address], 03/12/2024 04:52:16 Result Notes None recorded. Problems Name Problem SNOMED Code Status Onset Date Resolution Date Notes Provider Name and Address Organization Details Recorded Time Eczema 24947084 Active 2017 Not Available [facility] 3 09:44:34 Carotid artery stenosis 81011844 Active 2019 Not Available [facility] 3 09:44:35 Cardiomyo dusty 01910709 Active 2019 Not Available [facility] 3 09:44:35 Acute folliculi tis 697032104 Active 2019 Not Available [facility] 3 09:44:34 Sacral radiculop athy 718923697 Active 2019 right femoral Not Available [facility] 3 09:44:34 Type 2 diabetes mellitus 36187723 Active 2019 Not Available [facility] 3 09:44:34 Dysuria 67531720 Active 2020 Not Available [facility] 3 09:44:34 Gout 90083512 Active 2020 right great toe . Not Available [facility] 3 09:44:35 Periphera l vascular disease 722844063 Active 2020 see lower extremity arterial report 12/20/2020 Not Available [facility] 3 09:44:34 Neuropath y 858203281 Active 2020 Not Available [facility] 3 09:44:34 Nausea 516307151 Active 2020 Not Available [facility] 3 09:44:34 Screening for malignant neoplasm of colon Active 2021 Not Available [facility] 3 09:44:34 Headache 64875537 Active 2021 Not Available [facility] 3 09:44:34 Vertigo 582068407 Active 2021 Not Available [facility] 3 09:44:34 Multinodu lar goiter 904763478 Active 2016 Not Available [facility] 3 09:44:34 Nonsustai katherine ventricul ar tachycard ia 570286940 Active 2016 Not Available [facility] 3 09:44:34 Chronic obstructi ve pulmonary disease 69086875 Active 2016 Not Available [facility] 3 09:44:34 Sleep apnea 72448034 Active 2016 Not Available [facility] 3 09:44:35 Venous insuffici ency of leg 854340169 Active 2016 Not Available [facility] 3 09:44:34 Chronic kidney disease stage [address] 3041546[address] Active [address] Lee Not Available [facility] 3 09:44:34 Chronic myeloid leukemia in remission 69646148 Active 2016 on Bosulif , makes her nauseated Not Available [facility] 3 09:44:35 Insomnia 884292471 Active 2016 Not Available [facility] 3 09:44:34 Acute dermatiti s 87226662 Active 2016 Not Available [facility] 3 09:44:34 Problem Notes None recorded. Procedures Surgical History Date Name Laterality Status Provider Name and Address Organization Details Recorded Time 021 catheterization completed Sandy Reynolds MA [facility] 07/22/2021 09:44:06 020 angiocardiography completed Sandy Reynolds MA [facility] 04/09/2020 17:12:30 019 insertion of stent into vein completed Sandy Reynolds MA [facility] 06/07/2019 15:12:37 Imaging Results Imaging Date Name Status LastModified by Organization Details LastModified Time 12/20/2020 US, lower extremity, vascular completed [facility] [address], [place], [address], 01/10/2021 12:14:21 12/20/2020 trans-thoracic echocardiogram (TTE) (PROC) completed [facility] [address], [place], [address], 01/10/2021 12:13:37 12/10/2021 US, duplex, arterial, lower extremity completed [facility] [address], [place], [address], 12/24/2021 13:57:08 12/12/2021 trans-thoracic echocardiogram (TTE) (PROC) completed [facility] [address], [place], [address], 12/24/2021 14:02:19 04/30/2022 CT, brain, w/o contrast completed [facility] [address] [place] [address], [place], [address], 05/21/2022 16:15:09 05/05/2022 US, duplex, carotid artery completed [email or web address] [facility] [address], [place], [address], 05/15/2022 16:17:13 03/03/2023 US, duplex, venous, lower extremity completed [facility] [address], [place], [address], 03/06/2023 15:03:40 03/03/2023 arterial study, extremity, multiple level completed [facility] [address], [place], [address], 03/06/2023 16:11:43 03/12/2023 imaging/diagnostic result completed [facility] [address], [place], [address], 03/13/2023 18:48:25 04/06/2023 trans-thoracic echocardiogram (TTE) (PROC) completed [facility] [address], [place], [address], 04/10/2023 17:45:24 03/09/2024 US, duplex, arterial, lower extremity completed [email or web address] [facility] [address], [place], [address], 03/12/2024 04:52:16 Procedure Notes None recorded. Medical Equipment None Reported. Allergies Allergen ID Allergen Name Allergen Category Reaction Reaction Severity Criticality Documentation Date Start Date Code Code System Note Provider Name and Address Organization Details Recorded Time 525402 Trulicity medicatio n rash Not available Not available 04/09/2020 27668 96 RxNorm Not Available Not Available Not Available 836837 Jardiance medicatio n rash Not available Not available 04/09/2020 12227 59 RxNorm Not Available Not Available Not Available 87846 atropine medicatio n Not available Not available Not available 05/27/2017 1223 RxNorm Not Available Not Available Not Available Medications Name Sig Start Date Stop Date Status Note LastModified by Organization Details LastModified Time allopurin ol 100 mg tabs 06/07 completed Not Available Not Available Not Available levofloxa sinan 750 mg tabs 06/07 completed Not Available Not Available Not Available rosuvasta tin calcium 40 mg tabs 06/07 completed Not Available Not Available Not Available ondansetr on hcl 4 mg tabs 07/22 completed Not Available Not Available Not Available betametha sone dipropion ate 0.05 % oint 04/23 completed Not Available Not Available Not Available ondansetr on odt 4 mg tbdp 07/22 completed Not Available Not Available Not Available levofloxa sinan 500 mg tabs 05/27 completed Not Available Not Available Not Available carvedilo l 6.25 mg tabs 10/24 completed Not Available Not Available Not Available jardiance 10 mg tabs 08/10 completed Not Available Not Available Not Available clindamyc in hcl 300 mg caps 05/27 completed Not Available Not Available Not Available pataday 0.2 % soln 06/07 completed Not Available Not Available Not Available ropinirol e hcl 1 mg tabs 06/08 completed Not Available Not Available Not Available sprycel 80 mg tabs 05/27 completed Not Available Not Available Not Available tresiba flextouch 100 unit/ml sopn 06/07 completed Not Available Not Available Not Available simvastat in 80 mg tabs 06/12 completed is on rosuvast atin through her cardiolo gist Not Available Not Available Not Available nitrofura ntoin monohydra te/macroc rystals 100 mg caps 06/07 completed Not Available Not Available Not Available bosulif 100 mg tabs 04/23 completed Not Available Not Available Not Available ondansetr on hydrochlo ride 4 mg tabs 07/22 completed Not Available Not Available Not Available bumetanid e 1 mg tabs 06/07 completed Not Available Not Available Not Available spironola ctone 50 mg tabs 05/27 completed Not Available Not Available Not Available trulicity 0.75 mg/0.5ml sopn 04/23 completed Not Available Not Available Not Available clindamyc in hcl 150 mg caps 06/08 completed Not Available Not Available Not Available metformin hydrochlo ride 1000 mg tabs 06/07 completed Not Available Not Available Not Available cephalexi n 500 mg caps 06/08 completed Not Available Not Available Not Available prasugrel 10 mg tabs 07/22 completed Not Available Not Available Not Available phenazopy ridine hydrochlo ride 100 mg tabs 06/07 completed Not Available Not Available Not Available fluconazo le 150 mg tabs 06/08 completed Not Available Not Available Not Available metolazon e 5 mg tabs 05/27 completed Not Available Not Available Not Available prednison e 20 mg tabs 05/27 completed Not Available Not Available Not Available spironola ctone 25 mg tabs 06/07 completed Not Available Not Available Not Available diphenoxy late/atro pine 2.5-0.025 mg tabs 05/27 completed Not Available Not Available Not Available sprycel 50 mg tabs 05/27 completed Not Available Not Available Not Available bumetanid e 0.5 mg tabs 10/24 completed Not Available Not Available Not Available spironola ctone 100 mg tabs 05/27 completed Not Available Not Available Not Available azithromy sinan 250 mg tabs 05/27 completed Not Available Not Available Not Available tramadol hcl 50 mg tabs 01/11 completed Not Available Not Available Not Available bumetanid e 2 mg tabs 06/07 completed Not Available Not Available Not Available effient 10 mg tabs active Not Available Not Available Not Available proair hfa 108 (90 base) mcg/act aers active Not Available Not Available Not Available pioglitaz one 15 mg tablet TAKE 1 TABLET BY MOUTH EVERY DAY IN THE MORNING 04/23 completed Not Available Not Available Not Available metformin 500 mg tablet TAKE 1 TABLET BY MOUTH TWICE DAILY 07/22 completed Not Available Not Available Not Available cilostazo l 100 mg tablet TK 1 T PO BID 04/23 completed Not Available Not Available Not Available prednison e 10 mg tablet 2 tabs po twice daily for 2 days ; 1 tab twice daily for 5 days ; 0.5 tab twice champion for 2 days ; 0.5 tab for one day . take 2nd dose every day at noon . 04/23 completed Not Available Not Available Not Available carvedilo l 12.5 mg tablet TAKE 1 TABLET BY MOUTH TWICE DAILY active Not Available Not Available No t Available albuterol sulfate 2.5 mg/3 mL (0.083 %) solution for nebulizat ion Inhale 3 mL 3 times a day by nebuliza tion route. 2016 active Not Available Not Available Not Avai lable nystatin 100,000 unit/gram topical ointment active Not Available Not Available Not Available fluconazo le 150 mg tablet TAKE 1 TABLET BY MOUTH EVERY 72 HOURS FOR 9 DAYS NEEDED ONLY IF YEAST INFECTIO N OCCURS active Not Available Not Available No t Available cephalexi n 250 mg capsule TAKE 1 CAPSULE BY MOUTH THREE TIMES DAILY FOR 2 WEEKS active Not Available Not Available No t Available minocycli ne 100 mg capsule 04/23 completed Not Available Not Available Not Available phenazopy ridine 200 mg tablet TAKE 1 TABLET BY MOUTH THREE TIMES DAILY FOR 2 DAYS 04/23 completed Not Available Not Available Not Available ondansetr on HCl 4 mg tablet TAKE 1 TABLET BY MOUTH EVERY 8 HOURS NEEDED FOR NAUSEA OR VOMITING active Not Available Not Available No t Available famotidin e 40 mg tablet TAKE 1 TABLET BY MOUTH EVERY DAY active Not Available Not Available No t Available prednison e 20 mg tablet 2 tabs po twice daily for 2 days ; 1 tab twice daily for 5 days ; 0.5 tab twice daily for 2 days ; 0.5 tab for 1 day . take 2nd dose every day at noon 01/11 completed Not Available Not Available Not Available Lantus U-100 Insulin 100 unit/mL subcutane ous solution ADMINIST ER 10 UNITS UNDER THE SKIN EVERY DAY AT BEDTIME 07/22 completed Not Available Not Available Not Available clindamyc in HCl 150 mg capsule Take 1 capsule every 6 hours by oral route for 10 days. 06/08 completed Not Available Not Available Not Available meclizine 12.5 mg tablet TAKE 1 TABLET BY MOUTH THREE TIMES DAILY NEEDED active Not Available Not Available No t Available ciproflox acin 500 mg tablet TK 1 T PO Q 12 H FOR 10 DAYS 09/18 completed Not Available Not Available Not Available tramadol 50 mg tablet 01/11 completed Not Available Not Available Not Available spironola ctone 25 mg tablet 06/07 completed Not Available Not Available Not Available glimepiri de 2 mg tablet TAKE 1 TABLET BY MOUTH EVERY MORNING 04/23 completed Not Available Not Available Not Available amoxicill in 875 mg tablet TAKE 1 TABLET BY MOUTH TWICE DAILY FOR 10 DAYS 06/16 completed Not Available Not Available Not Available dicyclomi ne 20 mg tablet TK 1 T PO TID 04/23 completed Not Available Not Available Not Available cephalexi n 500 mg capsule TK 1 C PO QID FOR 2 WKS active Not Available Not Available No t Available telmisart an 40 mg tablet Take 1 tablet every day by oral route at bedtime for 30 days. 04/23 completed Increase d by Dr. Jesus Medel Not Available Not Available Not Available metformin 1,000 mg tablet TAKE 1 TABLET BY MOUTH TWICE DAILY active Not Available Not Available No t Available bumetanid e 0.5 mg tablet TAKE 1 TABLET BY MOUTH EVERY MORNING TO BE TAKEN IN COMBINAT ION WITH 1 MG TABLET 04/23 completed Not Available Not Available Not Available glimepiri de 4 mg tablet active Not Available Not Available Not Available telmisart an 80 mg tablet TAKE 1/2 TABLET BY MOUTH AT BEDTIME active Not Available Not Available No t Available nitroglyc antionette 0.4 mg sublingua l tablet PLACE 1 TABLET UNDER THE TONGUE NEEDED. MAY REPEAT TWICE IN 10 MINUTES active Not Available Not Available No t Available gabapenti n 300 mg capsule active Not Available Not Available Not Available magnesium citrate oral solution USE UTD ONE TIME 04/23 completed Not Available Not Available Not Available bumetanid e 1 mg tablet TAKE 1 AND 1/2 TABLET BY MOUTH EVERY MORNING active Not Available Not Available No t Available insulin syringe U-100 with needle 1 mL 31 gauge x 5/16 USE DIRECTED WITH INSULIN INJECTIO NS active Not Available Not Available No t Available allopurin ol 300 mg tablet TAKE 1 TABLET BY MOUTH EVERY NIGHT AT BEDTIME 05/27 completed Not Available Not Available Not Available telmisart an 20 mg tablet TAKE 1 TABLET BY MOUTH AT BEDTIME 07/22 completed Not Available Not Available Not Available gabapenti n 100 mg capsule TAKE 3 CAPSULES BY MOUTH EVERY DAY AT BEDTIME active Not Available Not Available No t Available polyethyl luis alberto glycol 3350 17 gram/dose oral powder TK 17 G PO ONCE D UTD 06/13 completed Not Available Not Available Not Available levofloxa sinan 500 mg tablet 07/22 completed Not Available Not Available Not Available levofloxa sinan 750 mg tablet TAKE 1 TABLET BY MOUTH EVERY 48 HOURS 07/22 completed Not Available Not Available Not Available betametha sone dipropion ate 0.05 % topical ointment active Not Available Not Available Not Available doxycycli ne hyclate 100 mg tablet TAKE 1 TABLET BY MOUTH TWICE DAILY 04/23 completed Not Available Not Available Not Available glipizide 5 mg tablet TAKE 1 TABLET BY MOUTH ONCE DAILY 04/23 completed Not Available Not Available Not Available amoxicill in 875 mg-potass ium clavulana te 125 mg tablet Take 1 tablet every 12 hours by oral route for 10 days. 02/01 completed Not Available Not Available Not Available Humalog U-100 Insulin 100 unit/mL subcutane ous cartridge INJECT 4 UNITS UNDER THE SKIN ONCE DAILY 30 TO 60 MINUTES BEFORE A MEAL 07/22 completed Not Available Not Available Not Available ezetimibe 10 mg tablet TAKE 1 TABLET BY MOUTH DAILY active Not Available Not Available No t Available rosuvasta tin 40 mg tablet TAKE 1 TABLET BY MOUTH DAILY 04/23 completed Not Available Not Available Not Available metformin ER 1,000 mg tablet,ex tended release 24hr (osmotic) TK 2 TS PO QD AT DINNER 07/22 completed Not Available Not Available Not Available nitrofura ntoin monohydra te/macroc rystals 100 mg capsule TAKE 1 CAPSULE BY MOUTH TWICE DAILY AFTER MEALS FOR 10 DAYS 04/23 completed Not Available Not Available Not Available pregabali n 75 mg capsule Take 1 capsule every day by oral route at bedtime for 30 days. active Not Available Not Available No t Available Amitiza 24 mcg capsule TK 1 C PO BID 04/23 completed Not Available Not Available Not Available Januvia 50 mg tablet TAKE 1 TABLET BY MOUTH EVERY DAY IN THE MORNING 04/23 completed Not Available Not Available Not Available prasugrel HCl 10 mg tablet TAKE 1 TABLET BY MOUTH EVERY DAY active Not Available Not Available No t Available Bosulif 100 mg tablet TAKE 3 TABLETS BY MOUTH DAILY active Not Available Not Available No t Available icosapent ethyl 1 gram capsule TAKE 2 CAPSULES BY MOUTH TWICE DAILY active Not Available Not Available No t Available Eliquis 5 mg tablet active Not Available Not Available No t Available Easy Touch Twist Lancets 30 gauge TEST THREE TIMES DAILY active Not Available Not Available No t Available True Metrix Glucose Test Strip TEST THREE TIMES DAILY active Not Available Not Available No t Available True Metrix Air Glucose Meter TEST THREE TIMES DAILY DIRECTED active Not Available Not Available No t Available Praluent Pen 150 mg/mL subcutane ous pen injector INJECT 150MG UNDER THE SKIN EVERY 2 WEEKS active Not Available Not Available No t Available Repatha SureClick 140 mg/mL subcutane ous pen injector INJECT 1 PEN INJECTOR UNDER THE SKIN ONCE EVERY 2 WEEKS 04/23 completed Not Available Not Available Not Available Tresiba FlexTouch U-100 insulin 100 unit/mL (3 mL) subcutane ous pen 04/23 completed Not Available Not Available Not Available Xarelto 2.5 mg tablet TAKE 1 TABLET BY MOUTH TWICE DAILY active Not Available Not Available No t Available Tresiba U-100 Insulin 100 unit/mL subcutane ous solution ADMINIST ER 10 UNITS UNDER THE SKIN EVERY NIGHT AT BEDTIME active Not Available Not Available No t Available Vitals Date Recorded Body height Body mass index (BMI) Body weight Oxygen saturation Oxygen saturation in Arterial blood by Pulse oximetry Heart rate Body temperature Systolic blood pressure Diastolic blood pressure Provider Name and Address Organization Details Last Updated DateTime 172.72 cm 33.3 kg/m2 59618.7 3 g 98 % 98 % 83 /min 98.2 [degF] 124 mm[Hg] 62 mm[Hg] Sandy Reynolds [place] [facility] 09:43:05 Date Recorded Body height Provider Name an d Address Organization Details Last Updated DateTime 07/22/2021 172.72 cm Sandy Rodriguez [place] [facility] 07/22/2021 09:37:49 Date Recorded Body height Body mass index (BMI) Body weight Oxygen saturation Oxygen saturation in Arterial blood by Pulse oximetry Heart rate Body temperature Systolic blood pressure Diastolic blood pressure Provider Name and Address Organization Details Last Updated DateTime 2 172.72 cm 33.1 kg/m2 44052.1 4 g 96 % 96 % 86 /min 98.1 [degF] 124 mm[Hg] 62 mm[Hg] Sandy Reynolds MA [facility] 2 15:41:31 Date Recorded Body height Body mass index (BMI) Body weight Oxygen saturation Oxygen saturation in Arterial blood by Pulse oximetry Heart rate Systolic blood pressure Diastolic blood pressure Provider Name and Address Organization Details Last Updated DateTime 2 172.72 cm 32.7 kg/m2 73976.3 6 g 97 % 97 % 68 /min 126 mm[Hg] 60 mm[Hg] Sandy Reynolds MA [facility] 2 09:58:59 Date Recorded Body height Body mass index (BMI) Body weight Heart rate Oxygen saturation Oxygen saturation in Arterial blood by Pulse oximetry Systolic blood pressure Diastolic blood pressure Provider Name and Address Organization Details Last Updated DateTime 2 172.72 cm 33 kg/m2 01440.5 4 g 73 /min 98 % 98 % 122 mm[Hg] 70 mm[Hg] Leonila Johnson MA [facility] 2 11:52:44 Social History Question Answer Notes LastModified by Organizat ion Details LastModified Time Tobacco Smoking Status Never Smoker Sandy Reynolds MA null, [facility] 02/02/2020 15:11:49 What Was The Date Of Your Most Recent Tobacco Screening? 06/16/2022 Information not available 06/16/2022 Has Tobacco Cessation Counseling Been Provided? Yes Information not available 06/16/2022 On What Date Was Tobacco Cessation Counseling Provided? 06/16/2022 Information not available 06/16/2022 Sex: Unknown Functional Status None recorded. Mental Status None recorded. Family History Nothing Reported. Medical History No medical history recorded. Gynecological HistoryNo gynecological history recorded. Obstetrics History GPAL:G 0 P 0 0 0 0 Immunizations Vaccine Type Date Status Note Provider Nam e and Address Organization Details Recorded Time COVID-19, mRNA, LNP-S, PF, 100 mcg/0.5mL dose or 50 mcg/0.25mL dose 07/18/2021 completed Not Available [facility] 3 09:44:37 COVID-19, mRNA, LNP-S, PF, 100 mcg/0.5mL dose or 50 mcg/0.25mL dose 08/15/2021 completed Not Available [facility] 3 09:44:37 Past Encounters Encounter ID Performer Location Encounter Start Date Encounter Closed Date Diagnosis/Indication Diagnosis SNOMED-CT Code Diagnosis ICD10 Code Diagnosis Note [id number] ERICKA Mccann (Adult Med) [address] [place] [address] [id number] 05/27/2017 10:45:52 05/27/2017 13:30:36 Chronic obstructive pulmonary disease 81644668 J44.9 Multinodular goiter 2375 10149 E04.2 Sleep apnea 03603773 G47 .30 Acute dermatitis 0440998 6 L30.9 Chronic ki dney disease stage 3 624444240 N18.3 Chronic my eloid leukemia in remission 47886912 C92.Z1 [id number] ERICKA Mccann (Adult Med) [address] [place] [address] [id number] 06/08/2018 14:49:12 06/08/2018 15:38:05 Chronic kidney disease stage 3 440659722 N18.3 Venous ins ufficiency of leg 993107377 I87.2 Insomnia 701306551 G47.0 0 Sleep apnea 80076471 G47 .30 Chronic ob structive pulmonary disease 97669220 J44.9 Eczema 53679670 L30.9 Nonsustain ed ventricular tachycardia 375349692 I47.2 Multinodular goiter 2375 91351 E04.2 [id number] ERICKA Mccann (Adult Med) [address] [place] [address] [id number] 06/07/2019 14:47:29 06/07/2019 15:49:23 Chronic kidney disease stage 3 470379576 N18.3 Sleep apnea 40359650 G47 .30 Chronic ob structive pulmonary disease 60905877 J44.9 Chronic my eloid leukemia in remission 91306617 C92.Z1 Venous ins ufficiency of leg 995803893 I87.2 [id number] ERICKA Mccann (Adult Med) [address] [place] [address] [id number] 12/06/2019 13:12:05 12/07/2019 05:24:22 Acute folliculitis 276253509 L73.9 Chronic ki dney disease stage 3 793210127 N18.3 Chronic ob structive pulmonary disease 78025477 J44.9 Insomnia 599635421 G47.0 0 Sleep apnea 01490037 G47 .30 Venous ins ufficiency of leg 910798510 I87.2 [id number] ERICKA Mccann (Adult Med) [address] [place] [address] [id number] 02/02/2020 14:56:44 02/02/2020 15:52:52 Acute folliculitis 424216452 L73.9 Chronic ki dney disease stage 3 096238499 N18.3 Sleep apnea 95159270 G47 .30 Venous ins ufficiency of leg 185933996 I87.2 Chronic ob structive pulmonary disease 36775168 J44.9 Cardiomyopathy 29142620 I42.9 [id number] ERICKA Mccann (Adult Med) [address] [place] [address] [id number] 04/09/2020 17:07:19 04/10/2020 19:16:51 Sacral radiculopathy 103338952 M54.18 Type 2 sabra betes mellitus 89032372 E11.8 Chronic ob structive pulmonary disease 09965191 J44.9 Cardiomyopathy 62050718 I42.9 Chronic ki dney disease stage 3 683817492 N18.3 Chronic my eloid leukemia in remission 50863442 C92.Z1 Sleep apnea 43282886 G47 .30 Venous ins ufficiency of leg 589377696 I87.2 [id number] ERICKA Mccann (Adult Med) [address] [place] [address] [id number] 0 09/18/2020 10:05:26 09/18/2020 11:19:04 Dysuria 75582180 R30.9 Chronic ki dney disease stage 3 639801783 N18.30 Type 2 sabra betes mellitus 27340654 E11.8 Sacral radiculopathy 128 042453 M54.18 Sleep apnea 18110426 G47 .30 Venous ins ufficiency of leg 036357192 I87.2 Cardiomyopathy 93835653 I42.9 Chronic ob structive pulmonary disease 67503330 J44.9 Gout 19259688 M10.9 [id number] ERICKA Mccann (Adult Med) [address] [place] [address] [id number] 10/24/2020 09:24:20 10/24/2020 10:19:46 Type 2 diabetes mellitus 00779475 E11.8 Sleep apnea 10090940 G47 .30 Cardiomyopathy 36301037 I42.9 Chronic ki dney disease stage 3 773717433 N18.30 Chronic my eloid leukemia in remission 60946134 C92.Z1 Chronic ob structive pulmonary disease 12390502 J44.9 Insomnia 473036753 G47.0 0 [id number] ERICKA Mccann (Adult Med) [address] [place] [address] [id number] 07/22/2021 08:42:53 07/22/2021 10:03:27 Neuropathy 348778464 G62.9 Nausea 625590528 R11.0 Venous ins ufficiency of leg 034277892 I87.2 Type 2 sabra betes mellitus 42315160 E11.8 Sleep apnea 88857799 G47 .30 Sacral radiculopathy 128 257536 M54.18 Peripheral vascular disease 868181281 I73.9 Insomnia 189456098 G47.0 0 Chronic ob structive pulmonary disease 39804768 J44.9 Chronic my eloid leukemia in remission 82989934 C92.Z1 Chronic ki dney disease stage 3 987611683 N18.30 Carotid ar gen stenosis 89956427 I65.29 Cardiomyopathy 16594889 I42.9 [id number] DREA Fontaine (Adult Med) [address] [place] [address] [id number] 09/09/2021 15:24:55 09/10/2021 10:22:25 Chronic kidney disease stage 3 930728712 N18.30 Chronic ob structive pulmonary disease 22173115 J44.9 Insomnia 980183297 G47.0 0 Neuropathy 483966324 G62 .9 Peripheral vascular disease 601744860 I73.9 Sleep apnea 12534298 G47 .30 Type 2 sabra betes mellitus 86186689 E11.8 Venous ins ufficiency of leg 646769436 I87.2 Screening for malignant neoplasm of colon 027759940 Z12.11 [id number] ERICKA Mccann (Adult Med) [address] [place] [address] [id number] 0 04/23/2022 09:15:30 04/24/2022 13:35:03 Headache 44311185 R51.9 dizziness Screening for malignant neoplasm of colon 125685434 Z12.11 Peripheral vascular disease 921914373 I73.9 Acute folliculitis 67194 7007 L73.9 left lower lateral leg Neuropathy 675644617 G62 .9 Eczema 69075165 L30.9 Vertigo 046530290 R42 Type 2 sabra betes mellitus 10991411 E11.8 Carotid ar gen stenosis 68979050 I65.29 Chronic ki dney disease stage 3 926669375 N18.30 Chronic ob structive pulmonary disease 19286510 J44.9 Insomnia 234896126 G47.0 0 [id number] Farhad Dolan MD [facility] (Adult Med) [address] [place] [address] [id number] 06/16/2022 11:39:27 06/17/2022 11:46:33 Obesity 263379645 E66.9 BMI is 33, advised her to watch her diabetic diet, exercise, kep the weight down down. Type 2 sabra betes mellitus 07291953 E11.65 Diabetic diet, exercise and keep the weigh down. On glimepirid e, metformin. and tresiba insulin shot. Diabetic p eripheral neuropathy 795165388 E11.40 On gabapentin Peripheral vascular disease 077652475 I73.9 Under the care of her cardiologi st, on xarelto Psoriasis 8701073 L40.9 Stable, only localized on legs, History of leukemia 1614 46367 Z85.6 In remission. 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 also on praluent pen injection. fish oil and ezetimibe. History of placement of stent for coronary artery disease 805824963 Z95.5 Under the care of her cardiologi st.On effient. Acid reflux 803457255 K2 1.9 Stable on famotidine . Health Concerns Section Related Observation LastModified by Organization Detai ls LastModified Time None Recorded Concern Status LastModified by Organization Details LastModified Time None Recorded Advance Directives Directive None Recorded Payers Encounter Date Sequence Insurance Name Policy Number Policy Dorman Covered Member ID Dorman Member ID Guarantor Name 10/24/2020 1 [place] Gill D [place] [id number] [facility] 10/24/2020 2 [place] WHEN MEDICARE OR MEDICARE REPLACEMENT PR[id number] 07/22/2021 1 [place] Gill D [place] [id number] [facility] 07/22/2021 2 [place] OR MEDICARE REPLACEMENT PRIMARY) Gill Gianluca [id number] [facility] 09/09/2021 1 [facility] [place] [facility] [place] - MEDICAID REPLACEMENT HMO) [id number] [facility] [id number] [facility] 04/23/2022 1 [facility] [place] - MEDICAID REPLACEMENT O) [id number] [facility] [place] [id number] [facility] 06/16/2022 1 [facility] [place] - MEDICAID REPLACEMENT HMO) [id number] [facility] Adriane [place] [id number] [facility] Notes Date Note Type Note Provider Name and Address Organization Details Recorded Time 10/24/2020 text/html blood sugar erra tic , eats 5 times daily , balances meals with protein ., no second helpings on carbs , avoids sugars Hesham Bess PA-C Attn: Accounting[address] [place], [address], [place] [facility] 10/24/2020 17:04:28 07/22/2021 text/html October diarrhea , nausea , dizziness ....no fever , no bad food , no one else sick ... Covid positive stuffiness , coughi in Mar . Hesham Bess PA-C Attn: Accounting, [address] [facility], [place], [address], [facility] 07/22/2021 21:12:05 09/09/2021 text/html migraines , boil s on buttocks , nausea . DREA Fontaine, [place] [facility] 09/12/2021 10:52:28 04/23/2022 text/html no longer a migr chandrika , just a dull headache , unless she coughs , then frontl pain momentarily Hesham Bess PA-C Attn: Accounting, [address] [place], [address], [facility] 04/23/2022 18:10:09 06/16/2022 text/html Office visit, allergic to atropine. jardiance and trulicity. history of Coronary atherosclerosis with 2 stents. PAD with 2 stents on each leg , legs neuropathy , chronic psoriasis, left leg is worser than right, she got to used to , dose not want to see specialist for another med, History of leukemia in remission. not a smoker., has enough med. type 2 DM. Farhad Dolan MD Attn: Accounting, [address] [place], [address], [facility] 06/16/2022 12:37:40 OBGyn Episode No OBEpisode recorded.
--- OUTSIDE RECORDS SUMMARY | 2024-10-17 13:40 | XMS_ITS | Continuity of Care Document ---
Author Organization [facility] Address [address] [facility] [address] [place] [address] Phone Care Team Providers Care Strings Teacher Name Role Phone Sg Gramajo Unavailable Unavailable Procedures Procedure Date Eye Exam & Treatment Refraction Advance Directives Directive Yes / No Effective Date File Name No Information Encounters Encounter Description Practice Location Reason(s) For Visit Diagnoses Date Provider Providers Copied on Encounter [facility], [address], [place], [place], [id number], tel:[phone] [facility] No Information [address] Ye[address]ten[address]. [address] [facility] [address], [place], [address], [place]. tel:[phone] Family History Family Member Type Diagnosis Age At Onset No Information Payers Payer name Insurance type Covered alliance party ID Authoriza tion(s) Medicaid [facility] [id number] Social History Type Description Quantity Date Captured [...]
--- OUTSIDE RECORDS SUMMARY | 2024-10-17 13:41 | XMS_ITS | Encounter Summary ---
Author Organization [facility] [employer] [facility] Address [address] [place] [phone] Phone Care Team Providers Care Worship Pastor Name Role Phone Farhad Dolan MD Primary Care Provider [phone] Encounter Details Date Type Department Care Team (Late st Contact Info) Description 05/08/2021 Office Communication [place] [facility] [address] [place] [phone] Giuseppe Lee DO [address] [address] Social History Tobacco Use Types Packs/Day [...] encounter Miscellaneous Notes * Telephone Encounter - Anna Bedoya CMA - 05/09/2021 8:48 AM CDT This pt does not have an appointment, we do not fill prescriptions without pt having an appointment * Telephone Encounter - Amina Rogers - 05/08/2021 4:12 PM CDT Pt called and stated that she needs a prior authorization for Lyrica 30units once at bed time. documented in this encounter Plan of Treatment Upcoming Encounters Date Type Department Care Team (Late st Contact Info) Description 10/25/2024 1:45 PM CDT Office Visit [facility], [facility] [address] [facility] [address] [place] [address] Giuseppe Lee, [address] [facility] [address] [place] [address] documented as of this encounter Visit Diagnoses Not on filedocumented in this encounter Care Teams Worship Pastor Relationship Specialty Start Date End Date Farhad Dolan MD [address] [place] [address] PCP - General Internal Medicine 10/28/22 documented as of this encounter
[2024-10-17 13:59] LABS: Creatinine Urine 17.6 mg/dL; Total Protein Urine Random 17 mg/dL; Ur Ttl Prot Creatinine Ratio 0.97 mg/mg (0-0.20)
[2024-10-17 14:05] LABS: Albumin Level 4.5 g/dL (3.5-5.1); Anion Gap 11 mmol/L (4-12); Blood Urea Nitrogen 19 mg/dL (7-17); Calcium 9.5 mg/dL (8.4-10.2); Carbon Dioxide 24 mmol/L (22-30); Chloride 103 mmol/L (98-107); Estimated Glomerular Filt Rate 45; Glucose 146 mg/dL (65-110); Magnesium 1.7 mg/dL (1.6-2.3); Phosphorus 4.2 mg/dL (2.5-4.5); Potassium 4.7 mmol/L (3.4-5.0); Sodium 138 mmol/L (137-145)
[2024-10-17 15:43] LABS: Iron 80 ug/dL (37-170)
[2024-10-17 16:00] LABS: Percent Iron Saturation 20 % (20-50)
[2024-10-17 17:44] LABS: Vitamin D 25 Hydroxy 62.5 ng/mL
[2024-10-19 14:38] LABS: Cystatin C 1.97 mg/L (0.52-1.14); eGFR 29 (> OR = 60)
== END 2024-10-17 11:35 | disposition home or self-care (01) ==
LOC: ANHLAB 11:36
PROVIDERS: PCP Physician Assistant; Visit Provider Internal Medicine Nephrology
DX: I12.9 Hypertensive chronic kidney disease with stage 1 through stage 4 chronic kidney disease, or unspecified chronic kidney disease (principal); E11.22 Type 2 diabetes mellitus with diabetic chronic kidney disease; N18.32 Chronic kidney disease, stage 3b; R80.1 Persistent proteinuria, unspecified; I73.9 Peripheral vascular disease, unspecified; I25.84 Coronary atherosclerosis due to calcified coronary lesion; C92.Z0 Other myeloid leukemia not having achieved remission; J41.1 Mucopurulent chronic bronchitis; E11.43 Type 2 diabetes mellitus with diabetic autonomic (poly)neuropathy; E78.00 Pure hypercholesterolemia, unspecified; K21.9 Gastro-esophageal reflux disease without esophagitis; E21.1 Secondary hyperparathyroidism, not elsewhere classified
CPT/HCPCS: 36415; 80069; 82043; 82306; 82570; 82610; 82728; 83540; 83550; 83735; 84156; 85027

== ENCOUNTER 2025-01-16 11:22 | Outpatient (CLI) | payer MEDICARE, SELFPAY ==
[2025-01-16 12:11] LABS: Basophils Absolute Auto 0.1 K/mm3 (0.0-0.1); Basophils Percent Auto 0.5 % (0.2-1.2); Eosinophils Absolute Auto 0.2 K/mm3 (0-0.3); Eosinophils Percent Auto 2.2 % (0-4.4); Hematocrit 44.6 % (37.0-47.0); Hemoglobin 14.7 g/dL (12.0-15.0); Immature Granulocyte Absolute 0.04 K/mm3 (0.00-0.031); Immature Granulocyte Percent A 0.4 % (0-0.5); Lymphocytes Absolute Auto 1.66 K/mm3 (0.9-3.2); Mean Corpuscular Hemoglobin 30.4 pg (26-34); Mean Corpuscular Volume 92.3 fl (80-100); Mean Platelet Volume 10.3 fl (7.4-10.4); Monocytes Absolute Auto 0.5 K/mm3 (0.1-0.6); Monocytes Percent Auto 5.1 % (2.6-8.5); Neutrophils Absolute Auto 6.8 K/mm3 (1.3-6.7); Neutrophils Percent Auto 73.8 % (45.5-73.1); Platelet Count Result 285 k/mm3 (150-375); Red Blood Count 4.83 M/mm3 (4.2-5.4); Red Cell Distribution Width 14.6 % (11.5-14.5); White Blood Count 9.2 K/mm3 (4.5-10.0)
[2025-01-16 12:46] LABS: Anion Gap 11 mmol/L (4-12); Blood Urea Nitrogen 23 mg/dL (7-17); Calcium 9.8 mg/dL (8.4-10.2); Carbon Dioxide 25 mmol/L (22-30); Chloride 102 mmol/L (98-107); Estimated Glomerular Filt Rate 45; Glucose 195 mg/dL (65-110); Potassium 4.7 mmol/L (3.4-5.0); Sodium 138 mmol/L (137-145)
[2025-01-16 12:54] LABS: NT Pro B Type Natriuretic Pept 505 pg/mL (19.9-100)
[2025-01-16 17:01] LABS: Creatinine Urine 117.7 mg/dL
[2025-01-16 17:32] LABS: MALB Creatinine Ratio 339.7 mg/g (0-30); Microalbumin Urine Random 399.8 mg/L (0-16.7)
== END 2025-01-16 11:23 | disposition home or self-care (01) ==
LOC: ANHLAB 11:26
PROVIDERS: PCP Physician Assistant; Visit Provider Internal Medicine Cardiovascular Disease
DX: E78.5 Hyperlipidemia, unspecified (principal); E78.1 Pure hyperglyceridemia; J44.9 Chronic obstructive pulmonary disease, unspecified; E61.1 Iron deficiency; E11.59 Type 2 diabetes mellitus with other circulatory complications; G47.33 Obstructive sleep apnea (adult) (pediatric); G47.00 Insomnia, unspecified; D64.9 Anemia, unspecified; E11.22 Type 2 diabetes mellitus with diabetic chronic kidney disease; I12.9 Hypertensive chronic kidney disease with stage 1 through stage 4 chronic kidney disease, or unspecified chronic kidney disease; N18.30 Chronic kidney disease, stage 3 unspecified; I11.0 Hypertensive heart disease with heart failure; I50.9 Heart failure, unspecified; I25.10 Atherosclerotic heart disease of native coronary artery without angina pectoris; I47.20 Ventricular tachycardia, unspecified; I70.25 Atherosclerosis of native arteries of other extremities with ulceration; I49.3 Ventricular premature depolarization; I70.223 Atherosclerosis of native arteries of extremities with rest pain, bilateral legs; I65.23 Occlusion and stenosis of bilateral carotid arteries; C92.11 Chronic myeloid leukemia, BCR/ABL-positive, in remission; I25.2 Old myocardial infarction; I34.0 Nonrheumatic mitral (valve) insufficiency; I87.2 Venous insufficiency (chronic) (peripheral); I70.213 Atherosclerosis of native arteries of extremities with intermittent claudication, bilateral legs; I47.10 Supraventricular tachycardia, unspecified; I42.9 Cardiomyopathy, unspecified; M79.606 Pain in leg, unspecified; K59.03 Drug induced constipation; R60.1 Generalized edema; R06.02 Shortness of breath; L03.90 Cellulitis, unspecified; E66.9 Obesity, unspecified; Z20.89 Contact with and (suspected) exposure to other communicable diseases; Z87.891 Personal history of nicotine dependence; Z13.6 Encounter for screening for cardiovascular disorders; Z11.59 Encounter for screening for other viral diseases
CPT/HCPCS: 36415; 80048; 82043; 83880; 85025; 85730

== ENCOUNTER 2025-03-21 10:23 | Outpatient (CLI) | payer MEDICARE, SELFPAY ==
--- OUTSIDE RECORDS SUMMARY | 2009-01-22 03:45 | XMS_ITS | Continuity of Care Document ---
Author Organization [facility] Address [address] [facility] [address] [place] [address] Phone Care Team Providers Care Area Forester Name Role Phone Sg Gramajo Unavailable Unavailable Procedures Procedure Date Eye Exam & Treatment Refraction Advance Directives Directive Yes / No Effective Date File Name No Information Encounters Encounter Description Practice Location Reason(s) For Visit Diagnoses Date Provider Providers Copied on Encounter [facility], [address], [place], [place], [id number], tel:[phone] [facility] No Information 9-200 9 Yeawayou Bettencourt. [address] [facility] [address], [place], [address], [place]. tel:[phone] Family History Family Member Type Diagnosis Age At Onset No Information Payers Payer name Insurance type Covered green party ID Authoriza tion(s) Medicaid [facility] [id number] Social History Type Description Quantity Date Captured Comments Sex Female Smoking Status No Information Chief Complaint And Reason For Visit No Information Reason For Referral Reason For Referral No Information History Of Present Illness Encounter Date Complaint History Of Prese nt Illness No Information Functional Status Date Functional Assessmen t No Information Instructions Date Instruction Additional Infor mation No Information Assessments Type Assessment Date No Information Patient Care Teams Name Effective Dates (start - stop) Status Members No Information
--- OUTSIDE RECORDS SUMMARY | 2025-03-21 10:53 | XMS_ITS | Clinical Summary ---
Author Organization [facility] Address [address] [place] [address] Care Team Providers Care Tape Keller Operator Name Role Phone No, Physician Primary Care Provider [phone] Allergies Active Allergy Reactions Criticality Noted Date Comments Atenolol Shortness of breath High 10/27/2012 Atropine Rash,Other (See comments) Medium 01/14/2022 Diphenoxylate-Atropine Swelling,Redness Medium 019 Dulaglutide Palpitations,Rash High 04/25/2020 Empagliflozin Other (See comments),Rash High 08/10/2019 Infection in groin area Ezetimibe Muscle pain High 02/25/2021 [id number]-[id number] Reductase Inhibitors Other (See comments),Nausea & Vomiting Low 06/17/2022 Mixed with cancer medication makes sick Medications ondansetron (ZOFRAN) 4 mg tablet Take 1 tablet (4 mg total) by mouth every 8 (eight) hours as needed for nausea Active bosutinib 100 mg capsuleIndicati ons:300 mg ordered. is taking 100 mg daily, states unable to tolerate full dose Take 300 mg by mouth every morning Take with food. Swallow whole. Do not crush or cut. Do not touch or handle crushed or broken tablets. Active bumetanide (BUMEX) 1 mg tabletIndicatio ns:Edema,hypert ension Take 1.5 tablets (1.5 mg total) by mouth every morning Active carvediloL (COREG) 12.5 mg tabletIndicatio ns:hypertension Take 1 tablet (12.5 mg total) by mouth 2 (two) times a day Active cholecalciferol (VITAMIN D-3) 2,000 unit tablet Take 1 tablet (2,000 Units total) by mouth every morning Active cyanocobalamin (Vitamin B-12) 1,000 mcg tabletIndicatio ns:Prevention of Vitamin B12 Deficiency Take 0.5 tablets (500 mcg total) by mouth every morning Active albuterol HFA (PROVENTIL HFA,VENTOLIN HFA,PROAIR HFA) 90 mcg/actuation inhaler Inhale 2 puffs every 8 (eight) hours as needed for wheezing or shortness of breath Active nitroglycerin (NITROSTAT) 0.3 mg SL tabletIndicatio ns:Chest Pain Place 1 tablet (0.3 mg total) under the tongue every 5 (five) minutes as needed for chest pain Active betamethasone, augmented, (DIPROLENE AF) 0.05 % cream Apply 1 application (deactivated) topically daily Legs and hands Active glimepiride (AMARYL) 4 mg tabletIndicatio ns:type 2 diabetes mellitus Take 1 tablet (4 mg total) by mouth every morning 02/12/20 22 Active gabapentin (NEURONTIN) 300 mg capsuleIndicati ons:Neuropathic Pain Take 1 capsule (300 mg total) by mouth 4 (four) times a day 2 05/21/20 22 Active famotidine (PEPCID) 40 mg tabletIndicatio ns:Dyspepsia,ga stroesophageal reflux disease Take 1 tablet (40 mg total) by mouth daily as needed for indigestion or heartburn 03/03/20 22 Active diphenhydrAMINE (BENADRYL) 25 mg capsule Take 1 tablet/capsule (25 mg total) by mouth nightly For allergies Active Eliquis 5 mg tabletIndicatio ns:h/o cardiac stent and mi Take 1 tablet (5 mg total) by mouth 2 (two) times a day Active blood sugar diagnostic (CONTOUR NEXT TEST STRIPS MISC) daily Active melatonin 5 mg tablet Take 1 tablet (5 mg total) by mouth nightly 08/29/19 21 Active metFORMIN (GLUCOPHAGE) 1,000 mg tabletIndicatio ns:type 2 diabetes mellitus Take 1 tablet (1,000 mg total) by mouth 2 (two) times a day 11/28/19 25 Active prasugreL HCl (EFFIENT) tabletIndicatio ns:Myocardial Reinfarction Prevention Take 1 tablet (10 mg total) by mouth every morning Active telmisartan (MICARDIS) 40 mg tablet Take 1 tablet (40 mg total) by mouth daily Active acetaminophen 500 mg capsule Take 2 capsules (1,000 mg total) by mouth every 6 (six) hours as needed for pain 03/03/20 25 Active polyethylene glycol (MIRALAX) 17 gram/dose bulk powderIndicatio ns:constipation Take 17 g by mouth 2 (two) times a day 510 g 03/03/20 25 Active oxyCODONE (ROXICODONE) 5 mg immediate release tabletIndicatio ns:Pain Take 1 tablet (5 mg total) by mouth every 4 (four) hours as needed for pain 20 tablet 03/07/20 25 Active prasugrel (EFFIENT) tablet Take 1 tablet (10 mg total) by mouth daily 2024 Discontinued(T herapy completed) telmisartan (MICARDIS) 80 mg tabletIndicatio ns:chronic kidney disease with albuminuria,hyp ertension Take 0.5 tablets (40 mg total) by mouth nightly 07/09/20 21 2024 Discontinued insulin degludec (TRESIBA) 100 unit/mL (3 mL) pen for injection Inject 25 Units under the skin nightly 02/21/20 22 2024 Discontinued(T herapy completed) rivaroxaban (XARELTO ORAL) Take 1 tablet by mouth 2 (two) times a day 2024 Discontinued(T herapy completed) alirocumab (PRALUENT PEN SUBQ) Inject under the skin Unknown dose 2024 Discontinued(T herapy completed) oxyCODONE (ROXICODONE) 5 mg immediate release tabletIndicatio ns:Pain Take 1-2 tablets (5-10 mg total) by mouth every 4 (four) hours as needed for pain 30 tablet 02/16/20 25 2024 Discontinued(S top Taking at Discharge) aspirin 81 mg enteric coated tablet Take 1 tablet (81 mg total) by mouth every morning Taking while holding effient 2024 Discontinued(S top Taking at Discharge) oxyCODONE (ROXICODONE) 5 mg immediate release tabletIndicatio ns:Pain Take 1 tablet (5 mg total) by mouth every 4 (four) hours as needed for pain 15 tablet 03/02/20 25 2024 Discontinued(R eorder) Active Problems Problem Noted Date Diagnosed Date Fever 03/01/2025 Assessment & Plan (03/02/2025 3:34 PM CDT): Fever to 38.4 02/28. Responsive to IS. CXR with atelectasis, UA with 11-20 wbc, nitrate negative. Started on CTX given hx of recurrent UTIs, urine cx no growth. - pep therapy, pulmonary toilet, - Monitor for return of fevers. CAD (coronary artery disease) 02/28/2025 Assessment & Plan (03/02/2025 3:33 PM CDT): Hx of multiple coronary stents on Effient. - Meds per CHF - resume Effient. PAD (peripheral artery disease) 02/15/2025 Assessment & Plan (03/02/2025 3:55 PM CDT): History of multiple prior lower extremity interventions. Now with complaints of severe bilateral LE claudication, rest pain, and LLE non healing lesions. - OR on 02/27 left external iliac artery to below knee popliteal artery bypass graft - Q4 NV checks - activity as tolerated. - ADAT - cont statin. - Pain control. - PT/OT - MRI of left foot ordered to r/o osteo due to foot wound. Patient did not tolerate. X-ray w/o evidence of osteo. - Effient resumed, stop ASA. Eliquis on hold. Venous insufficiency 06/16/2022 Overview (06/16/2022): Added automatically from request for surgery [id number] Type 2 diabetes mellitus wit h other circulatory complications 04/10/2021 Assessment & Plan (03/02/2025 3:52 PM CDT): A1c 7.7. on metformin and amaryl at home - hold home oral meds - Started low dose lantus and mealtime insulin while off amaryl d/t elevated BGs. Titrate as needed. Likely resume home regimen at [place] and stop insulin. Heart failure, unspecified 06/06/2020 Assessment & Plan (03/02/2025 3:32 PM CDT): Systolic HF w/ EF 30-40% per notes. No TTE in our system. On GDMT at home: bumex 1.5 daily , telmisartan 40, coreg 12.5 bid -continue carvedilol. Telmisartan not on formulary, start losartan 50. Plan to resume bumex tomorrow if good PO intake. -strict I/O, daily weights Chronic obstructive pulmonary disease 10/17/2016 Assessment & Plan (03/01/2025 7:24 AM CDT): -cont PRN albuterol - CXR obtained 02/28 08/28 fever, notable for atelectasis. Fever responsive to IS. - Consult RT for assistance with atelectasis. Stage 3 chronic kidney disease 04/16/2016 Assessment & Plan (02/27/2025 9:50 AM CDT): -daily BMP -avoid nephrotoxins Chronic myeloid leukemia in remission 05/31/2015 Assessment & Plan (02/27/2025 9:49 AM CDT): diagnosed in . Bosulif started December 2016. Follows with [facility] -cont home bosulif Essential (primary) hypertension 02/10/1985 Assessment & Plan (02/27/2025 9:50 AM CDT): See HF Encounters Date Type Department Care Team Description 03/06/2025 Telephone [facility] Medicine Surgery [address] [facility] Floor 1 [place] [address] Jung Arriola MD 02/27/2025 11:47 AM CDT Anesthesia Event [facility] Operating Room [address] [place] [phone] Rodolfo Cuellar MD Richardson, Genea Michelle, NP 02/27/2025 11:30 AM CDT - 02/27/2025 5:30 PM CDT Surgery [facility] Operating Room [address] [place] [address] Jung Arriola MD Bypass Graft - Femoral Ilio - left external iliac artery to below knee popliteal artery bypass graft; cabrera cuff 02/27/2025 9:05 AM CDT - 03/03/2025 4:08 PM CDT Hospital Encounter [facility] [address] [place] [address] Jung Arriola MD PAD (peripheral artery disease) Discharge Disposition: Discharge to home or self care 02/24/2025 Telephone [facility] Surgery [address] [place] [address] 8th [place] [address] Jung Arriola MD 02/22/2025 1:30 PM CDT Pre-Admission Testing [facility] Center for Preoperative Assessment and Planning [facility] ([facility]) [address] [place] [id number] Preoperative testing (Primary Dx) 02/22/2025 Orders Only [facility] Surgery [address] [place] [address] [place] [address] Jung Arriola MD Atherosclerosis of [place] arteries of extremities with intermittent claudication, left leg (Primary Dx); Atherosclerosis of [place] arteries of extremities with intermittent claudication, bilateral legs 02/15/2025 11:00 AM CDT Office Visit [facility] Surgery [address] [place] [address] [place] [address] [place] [address] Jung Arriola MD Atherosclerosis of artery of both lower extremities (Primary Dx); Presence of other vascular implants and grafts; Atherosclerosis of [place] artery of both lower extremities with intermittent claudication; Open wound of left foot excluding one or more toes 02/15/2025 10:15 AM CDT Ancillary Procedure [facility] Vascular Lab at the [address] 8th [place] [address] Atherosclerosis of [place] arteries of extremities with intermittent claudication, bilateral legs; Atherosclerosis of [place] arteries of extremities with intermittent claudication, left leg 02/15/2025 7:39 AM CDT - 02/15/2025 11:59 PM CDT Hospital Encounter [facility] [address] [place] [address] Jung Arriola MD Atherosclerosis of [place] arteries of extremities with intermittent claudication, left leg Discharge Disposition: Discharge to home or self care 02/15/2025 Orders Only [facility] Surgery [address] [facility] Advanced Medicine 8th [place] [address] [place] [address] Jung Arriola MD PAD (peripheral artery disease) (Primary Dx) 01/31/2025 Telephone [facility] Surgery [address] [facility] Floor 1 [place] [address] Jung Arriola MD 01/31/2025 Orders Only [facility] Vascular Surgery [facility] [address] [place] [address] Jung Arriola MD Atherosclerosis of [place] arteries of extremities with intermittent claudication, left leg (Primary Dx) 01/30/20[facility] [address] [facility] Floor [address] [place] [address] Jung Arriola MD 01/24/2025 Telephone [facility] Vascular Surgery [address] [facility] Office Building [address] [place] [address] Jung Arriola MD from Last 3 Months Surgical History Surgery Date Site/Laterality Comments TUBAL LIGATION CARDIAC STENT PLACEMENT 07/27/2014 - 07/26/2015 EYE SURGERY SECTION Medical History Medical History Date Comments Type 2 diabetes mellitus Hyperlipidemia Hypertension Cancer (HCC) CML luekemia COPD (chronic obstructive pu lmonary disease) Sleep apnea Myocardial infarction (HCC) 07/20/2000 x3 a nd in 2002 and 2005 Cataract 2015 has had surgery Coronary artery disease 02/25/2019 stents i n bilat lower extremities Kidney stone 01/2019 passed on her ow n Renal disease due to hyperte nsion, stage 1-4 or unspecified chronic kidney disease Venous insufficiency Family History Medical History Relation Name Comments Alcohol abuse Father Diabetes Father Early Father Heart attack Father Heart disease Father Hypertension Father Cancer Paternal Grandfather Diabetes Paternal Grandfather Heart attack Paternal Grandfather Heart disease Paternal Grandfather Hypertension Paternal Grandfather Cerebral palsy Paternal Grandmother Vision loss Paternal Grandmother Anesthesia problems Neg Hx Relation Name Status Comments Father Paternal Grandfather Paternal Grandmother Social History Tobacco Use Types Packs/Day Years Used Date Smoking Tobacco: Former Cigarettes Q uit: 03/08/2019 Smokeless Tobacco: Never Tobacco Cessation:Counseling Given: Not Answered Comments:Pt states maybe about a pack a day, does not really remember Alcohol Use Standard Drinks/Week Comments Not Currently 0 (1 standard drink = 0.6 oz pur e alcohol) AUDIT-C Answer Date Recorded Q1: How often do you have a drink containing alcohol? Never 02/22/2025 Q2: How many drinks containi ng alcohol do you have on a typical day when you are drinking? Patient does not drink Q3: How often do you have si x or more drinks on one occasion? Never 02/22/2025 Personal Safety Answer Date Recorded Have you ever been in or are you currently in a harmful physical or emotional relationship or is someone making you feel afraid or unsafe? 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 Gender Identity Not on file Sexual Orientation Not on file Obstetrics History Last Filed Vital Signs Vital Sign Reading Time Taken Comments Blood Pressure 135/57 03/03/2025 12:58 PM CDT Pulse 74 03/03/2025 12:58 PM CDT Temperature 37.1 C (98.8 F) 03/03/2025 12:58 PM CDT Respiratory Rate 18 03/03/2025 12:58 PM CDT Oxygen Saturation 98% 03/03/2025 12:58 PM CDT Inhaled Oxygen Concentration - - Weight 93 kg (205 lb) 02/27/2025 10:18 AM CDT Height 170.2 cm (5' 7) 02/22/2025 9:58 AM CDT Body Mass Index 32.11 02/22/2025 9:58 AM CDT Plan of Treatment Health Maintenance Due Date Last Done Comments Albumin Creatinine Ratio, Urine 1964 Breast Cancer Screening-Mammogram 1964 Cervical Cancer Screening 1964 Colon Cancer Screening-Colonoscopy 1964 Depression Screening 1964 Hepatitis C Screening 1964 Dilated Eye Exam 1964 Foot Exam 1964 DTaP/Tdap/Td Vaccine (1 - Tdap) 1975 Hepatitis B Screening 1982 Regular Well Visit/Exam 18-64 1982 Pneumococcal vaccine <65 (1 of 2 - PCV) 1983 Zoster Vaccine (1 of 2) 05/02/2015 03/07/2015 Covid-19 Vaccine (3 - Modern a risk series) 09/12/2021 08/15/2021, 07/18/2021 Influenza Vaccine (#1) 2025 5, 01/16/2014, 07/18/2013 Hemoglobin A1C 08/25/2025 02/22/2025 Lipid Panel 02/27/2026 02/27/2025 eGFR 03/02/2026 03/02/2025, 08/0 12/2024, 02/28/2025, Additional history exists Medical Devices Implanted Type Area Principal Systems Engineer Device Identifier Shelf Expiration Date Model / Serial / Lot [employer] [id number] System Coronary Stent Xience Miriam Everolimus L15 Mm Od3.5 Mm Rapid Exchange - [id number] Implanted:Qty: 1 on 03/08/2019 by Joseph Grace MD at [facility] V[facility] 11/26/2019 [id number] / / [employer] [id number] System Coronary Stent Xience Miriam Everolimus L12 Mm Od3.5 Mm Rapid Exchange - [id number] Implanted:Qty: 1 on 03/08/2019 by Joseph Grace MD at [facility] [employer] 01/03/2020 [id number] / / [employer] [id number] System Coronary Stent Xience Miriam Everolimus L18 Mm Od3.5 Mm Rapid Exchange - [id number] Implanted:Qty: 1 on 03/08/2019 by Joseph Grace MD at [facility] 12/17/2019 [id number] / / [employer] [id number] System Coronary Stent Xience Miriam Everolimus L15 Mm Od3 Mm Rapid Exchange - [id number] Implanted:Qty: 1 on 03/08/2019 by Joseph Grace MD at [facility] [employer] 11/23/2019 [id number] / / Med[employer] Everflex Entrust 7mm 120mm 120cm Triaxial Self Expand Low Profile - [id number] Implanted:Qty: 1 on 06/23/2022 by Joseph Grace MD at [facility] Left: Leg [employer] 09/16/2024 [id number] / / [id number] [employer] Peripheral [employer] 6x1in Patch Thk1.65mm [employer] Ptfe Sterile Latex Free [id number] - [id number] Implanted:Qty: 1 on 02/27/2025 by Jung Arriola MD at [facility] Left: Femoral [employer] [id number] 05/23/2029 [id number] / / [id number] Wl [employer] Eidson 6mm 90cm 70cm Removable Ring Stretch Thin Wall Graft [id number] - [id number] - [id number] Implanted:Qty: 1 on 02/27/2025 by Jung Arriola MD at [facility] Left: External Iliac Artery Wl [employer] [id number] 10/13/2027 [id number] / [id number] / Procedures Procedure Name Priority Date/Time Associated Diagnosis Comments POCT GLUCOSE DEVICE Routine 03/03/2025 1 1:32 AM CDT POCT GLUCOSE DEVICE Routine 03/03/2025 7 :39 AM CDT EGFR Routine 03/02/2025 11:33 PM CDT DIFFERENTIAL AUTO Routine 03/02/2025 11: 33 PM CDT CBC WITH AUTO DIFFERENTIAL Routine 03/02/2025 11:33 PM CDT BASIC METABOLIC PANEL Routine 03/02/2025 11:33 PM CDT POCT GLUCOSE DEVICE Routine 03/02/2025 8 :05 PM CDT POCT GLUCOSE DEVICE Routine 03/02/2025 4 :50 PM CDT PEP THERAPY Routine 03/02/2025 1:00 PM CDT POCT GLUCOSE DEVICE Routine 03/02/2025 1 1:41 AM CDT POCT GLUCOSE DEVICE Routine 03/02/2025 8 :03 AM CDT PEP THERAPY Routine 03/02/2025 8:00 AM CDT EGFR Routine 03/01/2025 9:01 PM CDT DIFFERENTIAL AUTO Routine 03/01/2025 9:0 1 PM CDT CBC WITH AUTO DIFFERENTIAL Routine 03/01/2025 9:01 PM CDT BASIC METABOLIC PANEL Routine 03/01/2025 9:01 PM CDT POCT GLUCOSE DEVICE Routine 03/01/2025 8 :18 PM CDT PEP THERAPY Routine 03/01/2025 6:00 PM CDT POCT GLUCOSE DEVICE Routine 03/01/2025 5 :24 PM CDT PEP THERAPY Routine 03/01/2025 1:00 PM CDT PEP THERAPY Routine 03/01/2025 12:49 PM CDT PEP THERAPY Routine 03/01/2025 12:49 PM CDT PEP THERAPY Routine 03/01/2025 12:49 PM CDT POCT GLUCOSE DEVICE Routine 03/01/2025 1 2:20 PM CDT XR FOOT LEFT 3 OR MORE VIEWS ED Urgent/IP Urgent 03/01/2025 10:25 AM CDT POCT GLUCOSE DEVICE Routine 03/01/2025 7 :25 AM CDT EGFR Routine 02/28/2025 11:41 PM CDT DIFFERENTIAL AUTO Routine 02/28/2025 11: 41 PM CDT CBC WITH AUTO DIFFERENTIAL Routine 02/28/2025 11:41 PM CDT BASIC METABOLIC PANEL Routine 02/28/2025 11:41 PM CDT URINALYSIS, MICROSCOPIC ONLY Routine 02/28/2025 8:22 PM CDT URINE CULTURE Routine 02/28/2025 8:22 PM CDT URINALYSIS AND REFLEX TO MICROSCOPIC AND CULTURE Routine 02/28/2025 8:22 PM CDT POCT GLUCOSE DEVICE Routine 02/28/2025 8 :11 PM CDT XR CHEST 1 VIEW ED Urgent/IP Urgent 02/28/2025 5:22 PM CDT POCT GLUCOSE DEVICE Routine 02/28/2025 5 :08 PM CDT POCT GLUCOSE DEVICE Routine 02/28/2025 1 1:36 AM CDT POCT GLUCOSE DEVICE Routine 02/28/2025 7 :32 AM CDT POCT GLUCOSE DEVICE Routine 02/27/2025 1 0:38 PM CDT EGFR STAT 02/27/2025 10:37 PM CDT BASIC METABOLIC PANEL STAT 02/27/2025 10:37 PM CDT CBC WITHOUT DIFFERENTIAL STAT 02/27/2025 10:37 PM CDT XR CHEST 1 VIEW ED Urgent/IP Urgent 02/27/2025 8:21 PM CDT POCT GLUCOSE DEVICE Routine 02/27/2025 5 :37 PM CDT CHOLESTEROL, LDL, DIRECT STAT 02/27/2025 5:31 PM CDT LIPID PANEL STAT 02/27/2025 5:31 PM CDT EGFR STAT 02/27/2025 5:31 PM CDT BASIC METABOLIC PANEL STAT 02/27/2025 5:31 PM CDT CBC WITHOUT DIFFERENTIAL STAT 02/27/2025 5:11 PM CDT VASCULAR SURGERY PROCEDURE Routine 02/27/2025 5:08 PM CDT PAD (peripheral artery disease) POCT ACTIVATED CLOTTING TIME, LOW RANGE Routine 02/27/2025 3:57 PM CDT POCT ACTIVATED CLOTTING TIME, LOW RANGE Routine 02/27/2025 3:25 PM CDT POCT ACTIVATED CLOTTING TIME, LOW RANGE Routine 02/27/2025 2:41 PM CDT POCT GLUCOSE DEVICE Routine 02/27/2025 2 :08 PM CDT POCT ACTIVATED CLOTTING TIME, LOW RANGE Routine 02/27/2025 2:05 PM CDT POC BLOOD GAS AND CHEMISTRIES, ARTERIAL Routine 02/27/2025 1:00 PM CDT AZ AN PROCEDURE PLACEHOLDER Routine 02/27/2025 12:17 PM CDT AZ AN PROCEDURE PLACEHOLDER Routine 02/27/2025 12:17 PM CDT AZ AN CENTRAL LINE QUADRUPLE LUMEN Routine 02/27/2025 12:17 PM CDT AZ AN PROCEDURE PLACEHOLDER Routine 02/27/2025 12:16 PM CDT AZ AN ELECTIVE ENDOTRACHEAL AIRWAY Routine 02/27/2025 12:16 PM CDT B CHECK SAMPLE STAT 02/27/2025 11:44 AM CDT EGFR Routine 02/22/2025 2:36 PM CDT Preoperative testing DIFFERENTIAL AUTO Routine 02/22/2025 2:3 6 PM CDT Preoperative testing BASIC METABOLIC PANEL Routine 02/22/2025 2:36 PM CDT Preoperative testing CBC WITH AUTO DIFFERENTIAL Routine 02/22/2025 2:36 PM CDT Preoperative testing TYPE AND SCREEN 14 DAY Routine 02/22/2025 2:36 PM CDT Preoperative testing URINALYSIS AND REFLEX TO MICROSCOPIC AND CULTURE Routine 02/22/2025 2:36 PM CDT Preoperative testing POCT HEMOGLOBIN A1C Routine 02/22/2025 1 :19 PM CDT ECG 12-LEAD Routine 02/22/2025 1:06 PM CDT Preoperative testing US ARTERIAL DUPLEX LOWER EXTREMITY LEFT LIMITED Schedule Routine, Read Routine (OP Routine) 02/15/2025 10:20 AM CDT Atherosclerosis of [place] arteries of extremities with intermittent claudication, left leg US ARTERIAL DOPPLER LOWER EXTREMITY BILATERAL Schedule Routine, Read Routine (OP Routine) 02/15/2025 10:20 AM CDT Atherosclerosis of [place] arteries of extremities with intermittent claudication, bilateral legs CTA ABDOMINAL AORTA AND BILATERAL ILIOFEMORAL RUNOFF Schedule Routine, Read Routine (OP Routine) 02/15/2025 8:35 AM CDT Atherosclerosis of [place] arteries of extremities with intermittent claudication, left leg POCT CREATININE - DEVICE Routine 02/15/2025 8:16 AM CDT from Last 3 Months Results * (ABNORMAL) POCT glucose (03/03/2025 11:32 AM CDT) Glucose, POC 227(H) 70 - 199 mg/dL Comment:Glu2: RN/MD Notified Glucose comment 1 Glu2: RN/MD Notified [facility] Blood 03/03/2025 11:3 2 AM CDT 03/03/2025 11:32 AM CDT us Jung Arriola MD LAB POCT ORDERABLES - DEVICE Final Result Performing Organization Address City/[facility] Co de Phone Number [facility] Department [place] [address] * (ABNORMAL) POCT glucose (03/03/2025 7:39 AM CDT) Glucose, POC 231(H) 70 - 199 mg/dL Blood 03/03/2025 7:39 AM CDT 03/03/2025 7:39 AM CDT us Jung Arriola MD LAB POCT ORDERABLES - DEVICE Final Result Performing Organization Address [facility] de Phone Number [facility] Department [place] [address] * (ABNORMAL) eGFR (03/02/2025 11:33 PM CDT) Pathologist [facility] eGFR 47(L) >=60 mL/min/1. 73 m2 Comment: Interpretive Data Reference Interval Normal >/= 90 mL/min/1.73m2 Mildly decreased* 60 - 89 mL/min/1.73m2 Mildly to moderately decreased 45 - 59 mL/min/1.73m2 Moderately to severely decreased 30 - 44 mL/min/1.73m2 Severely decreased 15 - 29 mL/min/1.73m2 Kidney Failure < 15 mL/min/1.73m2 *Relative to young adult level Estimated glomerular filtration rate is determined by the 2020 CKD-EPI equation recommended by the National Kidney Foundation (A Unifying Approach to GFR Estimation: Recommendations of the NKF-ASK Task Force on Reassessing the Inclusion of Race in Diagnosing Kidney Disease, JASN 2020). The CKD-EPI equation should not be used for patients with unstable renal function and has not been validated in children and those over 70. Current interpretive data was last reviewed 2021. Blood 03/02/2025 11:3 3 PM CDT 03/03/2025 12:25 AM CDT Promise Nelson NP LAB BLOOD ORDERABLES F inal Result [facility] Department [place] [address] * (ABNORMAL) Differential, auto (03/02/2025 11:33 PM CDT) Neutrophil abs 6.13 1.50 - 6.50 K/cumm Imm gran abs 0.06 0.00 - 0.10 K/cumm [facility] Lymphocyte abs 1.50 0.80 - 3.30 K/cumm [facility] Monocyte abs 0.84(H) 0.20 - 0.80 K/cumm [facility] Eosinophil abs 0.25 0.00 - 0.50 K/cumm [facility] Basophil abs 0.04 0.00 - 0.10 K/cumm [facility] C[facility]US Neutrophil pct 69.5 % [facility] Comment: Interpretive Data Percent cell count reference ranges are not reported, since discordance with absolute values may lead to misinterpretation of CBC data. Current Interpretive Data was last revised on 2017. Imm gran pct 0.7 % [facility] Comment: Interpretive Data Percent cell count reference ranges are not reported, since discordance with absolute values may lead to misinterpretation of CBC data. Current Interpretive Data was last revised on 2017. Lymphocyte pct 17.0 % [facility] Comment: Interpretive Data Percent cell count reference ranges are not reported, since discordance with absolute values may lead to misinterpretation of CBC data. Current Interpretive Data was last revised on 2017. Monocyte pct 9.5 % [facility] Comment: Interpretive Data Percent cell count reference ranges are not reported, since discordance with absolute values may lead to misinterpretation of CBC data. Current Interpretive Data was last revised on 2017. Eosinophil pct 2.8 % [facility] Comment: Interpretive Data Percent cell count reference ranges are not reported, since discordance with absolute values may lead to misinterpretation of CBC data. Current Interpretive Data was last revised on 2017. Basophil pct 0.5 % [facility] Comment: Interpretive Data Percent cell count reference ranges are not reported, since discordance with absolute values may lead to misinterpretation of CBC data. Current Interpretive Data was last revised on 2017. Blood 03/02/2025 11:3 3 PM CDT 03/03/2025 12:25 AM CDT Promise Nelson NP LAB BLOOD ORDERABLES F inal Result [facility] Department [place] [address] * (ABNORMAL) CBC with auto differential (03/02/2025 11:33 PM CDT) WBC 8.82 3.80 - 9.90 K/cumm Hgb 11.0(L) 11.9 - 15.5 g/dL [facility] Hct 32.6(L) 35.6 - 45.5 % [facility] Plt 254 150 - 400 K/cumm [facility] MPV 10.4 9.1 - 12.3 fL [facility] RBC 3.55(L) 3.90 - 5.20 M/cumm [facility] MCV 91.8 81.3 - 96.4 fL [facility] MCH 31.0 27.1 - 33.3 pg [facility] MCHC 33.7 32.3 - 35.7 g/dL [facility] RDW CV 14.4 11.1 - 14.9 % [facility] RDW SD 48.6(H) 35.7 - 48.1 fL [facility] NRBC abs 0.00 0.00 - 0.01 K/cumm [facility] Blood 03/02/2025 11:3 3 PM CDT 03/03/2025 12:25 AM CDT Promise Nelson NP LAB BLOOD ORDERABLES F inal Result [facility] Department [place] [address] * (ABNORMAL) Basic metabolic panel (03/02/2025 11:33 PM CDT) [facility] Sodium 138 135 - 145 mmol/L Potassium, pl 5.0(H) 3.3 - 4.9 mmol/L [facility] Chloride 99 97 - 110 mmol/L [facility] CO2 26 22 - 32 mmol/L [facility] Anion gap 13 2 - 15 mmol/L [facility] BUN 25 6 - 25 mg/dL [facility] Creatinine 1.30(H) 0.60 - 1.10 mg/dL [facility] Glucose 173 70 - 199 mg/dL [facility] Comment: Interpretive Data Fasting glucose >/= 126 mg/dl is diagnostic for diabetes. Fasting is defined as no caloric intake for at least 8 hours. Fasting glucose between 100 mg/dl to 125 mg/dl is diagnostic of prediabetes. In a patient with classic symptoms of hyperglycemia or hyperglycemic crisis, a random glucose >/= 200 mg/dl is diagnostic for diabetes. In the absence of unequivocal hyperglycemia, results should be confirmed by repeat testing. The classification and Diagnosis of Diabetes Diabetes Care 2021; 46: S19-S40. Current interpretive data was last revised 2022. Calcium 9.6 8.5 - 10.3 mg/dL [facility] Blood 03/02/2025 11:3 3 PM CDT 03/03/2025 12:25 AM CDT Promise Nelson NP LAB BLOOD ORDERABLES F inal Result Performing Organization Address [facility]/ZIP Co de Phone Number [facility] Department [place] [address] * (ABNORMAL) POCT glucose (03/02/2025 8:05 PM CDT) Glucose, POC 257(H) 70 - 199 mg/dL Blood 03/02/2025 8:05 PM CDT 03/02/2025 8:05 PM CDT us Jung Arriola MD LAB POCT ORDERABLES - DEVICE Final Result Performing Organization Address [facility] Co de Phone Number [facility] [place] [address] * POCT glucose (03/02/2025 4:50 PM CDT) Glucose, POC 133 70 - 199 mg/dL Blood 03/02/2025 4:50 PM CDT 03/02/2025 4:50 PM CDT us Jung Arriola MD LAB POCT ORDERABLES - DEVICE Final Result Performing Organization Address [facility] Co de Phone Number [facility] [place] [address] * (ABNORMAL) POCT glucose (03/02/2025 11:41 AM CDT) Glucose, POC 286(H) 70 - 199 mg/dL Comment:Glu2: RN/MD Notified Glucose comment 1 Glu2: RN/MD Notified [facility] Blood 03/02/2025 11:4 1 AM CDT 03/02/2025 11:41 AM CDT us Jung Arriola MD LAB POCT ORDERABLES - DEVICE Final Result Performing Organization Address [facility] Co de Phone Number [facility] [place] [address] * (ABNORMAL) POCT glucose (03/02/2025 8:03 AM CDT) Glucose, POC 323(H) 70 - 199 mg/dL Comment:Glu2: RN/MD Notified Glucose comment 1 Glu2: RN/MD Notified [facility] Blood 03/02/2025 8:03 AM CDT 03/02/2025 8:03 AM CDT Jung Arriola MD LAB POCT ORDERABLES - DEVICE Final Result Performing Organization Address [facility] Co de Phone Number [facility] Department [place] [address] * (ABNORMAL) eGFR (03/01/2025 9:01 PM CDT) [facility] eGFR 53(L) >=60 mL/min/1. 73 m2 Comment: Interpretive Data Reference Interval Normal >/= 90 mL/min/1.73m2 Mildly decreased* 60 - 89 mL/min/1.73m2 Mildly to moderately decreased 45 - 59 mL/min/1.73m2 Moderately to severely decreased 30 - 44 mL/min/1.73m2 Severely decreased 15 - 29 mL/min/1.73m2 Kidney Failure < 15 mL/min/1.73m2 *Relative to young adult level Estimated glomerular filtration rate is determined by the 2020 CKD-EPI equation recommended by the National Kidney Foundation (A Unifying Approach to GFR Estimation: Recommendations of the NKF-ASK Task Force on Reassessing the Inclusion of Race in Diagnosing Kidney Disease, JASN 2020). The CKD-EPI equation should not be used for patients with unstable renal function and has not been validated in children and those over 70. Current interpretive data was last reviewed 2021. Blood 03/01/2025 9:01 PM CDT 03/01/2025 9:47 PM CDT Promise Nelson NP LAB BLOOD ORDERABLES F inal Result Performing Organization Address [facility] Co de Phone Number [facility] Department [place] [address] * (ABNORMAL) Differential, auto (03/01/2025 9:01 PM CDT) Neutrophil abs 8.06(H) 1.50 - 6.50 K/cumm Imm gran abs 0.06 0.00 - 0.10 K/cumm [facility] Lymphocyte abs 1.14 0.80 - 3.30 K/cumm [facility] Monocyte abs 0.79 0.20 - 0.80 K/cumm [facility] Eosinophil abs 0.19 0.00 - 0.50 K/cumm [facility] Basophil abs 0.03 0.00 - 0.10 K/cumm [facility] Neutrophil pct 78.4 % [facility] Comment: Interpretive Data Percent cell count reference ranges are not reported, since discordance with absolute values may lead to misinterpretation of CBC data. Current Interpretive Data was last revised on 2017. Imm gran pct 0.6 % [facility] Comment: Interpretive Data Percent cell count reference ranges are not reported, since discordance with absolute values may lead to misinterpretation of CBC data. Current Interpretive Data was last revised on 2017. Lymphocyte pct 11.1 % [facility] Comment: Interpretive Data Percent cell count reference ranges are not reported, since discordance with absolute values may lead to misinterpretation of CBC data. Current Interpretive Data was last revised on 2017. Monocyte pct 7.7 % [facility] Comment: Interpretive Data Percent cell count reference ranges are not reported, since discordance with absolute values may lead to misinterpretation of CBC data. Current Interpretive Data was last revised on 2017. Eosinophil pct 1.9 % [facility] Comment: Interpretive Data Percent cell count reference ranges are not reported, since discordance with absolute values may lead to misinterpretation of CBC data. Current Interpretive Data was last revised on 2017. Basophil pct 0.3 % [facility] Comment: Interpretive Data Percent cell count reference ranges are not reported, since discordance with absolute values may lead to misinterpretation of CBC data. Current Interpretive Data was last revised on 2017. Blood 03/01/2025 9:01 PM CDT 03/01/2025 9:47 PM CDT Promise Nelson [employer] LAB BLOOD ORDERABLES F inal Result Performing Organization Address City/[facility]/ZIP Co de Phone Number [facility] [place] [address] * (ABNORMAL) CBC with auto differential (03/01/2025 9:01 PM CDT) Pathologist [facility] WBC 10.27(H) 3.80 - 9.90 K/cumm Hgb 10.8(L) 11.9 - 15.5 g/dL [facility] Hct 32.7(L) 35.6 - 45.5 % [facility] Plt 197 150 - 400 K/cumm [facility] MPV 10.4 9.1 - 12.3 fL [facility] RBC 3.47(L) 3.90 - 5.20 M/cumm [facility] MCV 94.2 81.3 - 96.4 fL [facility] MCH 31.1 27.1 - 33.3 pg [facility] MCHC 33.0 32.3 - 35.7 g/dL [facility] RDW CV 14.5 11.1 - 14.9 % [facility] RDW SD 49.6(H) 35.7 - 48.1 fL [facility] NRBC abs 0.00 0.00 - 0.01 K/cumm [facility] Blood 03/01/2025 9:01 PM CDT 03/01/2025 9:47 PM CDT Promise Nelson NP LAB BLOOD ORDERABLES F inal Result [facility] [place] [address] * (ABNORMAL) Basic metabolic panel (03/01/2025 9:01 PM CDT) Pathologist [facility] Sodium 137 135 - 145 mmol/L Potassium, pl 4.4 3.3 - 4.9 mmol/L [facility] Chloride 104 97 - 110 mmol/L [facility] CO2 27 22 - 32 mmol/L [facility] Anion gap 6 2 - 15 mmol/L [facility] BUN 16 6 - 25 mg/dL [facility] Creatinine 1.18(H) 0.60 - 1.10 mg/dL [facility] Glucose 196 70 - 199 mg/dL [facility] Comment: Interpretive Data Fasting glucose >/= 126 mg/dl is diagnostic for diabetes. Fasting is defined as no caloric intake for at least 8 hours. Fasting glucose between 100 mg/dl to 125 mg/dl is diagnostic of prediabetes. In a patient with classic symptoms of hyperglycemia or hyperglycemic crisis, a random glucose >/= 200 mg/dl is diagnostic for diabetes. In the absence of unequivocal hyperglycemia, results should be confirmed by repeat testing. The classification and Diagnosis of Diabetes Diabetes Care 2021; 46: S19-S40. Current interpretive data was last revised 2022. Calcium 9.1 8.5 - 10.3 mg/dL [facility] Blood 03/01/2025 9:01 PM CDT 03/01/2025 9:47 PM CDT Promise Nelson NP LAB BLOOD ORDERABLES F inal Result [facility] [place] [address] * (ABNORMAL) POCT glucose (03/01/2025 8:18 PM CDT) [facility] Signature Glucose, POC 212(H) 70 - 199 mg/dL Blood 03/01/2025 8:18 PM CDT 03/01/2025 8:18 PM CDT Jung Arriola MD LAB POCT ORDERABLES - DEVICE Final Result [facility] Department [place] [address] * POCT glucose (03/01/2025 5:24 PM CDT) Glucose, POC 167 70 - 199 mg/dL Comment:Glu2: RN/MD Notified Glucose comment 1 Glu2: RN/MD Notified [facility] Blood 03/01/2025 5:24 PM CDT 03/01/2025 5:24 PM CDT us Jung Arriola MD LAB POCT ORDERABLES - DEVICE Final Result Performing Organization Address [facility] Co de Phone Number [facility] [place] [address] * (ABNORMAL) POCT glucose (03/01/2025 12:20 PM CDT) Glucose, POC 241(H) 70 - 199 mg/dL Blood 03/01/2025 12:2 0 PM CDT 03/01/2025 12:20 PM CDT Jung Arriola MD LAB POCT ORDERABLES - DEVICE Final Result Performing Organization Address [facility] de Phone Number [facility] [place] [address] * XR Foot Left 3 or More Views (03/01/2025 10:25 AM CDT) Anatomical Region Laterality Modality Lower Extremities, Foot Left Digital Radiography 03/01/2025 12:4 5 PM CDT Impressions 03/01/2025 12:45 PM CDT 1. Posterior heel wound without radiographic evidence of underlying osteomyelitis. 2. 5th metatarsophalangeal joint centered erosions and calcification, which can be seen in the setting of patient's known gout. Electronically signed by: Juan Jose Rachel M.D. Narrative 03/01/2025 12:45 PM CDT EXAMINATION: XR FOOT LEFT 3 OR MORE VIEWS HISTORY: left foot wounds, concern for osteo COMPARISON: None FINDINGS: No acute fracture or dislocation. There is a deep soft tissue ulcer along the posterior aspect of the calcaneus without overt underlying erosion or sclerosis. Focal erosions centered at the medial aspect of the 5th metatarsophalangeal joint with 4 mm adjacent calcification, could be seen in the setting of patient's known gout. Mild osteoarthritis. Plantar heel spur. Atherosclerotic calcifications. Mild diffuse soft tissue swelling. Procedure Note Juan Jose Rachel MD - 03/01/2025 EXAMINATION: XR FOOT LEFT 3 OR MORE VIEWS HISTORY: left foot wounds, concern for osteo COMPARISON: None FINDINGS: No acute fracture or dislocation. There is a deep soft tissue ulcer along the posterior aspect of the calcaneus without overt underlying erosion or sclerosis. Focal erosions centered at the medial aspect of the 5th metatarsophalangeal joint with 4 mm adjacent calcification, could be seen in the setting of patient's known gout. Mild osteoarthritis. Plantar heel spur. Atherosclerotic calcifications. Mild diffuse soft tissue swelling. IMPRESSION: 1. Posterior heel wound without radiographic evidence of underlying osteomyelitis. 2. 5th metatarsophalangeal joint centered erosions and calcification, which can be seen in the setting of patient's known gout. Electronically signed by: Juan Jose Rachel M.D. Prmoise Nelson [employer] IMG XR PROCEDURES Jen l Result * (ABNORMAL) POCT glucose (03/01/2025 7:25 AM CDT) Pathologist [facility] Glucose, POC 250(H) 70 - 199 mg/dL Comment:Glu2: RN/MD Notified Glucose comment 1 Glu2: RN/MD Notified [facility] Blood 03/01/2025 7:25 AM CDT 03/01/2025 7:25 AM CDT Jung Arriola MD LAB POCT ORDERABLES - DEVICE Final Result [facility] Department [place] [address] * (ABNORMAL) eGFR (02/28/2025 11:41 PM CDT) Pathologist [facility] eGFR 55(L) >=60 mL/min/1. 73 m2 Comment: Interpretive Data Reference Interval Normal >/= 90 mL/min/1.73m2 Mildly decreased* 60 - 89 mL/min/1.73m2 Mildly to moderately decreased 45 - 59 mL/min/1.73m2 Moderately to severely decreased 30 - 44 mL/min/1.73m2 Severely decreased 15 - 29 mL/min/1.73m2 Kidney Failure < 15 mL/min/1.73m2 *Relative to young adult level Estimated glomerular filtration rate is determined by the 2020 CKD-EPI equation recommended by the National Kidney Foundation (A Unifying Approach to GFR Estimation: Recommendations of the NKF-ASK Task Force on Reassessing the Inclusion of Race in Diagnosing Kidney Disease, JASN 2020). The CKD-EPI equation should not be used for patients with unstable renal function and has not been validated in children and those over 70. Current interpretive data was last reviewed 2021. Blood 02/28/2025 11:4 1 PM CDT 03/01/2025 12:39 AM CDT us Promise Nelson NP LAB BLOOD ORDERABLES F inal Result [facility] Department [place] [address] * (ABNORMAL) Differential, auto (02/28/2025 11:41 PM CDT) Neutrophil abs 7.13(H) 1.50 - 6.50 K/cumm Imm gran abs 0.04 0.00 - 0.10 K/cumm [facility] Lymphocyte abs 1.30 0.80 - 3.30 K/cumm [facility] Monocyte abs 0.77 0.20 - 0.80 K/cumm [facility] Eosinophil abs 0.14 0.00 - 0.50 K/cumm [facility] Basophil abs 0.02 0.00 - 0.10 K/cumm [facility] Neutrophil pct 75.9 % [facility] Comment: Interpretive Data Percent cell count reference ranges are not reported, since discordance with absolute values may lead to misinterpretation of CBC data. Current Interpretive Data was last revised on 2017. Imm gran pct 0.4 % [facility] Comment: Interpretive Data Percent cell count reference ranges are not reported, since discordance with absolute values may lead to misinterpretation of CBC data. Current Interpretive Data was last revised on 2017. Lymphocyte pct 13.8 % [facility] Comment: Interpretive Data Percent cell count reference ranges are not reported, since discordance with absolute values may lead to misinterpretation of CBC data. Current Interpretive Data was last revised on 2017. Monocyte pct 8.2 % [facility] Comment: Interpretive Data Percent cell count reference ranges are not reported, since discordance with absolute values may lead to misinterpretation of CBC data. Current Interpretive Data was last revised on 2017. Eosinophil pct 1.5 % [facility] Comment: Interpretive Data Percent cell count reference ranges are not reported, since discordance with absolute values may lead to misinterpretation of CBC data. Current Interpretive Data was last revised on 2017. Basophil pct 0.2 % [facility] Comment: Interpretive Data Percent cell count reference ranges are not reported, since discordance with absolute values may lead to misinterpretation of CBC data. Current Interpretive Data was last revised on 2017. Blood 02/28/2025 11:4 1 PM CDT 03/01/2025 12:39 AM CDT Promise Nelson NP LAB BLOOD ORDERABLES F inal Result [facility] Department [place] [address] * (ABNORMAL) CBC with auto differential (02/28/2025 11:41 PM CDT) WBC 9.40 3.80 - 9.90 K/cumm Hgb 11.0(L) 11.9 - 15.5 g/dL [facility] Hct 33.5(L) 35.6 - 45.5 % [facility] Plt 189 150 - 400 K/cumm [facility] MPV 10.6 9.1 - 12.3 fL [facility] RBC 3.57(L) 3.90 - 5.20 M/cumm [facility] MCV 93.8 81.3 - 96.4 fL [facility] MCH 30.8 27.1 - 33.3 pg [facility] MCHC 32.8 32.3 - 35.7 g/dL [facility] RDW CV 14.5 11.1 - 14.9 % [facility] RDW SD 49.9(H) 35.7 - 48.1 fL [facility] NRBC abs 0.00 0.00 - 0.01 K/cumm [facility] Blood 02/28/2025 11:4 1 PM CDT 03/01/2025 12:39 AM CDT Promise Nelson NP LAB BLOOD ORDERABLES F inal Result [facility] Department [place] [address] * (ABNORMAL) Basic metabolic panel (02/28/2025 11:41 PM CDT) Sodium 136 135 - 145 mmol/L Potassium, pl 4.3 3.3 - 4.9 mmol/L [facility] Chloride 99 97 - 110 mmol/L [facility] CO2 27 22 - 32 mmol/L [facility] Anion gap 10 2 - 15 mmol/L [facility] BUN 17 6 - 25 mg/dL [facility] Creatinine 1.15(H) 0.60 - 1.10 mg/dL [facility] Glucose 194 70 - 199 mg/dL [facility] Comment: Interpretive Data Fasting glucose >/= 126 mg/dl is diagnostic for diabetes. Fasting is defined as no caloric intake for at least 8 hours. Fasting glucose between 100 mg/dl to 125 mg/dl is diagnostic of prediabetes. In a patient with classic symptoms of hyperglycemia or hyperglycemic crisis, a random glucose >/= 200 mg/dl is diagnostic for diabetes. In the absence of unequivocal hyperglycemia, results should be confirmed by repeat testing. The classification and Diagnosis of Diabetes Diabetes Care 202; 46: S19-S40. Current interpretive data was last revised 2022. Calcium 9.0 8.5 - 10.3 mg/dL [facility] Blood 02/28/2025 11:4 1 PM CDT 03/01/2025 12:39 AM CDT Promise Nelson NP LAB BLOOD ORDERABLES F inal Result [facility] Department [place] [address] * (ABNORMAL) Urinalysis reflex to microscopic and culture Urine (02/28/2025 8:22 PM CDT) Color, ur Straw Yellow Clarity, ur Clear Clear [facility] Specific gravity, ur 1.016 1.003 - 1.030 [facility] pH, urine 6.0 [facility] Comment: Interpretive Data U rine pH is affected by diet, medications, systemic acid-base disturbances, and renal tubular function. pH may affect urinary stone formation. For example, urine pH below 6.0 may help reduce the tendency for calcium phosphate stones and pH greater than 6.0 may reduce the tendency for uric acid stone formation. Source: [facility] Current Interpretive Data was last revised on 2017 Protein, ur ql 1+(A) Negative [facility] Glucose, ur ql Negative Negative [facility] Ketones, ur Negative Negative [facility] Bilirubin, ur Negative Negative [facility] Blood, ur Trace(A) Negative [facility] Urobilinogen, ur <2.0 <2.0 mg/dL [facility] Nitrite, ur Negative Negative [facility] Leukocyte esterase, ur 2+(A) Negative [facility] UA reflex comment Reflex to microscopic UA will be performed. [facility] Urine 02/28/2025 8:22 PM CDT 02/28/2025 9:01 PM CDT Promise Nelson NP LAB MICROBIOLOGY - GEN ERAL ORDERABLES Final Result Performing Organization Address [facility] Co de Phone Number [facility] [place] [address] * (ABNORMAL) Urinalysis, microscopic only (02/28/2025 8:22 PM CDT) WBC, ur 11-20(A) 0 - 5 /HPF RBC, ur 3-5(A) 0 - 2 /HPF [facility] [facility] Epithelial cells, squamous, ur 1-5 0 - 5 /HPF [facility] Bacteria, ur Trace(A) [facility] Mucous, ur Present(A) [facility] Culture Reflex Comment Reflex to urine culture will be performed. [facility] Urine 02/28/2025 8:22 PM CDT 02/28/2025 9:01 PM CDT Promise Nelson NP LAB URINE ORDERABLES F inal Result Performing Organization Address [facility] Co de Phone Number [facility] [place] [address] * Urine culture Urine (02/28/2025 8:22 PM CDT) Pathologist [facility] Report Final Report: No growth Urine 02/28/2025 8:22 PM CDT 02/28/2025 10:46 PM CDT Narrative [facility] - 03/02/2025 7:46 AM CDT Urine culture reflexed based upon urinalysis results. Testing performed by [facility] ([phone]) us Promise Nelson NP LAB MICROBIOLOGY - GEN ERAL ORDERABLES Final Result Performing Organization Address [facility] [place] [address] * (ABNORMAL) POCT glucose (02/28/2025 8:11 PM CDT) Pathologist [facility] Glucose, POC 252(H) 70 - 199 mg/dL Blood 02/28/2025 8:11 PM CDT 02/28/2025 8:11 PM CDT Jung Arriola MD LAB POCT ORDERABLES - DEVICE Final Result [facility] Department [place] [address] * XR Chest 1 View (02/28/2025 5:22 PM CDT) Anatomical Region Laterality Modality Body, Chest N/A Digital Radiogra phy 03/01/2025 9:46 AM CDT Impressions 03/01/2025 1:17 PM CDT Comparison made with radiograph dated 02/27/2025 at 2021. Right internal jugular approach central venous catheter terminates in the superior vena cava. Small right hemithorax. Stable right pleural effusion. Mild right atelectasis. No pneumothorax. Stable cardiomegaly. Dictated by: Holly Rendon M.D. The radiology attending physician has personally reviewed this study, and had reviewed and/or edited this written report and agrees with it. Electronically signed by: Juan Caldwell M.D. Narrative 03/01/2025 1:17 PM CDT EXAMINATION: 1 view chest radiograph Procedure Note Juan Caldwell MD - 03/01/2025 EXAMINATION: 1 view chest radiograph IMPRESSION: Comparison made with radiograph dated 02/27/2025 at 2021. Right internal jugular approach central venous catheter terminates in the superior vena cava. Small right hemithorax. Stable right pleural effusion. Mild right atelectasis. No pneumothorax. Stable cardiomegaly. Dictated by: Holly Rendon M.D. The radiology attending physician has personally reviewed this study, and had reviewed and/or edited this written report and agrees with it. Electronically signed by: Juan Caldwell M.D. us Promise Nelson [employer] IMG XR PROCEDURES Jen l Result * POCT glucose (02/28/2025 5:08 PM CDT) Glucose, POC 186 70 - 199 mg/dL Comment:Glu2: JAKE/ Notified Glucose comment 1 Glu2: JAKE/ Notified [facility] Blood 02/28/2025 5:08 PM CDT 02/28/2025 5:08 PM CDT us Jung Arriola MD LAB POCT ORDERABLES - DEVICE Final Result Performing Organization Address [facility] de Phone Number [facility] [place] [address] * (ABNORMAL) POCT glucose (02/28/2025 11:36 AM CDT) Glucose, POC 251(H) 70 - 199 mg/dL Comment:Glu2: ANNETTE Notified Glucose comment 1 Glu2: ANNETTE Notified [facility] Blood 02/28/2025 11:3 6 AM CDT 02/28/2025 11:36 AM CDT us Jung Arriola MD LAB POCT ORDERABLES - DEVICE Final Result Performing Organization Address [facility] de Phone Number [facility] [place] [address] * (ABNORMAL) POCT glucose (02/28/2025 7:32 AM CDT) Glucose, POC 200(H) 70 - 199 mg/dL Comment:Glu2: ANNETTE Notified Glucose comment 1 Glu2: JAKE/ Notified [facility] Blood 02/28/2025 7:32 AM CDT 02/28/2025 7:32 AM CDT us Jung Arriola MD LAB POCT ORDERABLES - DEVICE Final Result Performing Organization Address City/[facility]/ZIP Co de Phone Number [facility] Department [place] [address] * POCT glucose (02/27/2025 10:38 PM CDT) Glucose, POC 191 70 - 199 mg/dL Blood 02/27/2025 10:3 8 PM CDT 02/27/2025 10:38 PM CDT us Jung Arriola MD LAB POCT ORDERABLES - DEVICE Final Result Performing Organization Address [facility] de Phone Number [facility] [place] [address] * eGFR (02/27/2025 10:37 PM CDT) [facility] eGFR 62 >=60 mL/min/1. 73 m2 Comment: Interpretive Data Reference Interval Normal >/= 90 mL/min/1.73m2 Mildly decreased* 60 - 89 mL/min/1.73m2 Mildly to moderately decreased 45 - 59 mL/min/1.73m2 Moderately to severely decreased 30 - 44 mL/min/1.73m2 Severely decreased 15 - 29 mL/min/1.73m2 Kidney Failure < 15 mL/min/1.73m2 *Relative to young adult level Estimated glomerular filtration rate is determined by the 2020 CKD-EPI equation recommended by the National Kidney Foundation (A Unifying Approach to GFR Estimation: Recommendations of the NKF-ASK Task Force on Reassessing the Inclusion of Race in Diagnosing Kidney Disease, JASN 2020). The CKD-EPI equation should not be used for patients with unstable renal function and has not been validated in children and those over 70. Current interpretive data was last reviewed 2021. Blood 02/27/2025 10:3 7 PM CDT 02/27/2025 11:25 PM CDT us Jung Arriola MD LAB BLOOD ORDERABLES Final Re sult Performing Organization Address [facility] Co de Phone Number [facility] Department [place] [address] * (ABNORMAL) CBC without differential (02/27/2025 10:37 PM CDT) [facility] WBC 14.56(H) 3.80 - 9.90 K/cumm Hgb 12.5 11.9 - 15.5 g/dL [facility] Hct 38.3 35.6 - 45.5 % [facility] Plt 246 150 - 400 K/cumm [facility] MPV 10.1 9.1 - 12.3 fL [facility] RBC 4.10 3.90 - 5.20 M/cumm [facility] MCV 93.4 81.3 - 96.4 fL [facility] MCH 30.5 27.1 - 33.3 pg [facility] MCHC 32.6 32.3 - 35.7 g/dL [facility] RDW CV 14.7 11.1 - 14.9 % [facility] RDW SD 50.4(H) 35.7 - 48.1 fL [facility] NRBC abs 0.00 0.00 - 0.01 K/cumm [facility] Blood 02/27/2025 10:3 7 PM CDT 02/27/2025 11:25 PM CDT us Jung Arriola MD LAB BLOOD ORDERABLES Final Re sult [facility] Department [place] [address] * Basic metabolic panel (02/27/2025 10:37 PM CDT) [facility] Sodium 135 135 - 145 mmol/L Potassium, pl 4.5 3.3 - 4.9 mmol/L [facility] Chloride 99 97 - 110 mmol/L [facility] CO2 27 22 - 32 mmol/L [facility] Anion gap 9 2 - 15 mmol/L [facility] BUN 21 6 - 25 mg/dL [facility] Creatinine 1.03 0.60 - 1.10 mg/dL [facility] Glucose 192 70 - 199 mg/dL [facility] Comment: Interpretive Data Fasting glucose >/= 126 mg/dl is diagnostic for diabetes. Fasting is defined as no caloric intake for at least 8 hours. Fasting glucose between 100 mg/dl to 125 mg/dl is diagnostic of prediabetes. In a patient with classic symptoms of hyperglycemia or hyperglycemic crisis, a random glucose >/= 200 mg/dl is diagnostic for diabetes. In the absence of unequivocal hyperglycemia, results should be confirmed by repeat testing. The classification and Diagnosis of Diabetes Diabetes Care 2021; 46: S19-S40. Current interpretive data was last revised 2022. Calcium 9.0 8.5 - 10.3 mg/dL [facility] Blood 02/27/2025 10:3 7 PM CDT 02/27/2025 11:25 PM CDT us Jung Arriola MD LAB BLOOD ORDERABLES Final Re sult [facility] Department [place] [address] * X-ray chest 1 view (02/27/2025 8:21 PM CDT) Anatomical Region Laterality Modality Body, Chest N/A Computed Radiogr aphy 02/28/2025 9:03 AM CDT Impressions 02/28/2025 9:12 AM CDT No studies available for comparison. Right internal jugular approach central venous catheter terminates in the superior vena cava. There is a small right effusion and a tiny left effusion there is no pneumothorax. Patchy right greater than left basilar atelectasis is seen. There is mild cardiomegaly. Dictated by: Holyl Rendon M.D. The radiology attending physician has personally reviewed this study, and had reviewed and/or edited this written report and agrees with it. Electronically signed by: Angeli Handy M.D. Narrative 02/28/2025 9:12 AM CDT EXAMINATION: 1 view chest radiograph Procedure Note Angeli Handy MD - 02/28/2025 EXAMINATION: 1 view chest radiograph IMPRESSION: No studies available for comparison. Right internal jugular approach central venous catheter terminates in the superior vena cava. There is a small right effusion and a tiny left effusion there is no pneumothorax. Patchy right greater than left basilar atelectasis is seen. There is mild cardiomegaly. Dictated by: Holly Rendon M.D. The radiology attending physician has personally reviewed this study, and had reviewed and/or edited this written report and agrees with it. Electronically signed by: Angeli Handy M.D. Keyon Ayon MD PhD IMG XR PROCEDURE S Final Result * POCT glucose (02/27/2025 5:37 PM CDT) Glucose, POC 144 70 - 199 mg/dL Blood 02/27/2025 5:37 PM CDT 02/27/2025 5:37 PM CDT us Jung Arriola MD LAB POCT ORDERABLES - DEVICE Final Result [facility] Department [place] [address] * (ABNORMAL) eGFR (02/27/2025 5:31 PM CDT) eGFR 57(L) >=60 mL/min/1. 73 m2 Comment: Interpretive Data Reference Interval Normal >/= 90 mL/min/1.73m2 Mildly decreased* 60 - 89 mL/min/1.73m2 Mildly to moderately decreased 45 - 59 mL/min/1.73m2 Moderately to severely decreased 30 - 44 mL/min/1.73m2 Severely decreased 15 - 29 mL/min/1.73m2 Kidney Failure < 15 mL/min/1.73m2 *Relative to young adult level Estimated glomerular filtration rate is determined by the 2020 CKD-EPI equation recommended by the National Kidney Foundation (A Unifying Approach to GFR Estimation: Recommendations of the NKF-ASK Task Force on Reassessing the Inclusion of Race in Diagnosing Kidney Disease, ZAINABN 2020). The CKD-EPI equation should not be used for patients with unstable renal function and has not been validated in children and those over 70. Current interpretive data was last reviewed 2021. Blood 02/27/2025 5:31 PM CDT 02/27/2025 5:58 PM CDT us Jung Arriola MD LAB BLOOD ORDERABLES Final Re sult Performing Organization Address [facility] Co de Phone Number [facility] [place] [address] * Cholesterol, LDL, direct (02/27/2025 5:31 PM CDT) LDL Cholesterol, Direct 109 <=129 mg/dL Comment: Interpretive Data Ages < or = 19 years Acceptable: <110 mg/dL Borderline high: 110-129 mg/dL High: >or= 130 mg/dL Ages > or = 20 years Optimal: <100 mg/dL Near optimal: 100-129 mg/dL Borderline high: 130-159 mg/dL High: >160 mg/dL Literature References: 1. Expert Panel on Integrated Guidelines for Cardiovascular Health and Risk Reduction in Children and Adolescents. Pediatrics 2011;128:S213 2. NCEP Expert Panel. Circulation 2004;110:227 Current Interpretive Data was last revised on 2018. Blood 02/27/2025 5:31 PM CDT 02/27/2025 5:58 PM CDT Narrative [facility] - 02/28/2025 2:47 AM CDT Cholesterol, LDL, direct reflexed based on Elevated Triglyceride (>400) us Jung Arriola MD LAB BLOOD ORDERABLES Final Re sult Performing Organization Address [facility] Co de Phone Number [facility] Department [place] [address] * (ABNORMAL) Lipid panel (02/27/2025 5:31 PM CDT) Cholesterol 212(H) 30 - 199 mg/dL Comment: Interpretive Data Ages < or = 19 years Acceptable: <170 mg/dL Borderline high: 170-199 mg/dL High: >or= 200 mg/dL Ages > or = 20 years Desirable: <200 mg/dL Borderline high: 200-239 mg/dL High: >or= 240 mg/dL Literature References: 1. Expert Panel on Integrated Guidelines for Cardiovascular Health and Risk Reduction in Children and Adolescents. Pediatrics 2011;128:S213 2. NCEP Expert Panel. Circulation 2004;110:227 Current Interpretive Data was last revised on 2018. Triglycerides 424(H) <=149 mg/dL [facility] Comment: Interpretive Data Ages < or = 9 years Acceptable: <75 mg/dL Borderline high: 75-99 mg/dL High: >or= 100 mg/dL Ages 10 to 20 years Acceptable: <90 mg/dL Borderline high: 90-129 mg/dL High: >or= 130 mg/dL Ages > or = 20 years Desirable: <150 mg/dL Borderline high: 150-199 mg/dL High: 200-499 mg/dL Very high: >or= 499 mg/dL Literature References: 1. Expert Panel on Integrated Guidelines for Cardiovascular Health and Risk Reduction in Children and Adolescents. Pediatrics 2011;128:S213 2. NCEP Expert Panel. Circulation 2004;110:227 Current Interpretive Data was last revised on 2018. HDL 28(L) >=40 mg/dL [facility] Comment: Interpretive Data Ages < or = 19 years Acceptable: >45 mg/dL Borderline low: 40-45 mg/dL Low: <40 mg/dL Ages > or = 20 years Desirable: >or= 60 mg/dL Low: <40 mg/dL Literature References: 1. Expert Panel on Integrated Guidelines for Cardiovascular Health and Risk Reduction in Children and Adolescents. Pediatrics 2011;128:S213 2. NCEP Expert Panel. Circulation 2004;110:227 Current Interpretive Data was last revised on 2018. LDL, calculated See Comment <=129 [facility] Comment: Unable to calculate LDL due to elevated triglyceride. Interpretive Data Ages < or = 19 years Acceptable: <110 mg/dL Borderline high: 110-129 mg/dL High: >or= 130 mg/dL Ages > or = 20 years Optimal: <100 mg/dL Near optimal: 100-129 mg/dL Borderline high: 130-159 mg/dL High: >160 mg/dL Calculated using the Grey LDL-C estimating equation. This equation was implemented on 2024. Prior to this date LDL-C was estimated using the Friedewald equation. Literature References: 1. Expert Panel on Integrated Guidelines for Cardiovascular Health and Risk Reduction in Children and Adolescents. Pediatrics 2011;128:S213 2. NCEP Expert Panel. Circulation 2004;110:227 3. Grey Osborne et al. EMILEE Cardiol. 2019November 24;5(5):540-548. doi: 10.1001/jamacardio.2020.0013 Current Interpretive Data was last revised on 2024. Non-HDL Cholesterol 184 mg/dL [facility] Comment: Interpretive Data Ages < or = 19 years Acceptable: <120 mg/dL Borderline high: 120-144 mg/dL High: >145 mg/dL Ages > or = 20 years When triglycerides are >200 mg/dL, Non-HDL cholesterol is a secondary target of therapy with treatment goals that are 30 mg/dL greater than the LDL cholesterol target. Literature References: 1. Expert Panel on Integrated Guidelines for Cardiovascular Health and Risk Reduction in Children and Adolescents. Pediatrics 2011;128:S213 2. NCEP Expert Panel. Circulation 2004;110:227 Current Interpretive Data was last revised on 2018. Chol/HDL ratio 8 [facility] Blood 02/27/2025 5:31 PM CDT 02/27/2025 5:58 PM CDT Narrative [facility] - 02/28/2025 12:48 AM CDT Reflex us Jung Arriola MD LAB BLOOD ORDERABLES Final Re sult [facility] Department [place] [address] * (ABNORMAL) Basic metabolic panel (02/27/2025 5:31 PM CDT) Sodium 142 135 - 145 mmol/L Potassium, pl 4.4 3.3 - 4.9 mmol/L [facility] Chloride 104 97 - 110 mmol/L [facility] Comment:Repeated and Verifie d CO2 24 22 - 32 mmol/L [facility] Anion gap 14 2 - 15 mmol/L [facility] Comment:Repeated and Verifie d BUN 21 6 - 25 mg/dL [facility] Creatinine 1.11(H) 0.60 - 1.10 mg/dL [facility] Glucose 164 70 - 199 mg/dL [facility] Comment: Interpretive Data Fasting glucose >/= 126 mg/dl is diagnostic for diabetes. Fasting is defined as no caloric intake for at least 8 hours. Fasting glucose between 100 mg/dl to 125 mg/dl is diagnostic of prediabetes. In a patient with classic symptoms of hyperglycemia or hyperglycemic crisis, a random glucose >/= 200 mg/dl is diagnostic for diabetes. In the absence of unequivocal hyperglycemia, results should be confirmed by repeat testing. The classification and Diagnosis of Diabetes Diabetes Care 2021; 46: S19-S40. Current interpretive data was last revised 2022. Calcium 8.8 8.5 - 10.3 mg/dL [facility] Blood 02/27/2025 5:31 PM CDT 02/27/2025 5:58 PM CDT us Jung Arriola MD LAB BLOOD ORDERABLES Final Re sult [facility] Department [place] [address] * (ABNORMAL) CBC without differential (02/27/2025 5:11 PM CDT) Pathologist [facility] WBC 15.72(H) 3.80 - 9.90 K/cumm Hgb 13.3 11.9 - 15.5 g/dL [facility] Hct 38.3 35.6 - 45.5 % [facility] Plt 263 150 - 400 K/cumm [facility] MPV 9.7 9.1 - 12.3 fL [facility] RBC 4.17 3.90 - 5.20 M/cumm [facility] MCV 91.8 81.3 - 96.4 fL [facility] MCH 31.9 27.1 - 33.3 pg [facility] MCHC 34.7 32.3 - 35.7 g/dL [facility] RDW CV 14.7 11.1 - 14.9 % [facility] RDW SD 49.6(H) 35.7 - 48.1 fL [facility] NRBC abs 0.00 0.00 - 0.01 K/cumm [facility] Blood 02/27/2025 5:11 PM CDT 02/27/2025 5:58 PM CDT us Jung Arriola MD LAB BLOOD ORDERABLES Final Re sult Performing Organization Address [facility]/ZIP Co de Phone Number [facility] Department [place] [address] * BYPASS GRAFT - FEMORAL ILIO (02/27/2025 5:08 PM CDT) Anatomical Region Laterality Modality X-Ray Angiograph y Narrative 02/27/2025 8:53 PM CDT Please see OpNote for result. us Jung Arriola MD CV CARDIAC CATH PROCEDURES Fi nal Result * POCT Activated clotting time, low range (02/27/2025 3:57 PM CDT) ACT 124 123 - 168 sec POC Device Number [id number] [facility] Blood 02/27/2025 3:57 PM CDT 02/27/2025 3:57 PM CDT us Jung Arriola MD LAB POCT ORDERABLES - DEVICE Final Result Performing Organization Address [facility]/ZIP Co de Phone Number [facility] [place] [address] * (ABNORMAL) POCT Activated clotting time, low range (02/27/2025 3:25 PM CDT) ACT 358(H) 123 - 168 sec POC Device Number [id number] [facility] Blood 02/27/2025 3:25 PM CDT 02/27/2025 3:25 PM CDT us Jung Arriola MD LAB POCT ORDERABLES - DEVICE Final Result Performing Organization Address [facility] Co de Phone Number [facility] [place] [address] * (ABNORMAL) POCT Activated clotting time, low range (02/27/2025 2:41 PM CDT) ACT 253(H) 123 - 168 sec POC Device Number [id number] [facility] Blood 02/27/2025 2:41 PM CDT 02/27/2025 2:41 PM CDT us Jung Arriola MD LAB POCT ORDERABLES - DEVICE Final Result Performing Organization Address [facility] Co de Phone Number [facility] [place] [address] * POCT glucose (02/27/2025 2:08 PM CDT) Glucose, POC 91 70 - 199 mg/dL Blood 02/27/2025 2:08 PM CDT 02/27/2025 2:08 PM CDT us Jung Arriola MD LAB POCT ORDERABLES - DEVICE Final Result Performing Organization Address [facility] [place] [address] * (ABNORMAL) POCT Activated clotting time, low range (02/27/2025 2:05 PM CDT) ACT 339(H) 123 - 168 sec POC Device Number [id number] [facility] Blood 02/27/2025 2:05 PM CDT 02/27/2025 2:05 PM CDT Jung Arriola MD LAB POCT ORDERABLES - DEVICE Final Result [facility] Department [place] [address] * (ABNORMAL) POC Blood Gas and Chemistries, Arterial - (02/27/2025 1:00 PM CDT) pH, Art POC 7.36 7.35 - 7.45 pCO2, Art POC 45 35 - 45 mmHg [facility] pO2, Art POC 166(H) 83 - 108 mmHg [facility] Na, POC 137 135 - 145 mmol/L [facility] K POC 4.3 3.3 - 4.9 mmol/L [facility] Comment: Interpretive Data Not all point of care methods assess for hemolysis. Confirm with instrument and retest K+ if not consistent with clinical signs and symptoms. Current Interpretive Data was last revised on 2023. Cl, POC 106 97 - 110 mmol/L [facility] Ionized Ca, POC 4.78 4.50 - 5.10 mg/dL [facility] Glucose, POC 100 70 - 199 mg/dL [facility] Lactate POC 2.0 0.7 - 2.0 mmol/L [facility] SO2 (dylan) arterial 100(H) 90 - 95 % [facility] Base excess, POC -0.4 mmol/L [facility] HCO3, Art POC 25 20 - 30 mmol/L [facility] Hct, POC 41.0 36.3 - 45.3 % [facility] Total Hb, POC 13.8 11.9 - 15.5 g/dL [facility] Blood 02/27/2025 1:00 PM CDT 02/27/2025 1:00 PM CDT Jung Arriola MD LAB POCT ORDERABLES - DEVICE Final Result [facility] Department [place] [address] * [place] AN PROCEDURE PLACEHOLDER (02/27/2025 12:17 PM CDT) Rodolfo Frederick MD - 02/27/2025 12:17 PM CDT Rodolfo Cuellar MD 02/27/2025 12:36 PM Arterial Line Patient location: pre-op holding Indication: continuous blood pressure monitoring Ultrasound assisted: yes Staff: Placed by: Anesthesiologist: Rodolfo Cuellar MD Procedure prep: Prep solution: chlorhexadine/alcohol Prep: provider hat/mask and sterile gloves Arterial line: Catheter size: 20 gauge Catheter length: 1 and 3/4 inch Catheter type: wire-guided catheter Seldinger technique: yes Laterality: left Site: radial artery Line secured: Tegaderm Results: good blood return and good waveform Number of attempts: 1 Assessment: Events: patient tolerated procedure well with no complications Rodolfo Cuellar MD ANESTHESIA ORDERABLES Edited R esult - Final * [place] AN CENTRAL LINE QUADRUPLE LUMEN, [place] AN PROCEDURE PLACEHOLDER (02/27/2025 12:17 PM CDT) Rodolfo Frederick MD - 02/27/2025 12:17 PM CDT Rodolfo Cuellar MD 02/27/2025 12:37 PM Central Venous Line Patient location: OR Indication: central venous access and CVP monitoring Staff: Supervising provider: Rodolfo Cuellar MD Placed by: TECHNICAL SALES REPRESENTATIVES: Mackenzie Loco CRNA Procedure prep: Patient position: Trendelenburg. PPE: sterile gown, sterile gloves, provider hat/mask, provider hand hygiene and full body drape. Prep solution: chlorhexadine/alcohol was applied to area. Ultrasound Evaluation: Ultrasound was prepped into field. Ultrasound image(s) saved to archive. Prior to the procedure, the cannulated vein was evaluated by ultrasound and deemed suitably patent for access.This vessel was accessed using real-time ultrasound guidance and an image was placed in the patient's medical record Central line: Laterality: right Site: internal jugular Catheter type: quad lumen Catheter size: 7 Fr. Catheter length: 16 cm Catheter length at skin: 16 cm Technique: anatomy identified with ultrasound, Seldinger technique, wire threaded easily and wire removed intact Venous verification: pressure transduced, ultrasound confirmation and AXEL confirmation Post insertion: all ports aspirated, all ports flushed easily, line sutured in place and occlusive dressing applied Chlorhexidine patch applied: yes Number of attempts: 1 Assessment: Events: patient tolerated procedure well with no complications Rodolfo Cuellar MD ANESTHESIA ORDERABLES Edited R esult - Final * AZ AN ELECTIVE ENDOTRACHEAL AIRWAY, [place] AN PROCEDURE PLACEHOLDER (02/27/2025 12:16 PM CDT) Narrative Mackenzie Loco CRNA - 02/27/2025 12:16 PM CDT Mackenzie Loco CRNA 02/27/2025 12:16 PM Airway Patient location: OR Urgency: elective Indications for airway management: anesthesia Difficult airway: no Staff: Supervising provider: Rodolfo Cuellar MD Placed by: TECHNICAL SALES REPRESENTATIVES: Mackenzie Loco CRNA Emergent airway documentation: Risks and benefits discussed: yes Consent obtained: yes Consent given by: patient Airway prep: Preoxygenated: yes Patient position: sniffing Mask difficulty assessment: 1 - vent by mask Spontaneous ventilation during airway: absent Sedation level during airway: GA Final airway details: Final airway type: endotracheal airway Tube type: ETT ETT size: 7.0 mm Cuffed: yes Technique used for successful ETT placement: direct laryngoscopy Devices/Methods used in placement: intubating stylet Insertion site: oral Blade type: Kayleigh Blade size: 3 Cormack-Lehane (direct): grade I - full view of glottis Cuff inflated with: air ETT to teeth: 22 cm Placement verified by: auscultation Airway secured with: silk tape Number of attempts: 1 Rodolfo Cuellar MD ANESTHESIA ORDERABLES Final Re sult * Check Sample (02/27/2025 11:44 AM CDT) ABO Rh O Positive [facility] OTHER 02/27/2025 11:4 4 AM CDT 02/27/2025 11:51 AM CDT Jung Arriola MD LAB BLOOD ORDERABLES Final Re sult [facility] Department [place] [address] [facility] * TYPE AND SCREEN 14 DAY (02/22/2025 2:36 PM CDT) Charu, indirect Negative ABO Rh O Positive [facility] Blood 02/22/2025 2:36 PM CDT 02/22/2025 3:40 PM CDT Narrative [facility] - 02/22/2025 4:39 PM CDT Is this test being ordered in advance for a procedure?->Yes Expected date of procedure:->02/27/25 Has the patient been transfused in the past 3 months?->No Has the patient been in the past 3 months?->No Quyen Campa [employer] WORK[employer] LAB BLOOD BANK TEST JULIANA ESPARZA Final Result [facility] Department [place] [address] * (ABNORMAL) eGFR (02/22/2025 2:36 PM CDT) eGFR 45(L) >=60 mL/min/1. 73 m2 Comment: Interpretive Data Reference Interval Normal >/= 90 mL/min/1.73m2 Mildly decreased* 60 - 89 mL/min/1.73m2 Mildly to moderately decreased 45 - 59 mL/min/1.73m2 Moderately to severely decreased 30 - 44 mL/min/1.73m2 Severely decreased 15 - 29 mL/min/1.73m2 Kidney Failure < 15 mL/min/1.73m2 *Relative to young adult level Estimated glomerular filtration rate is determined by the 2020 CKD-EPI equation recommended by the National Kidney Foundation (A Unifying Approach to GFR Estimation: Recommendations of the NKF-ASK Task Force on Reassessing the Inclusion of Race in Diagnosing Kidney Disease, JASN 2020). The CKD-EPI equation should not be used for patients with unstable renal function and has not been validated in children and those over 70. Current interpretive data was last reviewed 2021. Blood 02/22/2025 2:36 PM CDT 02/22/2025 3:35 PM CDT us Quyen Campa [employer] WORK[employer] LAB BLOOD ORDERABLES Fin al Result [facility] Department [place] [address] * (ABNORMAL) Differential, auto (02/22/2025 2:36 PM CDT) Neutrophil abs 7.75(H) 1.50 - 6.50 K/cumm Imm gran abs 0.07 0.00 - 0.10 K/cumm [facility] Lymphocyte abs 1.79 0.80 - 3.30 K/cumm [facility] Monocyte abs 0.71 0.20 - 0.80 K/cumm [facility] Eosinophil abs 0.28 0.00 - 0.50 K/cumm [facility] Basophil abs 0.08 0.00 - 0.10 K/cumm [facility] Neutrophil pct 72.6 % [facility] Comment: Interpretive Data Percent cell count reference ranges are not reported, since discordance with absolute values may lead to misinterpretation of CBC data. Current Interpretive Data was last revised on 2017. Imm gran pct 0.7 % [facility] Comment: Interpretive Data Percent cell count reference ranges are not reported, since discordance with absolute values may lead to misinterpretation of CBC data. Current Interpretive Data was last revised on 2017. Lymphocyte pct 16.8 % [facility] Comment: Interpretive Data Percent cell count reference ranges are not reported, since discordance with absolute values may lead to misinterpretation of CBC data. Current Interpretive Data was last revised on 2017. Monocyte pct 6.6 % [facility] Comment: Interpretive Data Percent cell count reference ranges are not reported, since discordance with absolute values may lead to misinterpretation of CBC data. Current Interpretive Data was last revised on 2017. Eosinophil pct 2.6 % [facility] Comment: Interpretive Data Percent cell count reference ranges are not reported, since discordance with absolute values may lead to misinterpretation of CBC data. Current Interpretive Data was last revised on 2017. Basophil pct 0.7 % [facility] Comment: Interpretive Data Percent cell count reference ranges are not reported, since discordance with absolute values may lead to misinterpretation of CBC data. Current Interpretive Data was last revised on 2017. Blood 02/22/2025 2:36 PM CDT 02/22/2025 3:35 PM CDT us Quyen Campa [employer] WORK[employer] LAB BLOOD ORDERABLES Fin al Result [facility] Department [place] [address] * Urinalysis reflex to microscopic and culture Urine, clean voided (02/22/2025 2:36 PM CDT) Color, ur See Comment Yellow Comment:Credited, quantity n ot sufficient. Clarity, ur See Comment Clear [facility] Comment:Credited, quantity n ot sufficient. Specific gravity, ur See Comment 1.003 - 1.030 [facility] Comment:Credited, quantity n ot sufficient. pH, urine See Comment [facility] Comment: Credited, quantity not sufficient. Interpretive Data U rine pH is affected by diet, medications, systemic acid-base disturbances, and renal tubular function. pH may affect urinary stone formation. For example, urine pH below 6.0 may help reduce the tendency for calcium phosphate stones and pH greater than 6.0 may reduce the tendency for uric acid stone formation. Source: [facility] [employer] Current Interpretive Data was last revised on 2017 Protein, ur ql See Comment Negative [facility] Comment:Credited, quantity n ot sufficient. Glucose, ur ql See Comment Negative [facility] Comment:Credited, quantity n ot sufficient. Ketones, ur See Comment Negative [facility] Comment:Credited, quantity n ot sufficient. Bilirubin, ur See Comment Negative [facility] Comment:Credited, quantity n ot sufficient. Blood, ur See Comment Negative [facility] Comment:Credited, quantity n ot sufficient. Urobilinogen, ur See Comment <2.0 mg/dL [facility] Comment:Credited, quantity n ot sufficient. Nitrite, ur See Comment Negative [facility] Comment:Credited, quantity n ot sufficient. Leukocyte esterase, ur See Comment Negative [facility] Comment:Credited, quantity n ot sufficient. UA reflex comment Reflex conditions for microscopic UA and culture not met. [facility] Urine, clean voided 02/22/2025 2:36 PM CDT 02/22/2025 3:19 PM CDT us Quyen Campa [employer] WORK[employer] LAB MICROBIOLOGY - GENER AL ORDERABLES Final Result Performing Organization Address City/[facility] Co de Phone Number [facility] Department [place] [address] * (ABNORMAL) CBC with auto differential (02/22/2025 2:36 PM CDT) WBC 10.68(H) 3.80 - 9.90 K/cumm Hgb 14.7 11.9 - 15.5 g/dL [facility] Hct 42.9 35.6 - 45.5 % [facility] Plt 265 150 - 400 K/cumm [facility] MPV 10.5 9.1 - 12.3 fL [facility] RBC 4.66 3.90 - 5.20 M/cumm [facility] MCV 92.1 81.3 - 96.4 fL [facility] MCH 31.5 27.1 - 33.3 pg [facility] MCHC 34.3 32.3 - 35.7 g/dL [facility] RDW CV 14.7 11.1 - 14.9 % [facility] RDW SD 50.1(H) 35.7 - 48.1 fL [facility] NRBC abs 0.00 0.00 - 0.01 K/cumm [facility] Blood 02/22/2025 2:36 PM CDT 02/22/2025 3:35 PM CDT Quyen Campa [employer] WORK[employer] LAB BLOOD ORDERABLES Fin al Result [facility] Department [place] [address] * (ABNORMAL) Basic metabolic panel (02/22/2025 2:36 PM CDT) Sodium 138 135 - 145 mmol/L Potassium, pl 4.7 3.3 - 4.9 mmol/L [facility] Chloride 96(L) 97 - 110 mmol/L [facility] CO2 27 22 - 32 mmol/L [facility] Anion gap 15 2 - 15 mmol/L [facility] BUN 22 6 - 25 mg/dL [facility] Creatinine 1.34(H) 0.60 - 1.10 mg/dL [facility] Glucose 175 70 - 199 mg/dL [facility] Comment: Interpretive Data Fasting glucose >/= 126 mg/dl is diagnostic for diabetes. Fasting is defined as no caloric intake for at least 8 hours. Fasting glucose between 100 mg/dl to 125 mg/dl is diagnostic of prediabetes. In a patient with classic symptoms of hyperglycemia or hyperglycemic crisis, a random glucose >/= 200 mg/dl is diagnostic for diabetes. In the absence of unequivocal hyperglycemia, results should be confirmed by repeat testing. The classification and Diagnosis of Diabetes Diabetes Care 202; 46: S19-S40. Current interpretive data was last revised 2022. Calcium 9.6 8.5 - 10.3 mg/dL [facility] Blood 02/22/2025 2:36 PM CDT 02/22/2025 3:35 PM CDT us Quyen Campa [employer] LAB BLOOD ORDERABLES Fin al Result [facility] Department [place] [address] * (ABNORMAL) POCT hemoglobin A1c (02/22/2025 1:19 PM CDT) Hgb A1C, POC 7.7(H) 4.0 - 5.6 % Est Average Gluc POC 174 mg/dL [facility] Comment: The ADA recommends reporting an estimated Average Glucose (eAG) with all Hemoglobin A1c results using the equation derived from a study of 507 normal and diabetic adults. Minority populations were underrepresented and children were not included. (Diabetes Care 31:7509-4973, 2008). The eAG is not equivalent to a fasting glucose. Blood 02/22/2025 1:19 PM CDT 02/22/2025 1:19 PM CDT us Jung Arriola MD POINT OF CARE TEST ORDERABLES Final Result Performing Organization Address City/[facility] Co de Phone Number [facility] Department [place] [address] * ECG 12 lead (02/22/2025 1:06 PM CDT) Pathologist [facility] Ventricular Rate EKG/Min 67 BPM [facility] Atrial Rate 67 BPM [facility] [place]-Interval (MSEC) 170 ms [facility] QRS-Interval (MSEC) 104 ms [facility] QT-Interval (MSEC) 424 ms [facility] QTc 448 ms [facility] P [place] -8 degrees [facility] R [place] 6 degrees [facility] T [place] 105 degrees [facility] Diagnosis Normal sinus rhythm inferior infarction, age unknown ST segment elevation in Inferior leads Consider ischemic etiology ST depression and T wave inversions in lateral leads Abnormal ECG Compared to previous tracing of 06/23/22, no significant change Confirmed by fellow Juju Garay ([id number]) on 02/23/2025 8:48:28 AM Confirmed by CLARICE GARCIA M.D ([id number]) on 02/23/2025 9:25:42 AM [facility] 02/22/2025 1:06 PM CDT 02/23/2025 9:25 AM CDT us Quyen Campa [employer] WORK[employer] ECG ORDERABLES Final Re sult Performing Organization Address City/[facility]/ZIP Co de Phone Number [facility] * US Arterial Duplex Lower Extremity Left Limited (02/15/2025 10:20 AM CDT) Anatomical Region Laterality Modality Vascular Left Ultrasound 02/15/2025 9:44 AM CDT Narrative 02/15/2025 2:19 PM CDT [facility] - Department of Vascular Surgery, Vascular Laboratory [address] [place] [id number] [place] Lower Extremity Arterial Duplex Report Patient Name: NICHOLAS HOUGH : 1965 Study Date: 02/15/2025 9:44:37 AM Gender: F Tech: RIVER Location: [facility] Provider: JUNG ARRIOLA Quality: Adequate Order Provider: JUNG ARRIOLA PROCEDURES: Arterial Report: Left Lower Extremity Arterial Duplex Exam. INDICATIONS: I70.212 Atherosclerosis of [place] arteries of extremities with intermittent claudication, left leg. MEASUREMENTS: Left Value Units Lt GUIDE PLANT Dst PSV 132 cm/s Lt Profunda Dst PSV 112 cm/s Lt Superficial Femoral Prx PSV 0 cm/s Lt Superficial Femoral Mid PSV 0 cm/s Lt Superficial Femoral Dst PSV 0 cm/s Lt Pop Prx PSV 38 cm/s Lt Post Tibial Mid PSV 10 cm/s Lt Ant Tibial Mid PSV 9 cm/s Lt Peroneal Mid PSV 7 cm/s Left Value Units FINDINGS: Performing Soda Worker: Antonia Wells RVT. Left Common Femoral: The left common femoral waveform is multiphasic. Left Profunda: The left profunda waveform is multiphasic. Left Proximal Superficial Femoral Artery: The left proximal femoral artery waveform is absent. Left Mid Superficial Femoral Artery: The left mid femoral artery waveform is absent. Left Distal Superficial Femoral Artery: The left distal femoral artery waveform is absent. Left Popliteal: The left popliteal waveform is monophasic. Left Posterior Tibial: The left posterior tibial waveform is monophasic. Left Anterior Tibial: The left anterior tibial waveform is monophasic. Left Peroneal: The left peroneal artery waveform is monophasic. Provider Notification: Results called on the above date to Jung Arriola MD. CONCLUSIONS: 1. No flow could be demonstrated in the left SFA stent which is consistent with a severe obstruction to occlusion. 2. See Ankle/ Brachial Index report. HISTORY: HTN, DM, HLD, PVD, CAD 2021 ANGIOGRAPHY - BILATERAL EXTREMITY GENERAL PRODUCTION WORKER ATHERECTOMY STENT(S) FEM-POP, UNILATERAL, FIRST VESSEL. PREVIOUS STUDIES: No previous studies for comparison. DISCLAIMER: The study images and the final report will be retained in the patient chart by the Vascular Laboratory for the legally required time period. This chart constitutes the legal record of any testing performed. ATTESTATION: I have reviewed and interpreted the pertinent images and measurements of this study. I attest to the conclusions in the final report that is provided above. Electronically Signed By: Kentrell Ruelas MD FACS 02/15/2025 2:19:10 PM CDT Procedure Note Kentrell Ruelas MD - 02/15/2025 [facility] - Department of Vascular Surgery,Vascular Laboratory [address] [place] [id number] [place] Lower Extremity Arterial Duplex Report Patient Name: NICHOLAS HOUGH : 1965 Study Date: 02/15/2025 9:44:37 AM Gender: F Tech: RIVER Location: [facility] Provider: JUNG ARRIOLA Quality: Adequate Order Provider: JUNG ARRIOLA PROCEDURES: Arterial Report: Left Lower Extremity Arterial Duplex Exam. INDICATIONS: I70.212 Atherosclerosis of [place] arteries of extremities withintermittent claudication, left leg. MEASUREMENTS: Left Value Units Lt GUIDE PLANT Dst PSV 132 cm/s Lt Profunda Dst PSV 112 cm/s Lt Superficial Femoral Prx PSV 0 cm/s Lt Superficial Femoral Mid PSV 0 cm/s Lt Superficial Femoral Dst PSV 0 cm/s Lt Pop Prx PSV 38 cm/s Lt Post Tibial Mid PSV 10 cm/s Lt Ant Tibial Mid PSV 9 cm/s Lt Peroneal Mid PSV 7 cm/s Left Value Units FINDINGS: Performing Soda Worker: Antonia Wells RVT. Left Common Femoral: The left common femoral waveform is multiphasic. Left Profunda: The left profunda waveform is multiphasic. Left Proximal Superficial Femoral Artery: The left proximal femoral artery waveform is absent. Left Mid Superficial Femoral Artery: The left mid femoral artery waveform is absent. Left Distal Superficial Femoral Artery: The left distal femoral artery waveform is absent. Left Popliteal: The left popliteal waveform is monophasic. Left Posterior Tibial: The left posterior tibial waveform is monophasic. Left Anterior Tibial: The left anterior tibial waveform is monophasic. Left Peroneal: The left peroneal artery waveform is monophasic. Provider Notification: Results called on the above date to Jung Arriola MD. CONCLUSIONS: 1. No flow could be demonstrated in the left SFA stent which is consistentwith a severe obstruction to occlusion. 2. See Ankle/ Brachial Index report. HISTORY: HTN, DM, HLD, PVD, CAD 2021 ANGIOGRAPHY - BILATERAL EXTREMITY GENERAL PRODUCTION WORKER ATHERECTOMY STENT(S) FEM-POP, UNILATERAL, FIRST VESSEL. PREVIOUS STUDIES: No previous studies for comparison. DISCLAIMER: The study images and the final report will be retained in the patientchart by the Vascular Laboratory for the legally required time period. This chartconstitutes the legal record of any testing performed. ATTESTATION: I have reviewed and interpreted the pertinent images and measurements ofthis study. I attest to the conclusions in the final report that is provided above. Electronically Signed By: Kentrell Ruelas MD [facility] 02/15/2025 2:19:10 PM CDT us Jung Arriola MD IMG US PROCEDURES Final Resul t * US Arterial Doppler Lower Extremity Bilateral (02/15/2025 10:20 AM CDT) Anatomical Region Laterality Modality Vascular Bilateral Ultrasound 02/15/2025 9:45 AM CDT Narrative 02/15/2025 2:07 PM CDT [facility] - Department of Vascular Surgery, Vascular Laboratory [address] [place] [address] Lower Extremity Arterial Doppler Report Patient Name: NICHOLAS HOUGH : 1965 Study Date: 02/15/2025 9:45:00 AM Gender: F Tech: Antonia Wells [facility] Location: [facility] Ref Provider: JUNG ARRIOLA Quality: Adequate Order Provider: JUNG ARRIOLA PROCEDURES: Arterial Report: Bilateral lower extremity arterial Doppler exam at rest. INDICATIONS: I70.213 Atherosclerosis of [place] arteries of extremities with intermittent claudication, bilateral legs. MEASUREMENTS: Right Value Units Left Value Units Rt Brachial Pressure 143 mmHg Lt Brachial Pressure 140 mmHg Rt GENERAL PRODUCTION WORKER Pressure 33 mmHg Lt GENERAL PRODUCTION WORKER Pressure 25 mmHg Rt DPA Pressure 22 mmHg Lt DPA Pressure 30 mmHg Rt 1st Digit Pressure <10 mmHg Lt 1st Digit Pressure IMM mmHg Rt PT ARNULFO Resting 0.23 Lt PT ARNULFO Resting 0.17 Rt AT ARNULFO Resting 0.15 Lt AT ARNULFO Resting 0.21 Rt Digit/Arm Index <14 Lt Digit/Arm Index IMM Right Value Units Left Value Units FINDINGS: Performing Soda Worker: Antonia Wells RVT. Right Common Femoral Artery Analysis: The common femoral artery waveform is multiphasic. Right Popliteal Artery Analysis: The popliteal waveform is monophasic. Right Posterior Tibial Artery Analysis: The posterior tibial waveform is monophasic. Right Anterior Tibial Artery Analysis: The anterior tibial waveform is monophasic. Right Digits: The right digit waveform is dampened. Left Common Femoral Artery Analysis: The common femoral artery waveform is multiphasic. Left Popliteal Artery Analysis: The popliteal waveform is monophasic. Left Posterior Tibial Artery Analysis: The posterior tibial waveform is monophasic. Left Anterior Tibial Artery Analysis: The anterior tibial waveform is monophasic. Left Digits: The left digit waveform is absent. Provider Notification: Results called on the above date to Jung Arriola MD. CONCLUSIONS: 1. The above listed Ankle/Brachial Indices are consistent with severe peripheral arterial disease bilaterally (for reference, ARNULFO <0.30 is consistent with tissue necrosis and poor wound healing potential). 2. Left toe pressure is immeasurable which may be consistent with vasospasm or peripheral arterial disease. 3. Right Digit/Arm Index is abnormal (for reference, abnormal WILMAN is <0.6). 4. There is evidence of arterial insufficiency bilaterally at the level of femoral-popliteal arteries and infrapopliteal arteries. HISTORY: HTN, PVD, DM, CAD 2021 ANGIOGRAPHY - BILATERAL EXTREMITY GENERAL PRODUCTION WORKER ATHERECTOMY STENT(S) FEM-POP, UNILATERAL, FIRST VESSEL. PREVIOUS STUDIES: No previous studies for comparison. DISCLAIMER: The study images and the final report will be retained in the patient chart by the Vascular Laboratory for the legally required time period. This chart constitutes the legal record of any testing performed. ATTESTATION: I have reviewed and interpreted the pertinent images and measurements of this study. I attest to the conclusions in the final report that is provided above. Electronically Signed By: Kentrell Ruelas MD FACS 02/15/2025 2:07:02 PM CDT Procedure Note Kentrell Ruelas MD - 02/15/2025 [facility] - Department of Vascular Surgery,Vascular Laboratory [address] [place] [address] Lower Extremity Arterial Doppler Report Patient Name: NICHOLAS HOUGH : 1965 Study Date: 02/15/2025 9:45:00 AM Gender: F Tech: Antonia Wells [place] Location: [facility] Provider: JUNG ARRIOLA Quality: Adequate Order Provider: JUNG ARRIOLA PROCEDURES: Arterial Report: Bilateral lower extremity arterial Doppler exam at rest. INDICATIONS: I70.213 Atherosclerosis of [place] arteries of extremities withintermittent claudication, bilateral legs. MEASUREMENTS: Right Value Units Left Value Units Rt Brachial Pressure 143 mmHg Lt Brachial Pressure 140 mmHg Rt GENERAL PRODUCTION WORKER Pressure 33 mmHg Lt GENERAL PRODUCTION WORKER Pressure 25 mmHg Rt DPA Pressure 22 mmHg Lt DPA Pressure 30 mmHg Rt 1st Digit Pressure <10 mmHg Lt 1st Digit Pressure IMM mmHg Rt PT ARNULFO Resting 0.23 Lt PT ARNULFO Resting 0.17 Rt AT ARNULFO Resting 0.15 Lt AT ARNULFO Resting 0.21 Rt Digit/Arm Index <14 Lt Digit/Arm Index IMM Right Value Units Left Value Units FINDINGS: Performing Soda Worker: Antonia Wells RVT. Right Common Femoral Artery Analysis: The common femoral artery waveform is multiphasic. Right Popliteal Artery Analysis: The popliteal waveform is monophasic. Right Posterior Tibial Artery Analysis: The posterior tibial waveform is monophasic. Right Anterior Tibial Artery Analysis: The anterior tibial waveform is monophasic. Right Digits: The right digit waveform is dampened. Left Common Femoral Artery Analysis: The common femoral artery waveform is multiphasic. Left Popliteal Artery Analysis: The popliteal waveform is monophasic. Left Posterior Tibial Artery Analysis: The posterior tibial waveform is monophasic. Left Anterior Tibial Artery Analysis: The anterior tibial waveform is monophasic. Left Digits: The left digit waveform is absent. Provider Notification: Results called on the above date to Jung Arriola MD. CONCLUSIONS: 1. The above listed Ankle/Brachial Indices are consistent with severeperipheral arterial disease bilaterally (for reference, ARNULFO <0.30 is consistent with tissuenecrosis and poor wound healing potential). 2. Left toe pressure is immeasurable which may be consistent withvasospasm or peripheral arterial disease. 3. Right Digit/Arm Index is abnormal (for reference, abnormal WILMAN is<0.6). 4. There is evidence of arterial insufficiency bilaterally at the level of femoral-popliteal arteries and infrapopliteal arteries. HISTORY: HTN, PVD, DM, CAD 2021 ANGIOGRAPHY - BILATERAL EXTREMITY GENERAL [employer]ODUCTION WORKER ATHERECTOMY STENT(S) FEM-POP, UNILATERAL, FIRST VESSEL. PREVIOUS STUDIES: No previous studies for comparison. DISCLAIMER: The study images and the final report will be retained in the patientchart by the Vascular Laboratory for the legally required time period. This chartconstitutes the legal record of any testing performed. ATTESTATION: I have reviewed and interpreted the pertinent images and measurements ofthis study. I attest to the conclusions in the final report that is provided above. Electronically Signed By: Kentrell Ruelas MD [facility] 02/15/2025 2:07:02 PM CDT Jung Arriola MD IMG US PROCEDURES Final Resul t * CTA Abdominal Aorta And Bilateral Iliofemoral Runoff (02/15/2025 8:35 AM CDT) Anatomical Region Laterality Modality Body Bilateral Computed Tomogra phy 02/15/2025 11:0 4 AM CDT Impressions 02/16/2025 12:29 PM CDT 1. Right lower extremity: Moderate inflow disease. Complete occlusion of a stent extending from the superficial femoral artery to the popliteal artery with distal reconstitution. 2 vessel runoff to the ankle via the anterior tibial and peroneal artery. 2. Left lower extremity: Moderate inflow disease. Occlusion of the stent extending from the superficial femoral artery to the popliteal artery with distal reconstitution. One-vessel runoff to the ankle via the anterior tibial artery with short segment of occlusion distally. 3. Asymmetric skin thickening of the right breast compared to the left. Recommend correlation with exam and dedicated breast imaging as indicated. 4. Thickening of the distal esophagus compatible with esophagitis. 5. Small right pleural effusion with partially obscured 6 mm pulmonary nodule. Recommend follow-up CT in 6 months to document stability/resolution. 6. 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 Dictated by: Terry Wu MD The radiology attending physician has personally reviewed this study, and had reviewed and/or edited this written report and agrees with it. Electronically signed by: Kim Saucedo M.D. Narrative 02/16/2025 12:29 PM CDT EXAMINATION: CT ANGIOGRAPHY OF THE ABDOMEN, PELVIS, AND LOWER EXTREMITIES WITH CONTRAST HISTORY: Claudication. TECHNIQUE: CT angiography of the abdomen, pelvis, and lower extremities was performed following the uneventful intravenous administration of 115 ml Optiray-350. Vascular 3D images were generated on a dedicated workstation and also reviewed. COMPARISON: None. FINDINGS: VASCULAR FINDINGS: Abdominal Aorta and Branches: Celiac axis: Mild stenosis distally. SMA: Mild stenosis at the origin. NADIA: no significant stenosis Right renal vessels: Severe stenosis of the origin Left renal vessels: Moderate stenosis of the origin Infrarenal aorta: Severely atherosclerosis. Mild stenosis distally. No aneurysm. Pelvic Vessels: R. Common iliac artery: Moderate stenosis R. External iliac artery: Mild stenosis R. Internal iliac artery: Largely occluded. L. Common iliac artery: Moderate stenosis L. External iliac artery: no significant stenosis L. Internal iliac artery: Severe stenosis at the origin and occluded distally. Right Lower Extremity: R. Common femoral artery: Mild stenosis R. Profunda femoris artery: Multifocal mild stenosis. R. Superficial femoral artery: Stented and occluded. R. Popliteal artery: Stented and occluded. There is the distal reconstitution via collaterals just below knee with severe stenosis. R. Anterior tibial artery: Severe stenosis versus short segment occlusion proximally. R. Tibioperoneal trunk: Moderate stenosis R. Posterior tibial artery: Diminutive and non-opacified distally. R. Peroneal artery: no significant stenosis. R. Dorsalis pedis artery: no significant stenosis R. Plantar artery: no significant stenosis. Opacified via peroneal branches. Left Lower Extremity: L. Common femoral artery: Mild to moderate stenosis L. Profunda femoris artery: Severe stenosis with multifocal moderate stenosis elsewhere. L. Superficial femoral artery: Occluded stent. L. Popliteal artery: Stented and occluded with distal reconstitution. L. Anterior tibial artery: Mild to moderate stenosis proximally. Short segment occlusion at the ankle. L. Tibioperoneal trunk: no significant stenosis L. Posterior tibial artery: Occluded in mid-calf. L. Peroneal artery: Occluded in mid-calf with thready reconstitution distally. L. Dorsalis pedis artery: Thready opacified. L. Plantar artery: Faintly opacified proximally. NON-VASCULAR FINDINGS: Small right pleural effusion and associated atelectasis. There is a pulmonary nodule measuring 6 mm in the right lower lung (series 6, image 16). Coronary artery stents. Thinning of the left ventricular apex,compatible with aneurysm and likely sequale of prior myocardial infarction. Small pericardial effusion. Distal esophageal wall thickening. Asymmetric thickening along the right breast. Normal liver surface morphology. No suspicious hepatic lesion. Adrenal glands and, pancreas, and gallbladder are normal. Normal duodenal sweep. Kidneys enhance symmetrically. No hydronephrosis. Normal angiographic appearance of the spleen. No free fluid or free air. Fibroid uterus. No suspicious adnexal mass. Urinary bladder with foci of gas. Colonic diverticulosis without diverticulitis. Appendix is normal. No suspicious osseous lesion. Mild lower abdominal wall edema and skin thickening. Procedure Note Kim Saucedo MD - 02/16/2025 EXAMINATION: CT ANGIOGRAPHY OF THE ABDOMEN, PELVIS, AND LOWER EXTREMITIES WITH CONTRAST HISTORY: Claudication. TECHNIQUE: CT angiography of the abdomen, pelvis, and lower extremities was performed following the uneventful intravenous administration of 115 ml Optiray-350. Vascular 3D images were generated on a dedicated workstation and also reviewed. COMPARISON: None. FINDINGS: VASCULAR FINDINGS: Abdominal Aorta and Branches: Celiac axis: Mild stenosis distally. SMA: Mild stenosis at the origin. NADIA: no significant stenosis Right renal vessels: Severe stenosis of the origin Left renal vessels: Moderate stenosis of the origin Infrarenal aorta: Severely atherosclerosis. Mild stenosis distally. No aneurysm. Pelvic Vessels: R. Common iliac artery: Moderate stenosis R. External iliac artery: Mild stenosis R. Internal iliac artery: Largely occluded. L. Common iliac artery: Moderate stenosis L. External iliac artery: no significant stenosis L. Internal iliac artery: Severe stenosis at the origin and occluded distally. Right Lower Extremity: R. Common femoral artery: Mild stenosis R. Profunda femoris artery: Multifocal mild stenosis. R. Superficial femoral artery: Stented and occluded. R. Popliteal artery: Stented and occluded. There is the distal reconstitution via collaterals just below knee with severe stenosis. R. Anterior tibial artery: Severe stenosis versus short segment occlusion proximally. R. Tibioperoneal trunk: Moderate stenosis R. Posterior tibial artery: Diminutive and non-opacified distally. R. Peroneal artery: no significant stenosis. R. Dorsalis pedis artery: no significant stenosis R. Plantar artery: no significant stenosis. Opacified via peroneal branches. Left Lower Extremity: L. Common femoral artery: Mild to moderate stenosis L. Profunda femoris artery: Severe stenosis with multifocal moderate stenosis elsewhere. L. Superficial femoral artery: Occluded stent. L. Popliteal artery: Stented and occluded with distal reconstitution. L. Anterior tibial artery: Mild to moderate stenosis proximally. Short segment occlusion at the ankle. L. Tibioperoneal trunk: no significant stenosis L. Posterior tibial artery: Occluded in mid-calf. L. Peroneal artery: Occluded in mid-calf with thready reconstitution distally. L. Dorsalis pedis artery: Thready opacified. L. Plantar artery: Faintly opacified proximally. NON-VASCULAR FINDINGS: Small right pleural effusion and associated atelectasis. There is a pulmonary nodule measuring 6 mm in the right lower lung (series 6, image 16). Coronary artery stents. Thinning of the left ventricular apex,compatible with aneurysm and likely sequale of prior myocardial infarction. Small pericardial effusion. Distal esophageal wall thickening. Asymmetric thickening along the right breast. Normal liver surface morphology. No suspicious hepatic lesion. Adrenal glands and, pancreas, and gallbladder are normal. Normal duodenal sweep. Kidneys enhance symmetrically. No hydronephrosis. Normal angiographic appearance of the spleen. No free fluid or free air. Fibroid uterus. No suspicious adnexal mass. Urinary bladder with foci of gas. Colonic diverticulosis without diverticulitis. Appendix is normal. No suspicious osseous lesion. Mild lower abdominal wall edema and skin thickening. IMPRESSION: 1. Right lower extremity: Moderate inflow disease. Complete occlusion of a stent extending from the superficial femoral artery to the popliteal artery with distal reconstitution. 2 vessel runoff to the ankle via the anterior tibial and peroneal artery. 2. Left lower extremity: Moderate inflow disease. Occlusion of the stent extending from the superficial femoral artery to the popliteal artery with distal reconstitution. One-vessel runoff to the ankle via the anterior tibial artery with short segment of occlusion distally. 3. Asymmetric skin thickening of the right breast compared to the left. Recommend correlation with exam and dedicated breast imaging as indicated. 4. Thickening of the distal esophagus compatible with esophagitis. 5. Small right pleural effusion with partially obscured 6 mm pulmonary nodule. Recommend follow-up CT in 6 months to document stability/resolution. 6. 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 Dictated by: Terry Wu MD The radiology attending physician has personally reviewed this study, and had reviewed and/or edited this written report and agrees with it. Electronically signed by: Kim Saucedo M.D. us Jung Arriola MD IMG CT PROCEDURES Final Resul t * (ABNORMAL) POCT creatinine (02/15/2025 8:16 AM CDT) Creatinine POC 1.4(H) 0.6 - 1.1 mg/dL Blood 02/15/2025 8:16 AM CDT 02/15/2025 8:16 AM CDT us Jung Arriola MD LAB POCT ORDERABLES - DEVICE Final Result [facility] Department [place] [address] from Last 3 Months Insurance [facility] MEDICARE ADVANTAGE [employer] [facility] MEDICARE ADVANTAGE [employer] Advance Directives For more information, please contact: [phone] * Full Code (Latest Code Status on File) Date Activated Date Inactivated Comments 02/27/2025 9:49 PM 03/03/2025 8:08 PM * Full Code Date Activated Date Inactivated Comments 06/23/2022 1:43 PM 06/23/2022 8:06 PM * Full Code Date Activated Date Inactivated Comments 03/08/2019 2:40 PM 03/09/2019 3:59 PM Care Teams Tape Keller Operator Relationship Specialty Start Date End Date No, Physician PCP - General 02/20/25
--- OUTSIDE RECORDS SUMMARY | 2025-03-21 10:53 | XMS_ITS | Encounter Summary ---
Author Organization [facility] [employer] , [facility] Address [address] [address] Phone Care Team Providers Care Retail Department Manager Name Role Phone Farhad Dolan MD Primary Care Provider [phone] Reason for Visit * Reason Comments Med Refill Encounter Details Date Type Department Care Team (Late st Contact Info) Description 02/22/2021 Refill [facility], [address] [place] [address] Giuseppe Lee DO [address] [facility] 1 [place] [address] Social History Tobacco Use Types [...] Care Team (Late st Contact Info) Description 03/28/2025 1:15 PM CDT Office Visit [facility], [facility] [address] [facility] 15 [place] [address] Giuseppe Lee DO [address] [facility] 1 [place] [address] documented as of this encounter Visit Diagnoses Not on filedocumented in this encounter Care Teams Retail Department Manager Relationship Specialty Start Date End Date Farhad Dolan MD [address] [place] [address] PCP - General Internal Medicine 10/28/22 documented as of this encounter
--- OUTSIDE RECORDS SUMMARY | 2025-03-21 10:53 | XMS_ITS | Encounter Summary ---
Author Organization [facility] , [facility] Address [address] [address] Phone Care Team Providers Care Copyright Manager Name Role Phone Farhad Dolan MD Primary Care Provider [phone] Reason for Visit * Reason Comments Med Refill Encounter Details Date Type Department Care Team (Late st Contact Info) Description 01/16/2024 Refill [facility], [facility] [address] [place] [address] 1 [place] [address] Giuseppe Lee DO [address] [facility] 1 [place] [address] Social History Tobacco Use Types [...] Description 03/28/2025 1:15 PM CDT Office Visit [facility], [facility] [address] [facility] 15 [place] [address] Giuseppe Lee DO [address] [facility] 1 [place] [address] documented as of this encounter Visit Diagnoses Not on filedocumented in this encounter Care Teams Copyright Manager Relationship Specialty Start Date End Date Farhad Dolan MD [address] [place] [address] PCP - General Internal Medicine 10/28/22 documented as of this encounter
--- OUTSIDE RECORDS SUMMARY | 2025-03-21 10:53 | XMS_ITS | Encounter Summary ---
Author Organization [facility] [employer] [facility] [employer] [facility] Address [address] [place] [address] Phone Care Team Providers Care Mid Level Net Developer Name Role Phone Farhad Dolan MD Primary Care Provider [phone] Encounter Details Date Type Department Care Team (Late st Contact Info) Description 08/02/2021 Office Communication [place] [facility] [address] [facility] 1 [place] [address] Giuseppe Lee DO 12[address] [facility] 1 [place] [address] Social History Tobacco Use Types [...] Description 03/28/2025 1:15 PM CDT Office [facility] [place] [facility] [address] [facility] [address] [place] [address] Giuseppe Lee DO [address] [place] [address] documented as of this encounter Visit Diagnoses Not on filedocumented in this encounter Care Teams Mid Level Net Developer Relationship Specialty Start Date End Date Farhad Dolan MD [address] [place] [address] PCP - General Internal Medicine 10/28/22 documented as of this encounter
--- OUTSIDE RECORDS SUMMARY | 2025-03-21 10:53 | XMS_ITS | Encounter Summary ---
Author Organization [facility] Address [address] [place] [address] Phone Care Team Providers Care Regulator Inspector Name Role Phone Farhad Dolan MD Primary Care Provider [phone] Reason for Visit * Reason Onset Date Comments Med Refill 05/10/2024 Encounter Details Date Type Department Care Team (Late st Contact Info) Description 05/10/2024 Refill [facility] [employer] [facility] [address] [address] Rachel Temple CMA [address] [place] [address] Social History Tobacco Use Types [...] Description 03/28/2025 1:15 PM CDT Office Visit [facility] [employer] [facility] [address] [facility] 15 [place] [address] Giuseppe Lee DO [address] [place] [address] documented as of this encounter Visit Diagnoses Not on filedocumented in this encounter Care Teams Regulator Inspector Relationship Specialty Start Date End Date Farhad Dolan MD [address] [place] [address] PCP - General Internal Medicine 10/28/22 documented as of this encounter
--- OUTSIDE RECORDS SUMMARY | 2025-03-21 10:53 | XMS_ITS ---
Author Organization [facility] Address [address] [place] [address] Care Team Providers Care Lumber Sorter Name Role Phone No, Physician Primary Care Provider [phone] Active Problems Problem Noted Date Diagnosed Date Fever 03/01/2025 Assessment & Plan (03/02/2025 3:34 PM CDT): Fever to 38.4 8/5. Responsive to IS. CXR with atelectasis, UA [...] (06/16/2022): Added automatically from request for surgery [id number] Type 2 diabetes mellitus wit h other circulatory complications 04/10/2021 Assessment & Plan (03/02/2025 3:52 PM CDT): A1c 7.7. on metformin and amaryl at home - hold home oral meds - Started low dose lantus and mealtime insulin while off amaryl d/t elevated BGs. Titrate as needed. Likely resume home regimen at CT and stop insulin. Heart failure, unspecified 06/06/2020 [...] -cont PRN albuterol - CXR obtained 02/28 2/2 fever, notable for atelectasis. Fever responsive to IS. - Consult RT for assistance with atelectasis. Stage 3 chronic kidney disease 04/16/2016 Assessment & Plan (02/27/2025 9:50 AM CDT): -daily BMP -avoid nephrotoxins Chronic myeloid leukemia in remission 05/31/2015 Assessment & Plan (02/27/2025 9:49 AM CDT): diagnosed in . Bosulif started December 2016. Follows with [facility] -cont home bosulif Essential (primary) hypertension 02/10/1985 Assessment & Plan (02/27/2025 9:50 AM CDT): See HF Current Treatment and Therapy Plans No current plan information found. Past Treatment and Therapy Plans No past plan information found. Lifetime Dose Tracking * Chemical Lifetime Dose Automatic Entry Manual Entr y Fluoro Time 24.3 minutes 0 minutes 24.3 minutes Air kerma at the reference point (Ka,r) 2,287 mGy 0 mGy 2,287 mGy DLP 1,098 mGycm 1,098 mGycm 0 mGycm
[2025-03-21 10:54] LABS: Hematocrit 39.8 % (37.0-47.0); Hemoglobin 13.1 g/dL (12.0-15.0); Immature Granulocyte Percent A 0.4 % (0-0.5); Lymphocytes Absolute Auto 1.11 K/mm3 (0.9-3.2); Mean Corpuscular HGB Conc 32.9 g/dl (32-36); Mean Corpuscular Hemoglobin 30.7 pg (26-34); Mean Corpuscular Volume 93.2 fl (80-100); Nucleated Red Blood Cells Absolute Auto 0.000 K/mm3 (0.0-0.012); Nucleated Red Blood Cells Perc 0.0 % (0.0-0.2); Platelet Count Result 352 k/mm3 (150-375); Red Blood Count 4.27 M/mm3 (4.2-5.4); White Blood Count 11.6 K/mm3 (4.5-10.0)
--- OUTSIDE RECORDS SUMMARY | 2025-03-21 10:54 | XMS_ITS | Clinical Summary ---
Author Organization [facility] Address [address] [address] Care Team Providers Care Him Analyst Name Role Phone Farhad Doaln MD Primary Care Provider [phone] Medications insulin lispro (HumaLOG) 100 UNIT/ML injection Inject 4 Units under the skin 1 (one) time daily 30-60 minutes before a meal 12 mL 1 1 Active pregabalin (LYRICA) 75 MG capsule Take 1 capsule (75 mg total) by mouth every night 90 capsule 1 1 Active insulin glargine (LANTUS) 100 UNIT/ML injection Inject 8 Units under the skin every night 10 mL 1 2 Active amoxicillin (AMOXIL) 875 MG tablet Take 1 tablet (875 mg total) by mouth in the morning and 1 tablet (875 mg total) in the evening. 28 tablet 2 Active minocycline (MINOCIN,DYNAC IN) 100 MG capsule Take 1 capsule (100 mg total) by mouth in the morning and 1 capsule (100 mg total) in the evening. 28 capsule 2 Active insulin degludec (TRESIBA FLEX TOUCH) 100 UNIT/ML injection Inject 25 Units under the skin every night 10 mL 1 2 Active Tresiba 100 UNIT/ML solution INJECT 10 UNITS UNDER THE SKIN EVERY NIGHT AT BEDTIME 10 mL 1 2 Active Tresiba 100 UNIT/ML solution INJECT 10 UNITS UNDER THE SKIN EVERY NIGHT AT BEDTIME 10 mL 1 2 Active magnesium oxide (MAG-OX) 400 MG tablet Take 1 tablet (400 mg total) by mouth in the morning and 1 tablet (400 mg total) in the evening. 180 tablet 1 3 Active amoxicillin-cl avulanate (AUGMENTIN) 875-125 MG per tablet Take 1 tablet by mouth in the morning and 1 tablet in the evening. 42 tablet 4 Active ciprofloxacin (CIPRO) 500 MG tablet Take 1 tablet (500 mg total) by mouth 1 (one) time each day 5 tablet 4 Active gabapentin (NEURONTIN) 100 MG capsule Take 1 capsule (100 mg total) by mouth 1 (one) time each day 90 capsule 1 4 Active glimepiride (AMARYL) 4 MG tablet TAKE 1 TABLET(4 MG) BY MOUTH IN THE MORNING AND IN THE EVENING 180 tablet 1 4 Active nitrofurantoin (MACRODANTIN) 100 MG capsule Take 1 capsule (100 mg total) by mouth in the morning and 1 capsule (100 mg total) in the evening. 10 capsule 4 Active famotidine (PEPCID) 40 MG tablet TAKE 1 TABLET(40 MG) BY MOUTH 1 TIME EACH DAY 90 tablet 1 5 Active telmisartan (MICARDIS) 40 MG tablet TAKE 1 TABLET(40 MG) BY MOUTH AT BEDTIME 90 tablet 1 5 Active gabapentin (NEURONTIN) 300 MG capsule TAKE 1 CAPSULE BY MOUTH IN THE MORNING, 1 CAPSULE AT NOON, 1 CAPSULE IN THE EVENING AND 1 CAPSULE BEFORE BEDTIME 120 capsule 1 5 Active bumetanide (BUMEX) 1 MG tablet TAKE 1 AND 1/2 TABLETS(1.5 MG) BY MOUTH 1 TIME EACH DAY IN THE MORNING 135 tablet 1 5 Active bumetanide (BUMEX) 1 MG tablet Take 1.5 tablets (1.5 mg total) by mouth 1 (one) time each day in the morning 135 tablet 1 5 02/29/20 25 Discontinued Active Problems Problem Noted Date Diagnosed Date Essential hypertension 03/02/2025 Encounters Date Type Department Care Team Description 03/02/2025 Orders Only [facility], [address] [address] Minnie Perdomo Essential hypertension (Primary Dx) 02/26/2025 Refill [facility], [address] [address] Giuseppe Lee, 01/21/2025 Refill [facility], [address] [address] Giuseppe Lee, 01/14/2025 Refill [facility], [address] [address] Giuseppe Lee, 12/23/2024 Documentation Only [address] [address] Giuseppe Lee DO from Last 3 Months [...] Sign Reading Time Taken Comments Blood Pressure 110/70 10/25/2024 1:56 PM CDT Pulse 68 10/25/2024 1:56 PM CDT Temperature 36.7 C (98 F) 10/25/2024 1:56 PM CDT Respiratory Rate 18 10/25/2024 1:56 PM CDT Oxygen Saturation 99% 10/25/2024 1:56 PM CDT Inhaled Oxygen Concentration - - Weight 91.4 kg (201 lb 8 oz) 10/25/2024 1:56 PM CDT Height 170.2 cm (5' 7) 03/25/2022 12:57 PM CDT Body Mass Index 31.56 03/25/2022 12:57 PM CDT Plan of Treatment Upcoming Encounters Date Type Department Care Team (Late st Contact Info) Description 03/28/2025 1:15 PM CDT Office Visit [facility], [facility] [address] [facility] 15 [place] [address] Giuseppe Lee DO [address] [place] [address] Health Maintenance Due Date Last Done Comments Breast Cancer Screening 1965 Pneumococcal Vaccine: 50+ Ye ars (1 of 2 - PCV) 1983 Colorectal Cancer Screening: Annual FOBT 2013 Colorectal Cancer Screening: Colonoscopy 2013 Colorectal Cancer Screening: Sigmoidoscopy 2013 Diabetes: Ophthalmology Exam 12/20/2020 Diabetes: Pedal Pulse Checked 12/20/2020 Diabetes: Sensory Foot Exam 12/20/2020 Diabetes: Visual Foot Exam 12/20/2020 Influenza Vaccine (#1) 2025 Diabetes: Hemoglobin A1C 05/25/2025 02/22/2025 Hepatitis B Vaccine Aged Out No longe r eligible based on patient's age to complete this topic Insurance Medicare Care Teams Him Analyst Relationship Specialty Start Date End Date Farhad Dolan MD [address] [place] [address] PCP - General Internal Medicine 10/28/22
--- OUTSIDE RECORDS SUMMARY | 2025-03-21 10:54 | XMS_ITS | Clinical Summary ---
Author Organization [facility] Address [address] [place] [address] Care Team Providers Care Sales Office Administrator Name Role Phone [facility], External Provider Primary Care Provider Celia vailable [...] Take 10 mg by mouth daily. Active Cholecalciferol, Vitamin D3, 2,000 unit Capsule Take 2,000 Units by mouth daily . Active cyanocobalamin (VITAMIN B-12) 500 mcg tablet Take 1,000 mcg by mouth daily. Active bumetanide (BUMEX) 1 mg tablet 1 mg daily. 1 8 Active PROAIR HFA 90 mcg/actuation inhaler INL 2 PFS PO BID prn 2 8 Active metFORMIN (GLUCOPHAGE) 1,000 mg tablet TK 1 T PO BID. 1 9 Active gabapentin (NEURONTIN) 100 mg capsule Take 300 mg by mouth 3 times daily. 0 Active cholecalciferol, vitamin D3, (CHOLECALCIFEROL , VITD3,, BULK,) 100,000 unit/gram Powder Take 5,000 Units by mouth. Active vit B12/folic/B6 phos/B6/betn (COBALAMINE COMBINATIONS ORAL) Take 1,000 mcg by mouth. Active traMADoL (ULTRAM) 50 mg tabletIndication s:CML in remission (CMS/HCC) TAKE 1 TABLET BY MOUTH EVERY 6 HOURS NEEDED FOR PAIN 90 Tablet 2 0 Active telmisartan (MICARDIS) 20 mg Tablet TK 1 T PO HS 0 Active nitroglycerin (NITROSTAT) 0.3 mg Tablet, Sublingual Place 0.3 mg under tongue. Active famotidine (PEPCID) 40 mg tablet TK 1 T PO D 0 Active ondansetron (ZOFRAN) 4 mg TabletIndication s:CML in remission (CMS/HCC) TAKE 1 TABLET BY MOUTH EVERY 8 HOURS NEEDED FOR NAUSEA OR VOMITING 30 Tablet 1 Active alirocumab (Praluent Pen) 150 mg/mL Pen Injector Praluent Pen 150 mg/mL subcutaneous pen injector 2 Active glimepiride (AMARYL) 4 mg tablet glimepiride 4 mg tablet 2 Active icosapent ethyL (Vascepa) 1 gram Capsule Take by mouth. 1 Active rivaroxaban (Xarelto) 2.5 mg Tablet Xarelto 2.5 mg tablet 1 Active pregabalin (Lyrica) 75 mg Capsule Take 1 Capsule (75 mg) by mouth every 12 hours. 60 Capsule 3 Active bosutinib (Bosulif) 100 mg tabletIndication s:CML (chronic myelocytic leukemia) ([facility]) TAKE 3 TABLETS BY MOUTH EVERY DAY 90 Tablet 6 5 Active Active Problems Problem Noted Date Diagnosed Date COPD (chronic obstructive pulmonary disease) 03/2020 CML in remission 09/15/2016 Chronic renal insufficiency, stage III (moderate ) 09/15/2016 Type 2 diabetes mellitus without complication Atherosclerosis of [place] ronary artery without angina pectoris 09/15/2016 Encounters Date Type Department Care Team Description 03/14/2025 External Device Data [facility] Provider, Abstract 03/01/2025 External Device Data [place] Provider, Abstract 02/28/2025 External Device Data [place] Provider, Abstract 02/08/2025 External Device Data [place] Provider, Abstract 02/08/2025 External Device Data [place] Provider, Abstract 01/10/2025 External Device Data [facility] [place] Provider, Abstract from Last 3 Months Family History Medical History Relation Name Comments Diabetes Father Heart Disease Father Relation Name Status Comments Brother Alive Father Mother Other Sister Alive Social History Tobacco Use Types Packs/Day Years Used Date Smoking Tobacco: Former Cigarettes 2 26 1 981 - 2007 Tobacco Cessation:Counseling Given: Not Answered Alcohol Use Standard Drinks/Week Comments No 0 (1 standard drink = 0.6 oz pur e alcohol) Comments No Sex and Gender Information Value Date Recorded Sex Assigned at Not on file Legal Sex Female 3:28 PM ENGINEER SERGEANT Gender Identity Not on file Sexual Orientation [...] P M CDT Height 170.2 cm (5' 7) 01/14/2022 1:30 PM CDT Body Mass Index 31.04 01/14/2022 1:30 PM CDT Plan of Treatment Upcoming Encounters Date Type Department Care Team (Late st Contact Info) Description 04/10/2025 2:45 PM CDT Office Visit [facility] On[facility] and H[facility] - [facility] [address] [facility] [address] [place] [address] Zelalem Shah MD [address] [facility] [address] [place] [address] Health Maintenance Due Date Last Done Comments DIABETES ANNUAL FOOT EXAM 1982 DIABETES MICROALBUMIN ANNUAL SCREEN 1982 LDL CHOLESTEROL ANNUAL 1982 DTAP/TDAP/TD VACCINES (1 - Tdap) 1983 ZOSTER VACCINE (1 of 2) 1983 HPV/Cotest (21-29) 1985 CERVICAL CANCER SCREENING 1994 HPV/Cotest (30-65) 1994 PAP SMEAR 1994 BREAST CANCER SCREENING 2004 COLORECTAL SCREENING 2009 Colorectal Cancer Screening 2009 FIT-DNA Q 3 years 2009 FIT/FOBT Q 1 year 2009 Flex Sig/CT Colonography Q 5 years 2009 DIABETES ANNUAL RETINAL EXAM 12/31/2016 01/01/2016, 05/03/2015 DIABETES HBA1C Q 6 MONTHS 04/25/20212020, 09/18/2020, 03/27/2020, Additional history exists RSV VACCINE (60+ or ) (1 - Risk 60-74 years 1-dose series) 2024 INFLUENZA VACCINE (#1) 2025 HEPATITIS B VACCINES Aged Out No long er eligible based on patient's age to complete this topic Insurance Care Teams Sales Office Administrator Relationship Specialty Start Date End Date [facility], External Provider PCP - General 09/01/18
--- OUTSIDE RECORDS SUMMARY | 2025-03-21 10:54 | XMS_ITS | Encounter Summary ---
Author Organization [facility] 1bib [facility] Address [address] [place] [address] Phone Care Team Providers Care Commercial Housekeeper Name Role Phone Farhad Dolan MD Primary Care Provider [phone] Encounter Details Date Type Department Care Team (Late st Contact Info) Description 05/08/2021 Office Communication [place] [employer] [facility] [address] [place] [address] Giuseppe Lee DO [address] [address] Social History Tobacco Use Types [...] Description 03/28/2025 1:15 PM CDT Office Visit [facility], [facility] [address] [facility] [address] [place] [address] Giuseppe Lee, [address] [facility] 1 [place] [address] documented as of this encounter Visit Diagnoses Not on filedocumented in this encounter Care Teams Commercial Housekeeper Relationship Specialty Start Date End Date Farhad Dolan MD [address] [place] [address] PCP - General Internal Medicine 10/28/22 documented as of this encounter
--- OUTSIDE RECORDS SUMMARY | 2025-03-21 10:54 | XMS_ITS | Clinical Summary ---
Author Organization [facility] Address [address] [place] [address] Care Team Providers Care Structural Steel Worker Helper Name Role Phone Unavailable Primary Care Provider Unavailabl e Source Comments [facility],non-owned Affiliates and Associated Physician Practices is amultiple site organization consisting of ambulatory clinics and hospital sitesin [place], [place], [place] and [place]. This disclosure is being madepursuant to the Care Everywhere program and may not contain all information available regarding this patient. Last updated 18.[facility] [employer] Allergies Active Allergy Reactions Criticality Noted Date Comments Diphenoxylate-Atropine Rash Medium 05/06/2017 Medications * Be aware that medications may not be up to date on this document. Alwaysverify current medications with the patient. bosutinib (BOSULIF) 100 MG tablet Take 500 mg by mouth 12/17/19 17 Active bumetanide (BUMEX) 2 MG tablet Take 2 mg by mouth Active carvedilol (COREG) 6.25 MG tablet Take 6.25 mg by mouth Active VITAMIN D, CHOLECALCIFEROL, PO Take 5,000 Units by mouth Active COBALAMINE COMBINATIONS PO Take 1,000 mcg by mouth Active ondansetron (ZOFRAN) 4 MG tablet Take 4 mg by mouth every 8 hours 01/08/20 17 Active prasugrel (EFFIENT) 10 MG tablet Take 10 mg by mouth Active simvastatin (ZOCOR) 80 MG tablet Take 80 mg by mouth Active spironolactone (ALDACTONE) 25 MG tablet Take 25 mg by mouth Active traMADol (ULTRAM) 50 MG tablet Take 100 mg by mouth every 6 hours Active olopatadine (PATADAY) 0.2 % ophthalmic solutionIndication s:Allergic Conjunctivitis Instill 1 drop into both eyes once daily Reasons: Allergic Conjunctivitis 2.5 mL 05/13/20 17 Active Active Problems Problem Noted Date Diagnosed Date Atherosclerosis of [place] co ronary artery without angina pectoris 09/15/2016 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 Chronic renal insufficiency, stage III (moderate ) 09/15/2016 Type 2 diabetes mellitus without complication Social History Tobacco Use Types Packs/Day Years Used Date Smoking Tobacco: Former Cigarettes Smokeless Tobacco: Never Comments No Sex and Gender Information Value Date Recorded Sex Assigned at Not on file Legal 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
[2025-03-21 12:03] LABS: Alanine Aminotransferase 12 U/L (6-35); Albumin Level 4.1 g/dL (3.5-5.1); Alkaline Phosphatase 89 U/L (38-126); Anion Gap 10 mmol/L (4-12); Aspartate Amino Transferase 19 U/L (14-36); Bilirubin,Total 0.5 mg/dL (0.2-1.3); Blood Urea Nitrogen 26 mg/dL (7-17); Calcium 9.4 mg/dL (8.4-10.2); Carbon Dioxide 24 mmol/L (22-30); Chloride 102 mmol/L (98-107); Estimated Glomerular Filt Rate 42; Glucose 208 mg/dL (65-110); Magnesium 1.7 mg/dL (1.6-2.3); Potassium 4.7 mmol/L (3.4-5.0); Sodium 136 mmol/L (137-145); Total Protein 7.9 g/dL (6.3-8.2)
[2025-03-21 12:04] LABS: Iron 55 ug/dL (37-170)
[2025-03-21 12:14] LABS: Percent Iron Saturation 14 % (20-50)
[2025-03-21 12:22] LABS: Hemoglobin A1C 7.0 % (<5.7)
[2025-03-21 12:45] LABS: Ferritin 56.60 ng/mL (11.1-264)
[2025-03-22 07:09] LABS: eGFR 33 (>59)
== END 2025-03-21 10:24 | disposition home or self-care (01) ==
LOC: ANHLAB 10:25
PROVIDERS: PCP Physician Assistant; Visit Provider Internal Medicine Hematology & Oncology
DX: C92.10 Chronic myeloid leukemia, BCR/ABL-positive, not having achieved remission (principal); I12.9 Hypertensive chronic kidney disease with stage 1 through stage 4 chronic kidney disease, or unspecified chronic kidney disease; E11.22 Type 2 diabetes mellitus with diabetic chronic kidney disease; E11.43 Type 2 diabetes mellitus with diabetic autonomic (poly)neuropathy; N18.32 Chronic kidney disease, stage 3b; R80.1 Persistent proteinuria, unspecified; I73.9 Peripheral vascular disease, unspecified; I25.84 Coronary atherosclerosis due to calcified coronary lesion; E78.00 Pure hypercholesterolemia, unspecified; K21.9 Gastro-esophageal reflux disease without esophagitis; E21.1 Secondary hyperparathyroidism, not elsewhere classified
CPT/HCPCS: 36415; 80053; 80069; 81206; 81207; 82610; 82728; 83036; 83540; 83550; 83735; 85025

== ENCOUNTER 2025-05-08 10:44 | Outpatient (CLI) | payer MEDICARE, SELFPAY ==
[2025-05-08 11:03] LABS: Hematocrit 40.4 % (37.0-47.0); Hemoglobin 13.0 g/dL (12.0-15.0); Mean Corpuscular HGB Conc 32.2 g/dl (32-36); Mean Corpuscular Hemoglobin 30.3 pg (26-34); Mean Corpuscular Volume 94.2 fl (80-100); Platelet Count Result 287 k/mm3 (150-375); Red Blood Count 4.29 M/mm3 (4.2-5.4); White Blood Count 8.9 K/mm3 (4.5-10.0)
[2025-05-08 11:34] LABS: INR 1.0; Prothrombin Time 13.6 Seconds (11.1-14.7)
[2025-05-08 11:35] LABS: Anion Gap 10 mmol/L (4-12); Blood Urea Nitrogen 22 mg/dL (7-17); Calcium 9.2 mg/dL (8.4-10.2); Carbon Dioxide 24 mmol/L (22-30); Chloride 104 mmol/L (98-107); Estimated Glomerular Filt Rate 43; Glucose 116 mg/dL (65-110); Potassium 4.7 mmol/L (3.4-5.0); Sodium 138 mmol/L (137-145)
--- OUTSIDE RECORDS SUMMARY | 2025-05-08 11:55 | XMS_ITS | Encounter Summary ---
Author Organization [facility] [facility] [employer] [facility] Address [address] [place] [address] Phone Care Team Providers Care Word Processing Specialist Name Role Phone Farhad Dolan MD Primary Care Provider [phone] Encounter Details Date Type Department Care Team (Late st Contact Info) Description 08/02/2021 Office Communication [facility] [address] [facility] 1 [place] [address] Giuseppe Lee DO [address] [facility] 1 [place] [address] Social History Tobacco Use Types [...] Care Team (Late st Contact Info) Description 05/30/2025 4:00 PM SCADA TECHNICIAN Office Visit [facility] [address] [facility] [address] [place] [address] Giuseppe Lee, [address] [place] [address] documented as of this encounter Visit Diagnoses Not on filedocumented in this encounter Care Teams Word Processing Specialist Relationship Specialty Start Date End Date Farhad Dolan MD [address] [place] [address] PCP - General Internal Medicine 10/28/22 documented as of this encounter
--- OUTSIDE RECORDS SUMMARY | 2025-05-08 11:55 | XMS_ITS ---
Author Organization [facility] Address [address] [place] [address] Care Team Providers Care Strategic Consultant Name Role Phone No, Physician Primary Care Provider [phone] Active Problems Problem Noted Date Diagnosed Date [...] (06/16/2022): Added automatically from request for surgery [id number] Type 2 diabetes mellitus wit h other circulatory complications 04/10/2021 Assessment & Plan (03/02/2025 3:52 PM CDT): A1c 7.7. on metformin and amaryl at home - hold home oral meds - Started low dose lantus and mealtime insulin while off amaryl d/t elevated BGs. Titrate as needed. Likely resume home regimen at NH and stop insulin. Heart failure, unspecified 06/06/2020 [...]
--- OUTSIDE RECORDS SUMMARY | 2025-05-08 11:55 | XMS_ITS | Encounter Summary ---
Author Organization [employer] , [facility] Address [address] [facility] [place] [address] Phone Care Team Providers Care Hot Header Operator Name Role Phone Farhad Dolan MD Primary Care Provider [phone] Reason for Visit * Reason Comments Med Refill Encounter Details Date Type Department Care Team (Late st Contact Info) Description 01/16/2024 Refill [place] [facility], [address] [place] [address] Giuseppe Lee DO [address] [facility] 1 [place] [address] Social History Tobacco Use Types [...] Encounters Date Type Department Care Team (Late Contact Info) Description 05/30/2025 4:00 PM SUPERVISOR FORMING DEPARTMENT Office Visit [place] [facility], [facility] [address] [facility] 15 [place] [address] Giuseppe Lee DO [address] [facility] 1 [place] [address] documented as of this encounter Visit Diagnoses Not on filedocumented in this encounter Care Teams Hot Header Operator Relationship Specialty Start Date End Date Farhad Dolan MD [address] [place] [address] PCP - General Internal Medicine 10/28/22 documented as of this encounter
--- OUTSIDE RECORDS SUMMARY | 2025-05-08 11:55 | XMS_ITS | Encounter Summary ---
Author Organization [facility] [employer] [facility] Address [address] [place] [address] Phone Care Team Providers Care Mental Health Aide Name Role Phone Farhad Dolan MD Primary Care Provider [phone] Reason for Visit * Reason Onset Date Comments Med Refill 05/10/2024 Encounter Details Date Type Department Care Team (Late st Contact Info) Description 05/10/2024 Refill [place] [facility] [address] [address] Rachel Temple CMA [address] [place] [address] Social History Tobacco Use Types [...] st Contact Info) Description 05/30/2025 4:00 PM GAUGE MAKER Office Visit [place] [facility] [employer] [place] [facility] [address] [address] Giuseppe Lee DO [address] [place] [address] documented as of this encounter Visit Diagnoses Not on filedocumented in this encounter Care Teams Mental Health Aide Relationship Specialty Start Date End Date Farhad Dolan MD [address] [place] [address] PCP - General Internal Medicine 10/28/22 documented as of this encounter
--- OUTSIDE RECORDS SUMMARY | 2025-05-08 11:55 | XMS_ITS | Encounter Summary ---
Author Organization [employer] , [facility] Address [address] [facility] [place] [address] Phone Care Team Providers Care Plant Maintenance Mechanic Name Role Phone Farhad Dolan MD Primary Care Provider [phone] Reason for Visit * Reason Comments Med Refill Encounter Details Date Type Department Care Team (Late st Contact Info) Description 02/22/2021 Refill [facility], [address] [place] [address] Giuseppe Lee DO [address] [facility] 1 [place] [address] Social History Tobacco Use Types [...] (Late Contact Info) Description 05/30/2025 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
--- OUTSIDE RECORDS SUMMARY | 2025-05-08 11:56 | XMS_ITS | Clinical Summary ---
Author Organization [facility] Address [address] [address] Care Team Providers Care Deputy Clerk Of Court Name Role Phone Farhad Dolan MD Primary Care Provider [phone] Medications insulin lispro (HumaLOG) 100 UNIT/ML injection [...] the evening. 28 tablet 2 Active minocycline (MINOCIN,DYNACIN) 100 MG capsule Take 1 capsule (100 [...] the evening. 180 tablet 1 3 Active amoxicillin-clavu lanate (AUGMENTIN) 875-125 MG per tablet Take 1 [...] AT BEDTIME 90 tablet 1 5 Active bumetanide (BUMEX) 1 MG tablet TAKE 1 AND 1/2 TABLETS(1.5 MG) BY MOUTH 1 TIME EACH DAY IN THE MORNING 135 tablet 1 5 Active venlafaxine (EFFEXOR) 37.5 MG tablet Take 1 tablet (37.5 mg total) by mouth 1 (one) time each day 90 tablet 1 5 Active albuterol HFA (PROVENTIL HFA;VENTOLIN HFA) 108 (90 Base) MCG/ACT inhaler INHALE 1 PUFF INTO LUNGS EVERY 6 HOURS NEEDED COUGH 8.5 g 1 5 Active gabapentin (NEURONTIN) 300 MG capsule TAKE 1 CAPSULE BY MOUTH IN THE MORNING, 1 CAPSULE AT NOON, 1 CAPSULE IN THE EVENING AND 1 CAPSULE BEFORE BEDTIME 120 capsule 1 5 Active betamethasone dipropionate (DIPROLENE) 0.05 % ointment APPLY TOPICALLY THREE TIMES DAILY 30 g 3 10/09/202 5 Active Active Problems Problem Noted Date Diagnosed Date Essential hypertension 03/02/2025 Encounters Date Type Department Care Team Description 05/04/[address] [place] [address] Giuseppe Lee DO 04/05/[address] [address] Giuseppe Lee DO 03/28/2025 1:15 PM CDT Office Visit [facility] [address] [address] Giuseppe Lee DO Stage 3b [...] specified; Gastroesophageal reflux disease; Secondary hyperparathyroidism (HCC) 03/28/[address] [facility] [address] [address] Giuseppe Lee DO 03/28/[address] [facility] [address] [address] Rachel Temple CMA 03/02/2025 Orders Only [address] [address] Minnie Perdomo Essential hypertension (Primary Dx) 02/26/[address] 1 [place] [address] Giuseppe Lee DO from Last 3 Months [...] Sign Reading Time Taken Comments Blood Pressure 108/60 03/28/2025 1:33 PM CDT Pulse 68 03/28/2025 1:33 PM CDT Temperature 36.7 C (98 F) 03/28/2025 1:33 PM CDT Respiratory Rate 18 03/28/2025 1:33 PM CDT Oxygen Saturation 97% 03/28/2025 1:33 PM CDT Inhaled Oxygen Concentration - - Weight 86.6 kg (191 lb) 03/28/2025 1:33 PM CDT Height 170.2 cm (5' 7) 03/25/2022 12:57 PM CDT Body Mass Index 29.91 03/25/2022 12:57 PM CDT Plan of Treatment Upcoming Encounters Date Type Department Care Team (Late st Contact Info) Description 05/30/2025 4:00 PM FINANCIAL SERVICES INTERNSHIP Office Visit [place] [facility] [facility], [facility] [address] [facility] 15 [place] [address] Giuseppe Lee DO 12[address] [facility] 1 [place] [address] Health Maintenance Due Date Last [...] patient's age to complete this topic Insurance [facility] Medicare Care Teams Deputy Clerk Of Court Relationship Specialty Start Date End Date Farhad Dolan MD [address] [place] [address] PCP - General Internal Medicine 10/28/22
--- OUTSIDE RECORDS SUMMARY | 2025-05-08 11:56 | XMS_ITS | Clinical Summary ---
Author Organization [facility] Address [address] [place] [address] Care Team Providers Care Roustabout Pusher Name Role Phone No, Physician Primary Care Provider [phone] Allergies Active Allergy Reactions Criticality Noted Date Comments Atenolol Shortness of breath High 10/27/2012 Atropine Rash,Other (See comments) Medium 01/14/2022 Diphenoxylate-Atropine Swelling,Redness Medium 019 Dulaglutide Palpitations,Rash High 04/25/2020 Empagliflozin Other (See comments),Rash High 08/10/2019 Infection in groin area Ezetimibe Muscle pain High 02/25/2021 Jmtbmnd-Bqw-Mvt Reductase Inhibitors Other (See comments),Nausea & Vomiting Low 06/17/2022 Mixed with cancer medication makes sick Medications ondansetron (ZOFRAN) 4 mg tablet Take 1 tablet (4 mg total) by mouth every 8 (eight) hours as needed for nausea Active bosutinib 100 mg capsuleIndicatio ns:300 mg ordered. is taking 100 mg daily, states unable to tolerate full dose Take 300 mg by mouth every morning Take with food. Swallow whole. Do not crush or cut. Do not touch or handle crushed or broken tablets. Active bumetanide (BUMEX) 1 mg tabletIndication s:Edema,hyperten cooper Take 1.5 tablets (1.5 mg total) by mouth every morning Active carvediloL (COREG) 12.5 mg tabletIndication s:hypertension Take 1 tablet (12.5 mg total) by mouth 2 (two) times a day Active cholecalciferol (VITAMIN D-3) 2,000 unit tablet Take 1 tablet (2,000 Units total) by mouth every morning Active cyanocobalamin (Vitamin B-12) 1,000 mcg tabletIndication s:Prevention of Vitamin B12 Deficiency Take 0.5 tablets (500 mcg total) by mouth every morning Active albuterol HFA (PROVENTIL HFA,VENTOLIN HFA,PROAIR HFA) 90 mcg/actuation inhaler Inhale 2 puffs every 8 (eight) hours as needed for wheezing or shortness of breath Active nitroglycerin (NITROSTAT) 0.3 mg SL tabletIndication s:Chest Pain Place 1 tablet (0.3 mg total) under the tongue every 5 (five) minutes as needed for chest pain Active betamethasone, augmented, (DIPROLENE AF) 0.05 % cream Apply 1 application (deactivated) topically daily Legs and hands Active glimepiride (AMARYL) 4 mg tabletIndication s:type 2 diabetes mellitus Take 1 tablet (4 mg total) by mouth every morning 2 Active gabapentin (NEURONTIN) 300 mg capsuleIndicatio ns:Neuropathic Pain Take 1 capsule (300 mg total) by mouth 4 (four) times a day 2 2 Active famotidine (PEPCID) 40 mg tabletIndication s:Dyspepsia,estuardo roesophageal reflux disease Take 1 tablet (40 mg total) by mouth daily as needed for indigestion or heartburn 2 Active diphenhydrAMINE (BENADRYL) 25 mg capsule Take 1 tablet/capsule (25 mg total) by mouth nightly For allergies Active Eliquis 5 mg tabletIndication s:h/o cardiac stent and mi Take 1 tablet (5 mg total) by mouth 2 (two) times a day Active blood sugar diagnostic (CONTOUR NEXT TEST STRIPS MISC) daily Active melatonin 5 mg tablet Take 1 tablet (5 mg total) by mouth nightly 1 Active metFORMIN (GLUCOPHAGE) 1,000 mg tabletIndication s:type 2 diabetes mellitus Take 1 tablet (1,000 mg total) by mouth 2 (two) times a day 5 Active prasugreL HCl (EFFIENT) tabletIndication s:Myocardial Reinfarction Prevention Take 1 tablet (10 mg total) by mouth every morning Active telmisartan (MICARDIS) 40 mg tablet Take 1 tablet (40 mg total) by mouth daily Active acetaminophen 500 mg capsule Take 2 capsules (1,000 mg total) by mouth every 6 (six) hours as needed for pain Active polyethylene glycol (MIRALAX) 17 gram/dose bulk powderIndication s:constipation Take 17 g by mouth 2 (two) times a day 510 g Active oxyCODONE (ROXICODONE) 5 mg immediate release tabletIndication s:Pain Take 1 tablet (5 mg total) by mouth every 4 (four) hours as needed for pain 20 tablet 5 Active Additional Information Patient not taking.Reported on 03/29/2025 venlafaxine (EFFEXOR) 37.5 mg tablet Take 1 tablet (37.5 mg total) by mouth daily 5 Active Active Problems Problem Noted Date [...] (06/16/2022): Added automatically from request for surgery [id number] Type 2 diabetes mellitus wit h other circulatory complications 04/10/2021 Assessment & Plan (03/02/2025 3:52 PM CDT): A1c 7.7. on metformin and amaryl at home - hold home oral meds - Started low dose lantus and mealtime insulin while off amaryl d/t elevated BGs. Titrate as needed. Likely resume home regimen at DC and stop insulin. Heart failure, unspecified 06/06/2020 [...] Encounters Date Type Department Care Team Description 04/14/2025 Orders Only [facility] Surgery [address] [facility] [address] [place] [phone] Jung Arriola MD PAD (peripheral artery disease) (Primary Dx); Presence of other vascular implants and grafts; Encounter for surgical aftercare following surgery of circulatory system 04/14/2025 [facility] [address] [facility] 1 [place] [phone] Jung Arriola MD 04/12/2025 Telephone [facility] Surgery [address] [place] [address] 1 [place] [phone] Eleanor Shaw CMA 04/12/2025 [facility] Post Discharge Follow up phone call [facility] Emergency Department [address] [place] [address] [phone] Karissa Koehler RN 04/12/2025 [facility] Post Discharge Follow up phone call [facility] Emergency Department [id number] [place] [address] [phone] Michelle Colye RN 04/11/2025 5:55 PM CDT - 04/11/2025 7:55 PM CDT Emergency [facility] Emergency Department [address] [place] [address] [phone] Mallorie Brown MD Wound dehiscence (Primary Dx); Cellulitis, abdominal wall; Peripheral vascular disease Discharge Disposition: Discharge to home or self care 04/11/2025 Telephone [facility] Surgery [address] [place] [address] 1 [place] [phone] Jung Arriola MD 03/29/2025 1:45 PM CDT Office Visit [facility] Surgery [facility] 8th [place] [address] [place] [phone] Jung Arriola MD PAD (peripheral artery disease) (Primary Dx); Presence of other vascular implants and grafts; Encounter for surgical aftercare following surgery of circulatory system; Atherosclerosis of [place] arteries of extremities with intermittent claudication, left leg; Atherosclerosis of [place] arteries of extremities with intermittent claudication, bilateral legs 03/29/2025 1:00 PM CDT Ancillary Procedure [facility] 8th [place] [address] [place] [address] Atherosclerosis of [place] arteries of extremities with intermittent claudication, bilateral legs; Atherosclerosis of [place] arteries of extremities with intermittent claudication, left leg 03/06/2025 [facility] [address] [facility] Floor 1 [place] [address] Jung Arriola MD 02/27/2025 11:47 AM CDT Anesthesia Event [facility] Operating Room 1 [place] [address] Rodolfo Cuellar MD Richardson, Genea Michelle, NP 02/27/2025 11:30 AM CDT - 02/27/2025 5:30 PM CDT Surgery [facility] Operating Room 1 [place] [address] Jung Arriola MD Bypass Graft - Femoral Ilio - left external iliac artery to below knee popliteal artery bypass graft; florentino cuff 02/27/2025 9:05 AM CDT - 03/03/2025 4:08 PM CDT Hospital [address] [address] Jung Arriola MD PAD (peripheral artery disease) Discharge Disposition: Discharge to home or self care 02/24/2025 [facility]phone [facility] 8th [place] [address] [place] [address] Jung Arriola MD 02/22/2025 1:30 PM CDT Pre-Admission Testing [facility] for Preoperative Assessment and [facility] [address] [place] [id number] Preoperative testing (Primary Dx) 02/22/2025 Orders Only [facility] 8th [place] [address] [place] [address] Jung Arriola MD Atherosclerosis of [place]ash[place] arteries of extremities with intermittent claudication, left leg (Primary Dx); Atherosclerosis of [place] arteries of extremities with intermittent claudication, bilateral legs 02/15/2025 11:00 AM CDT [facility] [address] [facility] 8th [place] [address] [place] [address] Jung Arriola MD Atherosclerosis of artery of both lower extremities (Primary Dx); Presence of other vascular implants and grafts; Atherosclerosis of ugash[place] artery of both lower extremities with intermittent claudication; Open wound of left foot excluding one or more toes 02/15/2025 10:15 AM CDT Ancillary Procedure [facility] at the [address]th [place] [address] [place] [address] Atherosclerosis of ugash[place] arteries of extremities with intermittent claudication, bilateral legs; Atherosclerosis of [place] arteries of extremities with intermittent claudication, left leg 02/15/2025 7:39 AM CDT - 02/15/2025 11:59 PM CDT Hospital Encounter [facility] Radiology [facility] [address] [place] [phone] Jung Arriola MD Atherosclerosis of ug[place] arteries of extremities with intermittent claudication, left leg Discharge Disposition: Discharge to home or self care 02/15/2025 Orders Only [facility] [address] [place] [address] 8th [place] [address] [place] [address] Jung Arriola MD PAD (peripheral artery disease) (Primary Dx) from Last 3 Months Surgical History Surgery Date Site/Laterality Comments TUBAL LIGATION CARDIAC STENT PLACEMENT 07/27/2014 - 07/26/2015 EYE SURGERY SECTION Medical History Medical History Date Comments Type 2 diabetes mellitus Hyperlipidemia Hypertension Cancer (HCC) CML luekemia COPD (chronic obstructive pu lmonary disease) Sleep apnea Myocardial infarction (HCC) 07/20/2000 x3 a nd in 2002 and 2006 Cataract 2015 has had surgery Coronary artery [...] making you feel afraid or unsafe? Denies 04/11/2025 Comments No Sex and Gender Information Value Date Recorded Sex Assigned at Not on file Legal Sex Female 7:08 PM [employer]END[employer] Gender Identity Not on file Sexual Orientation Not on file Obstetrics History Last Filed Vital Signs Vital Sign Reading Time Taken Comments Blood Pressure 169/71 04/11/2025 4:59 PM CDT Pulse 94 04/11/2025 4:59 PM CDT Temperature 36.7 C (98 F) 04/11/2025 5:00 PM CDT Respiratory Rate 15 04/11/2025 4:59 PM CDT Oxygen Saturation 95% 04/11/2025 4:59 PM CDT Inhaled Oxygen Concentration - - Weight 87.1 kg (192 lb) 04/11/2025 5:02 PM CDT Height 172.7 cm (5' 8) 04/11/2025 5:02 PM CDT Body Mass Index 29.19 04/11/2025 5:02 PM CDT Plan of Treatment Health Maintenance Due [...] 08/25/2025 02/22/2025 Lipid Panel 02/27/2026 02/27/2025 eGFR 04/11/2026 04/11/2025, 08/0 01/2025, 03/01/2025, Additional history exists Medical Devices Implanted Type Area Swatch Checker Device Identifier Shelf Expiration Date Model / Serial / Lot [employer] [id number] System Coronary Stent Xience Miriam Everolimus L15 Mm Od3.5 Mm Rapid Exchange - [id number] Implanted:Qty: 1 on 03/08/2019 by Joseph Grace MD at [facility] Vascular 11/26/2019 [id number] / / [employer] [id number] System Coronary Stent Xience Miriam Everolimus L12 Mm Od3.5 Mm Rapid Exchange - [id number] Implanted:Qty: 1 on 03/08/2019 by Joseph Grace MD at [facility] Vascular 01/03/2020 [id number] / / [employer] [id number] System Coronary Stent Xience Miriam Everolimus L18 Mm Od3.5 Mm Rapid Exchange - [id number] Implanted:Qty: 1 on 03/08/2019 by Joseph Grace MD at [facility] Vascular 12/17/2019 [id number] / / [employer] [id number] System Coronary Stent Xience Miriam Everolimus L15 Mm Od3 Mm Rapid Exchange - [id number] Implanted:Qty: 1 on 03/08/2019 by Joseph Grace MD at [facility] [employer] 11/23/2019 [id number] / / Med[employer] Everflex Entrust 7mm 120mm 120cm Triaxial Self Expand Low Profile - [id number] Implanted:Qty: 1 on 06/23/2022 by Joseph Grace MD at [facility] Left: Leg [employer] 09/16/2024 [id number] / / [id number] Bard Peripheral Vascular 6x1in Patch Thk1.65mm Depew [employer]ovascular Ptfe Sterile Latex Free [id number] - [id number] Implanted:Qty: 1 on 02/27/2025 by Jung Arriola MD at [facility] Left: Femoral [employer] Peripheral Vascular [id number] 05/23/2029 [id number] / / [id number] [employer]l [employer] [place] 6mm 90cm 70cm Removable Ring Stretch Thin Wall Graft [id number] - [id number] - [id number] Implanted:Qty: 1 on 02/27/2025 by Jung Arriola MD at [facility] Left: External Iliac Artery Wl [employer] [id number] 10/13/2027 [id number] / [id number] / Procedures Procedure Name Priority Date/Time Associated Diagnosis Comments EGFR STAT 04/11/2025 5:21 PM CDT DIFFERENTIAL AUTO STAT 04/11/2025 5:2 1 PM CDT SEPSIS LACTATE WITH REFLEX STAT 04/11/2025 5:21 PM CDT COMPREHENSIVE METABOLIC PANEL STAT 04/11/2025 5:21 PM CDT CBC WITH AUTO DIFFERENTIAL STAT 04/11/2025 5:21 PM CDT BLOOD CULTURE STAT 04/11/2025 5:21 PM CDT BLOOD CULTURE STAT 04/11/2025 5:21 PM CDT US ARTERIAL DUPLEX LOWER EXTREMITY LEFT LIMITED Schedule Routine, Read Routine (OP Routine) 03/29/2025 1:22 PM CDT Atherosclerosis of ug[place] arteries of extremities with intermittent claudication, left leg US ARTERIAL DOPPLER LOWER EXTREMITY BILATERAL Schedule Routine, Read Routine (OP Routine) 03/29/2025 1:22 PM CDT Atherosclerosis of ugash[place] arteries of extremities with intermittent claudication, bilateral legs POCT GLUCOSE DEVICE Routine 03/03/2025 1 1:32 [...] CHEMISTRIES, ARTERIAL Routine 02/27/2025 1:00 PM CDT [place] AN PROCEDURE PLACEHOLDER Routine 02/27/2025 12:17 PM CDT [place] AN PROCEDURE PLACEHOLDER Routine 02/27/2025 12:17 PM CDT [place] AN CENTRAL LINE QUADRUPLE LUMEN Routine 02/27/2025 12:17 PM CDT [place] AN PROCEDURE PLACEHOLDER Routine 02/27/2025 12:16 PM CDT [place] AN ELECTIVE ENDOTRACHEAL AIRWAY Routine 02/27/2025 12:16 [...] Routine) 02/15/2025 10:20 AM CDT Atherosclerosis of ug[place] arteries of extremities with intermittent claudication, left leg US ARTERIAL DOPPLER LOWER EXTREMITY BILATERAL Schedule Routine, Read Routine (OP Routine) 02/15/2025 10:20 AM CDT Atherosclerosis of ug[place] arteries of extremities with intermittent claudication, bilateral legs CTA ABDOMINAL AORTA AND BILATERAL ILIOFEMORAL RUNOFF Schedule Routine, Read Routine (OP Routine) 02/15/2025 8:35 AM CDT Atherosclerosis of ugash[place] arteries of extremities with intermittent claudication, left leg POCT CREATININE - DEVICE Routine 02/15/2025 8:16 AM CDT from Last 3 Months Results * Sepsis Lactate w/ Reflex (04/11/2025 5:21 PM CDT) Sepsis Lactate 1.9 0.7 - 2.0 mmol/L Blood 04/11/2025 5:21 PM CDT 04/11/2025 5:27 PM CDT us Benedicto [facility] B[facility] ORDERABLES Final Result MOLINA IGLESIA [address] [address] Department [place] [address] * eGFR (04/11/2025 5:21 PM CDT) eGFR 62 >=60 mL/min/1. 73 m2 Comment: [...] interpretive data was last reviewed 2021. Blood 04/11/2025 5:21 PM CDT 04/11/2025 5:32 PM CDT Benedicto [facility] ORDERABLES Final Result [facility] [address] [address] Department [place] [address] * (ABNORMAL) Differential, auto (04/11/2025 5:21 PM CDT) Neutrophil abs 7.93(H) 1.50 - 6.50 K/cumm Imm gran abs 0.05 0.00 - 0.10 K/cumm [facility] Lymphocyte abs 1.54 0.80 - 3.30 K/cumm [facility] Monocyte abs 0.53 0.20 - 0.80 K/cumm [facility] Eosinophil abs 0.26 0.00 - 0.50 K/cumm [facility] Basophil abs 0.06 0.00 - 0.10 K/cumm [facility] Neutrophil pct 76.4 % [facility] Comment: Interpretive Data Percent cell count reference ranges are not reported, since discordance with absolute values may lead to misinterpretation of CBC data. Current Interpretive Data was last revised on 2017. Imm gran pct 0.5 % [facility] Comment: Interpretive Data Percent cell count reference ranges are not reported, since discordance with absolute values may lead to misinterpretation of CBC data. Current Interpretive Data was last revised on 2017. Lymphocyte pct 14.9 % [facility] Comment: Interpretive Data Percent cell count reference ranges are not reported, since discordance with absolute values may lead to misinterpretation of CBC data. Current Interpretive Data was last revised on 2017. Monocyte pct 5.1 % [facility] Comment: Interpretive Data Percent cell count reference ranges are not reported, since discordance with absolute values may lead to misinterpretation of CBC data. Current Interpretive Data was last revised on 2017. Eosinophil pct 2.5 % [facility] Comment: Interpretive Data Percent cell count reference ranges are not reported, since discordance with absolute values may lead to misinterpretation of CBC data. Current Interpretive Data was last revised on 2017. Basophil pct 0.6 % [facility] Comment: Interpretive Data Percent cell count reference ranges are not reported, since discordance with absolute values may lead to misinterpretation of CBC data. Current Interpretive Data was last revised on 2017. Blood 04/11/2025 5:21 PM CDT 04/11/2025 5:32 PM CDT us Benedicto [facility] B[facility] ORDERABLES Final Result [facility] [id number] [address] Department [place] [address] * (ABNORMAL) CBC with auto differential (04/11/2025 5:21 PM CDT) WBC 10.37(H) 3.80 - 9.90 K/cumm Hgb 13.9 11.9 - 15.5 g/dL [facility] Hct 41.7 35.6 - 45.5 % [facility] Plt 333 150 - 400 K/cumm [facility] MPV 10.1 9.1 - 12.3 fL [facility] RBC 4.62 3.90 - 5.20 M/cumm [facility] MCV 90.3 81.3 - 96.4 fL [facility] MCH 30.1 27.1 - 33.3 pg [facility] MCHC 33.3 32.3 - 35.7 g/dL [facility] RDW CV 14.2 11.1 - 14.9 % [facility] RDW SD 46.5 35.7 - 48.1 fL [facility] NRBC abs 0.00 0.00 - 0.01 K/cumm [facility] Blood 04/11/2025 5:21 PM CDT 04/11/2025 5:32 PM CDT Benedicto [facility] ORDER[facility] Final Result [facility] [address] [address] Department [place] [address] * Blood culture Blood (04/11/2025 5:21 PM CDT) Report Final Report: No growth Comment:Testing performed by : [facility], [address] [place]., [address] Blood 04/11/2025 5:21 PM CDT 04/11/2025 8:39 PM CDT Narrative [facility] - 04/16/2025 7:01 AM CDT Collection->Peripheral Specimen received in media. Culture results may be compromised. If clinically indicated, submit a new specimen. 1. Blood cultures are incubated for 4 days on a continuously monitored blood culture system. The first report of a negative culture is issued within 24 hours of receipt of the specimen in the laboratory. 2. Positive culture results are reported as soon as they are detected. 3. The most important factor for detection of microbes in the setting of bloodstream infection is the volume of blood submitted for culture. Failure to collect an optimal blood volume can result in false negative blood cultures. 4. For pediatric patients, the recommended blood volume to collect follows a weight based strategy. See the electronic test catalog for collection instructions. 5. For positive blood cultures, a rapid molecular test may be performed for organism identification using the bartolo ePlex blood culture identification panel for gram positive (BCID-GP) and gram negative (BCID-GN) organisms. This nucleic acid amplification test detects microbial DNA in positive blood culture broth. This assay has been cleared by the [place] Food and Drug Administration and its performance characteristics have been verified by the [facility] Microbiology Laboratory. For questions about this culture, contact the Microbiology Laboratory at [phone]. Interpretive data was last revised on 24. Benedicto [facility] - [facility] ORDERABLES Final Result MOLINA [id number] [address] Department [place] [address] * Blood culture Blood (04/11/2025 5:21 PM CDT) Report Final Report: No growth Comment:Testing performed by : [facility], [address] [place]., [address] Blood 04/11/2025 5:21 PM CDT 04/11/2025 8:39 PM CDT [facility] 04/16/2025 7:01 AM CDT Collection->Peripheral Specimen received in media. Culture results may be compromised. If clinically indicated, submit a new specimen. 1. Blood cultures are incubated for 4 days on a continuously monitored blood culture system. The first report of a negative culture is issued within 24 hours of receipt of the specimen in the laboratory. 2. Positive culture results are reported as soon as they are detected. 3. The most important factor for detection of microbes in the setting of bloodstream infection is the volume of blood submitted for culture. Failure to collect an optimal blood volume can result in false negative blood cultures. 4. For pediatric patients, the recommended blood volume to collect follows a weight based strategy. See the electronic test catalog for collection instructions. 5. For positive blood cultures, a rapid molecular test may be performed for organism identification using the bartolo ePlex blood culture identification panel for gram positive (BCID-GP) and gram negative (BCID-GN) organisms. This nucleic acid amplification test detects microbial DNA in positive blood culture broth. This assay has been cleared by the [place] Food and Drug Administration and its performance characteristics have been verified by the [facility] Microbiology Laboratory. For questions about this culture, contact the Microbiology Laboratory at [phone]. Interpretive data was last revised on 24. Benedicto [facility] - [facility] [place] [address] [address] Department [place] [address] * (ABNORMAL) Comprehensive metabolic panel (04/11/2025 5:21 PM CDT) Pathologist [facility] Sodium 137 135 - 145 mmol/L Potassium, pl 4.5 3.3 - 4.9 mmol/L [facility] Chloride 102 97 - 110 mmol/L [facility] CO2 19(L) 22 - 32 mmol/L [facility] Anion gap 16(H) 2 - 15 mmol/L [facility] BUN 18 6 - 25 mg/dL [facility] Creatinine 1.04 0.60 - 1.10 mg/dL [facility] Glucose 191 70 - 199 mg/dL [facility] Comment: Interpretive Data Fasting glucose >/= 126 [...] interpretive data was last revised 2022. Calcium 9.7 8.5 - 10.3 mg/dL [facility] Bilirubin, total 0.2 0.1 - 1.2 mg/dL [facility] Protein, pl 8.0 6.5 - 8.5 g/dL [facility] Albumin 4.0 3.5 - 5.0 g/dL [facility] Alk phos 111 40 - 130 Units/L [facility] ALT 7 7 - 45 Units/L [facility] AST 17 10 - 45 Units/L [facility] Blood 04/11/2025 5:21 PM CDT 04/11/2025 5:32 PM CDT Benedict[facility] ORDERABLES Final Result MOL[facility] PAREKH [address] [address] Department [place] [address] * US Arterial Duplex Lower Extremity Left Limited (03/29/2025 1:22 PM CDT) Anatomical Region Laterality Modality Vascular Left Ultrasound 03/29/2025 12:3 4 PM CDT Narrative 03/29/2025 3:25 PM CDT [facility] - Department of Vascular Surgery, Vascular Laboratory [address] [place] [address] Lower Extremity Arterial Duplex - Bypass Graft Report Patient Name: NICHOLAS HOUGH : 1965 Study Date: 03/29/2025 12:34:49 PM Gender: F Tech: RIVER Location: [facility] Provider: JUNG ARRIOLA Quality: Adequate Order Provider: JUNG ARRIOLA PROCEDURES: Arterial Report: Left external iliac artery to below-knee popliteal artery bypass graft. INDICATIONS: I70.212 Atherosclerosis of [place] arteries of extremities with intermittent claudication, left leg. MEASUREMENTS: Left Value Units Lt Proximal Graft 82 cm/s Lt Mid Graft 69 cm/s Lt Distal Graft 63 cm/s Lt Distal Anastomosis 90 cm/s Lt Outflow Artery 67 cm/s Left Value Units FINDINGS: Performing Insurance Coordinator: Antonia Wells RVT. Left Leg: The proximal graft waveform is multiphasic. The mid graft waveform is multiphasic. The distal graft waveform is multiphasic. The distal anastomosis waveform is multiphasic. The outflow waveform is multiphasic. Comments: Dilatation noted at the distal anastomosis with a diameter of 1.7cm. Unable to assess inflow and proximal anastomosis due to ultrasound attenuation. CONCLUSIONS: 1. Duplex imaging of the left lower extremity bypass graft reveals a patent graft with no flow limiting lesions identified. Flow velocities as measured above. See ARNULFO report. 2. Dilatation noted at the distal anastomosis with a diameter of 1.7cm. 3. See Ankle/Brachial Index report. HISTORY: s/p on 02/27/2025 Left external iliac artery to below-knee popliteal artery bypass using a 6 mm Propaten graft. Creation of a distal Florentino cuff. PREVIOUS STUDIES: Previous study on 02/15/2025. DISCLAIMER: The study images and the final [...] Electronically Signed By: Kentrell Ruelas MD FACS 03/29/2025 2:48:27 PM CDT Procedure Note Kentrell Ruelas MD - 03/29/2025 [facility] - Department of Vascular Surgery,Vascular Laboratory [address] [place] [address] Lower Extremity Arterial Duplex - Bypass Graft Report Patient Name: NICHOLAS HOUGH : 1965 Study Date: 03/29/2025 12:34:49 PM Gender: F Tech: RIVER Location: [facility] Provider: JUNG ARRIOLA Quality: Adequate Order Provider: JUNG ARRIOLA PROCEDURES: Arterial Report: Left external iliac artery to below-knee popliteal artery bypass graft. INDICATIONS: I70.212 Atherosclerosis of [place] arteries of extremities withintermittent claudication, left leg. MEASUREMENTS: Left Value Units Lt Proximal Graft 82 cm/s Lt Mid Graft 69 cm/s Lt Distal Graft 63 cm/s Lt Distal Anastomosis 90 cm/s Lt Outflow Artery 67 cm/s Left Value Units FINDINGS: Performing Insurance Coordinator: Antonia Wells RVT. Left Leg: The proximal graft waveform is multiphasic. The mid graft waveform ismultiphasic. The distal graft waveform is multiphasic. The distal anastomosis waveform ismultiphasic. The outflow waveform is multiphasic. Comments: Dilatation noted at the distal anastomosis with a diameter of 1.7cm. Unable to assess inflow and proximal anastomosis due to ultrasoundattenuation. CONCLUSIONS: 1. Duplex imaging of the left lower extremity bypass graft reveals apatent graft with no flow limiting lesions identified. Flow velocities as measured above. SeeABI report. 2. Dilatation noted at the distal anastomosis with a diameter of 1.7cm. 3. See Ankle/Brachial Index report. HISTORY: s/p on 02/27/2025 Left external iliac artery to below-knee popliteal artery bypass using a 6mm Propaten graft. Creation of a distal Florentino cuff. PREVIOUS STUDIES: Previous study on 02/15/2025. DISCLAIMER: The study images and the final [...] above. Electronically Signed By: Kentrell Ruelas MD [facility] 03/29/2025 2:48:27 PM CDT us Jung Arriola MD IMG US PROCEDURES Final Resul t * US Arterial Doppler Lower Extremity Bilateral (03/29/2025 1:22 PM CDT) Anatomical Region Laterality Modality Vascular Bilateral Ultrasound 03/29/2025 12:3 5 PM CDT Narrative 03/29/2025 3:25 PM CDT [facility] - Department of Vascular Surgery, Vascular Laboratory [address] [place] [address] Lower Extremity Arterial Doppler Report Patient Name: NICHOLAS HOUGH : 1965 Study Date: 03/29/2025 12:35:00 PM Gender: F Tech: Antonia Wells Kennedi Location: [facility] Provider: JUNG ARRIOLA Quality: Adequate Order Provider: JUNG ARRIOLA PROCEDURES: Arterial Report: Bilateral lower extremity arterial Doppler exam at rest. INDICATIONS: I70.213 Atherosclerosis of [place] arteries of extremities with intermittent claudication, bilateral legs. MEASUREMENTS: Right Value Units Left Value Units Rt Brachial Pressure 119 mmHg Lt Brachial Pressure 112 mmHg Rt SERVER SECURITY ADMINISTRATOR Pressure 19 mmHg Lt SERVER SECURITY ADMINISTRATOR Pressure 89 mmHg Rt DPA Pressure 31 mmHg Lt DPA Pressure 111 mmHg Rt 1st Digit Pressure IMM mmHg Lt 1st Digit Pressure 128 mmHg Rt PT ARNULFO Resting 0.16 Lt PT ARNULFO Resting 0.75 Rt AT ARNULFO Resting 0.26 Lt AT ARNULFO Resting 0.93 Rt Digit/Arm Index IMM Lt Digit/Arm Index 1.08 Right Value Units Left Value Units FINDINGS: Performing Insurance Coordinator: Antonia Wells RVT. Right All Levels: The right common femoral, popliteal, posterior tibial and anterior tibial artery waveforms are monophasic. Right Digits: The right digit waveform is absent. Left Common Femoral Artery Analysis: Common Femoral artery waveform is not assessed due to h/o bypass graft. Left Popliteal Artery Analysis: Popliteal artery waveform is not assessed due to h/o bypass graft. Left Posterior Tibial Artery Analysis: The posterior tibial waveform is multiphasic. Left Anterior Tibial Artery Analysis: The anterior tibial waveform is multiphasic. Left Digits: Normal left digit pressure and waveform. CONCLUSIONS: 1. The above listed right Ankle/Brachial Index is consistent with severe peripheral arterial disease (for reference, ARNULFO <0.30 is consistent with tissue necrosis and poor wound healing potential).(previously documented). 2. Right toe pressure is immeasurable which may be consistent with vasospasm or peripheral arterial disease. 3. The above listed left Ankle/Brachial Index at rest is within normal limits (for reference, normal resting ARNULFO is 0.90 - 1.4; ARNULFO >1.4 due to non-compressible arteries is not diagnostic). 4. Left Digit/Arm Index is within normal limits (for reference, normal WILMAN is >0.6). HISTORY: s/p 02/27/2025 Left external iliac artery to below-knee popliteal artery bypass using a 6 mm Propaten graft. Creation of a distal Florentino cuff. - PREVIOUS STUDIES: Previous study on 02/15/2025 (Rt 0.23, Lt 0.21). DISCLAIMER: The study images and the final [...] Electronically Signed By: Kentrell Ruelas MD FACS 03/29/2025 3:01:31 PM CDT Procedure Note Kentrell Ruelas MD - 03/29/2025 [facility] - Department of Vascular Surgery,Vascular Laboratory [address] [place] [address] Lower Extremity Arterial Doppler Report Patient Name: NICHOLAS HOUGH : 1965 Study Date: 03/29/2025 12:35:00 PM Gender: F Tech: Antonia Wells RVT Location: [facility] Provider: JUNG ARRIOLA Quality: Adequate Order Provider: JUNG ARRIOLA PROCEDURES: Arterial Report: Bilateral lower extremity arterial Doppler exam at rest. INDICATIONS: I70.213 Atherosclerosis of [place] arteries of extremities withintermittent claudication, bilateral legs. MEASUREMENTS: Right Value Units Left Value Units Rt Brachial Pressure 119 mmHg Lt Brachial Pressure 112 mmHg Rt SERVER SECURITY ADMINISTRATOR Pressure 19 mmHg Lt SERVER SECURITY ADMINISTRATOR Pressure 89 mmHg Rt DPA Pressure 31 mmHg Lt DPA Pressure 111 mmHg Rt 1st Digit Pressure IMM mmHg Lt 1st Digit Pressure 128 mmHg Rt PT ARNULFO Resting 0.16 Lt PT ARNULFO Resting 0.75 Rt AT ARNULFO Resting 0.26 Lt AT ARNULFO Resting 0.93 Rt Digit/Arm Index IMM Lt Digit/Arm Index 1.08 Right Value Units Left Value Units FINDINGS: Performing Insurance Coordinator: Antonia Wells RVT. Right All Levels: The right common femoral, popliteal, posterior tibial and anterior tibialartery waveforms are monophasic. Right Digits: The right digit waveform is absent. Left Common Femoral Artery Analysis: Common Femoral artery waveform is not assessed due to h/o bypass graft. Left Popliteal Artery Analysis: Popliteal artery waveform is not assessed due to h/o bypass graft. Left Posterior Tibial Artery Analysis: The posterior tibial waveform is multiphasic. Left Anterior Tibial Artery Analysis: The anterior tibial waveform is multiphasic. Left Digits: Normal left digit pressure and waveform. CONCLUSIONS: 1. The above listed right Ankle/Brachial Index is consistent with severeperipheral arterial disease (for reference, ARNULFO <0.30 is consistent with tissuenecrosis and poor wound healing potential).(previously documented). 2. Right toe pressure is immeasurable which may be consistent withvasospasm or peripheral arterial disease. 3. The above listed left Ankle/Brachial Index at rest is within normallimits (for reference, normal resting ARNULFO is 0.90 - 1.4; ARNULFO >1.4 due tonon-compressible arteries is not diagnostic). 4. Left Digit/Arm Index is within normal limits (for reference, normal DAIis >0.6). HISTORY: s/p 02/27/2025 Left external iliac artery to below-knee popliteal artery bypass using a 6mm Propaten graft. Creation of a distal Florentino cuff. - PREVIOUS STUDIES: Previous study on 02/15/2025 (Rt 0.23, Lt 0.21). DISCLAIMER: The study images and the final [...] Electronically Signed By: Kentrell Ruelas MD FACS 03/29/2025 3:01:31 PM CDT us Jung Arriola MD IMG US PROCEDURES Final Resul t * (ABNORMAL) POCT glucose (03/03/2025 11:32 AM CDT) Glucose, POC 227(H) 70 - 199 mg/dL Comment:Glu2: RN/MD Notified Glucose comment 1 Glu2: RN/MD Notified [facility] Blood 03/03/2025 11:3 2 AM CDT 03/03/2025 11:32 AM CDT us Jung Arriola MD LAB POCT ORDERABLES - DEVICE Final Result Performing Organization Address [facility] Co de Phone Number [facility] Department [place] [employer] [place] [address] * (ABNORMAL) POCT glucose (03/03/2025 7:39 AM CDT) [facility] Glucose, POC 231(H) 70 - 199 mg/dL Blood 03/03/2025 7:39 AM CDT 03/03/2025 7:39 AM CDT us Jung Arriola MD LAB POCT ORDERABLES - DEVICE Final Result Performing Organization Address [facility] de Phone Number [facility] Department [place] [place] [address] * (ABNORMAL) eGFR (03/02/2025 11:33 PM CDT) eGFR 47(L) >=60 mL/min/1. 73 m2 Comment: [...] of Race in Diagnosing Kidney Disease, JASN 202). The CKD-EPI equation should not be used for patients with unstable renal function and has not been validated in children and those over 70. Current interpretive data was last reviewed 2021. Blood 03/02/2025 11:3 3 PM CDT 03/03/2025 12:25 AM CDT Promise Nelson NP LAB BLOOD ORDERABLES F inal Result [facility] Department [place] [address] * (ABNORMAL) Differential, auto (03/02/2025 11:33 PM CDT) Pathologist [facility] Neutrophil abs 6.13 1.50 - 6.50 K/cumm Imm gran abs 0.06 0.00 - 0.10 K/cumm [facility] Lymphocyte abs 1.50 0.80 - 3.30 K/cumm [facility] Monocyte abs 0.84(H) 0.20 - 0.80 K/cumm [facility] Eosinophil abs 0.25 0.00 - 0.50 K/cumm [facility] Basophil abs 0.04 0.00 - 0.10 K/cumm [facility] Neutrophil pct 69.5 % [facility] Comment: Interpretive Data Percent cell count reference ranges are not reported, since discordance with absolute values may lead to misinterpretation of CBC data. Current Interpretive Data was last revised on 2017. Imm gran pct 0.7 % [facility] Comment: Interpretive Data Percent cell count reference ranges are not reported, since discordance with absolute values may lead to misinterpretation of CBC data. Current Interpretive Data was last revised on 2017. Lymphocyte pct 17.0 % [facility] Comment: Interpretive Data Percent cell count reference ranges are not reported, since discordance with absolute values may lead to misinterpretation of CBC data. Current Interpretive Data was last revised on 2017. Monocyte pct 9.5 % [facility] Comment: Interpretive Data Percent cell count reference ranges are not reported, since discordance with absolute values may lead to misinterpretation of CBC data. Current Interpretive Data was last revised on 2017. Eosinophil pct 2.8 % [facility] Comment: Interpretive Data Percent cell count reference ranges are not reported, since discordance with absolute values may lead to misinterpretation of CBC data. Current Interpretive Data was last revised on 2017. Basophil pct 0.5 % [facility] Comment: Interpretive Data Percent cell count reference ranges are not reported, since discordance with absolute values may lead to misinterpretation of CBC data. Current Interpretive Data was last revised on 2017. Blood 03/02/2025 11:3 3 PM CDT 03/03/2025 12:25 AM CDT us Promise Nelson NP LAB BLOOD ORDERABLES F inal Result [facility] Department [place] [address] * (ABNORMAL) CBC with auto differential (03/02/2025 11:33 PM CDT) WBC 8.82 3.80 - 9.90 K/cumm Hgb 11.0(L) 11.9 - 15.5 g/dL [facility] Hct 32.6(L) 35.6 - 45.5 % [facility] Plt 254 150 - 400 K/cumm [facility] MPV 10.4 9.1 - 12.3 fL [facility] RBC 3.55(L) 3.90 - 5.20 M/cumm [facility] MCV 91.8 81.3 - 96.4 fL [facility] MCH 31.0 27.1 - 33.3 pg [facility] MCHC 33.7 32.3 - 35.7 g/dL [facility] RDW CV 14.4 11.1 - 14.9 % [facility] RDW SD 48.6(H) 35.7 - 48.1 fL [facility] NRBC abs 0.00 0.00 - 0.01 K/cumm [facility] Blood 03/02/2025 11:3 3 PM CDT 03/03/2025 12:25 AM CDT Promise Nelson NP LAB BLOOD ORDERABLES F inal Result [facility] Department [place] [address] * (ABNORMAL) Basic metabolic panel (03/02/2025 11:33 PM CDT) Sodium 138 135 - 145 mmol/L Potassium, pl 5.0(H) 3.3 - 4.9 mmol/L [facility] Chloride 99 97 - 110 mmol/L [facility] CO2 26 22 - 32 mmol/L [facility] Anion gap 13 2 - 15 mmol/L [facility] BUN 25 6 - 25 mg/dL [facility] Creatinine 1.30(H) 0.60 - 1.10 mg/dL [facility] Glucose 173 70 - 199 mg/dL [facility] Comment: Interpretive Data Fasting glucose >/= 126 [...] 2022. Calcium 9.6 8.5 - 10.3 mg/dL [facility] Blood 03/02/2025 11:3 3 PM CDT 03/03/2025 12:25 AM CDT Promise Nelson CORE PASTER LAB BLOOD ORDERABLES F inal Result Performing Organization Address [facility] Co de Phone Number [facility] [place] [address] * (ABNORMAL) POCT glucose (03/02/2025 8:05 PM CDT) Glucose, POC 257(H) 70 - 199 mg/dL Blood 03/02/2025 8:05 PM CDT 03/02/2025 8:05 PM CDT Jung Arriola MD LAB POCT ORDERABLES - DEVICE Final Result Performing Organization Address [facility] Co de Phone Number [facility] [place] [address] * POCT glucose (03/02/2025 4:50 PM CDT) Glucose, POC 133 70 - 199 mg/dL Blood 03/02/2025 4:50 PM CDT 03/02/2025 4:50 PM CDT us Jung Arriola MD LAB POCT ORDERABLES - DEVICE Final Result Performing Organization Address [facility] Co de Phone Number [facility] [place] [address] * (ABNORMAL) POCT glucose (03/02/2025 11:41 AM CDT) Glucose, POC 286(H) 70 - 199 mg/dL Comment:Glu2: RN/MD Notified Glucose comment 1 Glu2: RN/MD Notified [facility] Blood 03/02/2025 11:4 1 AM CDT 03/02/2025 11:41 AM CDT us Jung Arriola MD LAB POCT ORDERABLES - DEVICE Final Result Performing Organization Address [facility] Co de Phone Number [facility] [place] [address] * (ABNORMAL) POCT glucose (03/02/2025 8:03 AM CDT) Glucose, POC 323(H) 70 - 199 mg/dL Comment:Glu2: RN/MD Notified Glucose comment 1 Glu2: RN/MD Notified [facility] Blood 03/02/2025 8:03 AM CDT 03/02/2025 8:03 AM CDT Jung Arriola MD LAB POCT ORDERABLES - DEVICE Final Result Performing Organization Address [facility] Co de Phone Number [facility] [place] [address] * (ABNORMAL) eGFR (03/01/2025 9:01 PM CDT) [facility] eGFR 53(L) >=60 mL/min/1. 73 m2 Comment: [...] NP LAB BLOOD ORDERABLES F inal Result [facility] Department [place] [address] * (ABNORMAL) Differential, auto (03/01/2025 9:01 PM CDT) Neutrophil abs 8.06(H) 1.50 - 6.50 K/cumm Imm gran abs 0.06 0.00 - 0.10 K/cumm [facility] Lymphocyte abs 1.14 0.80 - 3.30 K/cumm [facility] Monocyte abs 0.79 0.20 - 0.80 K/cumm [facility] Eosinophil abs 0.19 0.00 - 0.50 K/cumm [facility] Basophil abs 0.03 0.00 - 0.10 K/cumm [facility] Neutrophil pct 78.4 % [facility] Comment: Interpretive Data Percent cell count reference ranges are not reported, since discordance with absolute values may lead to misinterpretation of CBC data. Current Interpretive Data was last revised on 2017. Imm gran pct 0.6 % [facility] Comment: Interpretive Data Percent cell count reference ranges are not reported, since discordance with absolute values may lead to misinterpretation of CBC data. Current Interpretive Data was last revised on 2017. Lymphocyte pct 11.1 % [facility] Comment: Interpretive Data Percent cell count reference ranges are not reported, since discordance with absolute values may lead to misinterpretation of CBC data. Current Interpretive Data was last revised on 2017. Monocyte pct 7.7 % [facility] Comment: Interpretive Data Percent cell count reference ranges are not reported, since discordance with absolute values may lead to misinterpretation of CBC data. Current Interpretive Data was last revised on 2017. Eosinophil pct 1.9 % [facility] Comment: Interpretive Data Percent cell count reference ranges are not reported, since discordance with absolute values may lead to misinterpretation of CBC data. Current Interpretive Data was last revised on 2017. Basophil pct 0.3 % [facility] Comment: Interpretive Data Percent cell count reference ranges are not reported, since discordance with absolute values may lead to misinterpretation of CBC data. Current Interpretive Data was last revised on 2017. Blood 03/01/2025 9:01 PM CDT 03/01/2025 9:47 PM CDT Promise Nelson NP LAB BLOOD ORDERABLES F inal Result Performing Organization Address [facility] Co de Phone Number [facility] Department [place] [address] * (ABNORMAL) CBC with auto differential (03/01/2025 9:01 PM CDT) WBC 10.27(H) 3.80 - 9.90 K/cumm Hgb 10.8(L) 11.9 - 15.5 g/dL [facility] Hct 32.7(L) 35.6 - 45.5 % [facility] Plt 197 150 - 400 K/cumm [facility] MPV 10.4 9.1 - 12.3 fL [facility] RBC 3.47(L) 3.90 - 5.20 M/cumm [facility] MCV 94.2 81.3 - 96.4 fL [facility] MCH 31.1 27.1 - 33.3 pg [facility] MCHC 33.0 32.3 - 35.7 g/dL [facility] RDW CV 14.5 11.1 - 14.9 % [facility] RDW SD 49.6(H) 35.7 - 48.1 fL [facility] NRBC abs 0.00 0.00 - 0.01 K/cumm [facility] Blood 03/01/2025 9:01 PM CDT 03/01/2025 9:47 PM CDT Promise Nelson NP LAB BLOOD ORDERABLES F inal Result Performing Organization Address [facility] Co de Phone Number [facility] Department [place] [address] * (ABNORMAL) Basic metabolic panel (03/01/2025 9:01 PM CDT) Pathologist [facility] Sodium 137 135 - 145 mmol/L Potassium, pl 4.4 3.3 - 4.9 mmol/L [facility] Chloride 104 97 - 110 mmol/L [facility] CO2 27 22 - 32 mmol/L [facility] Anion gap 6 2 - 15 mmol/L [facility] BUN 16 6 - 25 mg/dL [facility] Creatinine 1.18(H) 0.60 - 1.10 mg/dL [facility] Glucose 196 70 - 199 mg/dL [facility] Comment: Interpretive Data Fasting glucose >/= 126 [...] 2022. Calcium 9.1 8.5 - 10.3 mg/dL [facility] Blood 03/01/2025 9:01 PM CDT 03/01/2025 9:47 PM CDT Promise Nelson NP LAB BLOOD ORDERABLES F inal Result [facility] Department [place] [address] * (ABNORMAL) POCT glucose (03/01/2025 8:18 PM CDT) Glucose, POC 212(H) 70 - 199 mg/dL Blood 03/01/2025 8:18 PM CDT 03/01/2025 8:18 PM CDT us Jung Arriola MD LAB POCT ORDERABLES - DEVICE Final Result Performing Organization Address [facility] [place] [address] * POCT glucose (03/01/2025 5:24 PM CDT) Glucose, POC 167 70 - 199 mg/dL Comment:Glu2: RN/MD Notified Glucose comment 1 Glu2: RN/MD Notified [facility] Blood 03/01/2025 5:24 PM CDT 03/01/2025 5:24 PM CDT us Jung Arriola MD LAB POCT ORDERABLES - DEVICE Final Result Performing Organization Address [facility] [place] [address] * (ABNORMAL) POCT glucose (03/01/2025 12:20 PM CDT) Glucose, POC 241(H) 70 - 199 mg/dL Blood 03/01/2025 12:2 0 PM CDT 03/01/2025 12:20 PM CDT us Jung Arriola MD LAB POCT ORDERABLES - DEVICE Final Result Performing Organization Address [facility] [place] [address] * XR Foot Left 3 or More [...] Electronically signed by: Juan Jose Rachel M.D. Promise Nelson CORE PASTER IMG XR PROCEDURES Jen l Result * (ABNORMAL) POCT glucose (03/01/2025 7:25 AM CDT) Glucose, POC 250(H) 70 - 199 mg/dL Comment:Glu2: RN/MD Notified Glucose comment 1 Glu2: RN/MD Notified [facility] Blood 03/01/2025 7:25 AM CDT 03/01/2025 7:25 AM CDT Jung Arriola MD LAB POCT ORDERABLES - DEVICE Final Result Performing Organization Address [facility] Co de Phone Number [facility] Department [place] [address] * (ABNORMAL) eGFR (02/28/2025 11:41 PM CDT) eGFR 55(L) >=60 mL/min/1. 73 m2 Comment: [...] ORDERABLES F inal Result Performing Organization Address [facility] Co de Phone [facility] [place] [address] * (ABNORMAL) Differential, auto (02/28/2025 11:41 PM CDT) Neutrophil abs 7.13(H) 1.50 - 6.50 K/cumm Imm gran abs 0.04 0.00 - 0.10 K/cumm [facility] Lymphocyte abs 1.30 0.80 - 3.30 K/cumm [facility] Monocyte abs 0.77 0.20 - 0.80 K/cumm [facility] Eosinophil abs 0.14 0.00 - 0.50 K/cumm [facility] Basophil abs 0.02 0.00 - 0.10 K/cumm [facility] Neutrophil pct 75.9 % [facility] Comment: Interpretive Data Percent cell count reference ranges are not reported, since discordance with absolute values may lead to misinterpretation of CBC data. Current Interpretive Data was last revised on 2017. Imm gran pct 0.4 % [facility] Comment: Interpretive Data Percent cell count reference ranges are not reported, since discordance with absolute values may lead to misinterpretation of CBC data. Current Interpretive Data was last revised on 2017. Lymphocyte pct 13.8 % [facility] Comment: Interpretive Data Percent cell count reference ranges are not reported, since discordance with absolute values may lead to misinterpretation of CBC data. Current Interpretive Data was last revised on 2017. Monocyte pct 8.2 % [facility] Comment: Interpretive Data Percent cell count reference ranges are not reported, since discordance with absolute values may lead to misinterpretation of CBC data. Current Interpretive Data was last revised on 2017. Eosinophil pct 1.5 % [facility] Comment: Interpretive Data Percent cell count reference ranges are not reported, since discordance with absolute values may lead to misinterpretation of CBC data. Current Interpretive Data was last revised on 2017. Basophil pct 0.2 % [facility] Comment: Interpretive Data Percent cell count reference ranges are not reported, since discordance with absolute values may lead to misinterpretation of CBC data. Current Interpretive Data was last revised on 2017. Blood 02/28/2025 11:4 1 PM CDT 03/01/2025 12:39 AM CDT us Promise Nelson NP LAB BLOOD ORDERABLES F inal Result [facility] Department [place] [address] * (ABNORMAL) CBC with auto differential (02/28/2025 11:41 PM CDT) [facility] WBC 9.40 3.80 - 9.90 K/cumm Hgb 11.0(L) 11.9 - 15.5 g/dL [facility] Hct 33.5(L) 35.6 - 45.5 % [facility] Plt 189 150 - 400 K/cumm [facility] MPV 10.6 9.1 - 12.3 fL [facility] RBC 3.57(L) 3.90 - 5.20 M/cumm [facility] MCV 93.8 81.3 - 96.4 fL [facility] MCH 30.8 27.1 - 33.3 pg [facility] MCHC 32.8 32.3 - 35.7 g/dL [facility] RDW CV 14.5 11.1 - 14.9 % [facility] RDW SD 49.9(H) 35.7 - 48.1 fL [facility] NRBC abs 0.00 0.00 - 0.01 K/cumm [facility] Blood 02/28/2025 11:4 1 PM CDT 03/01/2025 12:39 AM CDT Promise Nelson NP LAB BLOOD ORDERABLES F inal Result [facility] Department [place] [address] * (ABNORMAL) Basic metabolic panel (02/28/2025 11:41 PM CDT) [facility] Sodium 136 135 - 145 mmol/L Potassium, pl 4.3 3.3 - 4.9 mmol/L [facility] Chloride 99 97 - 110 mmol/L [facility] CO2 27 22 - 32 mmol/L [facility] Anion gap 10 2 - 15 mmol/L [facility] BUN 17 6 - 25 mg/dL [facility] Creatinine 1.15(H) 0.60 - 1.10 mg/dL [facility] Glucose 194 70 - 199 mg/dL [facility] Comment: Interpretive Data Fasting glucose >/= 126 [...] 2022. Calcium 9.0 8.5 - 10.3 mg/dL [facility] Blood 02/28/2025 11:4 1 PM CDT 03/01/2025 12:39 AM CDT Promise Nelson NP LAB BLOOD ORDERABLES F inal Result [facility] Department [place] [address] * (ABNORMAL) Urinalysis reflex to microscopic and culture Urine (02/28/2025 8:22 PM CDT) Color, ur Straw Yellow Clarity, ur Clear Clear [facility] Specific gravity, ur 1.016 1.003 - 1.030 [facility] pH, urine 6.0 [facility] Comment: Interpretive Data U rine pH is affected by diet, medications, systemic acid-base disturbances, and renal tubular function. pH may affect urinary stone formation. For example, urine pH below 6.0 may help reduce the tendency for calcium phosphate stones and pH greater than 6.0 may reduce the tendency for uric acid stone formation. Source: [facility] [employer] Current Interpretive Data was last revised on 2017 Protein, ur ql 1+(A) Negative [facility] Glucose, ur ql Negative Negative [facility] Ketones, ur Negative Negative [facility] Bilirubin, ur Negative Negative [facility] Blood, ur Trace(A) Negative [facility] Urobilinogen, ur <2.0 <2.0 mg/dL [facility] Nitrite, ur Negative Negative [facility] Leukocyte esterase, ur 2+(A) Negative [facility] UA reflex comment Reflex to microscopic UA will be performed. [facility] Urine 02/28/2025 8:22 PM CDT 02/28/2025 9:01 PM CDT Promise Nelson NP LAB MICROBIOLOGY - GEN ERAL ORDERABLES Final Result Performing Organization Address [facility] [place] [address] * (ABNORMAL) Urinalysis, microscopic only (02/28/2025 8:22 PM CDT) WBC, ur 11-20(A) 0 - 5 /HPF RBC, ur 3-5(A) 0 - 2 /HPF [facility] Epithelial cells, squamous, ur 1-5 0 - 5 /HPF [facility] Bacteria, ur Trace(A) [facility] Mucous, ur Present(A) [facility] Culture Reflex Comment Reflex to urine culture will be performed. [facility] Urine 02/28/2025 8:22 PM CDT 02/28/2025 9:01 PM CDT Promise Nelson NP LAB URINE ORDERABLES F inal Result Performing Organization Address [facility] [place] [address] * Urine culture Urine (02/28/2025 8:22 PM CDT) Report Final Report: No growth Urine 02/28/2025 8:22 PM CDT 02/28/2025 10:46 PM CDT Narrative [facility] - 03/02/2025 7:46 AM CDT Urine culture reflexed based upon urinalysis results. Testing performed by [facility] ([phone]) Promise Nelson NP LAB MICROBIOLOGY - GEN ERAL ORDERABLES Final Result Performing Organization Address [facility]/ZIP Co de Phone Number MOLINA LOM[facility] Department [place] [address] * (ABNORMAL) POCT glucose (02/28/2025 8:11 PM CDT) Glucose, POC 252(H) 70 - 199 mg/dL Blood 02/28/2025 8:11 PM CDT 02/28/2025 8:11 PM CDT us Jung Arriola MD LAB POCT ORDERABLES - DEVICE Final Result Performing Organization Address [facility] Co de Phone Number [facility] LOM[facility] Department [place] [address] * XR Chest 1 View (02/28/2025 5:22 [...] Comparison made with radiograph dated 02/27/2025 at 2. Right internal jugular approach central venous catheter terminates in the superior vena cava. Small right hemithorax. Stable right pleural effusion. Mild right atelectasis. No pneumothorax. Stable cardiomegaly. Dictated by: Holly Rendon M.D. The radiology attending physician has personally reviewed this study, and had reviewed and/or edited this written report and agrees with it. Electronically signed by: Juan Caldwell M.D. Promise Nelson CORE PASTER IMG XR PROCEDURES Jen l Result * POCT glucose (02/28/2025 5:08 PM CDT) Glucose, POC 186 70 - 199 mg/dL Comment:Glu2: JAKE/ Notified Glucose comment 1 Glu2: RN/ Notified [facility] Blood 02/28/2025 5:08 PM CDT 02/28/2025 5:08 PM CDT Jung Arriola MD LAB POCT ORDERABLES - DEVICE Final Result Performing Organization Address [facility]/ZIP Co de Phone Number [facility] Department [place] [address] * (ABNORMAL) POCT glucose (02/28/2025 11:36 AM CDT) Glucose, POC 251(H) 70 - 199 mg/dL Comment:Glu2: JAKE/ Notified Glucose comment 1 Glu2: JAKE/ Notified [facility] Blood 02/28/2025 11:3 6 AM CDT 02/28/2025 11:36 AM CDT Jung Arriola MD LAB POCT ORDERABLES - DEVICE Final Result [facility] [place] [address] * (ABNORMAL) POCT glucose (02/28/2025 7:32 AM CDT) Glucose, POC 200(H) 70 - 199 mg/dL Comment:Glu2: ANNETTE Notified Glucose comment 1 Glu2: RN/MD Notified [facility] Blood 02/28/2025 7:32 AM CDT 02/28/2025 7:32 AM CDT us Jung Arriola MD LAB POCT ORDERABLES - DEVICE Final Result Performing Organization Address [facility] Co de Phone Number [facility] [place] [address] * POCT glucose (02/27/2025 10:38 PM CDT) Glucose, POC 191 70 - 199 mg/dL Blood 02/27/2025 10:3 8 PM CDT 02/27/2025 10:38 PM CDT us Jung Arriola MD LAB POCT ORDERABLES - DEVICE Final Result Performing Organization Address [facility] de Phone Number [facility] [place] [address] * eGFR (02/27/2025 10:37 PM CDT) eGFR 62 >=60 mL/min/1. 73 m2 Comment: [...] ORDERABLES Final Re sult Performing Organization Address City/[facility]/ZIP Co de Phone Number [facility] [place] [address] * (ABNORMAL) CBC without differential (02/27/2025 10:37 PM CDT) WBC 14.56(H) 3.80 - 9.90 K/cumm Hgb 12.5 11.9 - 15.5 g/dL [facility] Hct 38.3 35.6 - 45.5 % [facility] Plt 246 150 - 400 K/cumm [facility] MPV 10.1 9.1 - 12.3 fL [facility] RBC 4.10 3.90 - 5.20 M/cumm [facility] MCV 93.4 81.3 - 96.4 fL [facility] MCH 30.5 27.1 - 33.3 pg [facility] MCHC 32.6 32.3 - 35.7 g/dL [facility] RDW CV 14.7 11.1 - 14.9 % [facility] RDW SD 50.4(H) 35.7 - 48.1 fL [facility] NRBC abs 0.00 0.00 - 0.01 K/cumm [facility] Blood 02/27/2025 10:3 7 PM CDT 02/27/2025 11:25 PM CDT us Jung Arriola MD LAB BLOOD ORDERABLES Final Re sult [facility] Department [place] [address] * Basic metabolic panel (02/27/2025 10:37 PM CDT) Sodium 135 135 - 145 mmol/L Potassium, pl 4.5 3.3 - 4.9 mmol/L [facility] Chloride 99 97 - 110 mmol/L [facility] CO2 27 22 - 32 mmol/L [facility] Anion gap 9 2 - 15 mmol/L [facility] BUN 21 6 - 25 mg/dL [facility] Creatinine 1.03 0.60 - 1.10 mg/dL [facility] Glucose 192 70 - 199 mg/dL [facility] Comment: Interpretive Data Fasting glucose >/= 126 [...] 2022. Calcium 9.0 8.5 - 10.3 mg/dL [facility] Blood 02/27/2025 10:3 7 PM CDT 02/27/2025 11:25 PM CDT Jung Arriola MD LAB BLOOD ORDERABLES Final Re sult [facility] Department [place] [address] * X-ray chest 1 view (02/27/2025 8:21 [...] * POCT glucose (02/27/2025 5:37 PM CDT) Pathologist [facility] Glucose, POC 144 70 - 199 mg/dL Blood 02/27/2025 5:37 PM CDT 02/27/2025 5:37 PM CDT Jung Arriola MD LAB POCT ORDERABLES - DEVICE Final Result [facility] Department [place] [address] * (ABNORMAL) eGFR (02/27/2025 5:31 PM CDT) Pathologist [facility] eGFR 57(L) >=60 mL/min/1. 73 m2 Comment: [...] MD LAB BLOOD ORDERABLES Final Re sult [facility] Department [place] [address] * Cholesterol, LDL, direct (02/27/2025 5:31 PM [...] CDT 02/27/2025 5:58 PM CDT Narrative [facility] - 02/28/2025 2:47 AM CDT Cholesterol, LDL, direct reflexed based on Elevated Triglyceride (>400) us Jung Arriola MD LAB BLOOD ORDERABLES Final Re sult [facility] Department [place] [address] * (ABNORMAL) Lipid panel (02/27/2025 5:31 PM [...] revised on 2018. Triglycerides 424(H) <=149 mg/dL [facility] Comment: Interpretive Data Ages < or = [...] revised on 2018. HDL 28(L) >=40 mg/dL [facility] Comment: Interpretive Data Ages < or = [...] on 2018. LDL, calculated See Comment <=129 [facility] Comment: Unable to calculate LDL due to [...] 2. NCEP Expert Panel. Circulation 2004;110:227 3. Gery Osborne et al. EMILEE Cardiol. 2019November 24;5(5):540-548. doi: 10.1001/jamacardio.2020.0013 Current Interpretive Data was last revised on 2024. Non-HDL Cholesterol 184 mg/dL [facility] Comment: Interpretive Data Ages < or = [...] last revised on 2018. Chol/HDL ratio 8 [facility] Blood 02/27/2025 5:31 PM CDT 02/27/2025 5:58 PM CDT Narrative [facility] - 02/28/2025 12:48 AM CDT Reflex us Jung Arriola MD LAB BLOOD ORDERABLES Final Re sult [facility] Department [place] [address] * (ABNORMAL) Basic metabolic panel (02/27/2025 5:31 PM CDT) [facility] Sodium 142 135 - 145 mmol/L Potassium, pl 4.4 3.3 - 4.9 mmol/L [facility] Chloride 104 97 - 110 mmol/L [facility] Comment:Repeated and Verifie d CO2 24 22 - 32 mmol/L [facility] Anion gap 14 2 - 15 mmol/L [facility] Comment:Repeated and Verifie d BUN 21 6 - 25 mg/dL [facility] Creatinine 1.11(H) 0.60 - 1.10 mg/dL [facility] Glucose 164 70 - 199 mg/dL [facility] Comment: Interpretive Data Fasting glucose >/= 126 [...] 2022. Calcium 8.8 8.5 - 10.3 mg/dL [facility] Blood 02/27/2025 5:31 PM CDT 02/27/2025 5:58 PM CDT us Jung Arriola MD LAB BLOOD ORDERABLES Final Re sult [facility] Department [place] [address] * (ABNORMAL) CBC without differential (02/27/2025 5:11 PM CDT) [facility] WBC 15.72(H) 3.80 - 9.90 K/cumm Hgb 13.3 11.9 - 15.5 g/dL [facility] Hct 38.3 35.6 - 45.5 % [facility] Plt 263 150 - 400 K/cumm [facility] MPV 9.7 9.1 - 12.3 fL [facility] RBC 4.17 3.90 - 5.20 M/cumm [facility] MCV 91.8 81.3 - 96.4 fL [facility] MCH 31.9 27.1 - 33.3 pg [facility] MCHC 34.7 32.3 - 35.7 g/dL [facility] RDW CV 14.7 11.1 - 14.9 % [facility] RDW SD 49.6(H) 35.7 - 48.1 fL [facility] NRBC abs 0.00 0.00 - 0.01 K/cumm [facility] Blood 02/27/2025 5:11 PM CDT 02/27/2025 5:58 PM CDT us Jung Arriola MD LAB BLOOD ORDERABLES Final Re sult Performing Organization Address [facility] Co de Phone Number [facility] Department [place] [address] * BYPASS GRAFT - FEMORAL ILIO (02/27/2025 5:08 PM CDT) Anatomical Region Laterality Modality X-Ray Angiograph y Narrative 02/27/2025 8:53 PM CDT Please see OpNote for result. us Jung Arriola MD CV CARDIAC CATH PROCEDURES Fi nal Result * POCT Activated clotting time, low range (02/27/2025 3:57 PM CDT) ACT 124 123 - 168 sec POC Device Number [id number] [facility] Blood 02/27/2025 3:57 PM CDT 02/27/2025 3:57 PM CDT us Jung Arriola MD LAB POCT ORDERABLES - DEVICE Final Result Performing Organization Address [facility]/ZIP Co de Phone Number [facility] [place] [address] * (ABNORMAL) POCT Activated clotting time, low range (02/27/2025 3:25 PM CDT) ACT 358(H) 123 - 168 sec POC Device Number [id number] [facility] Blood 02/27/2025 3:25 PM CDT 02/27/2025 3:25 PM CDT us Jung Arriola MD LAB POCT ORDERABLES - DEVICE Final Result Performing Organization Address [facility] [place] [address] * (ABNORMAL) POCT Activated clotting time, low range (02/27/2025 2:41 PM CDT) [facility] Signature ACT 253(H) 123 - 168 sec POC Device Number [id number] [facility] Blood 02/27/2025 2:41 PM CDT 02/27/2025 2:41 PM CDT us Jung Arriola MD LAB POCT ORDERABLES - DEVICE Final Result Performing Organization Address [facility] Co de Phone Number [facility] [place] [address] * POCT glucose (02/27/2025 2:08 PM CDT) [facility] Glucose, POC 91 70 - 199 mg/dL Blood 02/27/2025 2:08 PM CDT 02/27/2025 2:08 PM CDT us Jung Arriola MD LAB POCT ORDERABLES - DEVICE Final Result Performing Organization Address [facility] Co de Phone Number [facility] [place] [address] * (ABNORMAL) POCT Activated clotting time, low range (02/27/2025 2:05 PM CDT) ACT 339(H) 123 - 168 sec POC Device Number [id number] [facility] Blood 02/27/2025 2:05 PM CDT 02/27/2025 2:05 PM CDT Jung Arriola MD LAB POCT ORDERABLES - DEVICE Final Result [facility] Department [place] [address] * (ABNORMAL) POC Blood Gas and Chemistries, Arterial - (02/27/2025 1:00 PM CDT) pH, Art POC 7.36 7.35 - 7.45 pCO2, Art POC 45 35 - 45 mmHg [facility] pO2, Art POC 166(H) 83 - 108 mmHg [facility] Na, POC 137 135 - 145 mmol/L [facility] K POC 4.3 3.3 - 4.9 mmol/L [facility] Comment: Interpretive Data Not all point of care methods assess for hemolysis. Confirm with instrument and retest K+ if not consistent with clinical signs and symptoms. Current Interpretive Data was last revised on 2023. Cl, POC 106 97 - 110 mmol/L [facility] Ionized Ca, POC 4.78 4.50 - 5.10 mg/dL [facility] Glucose, POC 100 70 - 199 mg/dL [facility] Lactate POC 2.0 0.7 - 2.0 mmol/L [facility] SO2 (dylan) arterial 100(H) 90 - 95 % [facility] Base excess, POC -0.4 mmol/L [facility] HCO3, Art POC 25 20 - 30 mmol/L [facility] Hct, POC 41.0 36.3 - 45.3 % [facility] Total Hb, POC 13.8 11.9 - 15.5 g/dL [facility] Blood 02/27/2025 1:00 PM CDT 02/27/2025 1:00 PM CDT us Jung Arriola MD LAB POCT ORDERABLES - DEVICE Final Result [facility] [place] [address] * [place] AN PROCEDURE PLACEHOLDER (02/27/2025 12:17 PM CDT) Narrative Rodolfo Cuellar MD - 02/27/2025 12:17 PM CDT Rodolfo [...] patient tolerated procedure well with no complications us Rodolfo Cuellar MD ANESTHESIA ORDERABLES Edited R esult - Final * [place] AN CENTRAL LINE QUADRUPLE LUMEN, [place] AN PROCEDURE PLACEHOLDER (02/27/2025 12:17 PM CDT) Narrative Rodolfo Cuellar MD - 02/27/2025 12:17 PM CDT Rodolfo Cuellar MD 02/27/2025 12:37 PM Central Venous Line Patient location: OR Indication: central venous access and CVP monitoring Staff: Supervising provider: Rodolfo Cuellar MD Placed by: TODDLER CAREGIVER: Mackenzie Loco CRNA Procedure prep: Patient position: [...] ORDERABLES Edited R esult - Final * [place] AN ELECTIVE ENDOTRACHEAL AIRWAY, [place] AN PROCEDURE PLACEHOLDER (02/27/2025 12:16 PM CDT) Narrative Mackenzie Loco CRNA - 02/27/2025 12:16 PM CDT Mackenzie Loco CRNA 02/27/2025 12:16 PM Airway Patient location: OR Urgency: elective Indications for airway management: anesthesia Difficult airway: no Staff: Supervising provider: Rodolfo Cuellar MD Placed by: TODDLER CAREGIVER: Mackenzie Loco CRNA Emergent airway documentation: Risks [...] 11:44 AM CDT) ABO Rh O Positive [facility] HCLL OTHER 02/27/2025 11:4 4 AM CDT 02/27/2025 11:51 AM CDT Jung Arriola MD LAB BLOOD ORDERABLES Final Re sult Performing Organization Address [facility] Co de Phone Number [facility] [place] [address] [facility] * TYPE AND SCREEN 14 DAY (02/22/2025 2:36 PM CDT) Charu, indirect Negative ABO Rh O Positive [facility] Blood 02/22/2025 2:36 PM CDT 02/22/2025 3:40 PM CDT Narrative [facility] - 02/22/2025 4:39 PM CDT Is this test being ordered in advance for a procedure?->Yes Expected date of procedure:->02/27/25 Has the patient been transfused in the past 3 months?->No Has the patient been in the past 3 months?->No Quyen Campa NP LAB BLOOD BANK TEST [place] Final Result Performing Organization Address [facility] Co de Phone Number [facility] [place] [address] * (ABNORMAL) eGFR (02/22/2025 2:36 PM CDT) [...] 02/22/2025 3:35 PM CDT us Quyen Campa CORE PASTER LAB BLOOD ORDERABLES Fin al Result [facility] [place] [address] * (ABNORMAL) Differential, auto (02/22/2025 2:36 PM CDT) Neutrophil abs 7.75(H) 1.50 - 6.50 K/cumm Imm gran abs 0.07 0.00 - 0.10 K/cumm [facility] Lymphocyte abs 1.79 0.80 - 3.30 K/cumm [facility] Monocyte abs 0.71 0.20 - 0.80 K/cumm [facility] Eosinophil abs 0.28 0.00 - 0.50 K/cumm [facility] Basophil abs 0.08 0.00 - 0.10 K/cumm [facility] Neutrophil pct 72.6 % [facility] Comment: Interpretive Data Percent cell count reference ranges are not reported, since discordance with absolute values may lead to misinterpretation of CBC data. Current Interpretive Data was last revised on 2017. Imm gran pct 0.7 % [facility] Comment: Interpretive Data Percent cell count reference ranges are not reported, since discordance with absolute values may lead to misinterpretation of CBC data. Current Interpretive Data was last revised on 2017. Lymphocyte pct 16.8 % [facility] Comment: Interpretive Data Percent cell count reference ranges are not reported, since discordance with absolute values may lead to misinterpretation of CBC data. Current Interpretive Data was last revised on 2017. Monocyte pct 6.6 % [facility] Comment: Interpretive Data Percent cell count reference ranges are not reported, since discordance with absolute values may lead to misinterpretation of CBC data. Current Interpretive Data was last revised on 2017. Eosinophil pct 2.6 % [facility] Comment: Interpretive Data Percent cell count reference ranges are not reported, since discordance with absolute values may lead to misinterpretation of CBC data. Current Interpretive Data was last revised on 2017. Basophil pct 0.7 % MOLINA [facility] Comment: Interpretive Data Percent cell count reference ranges are not reported, since discordance with absolute values may lead to misinterpretation of CBC data. Current Interpretive Data was last revised on 2017. Blood 02/22/2025 2:36 PM CDT 02/22/2025 3:35 PM CDT us Quyen Campa CORE PASTER LAB BLOOD ORDERABLES Fin al Result [facility] Department [place] [address] * Urinalysis reflex to microscopic and culture Urine, clean voided (02/22/2025 2:36 PM CDT) Color, ur See Comment Yellow Comment:Credited, quantity n ot sufficient. Clarity, ur See Comment Clear [facility] Comment:Credited, quantity n ot sufficient. Specific gravity, ur See Comment 1.003 - 1.030 [facility] Comment:Credited, quantity n ot sufficient. pH, urine See Comment [facility] Comment: Credited, quantity not sufficient. Interpretive Data U rine pH is affected by diet, medications, systemic acid-base disturbances, and renal tubular function. pH may affect urinary stone formation. For example, urine pH below 6.0 may help reduce the tendency for calcium phosphate stones and pH greater than 6.0 may reduce the tendency for uric acid stone formation. Source: [facility] [employer] Current Interpretive Data was last revised on 2017 Protein, ur ql See Comment Negative [facility] Comment:Credited, quantity n ot sufficient. Glucose, ur ql See Comment Negative [facility] Comment:Credited, quantity n ot sufficient. Ketones, ur See Comment Negative [facility] Comment:Credited, quantity n ot sufficient. Bilirubin, ur See Comment Negative [facility] Comment:Credited, quantity n ot sufficient. Blood, ur See Comment Negative [facility] Comment:Credited, quantity n ot sufficient. Urobilinogen, ur See Comment <2.0 mg/dL [facility] Comment:Credited, quantity n ot sufficient. Nitrite, ur See Comment Negative [facility] Comment:Credited, quantity n ot sufficient. Leukocyte esterase, ur See Comment Negative [facility] Comment:Credited, quantity n ot sufficient. UA reflex comment Reflex conditions for microscopic UA and culture not met. [facility] Urine, clean voided 02/22/2025 2:36 PM CDT 02/22/2025 3:19 PM CDT us Quyen Campa CORE PASTER LAB MICROBIOLOGY - GENER AL ORDERABLES Final Result [facility] Department [place] [address] * (ABNORMAL) CBC with auto differential (02/22/2025 2:36 PM CDT) WBC 10.68(H) 3.80 - 9.90 K/cumm Hgb 14.7 11.9 - 15.5 g/dL [facility] Hct 42.9 35.6 - 45.5 % [facility] Plt 265 150 - 400 K/cumm [facility] MPV 10.5 9.1 - 12.3 fL [facility] RBC 4.66 3.90 - 5.20 M/cumm [facility] MCV 92.1 81.3 - 96.4 fL [facility] MCH 31.5 27.1 - 33.3 pg [facility] MCHC 34.3 32.3 - 35.7 g/dL [facility] RDW CV 14.7 11.1 - 14.9 % [facility] RDW SD 50.1(H) 35.7 - 48.1 fL [facility] NRBC abs 0.00 0.00 - 0.01 K/cumm [facility] Blood 02/22/2025 2:3 6 PM CDT 02/22/2025 3:35 PM CDT us Quyen Rodrigez Lokesh CORE PASTER LAB BLOOD ORDERABLES Fin al Result Performing Organization Address [facility]/ZIP Co de Phone Number [facility] Department [place] [address] * (ABNORMAL) Basic metabolic panel (02/22/2025 2:36 PM CDT) [facility] Sodium 138 135 - 145 mmol/L Potassium, pl 4.7 3.3 - 4.9 mmol/L [facility] Chloride 96(L) 97 - 110 mmol/L [facility] CO2 27 22 - 32 mmol/L [facility] Anion gap 15 2 - 15 mmol/L [facility] BUN 22 6 - 25 mg/dL [facility] Creatinine 1.34(H) 0.60 - 1.10 mg/dL [facility] Glucose 175 70 - 199 mg/dL [facility] Comment: Interpretive Data Fasting glucose >/= 126 [...] 2022. Calcium 9.6 8.5 - 10.3 mg/dL [facility] Blood 02/22/2025 2:36 PM CDT 02/22/2025 3:35 PM CDT Quyen Olveralou Campa CORE PASTER LAB BLOOD ORDERABLES Fin al Result Performing Organization Address [facility] Co de Phone Number [facility] Department [place] [address] * (ABNORMAL) POCT hemoglobin A1c (02/22/2025 1:19 PM CDT) [facility] Hgb A1C, POC 7.7(H) 4.0 - 5.6 % Est Average Gluc POC 174 mg/dL [facility] Comment: The ADA recommends reporting an estimated Average Glucose (eAG) with all Hemoglobin A1c results using the equation derived from a study of 507 normal and diabetic adults. Minority populations were underrepresented and children were not included. (Diabetes Care 31:3365-6473, 2008). The eAG is not equivalent to a fasting glucose. Blood 02/22/2025 1:19 PM CDT 02/22/2025 1:19 PM CDT Jung Arriola MD POINT OF CARE TEST ORDERABLES Final Result Performing Organization Address City/State/[facility] Co de Phone Number [facility] Department [place] [address] * ECG 12 lead (02/22/2025 1:06 PM CDT) [facility] Ventricular Rate EKG/Min 67 BPM [facility] Atrial Rate 67 BPM [facility] [place]-Interval (MSEC) 170 ms [facility] QRS-Interval (MSEC) 104 ms [facility] QT-Interval (MSEC) 424 ms [facility] QTc 448 ms [facility] P [place] -8 degrees [facility] R [place] 6 degrees [facility] T [place] 105 degrees [facility] Diagnosis Normal sinus rhythm inferior infarction, 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 ST segment elevation in Inferior leads Consider ischemic etiology ST depression and T wave inversions in lateral leads Abnormal ECG Compared to previous tracing of 06/23/22, no significant change Confirmed by fellow Juju Garay ([id number]) on 02/23/2025 8:48:28 AM Confirmed by CLARICE GARCIA M.D ([id number]) on 02/23/2025 9:25:42 AM [facility] 02/22/2025 1:06 PM CDT 02/23/2025 9:25 AM CDT us Quyen Rodrigez Lokesh CORE PASTER ECG ORDERABLES Final Re sult [facility] * US Arterial Duplex Lower Extremity Left Limited (02/15/2025 10:20 AM CDT) Anatomical Region Laterality Modality Vascular Left Ultrasound 02/15/2025 9:44 AM CDT Narrative 02/15/2025 2:19 PM CDT [facility] - Department of Vascular Surgery, Vascular Laboratory [address] [place] [address] [place] Lower Extremity Arterial Duplex Report Patient Name: NICHOLAS HOUGH : 1965 Study Date: 02/15/2025 9:44:37 AM Gender: F Tech: RIVER Location: [facility] Provider: JUNG ARRIOLA Quality: Adequate Order Provider: JUNG ARRIOLA PROCEDURES: Arterial Report: Left Lower Extremity Arterial Duplex Exam. INDICATIONS: I70.212 Atherosclerosis of [place] arteries of extremities with intermittent claudication, left leg. MEASUREMENTS: Left Value Units Lt STOCK CHECKERER Dst PSV 132 cm/s Lt Profunda Dst PSV 112 cm/s Lt Superficial Femoral Prx PSV 0 cm/s Lt Superficial Femoral Mid PSV 0 cm/s Lt Superficial Femoral Dst PSV 0 cm/s Lt Pop Prx PSV 38 cm/s Lt Post Tibial Mid PSV 10 cm/s Lt Ant Tibial Mid PSV 9 cm/s Lt Peroneal Mid PSV 7 cm/s Left Value Units FINDINGS: Performing Insurance Coordinator: Antonia Wells RVT. Left Common Femoral: The [...] PVD, CAD 2021 ANGIOGRAPHY - BILATERAL EXTREMITY SERVER SECURITY ADMINISTRATOR ATHERECTOMY STENT(S) FEM-POP, UNILATERAL, FIRST VESSEL. PREVIOUS [...] Procedure Note Kentrell Ruelas MD - 02/15/2025 [facility] - Department of Vascular Surgery,Vascular Laboratory [address] [place] [id number] [place] Lower Extremity Arterial Duplex Report Patient Name: NICHOLAS HOUGH : 1965 Study Date: 02/15/2025 9:44:37 AM Gender: F Tech: RIVER Location: [facility] Provider: JUNG ARRIOLA Quality: Adequate Order Provider: JUNG ARRIOLA PROCEDURES: Arterial Report: Left Lower Extremity Arterial Duplex Exam. INDICATIONS: I70.212 Atherosclerosis of [place] arteries of extremities withintermittent claudication, left leg. MEASUREMENTS: Left Value Units Lt STOCK CHECKERER Dst PSV 132 cm/s Lt Profunda Dst PSV 112 cm/s Lt Superficial Femoral Prx PSV 0 cm/s Lt Superficial Femoral Mid PSV 0 cm/s Lt Superficial Femoral Dst PSV 0 cm/s Lt Pop Prx PSV 38 cm/s Lt Post Tibial Mid PSV 10 cm/s Lt Ant Tibial Mid PSV 9 cm/s Lt Peroneal Mid PSV 7 cm/s Left Value Units FINDINGS: Performing Insurance Coordinator: Antonia Wells RVT. Left Common Femoral: The [...] PVD, CAD 2021 ANGIOGRAPHY - BILATERAL EXTREMITY SERVER SECURITY ADMINISTRATOR ATHERECTOMY STENT(S) FEM-POP, UNILATERAL, FIRST VESSEL. PREVIOUS [...] above. Electronically Signed By: Kentrell Ruelas MD [facility] 02/15/2025 2:19:10 PM CDT us Jung Arriola MD IMG US PROCEDURES Final Resul t * US Arterial Doppler Lower Extremity Bilateral (02/15/2025 10:20 AM CDT) Anatomical Region Laterality Modality Vascular Bilateral Ultrasound 02/15/2025 9:45 AM CDT Narrative 02/15/2025 2:07 PM CDT [facility] - Department of Vascular Surgery, Vascular Laboratory [address] [place] [address] Lower Extremity Arterial Doppler Report Patient Name: NICHOLAS HOUGH : 1965 Study Date: 02/15/2025 9:45:00 AM Gender: F Tech: Antonia Wells T Location: [facility] Provider: JUNG ARRIOLA Quality: Adequate Order Provider: JUNG ARRIOLA PROCEDURES: Arterial Report: Bilateral lower extremity arterial Doppler exam at rest. INDICATIONS: I70.213 Atherosclerosis of [place] arteries of extremities with intermittent claudication, bilateral legs. MEASUREMENTS: Right Value Units Left Value Units Rt Brachial Pressure 143 mmHg Lt Brachial Pressure 140 mmHg Rt SERVER SECURITY ADMINISTRATOR Pressure 33 mmHg Lt SERVER SECURITY ADMINISTRATOR Pressure 25 mmHg Rt DPA Pressure 22 mmHg Lt DPA Pressure 30 mmHg Rt 1st Digit Pressure <10 mmHg Lt 1st Digit Pressure IMM mmHg Rt PT ARNULFO Resting 0.23 Lt PT ARNULFO Resting 0.17 Rt AT ARNULFO Resting 0.15 Lt AT ARNULFO Resting 0.21 Rt Digit/Arm Index <14 Lt Digit/Arm Index IMM Right Value Units Left Value Units FINDINGS: Performing Insurance Coordinator: Antonia Wells RVT. Right Common Femoral Artery [...] DM, CAD 2021 ANGIOGRAPHY - BILATERAL EXTREMITY SERVER SECURITY ADMINISTRATOR ATHERECTOMY STENT(S) FEM-POP, UNILATERAL, FIRST VESSEL. PREVIOUS [...] Procedure Note Kentrell Ruelas MD - 02/15/2025 [facility] - Department of Vascular Surgery,Vascular Laboratory [address] [place] [address] Lower Extremity Arterial Doppler Report Patient Name: NICHOLAS HOUGH : 1965 Study Date: 02/15/2025 9:45:00 AM Gender: F Tech: Antonia Wells [place] Location: [facility] Ref Provider: JUNG ARRIOLA Quality: Adequate Order Provider: JUNG ARRIOLA PROCEDURES: Arterial Report: Bilateral lower extremity arterial Doppler exam at rest. INDICATIONS: I70.213 Atherosclerosis of [place] arteries of extremities withintermittent claudication, bilateral legs. MEASUREMENTS: Right Value Units Left Value Units Rt Brachial Pressure 143 mmHg Lt Brachial Pressure 140 mmHg Rt SERVER SECURITY ADMINISTRATOR Pressure 33 mmHg Lt SERVER SECURITY ADMINISTRATOR Pressure 25 mmHg Rt DPA Pressure 22 mmHg Lt DPA Pressure 30 mmHg Rt 1st Digit Pressure <10 mmHg Lt 1st Digit Pressure IMM mmHg Rt PT ARNULFO Resting 0.23 Lt PT ARNULFO Resting 0.17 Rt AT ARNULFO Resting 0.15 Lt AT ARNULFO Resting 0.21 Rt Digit/Arm Index <14 Lt Digit/Arm Index IMM Right Value Units Left Value Units FINDINGS: Performing Insurance Coordinator: Antonia Wells RVT. Right Common Femoral Artery [...] DM, CAD 2021 ANGIOGRAPHY - BILATERAL EXTREMITY SERVER SECURITY ADMINISTRATOR ATHERECTOMY STENT(S) FEM-POP, UNILATERAL, FIRST VESSEL. PREVIOUS [...] above. Electronically Signed By: Kentrell Ruelas MD [facility] 02/15/2025 2:07:02 PM CDT us Jung Arriola MD IM US PROCEDURES Final Resul t * CTA [...] - DEVICE Final Result Performing Organization Address City/State/[facility] Co de Phone Number [facility] Department [place] [address] from Last 3 Months Insurance [facility] MEDICARE ADVANTAGE [employer] [facility] MEDICARE ADVANTAGE [employer] Advance Directives For more information, please contact: [phone] * Full Code (Latest Code Status on File) Date Activated Date Inactivated Comments 02/27/2025 9:49 PM 03/03/2025 8:08 PM * Full Code Date Activated Date Inactivated Comments 06/23/2022 1:43 PM 06/23/2022 8:06 PM * Full Code Date Activated Date Inactivated Comments 03/08/2019 2:40 PM 03/09/2019 3:59 PM Care Teams Roustabout Pusher Relationship Specialty Start Date End Date No, Physician PCP - General 02/20/25
--- OUTSIDE RECORDS SUMMARY | 2025-05-08 11:56 | XMS_ITS | Clinical Summary ---
Author Organization [facility] Address [address] [place] [address] Care Team Providers Care Fourdrinier Operator Name Role Phone [facility], External Provider Primary Care Provider [...] mouth 3 times daily. 08/23/19 20 Active cholecalciferol, vitamin D3, (CHOLECALCIFEROL , VITD3,, [...] 01/03/20 20 Active ondansetron (ZOFRAN) 4 mg TabletIndication s:CML [...] Capsule Take by mouth. 01/11/20 21 Active bosutinib (Bosulif) 100 mg tabletIndication s:CML (chronic myelocytic leukemia) TAKE 3 TABLETS BY MOUTH EVERY DAY 90 Tablet 6 10/11/19 25 Active venlafaxine (EFFEXOR) 37.5 mg tablet Take 37.5 mg by mouth daily. 03/28/20 25 Active Eliquis 5 mg tablet Take 5 mg by mouth 2 times daily. Active cephALEXin (KEFLEX) 500 mg capsule Take 1 Capsule (500 mg) by mouth 4 times daily for 10 days. 40 Capsule 04/10/20 25 025 Active Problems Problem Noted Date Diagnosed Date COPD (chronic obstructive pulmonary disease) 03/2020 CML in remission 09/15/2016 Chronic renal insufficiency, stage III (moderate ) 09/15/2016 Type 2 diabetes mellitus without complication Atherosclerosis of jena co ronary artery without angina pectoris 09/15/2016 Encounters Date Type Department Care Team Description 04/10/2025 2:45 PM CDT Office Visit [facility] [address] [place] [address] Zelalem Shah MD CML (chronic myelocytic leukemia) (CMS/HCC) (Primary Dx) 03/28/2025 External Device Data STL ABSTRACTION Provider, Abstract 03/24/2025 Orders Only [facility] [place] [address] [place] [address] Zelalem Shah MD 03/22/2025 Abstract [facility] [place] [address] [place] [address] Zelalem Shah MD 03/22/2025 Orders Only [facility] [place] [address] [place] [address] Zelalem Shah MD 03/21/2025 Orders Only [facility] [place] [address] [place] [address] Zelalem Shah MD 03/14/2025 External Device Data STL ABSTRACTION Provider, [...] Cigarettes 2 26 1 981 - 2006 Alcohol Use Standard Drinks/Week Comments No 0 (1 standard drink = 0.6 oz pur e alcohol) Comments No Sex and Gender Information Value Date Recorded Sex Assigned at Not on file Legal Sex 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 Gender Identity Not on file Sexual Orientation Not on file Last Filed Vital Signs Vital Sign Reading Time Taken Comments Blood Pressure 143/89 04/10/2025 2:36 PM CDT Pulse 81 04/10/2025 2:32 PM CDT Temperature 37.2 C (98.9 F) 04/10/2025 2:32 PM CDT Respiratory Rate 15 04/10/2025 2:32 PM CDT Oxygen Saturation 95% 04/10/2025 2:32 PM CDT Inhaled Oxygen Concentration - - Weight 86.9 kg (191 lb 9.6 oz) 04/10/2025 2:32 P M CDT Height 170.2 cm (5' 7) 01/14/2022 1:30 PM CDT Body Mass Index 30.01 01/14/2022 1:30 PM CDT Plan of Treatment Upcoming Encounters Date Type Department Care Team (Late st Contact Info) Description 10/10/2025 1:00 PM CDT Office Visit [facility] [place] [address] [facility] [address] [place] [address] Zelalem Shah MD [address] [facility] [address] [place] [address] Health Maintenance Due Date Last [...] DIABETES ANNUAL RETINAL EXAM 12/31/2016 01/01/2016, 05/03/2015 RSV VACCINE (60+ or ) (1 - Risk 60-74 years 1-dose series) 2024 INFLUENZA VACCINE (#1) 2025 DIABETES HBA1C Q 6 MONTHS 08/25/20252024, 10/24/2020, 09/18/2020, Additional history exists HEPATITIS B VACCINES Aged Out No long er eligible based on patient's age to complete this topic Procedures Procedure Name Priority Date/Time Associated Diagnosis Comments CBC WITH AUTODIFFERENTIAL Routine 2024 2:29 PM CDT COMPREHENSIVE METABOLIC PANEL Routine 03/21/2025 8:00 AM CDT BCR/ABL DIAGNOSTIC ASSAY W/REFLEX Routine 03/21/2025 7:45 AM CDT from Last 3 Months Results * CBC WITH AUTODIFFERENTIAL (03/21/2025 2:29 PM CDT) Blood us Zelalem Shah MD HEMATOLOGY ORDERABLES Final Res ult * COMPREHENSIVE METABOLIC PANEL (03/21/2025 8:00 AM CDT) Blood us Zelalem Shah MD CHEMISTRY ORDERABLES Final Resu lt * BCR/ABL DIAGNOSTIC ASSAY W/REFLEX (03/21/2025 7:45 AM CDT) us Zelalem Shah MD BODY FLUIDS AND STOOLS COM Jen l Result from Last 3 Months Insurance Care Teams Fourdrinier Operator Relationship Specialty Start Date End Date [facility], External Provider PCP - General 09/01/18
--- OUTSIDE RECORDS SUMMARY | 2025-05-08 11:56 | XMS_ITS | Clinical Summary ---
Author Organization [facility] Address [address] [place] [address] Care Team Providers Care Professional Driver Name Role Phone Unavailable Primary Care Provider Unavailabl e Source Comments [facility],non-owned Affiliates and Associated Physician Practices is amultiple site organization consisting of ambulatory clinics and hospital sitesin [place], [place], [place] and [place]. This disclosure is being madepursuant to the Care Everywhere program and may not contain all information available regarding this patient. Last updated 18.[facility] [employer] Allergies Active Allergy Reactions Criticality Noted Date [...] Problem Noted Date Diagnosed Date Atherosclerosis of nikolai co ronary artery without angina pectoris 09/15/2016 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 Chronic renal insufficiency, stage III (moderate ) 09/15/2016 Type 2 diabetes mellitus without complication Overview (04/26/2025): IMO 04/26/2025 Social History Tobacco Use Types Packs/Day Years Used Date Smoking Tobacco: Former Cigarettes Smokeless Tobacco: Never Comments No Sex and Gender Information Value Date Recorded Sex Assigned at Not on file 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
--- OUTSIDE RECORDS SUMMARY | 2025-05-08 11:56 | XMS_ITS | Encounter Summary ---
Author Organization [facility] Address [address] [place] [address] Care Team Providers Care Purchase Request Editor Name Role Phone No, Physician Primary Care Provider [phone] Encounter Details Date Type Department Care Team (Late st Contact Info) Description 04/12/2025 [facility] Post Discharge Follow up phone call [facility] Emergency Department [address] [place] [address] Michelle Coyle RN Social History Tobacco Use Types Packs/Day Years Used Date Smoking Tobacco: Former Cigarettes Q uit: 03/08/2019 Smokeless Tobacco: Never Comments:Pt states maybe abo ut a pack a day, does not really [...] on file Legal Sex Female 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
--- OUTSIDE RECORDS SUMMARY | 2025-05-08 11:56 | XMS_ITS | Encounter Summary ---
Author Organization [facility] [employer] [facility] Address [address] [place] [address] Phone Care Team Providers Care Tombstone Setter Name Role Phone Farhad Dolan MD Primary Care Provider [phone] Encounter Details Date Type Department Care Team (Late st Contact Info) Description 05/08/2021 Office Communication [place] [facility] [address] [place] [address] Giuseppe Lee DO [address] [address] Social History Tobacco Use Types [...] st Contact Info) Description 05/30/2025 4:00 PM TRACKLESS TROLLEY DRIVER Office Visit [facility], [facility] [address] [facility] [address] [place] [address] Giuseppe Lee, [address] [facility] [address] [place] [address] documented as of this encounter Visit Diagnoses Not on filedocumented in this encounter Care Teams Tombstone Setter Relationship Specialty Start Date End Date Farhad Dolan MD [address] [place] [address] PCP - General Internal Medicine 10/28/22 documented as of this encounter
== END 2025-05-08 10:45 | disposition home or self-care (01) ==
LOC: ANHLAB 10:46
PROVIDERS: PCP Physician Assistant; Visit Provider Internal Medicine Interventional Cardiology
DX: E11.59 Type 2 diabetes mellitus with other circulatory complications (principal); I50.9 Heart failure, unspecified; I70.213 Atherosclerosis of native arteries of extremities with intermittent claudication, bilateral legs; I11.0 Hypertensive heart disease with heart failure
CPT/HCPCS: 36415; 80048; 85027; 85610

== ENCOUNTER 2025-05-22 11:30 | Outpatient (CLI) | payer MEDICARE, SELFPAY ==
--- OUTSIDE RECORDS SUMMARY | 2009-01-22 03:45 | XMS_ITS | Continuity of Care Document ---
Author Organization [facility] Address [address] [facility] [address] [place] [address] Phone Care Team Providers Care Electronic Equipment Maint Tech Name Role Phone Sg Gramajo Unavailable Unavailable Procedures Procedure Date Eye Exam & Treatment Refraction Advance Directives Directive Yes / No Effective Date File Name No Information Encounters Encounter Description Practice Location Reason(s) For Visit Diagnoses Date Provider Providers Copied on Encounter [facility], [address], [place], [place], [id number], tel:[phone] [facility] No Information 9-200 9 Yeawayou Bettencourt. [address] [facility] [address], [place], [address], [place]. tel:[phone] Family History Family Member Type Diagnosis Age At Onset No Information Payers Payer name Insurance type Covered green party ID Authoriza tion(s) Medicaid [facility] [id number] Social History Type Description Quantity Date Captured [...]
--- OUTSIDE RECORDS SUMMARY | 2025-05-22 13:11 | XMS_ITS | Encounter Summary ---
Author Organization [facility] [employer] [facility] Address [address] [place] [address] Phone Care Team Providers Care Meringuer Name Role Phone Farhad Dolan MD Primary Care Provider Reason for Visit * Reason Onset Date Comments Med Refill 05/10/2024 Encounter Details Date Type Department Care Team (Late st Contact Info) Description 05/10/2024 Refill [place] [employer] [facility] [address] [address] Rachel Temple CMA [address] [place] [address] Social History Tobacco Use Types [...] st Contact Info) Description 05/30/2025 4:00 PM SIMULATION SPECIALIST Office Visit [place] [employer] [facility] [address] [address] Giuseppe Lee DO [address] [place] [address] documented as of this encounter Visit Diagnoses Not on filedocumented in this encounter Care Teams Meringuer Relationship Specialty Start Date End Date Farhad Dolan MD [address] [place] [address] PCP - General Internal Medicine 10/28/22 documented as of this encounter
--- OUTSIDE RECORDS SUMMARY | 2025-05-22 13:11 | XMS_ITS ---
Author Organization [facility] Address [address] [place] [address] Care Team Providers Care Career Counselor Name Role Phone No, Physician Primary Care Provider [phone] Active Problems Problem Noted Date Diagnosed Date [...] (06/16/2022): Added automatically from request for surgery [id number] Type 2 diabetes mellitus wit h other [...]
--- OUTSIDE RECORDS SUMMARY | 2025-05-22 13:11 | XMS_ITS | Encounter Summary ---
Author Organization [facility] [employer] [facility] [employer] [facility] Address [address] [place] [phone] Phone Care Team Providers Care Automotive Fuel Injection Servicer Name Role Phone Farhad Dolan MD Primary Care Provider [phone] Encounter Details Date Type Department Care Team (Late st Contact Info) Description 08/02/2021 Office Communication [place] [facility] Emergency DepartmentPlanandoo [facility] [address] [facility] 1 [place] [address] Giuseppe Lee DO [address] [facility] 1 [place] [address] Social History Tobacco Use Types [...] st Contact Info) Description 05/30/2025 4:00 PM PYTHON CONSULTANT Office Visit [place] [facility] Emergency DepartmentPlanandoo [facility] [address] [facility] [address] [place] [address] Giuseppe Lee, [address] [place] [address] documented as of this encounter Visit Diagnoses Not on filedocumented in this encounter Care Teams Automotive Fuel Injection Servicer Relationship Specialty Start Date End Date Farhad Dolan MD [address] [place] [address] PCP - General Internal Medicine 10/28/22 documented as of this encounter
--- OUTSIDE RECORDS SUMMARY | 2025-05-22 13:11 | XMS_ITS | Encounter Summary ---
Author Organization [employer] , [facility] Address [address] [facility] [place] [address] Phone Care Team Providers Care Car Construction Superintendent Name Role Phone Farhad Dolan MD Primary Care Provider [phone] Reason for Visit * Reason Comments Med Refill Encounter Details Date Type Department Care Team (Late st Contact Info) Description 02/22/2021 Refill [employer], [address] [place] [address] Giuseppe Lee DO [address] [facility] 1 [place] [address] Social History Tobacco Use Types [...] (Late Contact Info) Description 05/30/2025 4:00 PM ICT MANAGERS Office Visit [employer], [facility] [address] [facility] 15 [place] [address] Giuseppe Lee DO [address] [facility] 1 [place] [address] documented as of this encounter Visit Diagnoses Not on filedocumented in this encounter Care Teams Car Construction Superintendent Relationship Specialty Start Date End Date Farhad Dolan MD [address] [place] [address] PCP - General Internal Medicine 10/28/22 documented as of this encounter
--- OUTSIDE RECORDS SUMMARY | 2025-05-22 13:11 | XMS_ITS | Encounter Summary ---
Author Organization [employer] , [facility] Address [address] [facility] [place] [address] Phone Care Team Providers Care Mental Health Consultant Name Role Phone Farhad Dolan MD Primary Care Provider [phone] Reason for Visit * Reason Comments Med Refill Encounter Details Date Type Department Care Team (Late st Contact Info) Description 01/16/2024 Refill [facility], [address] [place] [address] Giuseppe Lee DO [address] [facility] 1 [place] [address] Social History Tobacco Use Types [...] (Late Contact Info) Description 05/30/2025 4:00 PM MONKEY TRAINER Office Visit [facility], [facility] [address] [facility] 15 [place] [address] Giuseppe Lee DO [address] [facility] 1 [place] [address] documented as of this encounter Visit Diagnoses Not on filedocumented in this encounter Care Teams Mental Health Consultant Relationship Specialty Start Date End Date Farhad Dolan MD [address] [place] [address] PCP - General Internal Medicine 10/28/22 documented as of this encounter
--- OUTSIDE RECORDS SUMMARY | 2025-05-22 13:12 | XMS_ITS | Encounter Summary ---
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
--- OUTSIDE RECORDS SUMMARY | 2025-05-22 13:12 | XMS_ITS | Clinical Summary ---
Author Organization [facility] Address [address] [address] Care Team Providers Care Pressure Control Supervisor Name Role Phone Farhad Dolan MD Primary Care Provider [phone] Medications insulin lispro (HumaLOG) 100 UNIT/ML injection [...] Type Department Care Team Description 05/04/[address] 1 [place] [address] Giuseppe Lee DO 04/05/[address] [address] Giuseppe Lee DO 03/28/2025 1:15 PM CDT Office Visit [facility] [address] [address] Giuseppe Lee DO Stage 3b [...] Secondary hyperparathyroidism (HCC) 03/28/[address] [facility] [address] [address] Giuseppe Lee DO 03/28/[address] [facility] [address] [address] Rachel Temple CMA 03/02/2025 Orders Only [address] [address] Minnie Perdomo Essential hypertension (Primary Dx) 02/26/[address] 1 [place] [address] Giuseppe Lee DO from Last 3 Months [...] st Contact Info) Description 05/30/2025 4:00 PM DISABILITY BENEFITS SPECIALIST Office Visit [place] [employer] [facility], [facility] [address] [facility] 15 [place] [address] Giuseppe Lee DO [address] [facility] [address] [place] [address] Health Maintenance Due Date Last [...] patient's age to complete this topic Insurance [facility] Medicare Care Teams Pressure Control Supervisor Relationship Specialty Start Date End Date Farhad Dolan MD [address] [place] [address] PCP - General Internal Medicine 10/28/22
--- OUTSIDE RECORDS SUMMARY | 2025-05-22 13:12 | XMS_ITS | Clinical Summary ---
Author Organization [facility] Address [address] [place] [address] Care Team Providers Care Hot Room Attendant Name Role Phone No, Physician Primary Care Provider [phone] Allergies Active Allergy Reactions Criticality Noted Date Comments Atenolol Shortness of breath High 10/27/2012 Atropine Rash,Other (See comments) Medium 01/14/2022 Diphenoxylate-Atropine Swelling,Redness Medium 019 Dulaglutide Palpitations,Rash High 04/25/2020 Empagliflozin Other (See comments),Rash High 08/10/2019 Infection in groin area Ezetimibe Muscle pain High 02/25/2021 Rahrlck-Vsv-Tqb Reductase Inhibitors Other (See comments),Nausea & Vomiting [...] (06/16/2022): Added automatically from request for surgery [id number] Type 2 diabetes mellitus wit h other [...] Department Care Team Description 04/14/2025 Orders Only [facility] Vascular Surgery [address] [facility] Medical Office Building [address] [place] [phone] Jung Arriola MD PAD (peripheral artery disease) (Primary Dx); Presence of other vascular implants and grafts; Encounter for surgical aftercare following surgery of circulatory system 04/14/2025 Telephone [facility] Medicine Surgery [address] [facility] 1 [place] [phone] Jung Arriola MD 04/12/2025 Telephone [facility] Surgery [address] [place] [address] 1 [place] [phone] Eleanor Shaw CMA 04/12/2025 [facility] Post Discharge Follow up phone call [facility] Emergency Department [address] [place] [address] [phone] Karissa Koehler RN 04/12/2025 [facility] Post Discharge Follow up phone call [facility] Emergency Department [id number] [place] [address] [phone] Michelle Coyle RN 04/11/2025 5:55 PM CDT - 04/11/2025 7:55 PM CDT Emergency [facility] Emergency Department [address] [place] [address] [phone] Mallorie Brown MD Wound dehiscence (Primary Dx); Cellulitis, abdominal wall; Peripheral vascular disease Discharge Disposition: Discharge to home or self care 04/11/2025 Telephone [facility] Surgery [address] [place] [address] 1 [place] [phone] Jung Arriola MD 03/29/2025 1:45 PM CDT Office Visit [facility] Surgery [facility] 8th [place] [address] [place] [phone] Jung Arriola MD PAD (peripheral artery disease) (Primary Dx); Presence of other vascular implants and grafts; Encounter for surgical aftercare following surgery of circulatory system; Atherosclerosis of seminole arteries of extremities with intermittent claudication, left leg; Atherosclerosis of seminole arteries of extremities with intermittent claudication, bilateral legs 03/29/2025 1:00 PM CDT Ancillary Procedure [facility] Medicine Vascular Lab at [facility] 8th [place] [address] [place] [address] Atherosclerosis of seminole arteries of extremities with intermittent claudication, bilateral legs; Atherosclerosis of seminole arteries of extremities with intermittent claudication, left leg 03/06/2025 Telephone [facility] Medicine Surgery [address] [facility] Floor 1 [place] [address] Jung Arriola MD 02/27/2025 11:47 AM CDT Anesthesia Event [facility] Operating Room 1 [place] [address] Rodolfo Cuellar MD Richardson, Genea Michelle, NP 02/27/2025 11:30 AM CDT - 02/27/2025 5:30 PM CDT Surgery [facility] Operating Room 1 [place] [address] Jung Arriola MD Bypass Graft - Femoral Ilio - left external iliac artery to below knee popliteal artery bypass graft; florentino cuff 02/27/2025 9:05 AM CDT - 03/03/2025 4:08 PM CDT Hospital [address] [address] Jung Arriola MD PAD (peripheral artery disease) Discharge Disposition: Discharge to home or self care 02/24/2025 Telephone [facility] Medicine Surgery [facility] 8th [place] [address] [place] [address] Jung Arriola MD 02/22/2025 1:30 PM CDT Pre-Admission Testing [facility] [address] [place] [phone] Preoperative testing (Primary Dx) 02/22/2025 Orders Only [facility] Medicine Surgery [facility] 8th [place] [address] [place] [address] Jung Arriola MD Atherosclerosis of seminole arteries of extremities with intermittent claudication, left leg (Primary Dx); Atherosclerosis of seminole arteries of extremities with intermittent claudication, bilateral legs from Last 3 Months Surgical History Surgery Date Site/Laterality Comments TUBAL LIGATION CARDIAC STENT PLACEMENT 07/27/2014 - 07/26/2015 EYE SURGERY SECTION Medical History Medical History Date Comments Type 2 diabetes mellitus Hyperlipidemia Hypertension Cancer (HCC) CML luekemia COPD (chronic obstructive pu lmonary disease) Sleep apnea Myocardial infarction (HCC) 07/20/2000 x3 a nd in 2002 and 2005 Cataract 2014 has had surgery Coronary artery disease 02/25/2019 [...] on file 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 Gender Identity Not on file Sexual Orientation [...] Lipid Panel 02/27/2026 02/27/2025 eGFR 04/11/2026 04/11/2025, 08/01/2025, 03/01/2025, Additional history exists Medical Devices Implanted Type Area Process Safety Specialist Device Identifier Shelf Expiration Date Model / Serial / Lot [employer] [id number] System Coronary Stent Xience Miriam Everolimus L15 Mm Od3.5 Mm Rapid Exchange - [id number] Implanted:Qty: 1 on 03/08/2019 by Joseph Grace MD at [facility] [employer] 11/26/2019 [id number] / / [employer] [id number] System Coronary Stent Xience Miriam Everolimus L12 Mm Od3.5 Mm Rapid Exchange - [id number] Implanted:Qty: 1 on 03/08/2019 by Joseph Grace MD at [facility] [employer] 01/03/2020 [id number] / / [employer] [id number] System Coronary Stent Xience Miriam Everolimus L18 Mm Od3.5 Mm Rapid Exchange - [id number] Implanted:Qty: 1 on 03/08/2019 by Joseph Grace MD at [facility] [employer] 12/17/2019 [id number] / / [employer] [id number] System Coronary Stent Xience Miriam Everolimus L15 Mm Od3 Mm Rapid Exchange - [id number] Implanted:Qty: 1 on 03/08/2019 by Joseph Grace MD at [facility] Vascular 11/23/2019 [id number] / / [employer] Everflex Entrust 7mm 120mm 120cm Triaxial Self Expand Low Profile - [id number] Implanted:Qty: 1 on 06/23/2022 by Joseph Grace MD at [facility] Left: Leg [employer] 09/16/2024 [id number] / / [id number] Bard Peripheral Vascular 6x1in Patch Thk1.65mm Story Cardiovascular Ptfe Sterile Latex Free [id number] - [id number] Implanted:Qty: 1 on 02/27/2025 by Jung Arriola MD at [facility] Left: Femoral [employer] Peripheral Vascular [id number] 05/23/2029 [id number] / / [id number] [employer]l [employer] Keene 6mm 90cm 70cm Removable Ring Stretch Thin Wall Graft [id number] - [id number] - [id number] Implanted:Qty: 1 on 02/27/2025 by Jung Arriola MD at [facility] Left: External Iliac Artery Wl [employer] [id number] 10/13/2027 [id number] / [id number] / Procedures Procedure Name Priority Date/Time [...] Routine) 03/29/2025 1:22 PM CDT Atherosclerosis of seminole arteries of extremities with intermittent claudication, left leg US ARTERIAL DOPPLER LOWER EXTREMITY BILATERAL Schedule Routine, Read Routine (OP Routine) 03/29/2025 1:22 PM CDT Atherosclerosis of seminole arteries of extremities with intermittent claudication, bilateral [...] CHEMISTRIES, ARTERIAL Routine 02/27/2025 1:00 PM CDT MA AN PROCEDURE PLACEHOLDER Routine 02/27/2025 12:17 PM CDT MA AN PROCEDURE PLACEHOLDER Routine 02/27/2025 12:17 PM CDT MA AN CENTRAL LINE QUADRUPLE LUMEN Routine 02/27/2025 12:17 PM CDT MA AN PROCEDURE PLACEHOLDER Routine 02/27/2025 12:16 PM CDT MA AN ELECTIVE ENDOTRACHEAL AIRWAY Routine 02/27/2025 12:16 [...] Routine 02/22/2025 1:06 PM CDT Preoperative testing from Last 3 Months Results * Sepsis Lactate w/ Reflex (04/11/2025 5:21 PM CDT) Sepsis Lactate 1.9 0.7 - 2.0 mmol/L Blood 04/11/2025 5:21 PM CDT 04/11/2025 5:27 PM CDT us Benedicto [facility] BLOOD ORDERABLES Final Result [facility] [id number] [address] [place] [address] * eGFR (04/11/2025 5:21 PM [...] Benedicto [facility] BLOOD ORDERABLES Final Result [facility] [address] [address] [place] [address] * (ABNORMAL) Differential, auto (04/11/2025 5:21 PM CDT) Neutrophil abs 7.93(H) 1.50 - 6.50 K/cumm Imm gran abs 0.05 0.00 - 0.10 K/cumm [facility] Lymphocyte abs 1.54 0.80 - 3.30 K/cumm [facility] Monocyte abs 0.53 0.20 - 0.80 K/cumm [facility] Eosinophil abs 0.26 0.00 - 0.50 K/cumm [facility] Basophil abs 0.06 0.00 - 0.10 K/cumm [facility] Neutrophil pct 76.4 % [facility] Comment: Interpretive Data Percent cell count reference ranges are not reported, since discordance with absolute values may lead to misinterpretation of CBC data. Current Interpretive Data was last revised on 2017. Imm gran pct 0.5 % [facility] Comment: Interpretive Data Percent cell count reference ranges are not reported, since discordance with absolute values may lead to misinterpretation of CBC data. Current Interpretive Data was last revised on 2017. Lymphocyte pct 14.9 % [facility] Comment: Interpretive Data Percent cell count reference ranges are not reported, since discordance with absolute values may lead to misinterpretation of CBC data. Current Interpretive Data was last revised on 2017. Monocyte pct 5.1 % [facility] Comment: Interpretive Data Percent cell count reference ranges are not reported, since discordance with absolute values may lead to misinterpretation of CBC data. Current Interpretive Data was last revised on 2017. Eosinophil pct 2.5 % [facility] Comment: Interpretive Data Percent cell count reference ranges are not reported, since discordance with absolute values may lead to misinterpretation of CBC data. Current Interpretive Data was last revised on 2017. Basophil pct 0.6 % [facility] Comment: Interpretive Data Percent cell count reference ranges are not reported, since discordance with absolute values may lead to misinterpretation of CBC data. Current Interpretive Data was last revised on 2017. Blood 04/11/2025 5:21 PM CDT 04/11/2025 5:32 PM CDT us Benedicto [facility] BLOOD ORDERABLES Final Result [facility] [address] [address] [place] [address] * (ABNORMAL) CBC with auto differential (04/11/2025 5:21 PM CDT) WBC 10.37(H) 3.80 - 9.90 K/cumm Hgb 13.9 11.9 - 15.5 g/dL [facility] Hct 41.7 35.6 - 45.5 % [facility] Plt 333 150 - 400 K/cumm [facility] MPV 10.1 9.1 - 12.3 fL [facility] RBC 4.62 3.90 - 5.20 M/cumm [facility] MCV 90.3 81.3 - 96.4 fL [facility] MCH 30.1 27.1 - 33.3 pg [facility] MCHC 33.3 32.3 - 35.7 g/dL [facility] RDW CV 14.2 11.1 - 14.9 % [facility] RDW SD 46.5 35.7 - 48.1 fL [facility] NRBC abs 0.00 0.00 - 0.01 K/cumm [facility] Blood 04/11/2025 5:21 PM CDT 04/11/2025 5:32 PM CDT [facility] BLOOD [facility]ABLES [facility] [address] [address] [place] [address] * Blood culture Blood (04/11/2025 5:21 PM CDT) Report Final Report: No growth Comment:Testing performed by : [facility], 1 [place]., [address] Blood 04/11/2025 5:21 PM CDT 04/11/2025 8:39 PM CDT Narrative [facility] - 04/16/2025 7:01 AM CDT Collection->Peripheral Specimen [...] performance characteristics have been verified by the [facility] Microbiology Laboratory. For questions about this culture, contact the Microbiology Laboratory at [phone]. Interpretive data was last revised on 24. Benedict[facility] MICROBIOLOG[facility] - NERAL ORDERABLES Final Result [facility] [address] [address] Department [place] [address] * Blood culture Blood (04/11/2025 5:21 PM CDT) Report Final Report: No growth Comment:Testing performed by : [facility], [address] [place]., [address] Blood 04/11/2025 5:21 PM CDT 04/11/2025 8:39 PM CDT Christian AUGUSTE [facility] - 04/16/2025 7:01 AM CDT Collection->Peripheral Specimen [...] performance characteristics have been verified by the [facility] Microbiology Laboratory. For questions about this culture, contact the Microbiology Laboratory at [phone]. Interpretive data was last revised on 24. Benedicto [facility] MICROBIOLOG[facility] - [place] [address] [address] Department [place] [address] * (ABNORMAL) Comprehensive metabolic panel (04/11/2025 5:21 PM CDT) Sodium 137 135 - 145 mmol/L Potassium, [...] LAB BLOOD ORDERABLES Final Result [facility] [address] [address] [place] [address] * US Arterial Duplex Lower Extremity Left Limited (03/29/2025 1:22 PM CDT) Anatomical Region Laterality Modality Vascular Left Ultrasound 03/29/2025 12:3 4 PM CDT Narrative 03/29/2025 3:25 PM CDT [facility] - Department of Vascular Surgery, Vascular Laboratory [address] [place] [address] Lower Extremity Arterial Duplex - Bypass Graft Report Patient Name: NICHOLAS HOUGH : 1965 Study Date: 03/29/2025 12:34:49 PM Gender: F Tech: RIVER Location: [facility] Provider: JUNG ARRIOLA Quality: Adequate Order Provider: JUNG ARRIOLA PROCEDURES: Arterial Report: Left external iliac artery to below-knee popliteal artery bypass graft. INDICATIONS: I70.212 Atherosclerosis of seminole arteries of extremities with intermittent claudication, left leg. MEASUREMENTS: Left Value Units Lt Proximal Graft 82 cm/s Lt Mid Graft 69 cm/s Lt Distal Graft 63 cm/s Lt Distal Anastomosis 90 cm/s Lt Outflow Artery 67 cm/s Left Value Units FINDINGS: Performing Emergency Spill Response Technician: Antonia Wells RVT. Left Leg: The proximal [...] Procedure Note Kentrell Ruelas MD - 03/29/2025 [facility] - Department of Vascular Surgery,Vascular Laboratory [address] [place] [address] Lower Extremity Arterial Duplex - Bypass Graft Report Patient Name: NICHOLAS HOUGH : 1965 Study Date: 03/29/2025 12:34:49 PM Gender: F Tech: RIVER Location: [facility] Provider: JUNG ARRIOLA Quality: Adequate Order Provider: JUNG ARRIOLA PROCEDURES: Arterial Report: Left external iliac artery to below-knee popliteal artery bypass graft. INDICATIONS: I70.212 Atherosclerosis of seminole arteries of extremities withintermittent claudication, left leg. MEASUREMENTS: Left Value Units Lt Proximal Graft 82 cm/s Lt Mid Graft 69 cm/s Lt Distal Graft 63 cm/s Lt Distal Anastomosis 90 cm/s Lt Outflow Artery 67 cm/s Left Value Units FINDINGS: Performing Emergency Spill Response Technician: Antonia Wells RVT. Left Leg: The proximal [...] above. Electronically Signed By: Kentrell Ruelas MD [facility] 03/29/2025 2:48:27 PM CDT us Jung Arriola MD IMG US PROCEDURES Final Resul t * US Arterial Doppler Lower Extremity Bilateral (03/29/2025 1:22 PM CDT) Anatomical Region Laterality Modality Vascular Bilateral Ultrasound 03/29/2025 12:3 5 PM CDT Narrative 03/29/2025 3:25 PM CDT [facility] - Department of Vascular Surgery, Vascular Laboratory [address] [place] [address] Lower Extremity Arterial Doppler Report Patient Name: NICHOLAS HOUGH : 1965 Study Date: 03/29/2025 12:35:00 PM Gender: F Tech: Antonia Wells [place] Location: [facility] Provider: JUNG ARRIOLA Quality: Adequate Order Provider: JUNG ARRIOLA PROCEDURES: Arterial Report: Bilateral lower extremity arterial Doppler exam at rest. INDICATIONS: I70.213 Atherosclerosis of seminole arteries of extremities with intermittent claudication, bilateral legs. MEASUREMENTS: Right Value Units Left Value Units Rt Brachial Pressure 119 mmHg Lt Brachial Pressure 112 mmHg Rt METAL REFINER Pressure 19 mmHg Lt METAL REFINER Pressure 89 mmHg Rt DPA Pressure 31 mmHg Lt DPA Pressure 111 mmHg Rt 1st Digit Pressure IMM mmHg Lt 1st Digit Pressure 128 mmHg Rt PT ARNULFO Resting 0.16 Lt PT ARNULFO Resting 0.75 Rt AT ARNULFO Resting 0.26 Lt AT ARNULFO Resting 0.93 Rt Digit/Arm Index IMM Lt Digit/Arm Index 1.08 Right Value Units Left Value Units FINDINGS: Performing Emergency Spill Response Technician: Antonia Wells RVT. Right All Levels: The [...] Procedure Note Kentrell Ruelas MD - 03/29/2025 [facility] - Department of Vascular Surgery,Vascular Laboratory [address] [place] [address] Lower Extremity Arterial Doppler Report Patient Name: NICHOLAS HOUGH : 1965 Study Date: 03/29/2025 12:35:00 PM Gender: F Tech: Antonia Wells RVT Location: [facility] Ref Provider: JUNG ARRIOLA Quality: Adequate Order Provider: JUNG ARRIOLA PROCEDURES: Arterial Report: Bilateral lower extremity arterial Doppler exam at rest. INDICATIONS: I70.213 Atherosclerosis of seminole arteries of extremities withintermittent claudication, bilateral legs. MEASUREMENTS: Right Value Units Left Value Units Rt Brachial Pressure 119 mmHg Lt Brachial Pressure 112 mmHg Rt METAL REFINER Pressure 19 mmHg Lt METAL REFINER Pressure 89 mmHg Rt DPA Pressure 31 mmHg Lt DPA Pressure 111 mmHg Rt 1st Digit Pressure IMM mmHg Lt 1st Digit Pressure 128 mmHg Rt PT ARNULFO Resting 0.16 Lt PT ARNULFO Resting 0.75 Rt AT ARNULFO Resting 0.26 Lt AT ARNULFO Resting 0.93 Rt Digit/Arm Index IMM Lt Digit/Arm Index 1.08 Right Value Units Left Value Units FINDINGS: Performing Emergency Spill Response Technician: Antonia Wells RVT. Right All Levels: The [...] (ABNORMAL) POCT glucose (03/03/2025 11:32 AM CDT) [facility] Glucose, POC 227(H) 70 - 199 mg/dL Comment:Glu2: RN/MD Notified Glucose comment 1 Glu2: RN/MD Notified [facility] Blood 03/03/2025 11:3 2 AM CDT 03/03/2025 11:32 AM CDT us Jung Arriola MD LAB POCT ORDERABLES - DEVICE Final Result [facility] [place] [address] * (ABNORMAL) POCT glucose (03/03/2025 7:39 AM CDT) [facility] Glucose, POC 231(H) 70 - 199 mg/dL Blood 03/03/2025 7:39 AM CDT 03/03/2025 7:39 AM CDT us Jung Arriola MD LAB POCT ORDERABLES - DEVICE Final Result [facility] [place] [address] * (ABNORMAL) eGFR (03/02/2025 11:33 PM CDT) [facility] eGFR 47(L) >=60 mL/min/1. 73 m2 Comment: [...] NP LAB BLOOD ORDERABLES F inal Result [facility] [place] [address] * (ABNORMAL) Differential, auto (03/02/2025 11:33 PM CDT) Neutrophil abs 6.13 1.50 - 6.50 K/cumm Imm gran abs 0.06 0.00 - 0.10 K/cumm [facility] Lymphocyte abs 1.50 0.80 - 3.30 K/cumm [facility] Monocyte abs 0.84(H) 0.20 - 0.80 K/cumm [facility] Eosinophil abs 0.25 0.00 - 0.50 K/cumm [facility] Basophil abs 0.04 0.00 - 0.10 K/cumm [facility] Neutrophil pct 69.5 % [facility] Comment: Interpretive Data Percent cell count reference ranges are not reported, since discordance with absolute values may lead to misinterpretation of CBC data. Current Interpretive Data was last revised on 2017. Imm gran pct 0.7 % [facility] Comment: Interpretive Data Percent cell count reference ranges are not reported, since discordance with absolute values may lead to misinterpretation of CBC data. Current Interpretive Data was last revised on 2017. Lymphocyte pct 17.0 % [facility] Comment: Interpretive Data Percent cell count reference ranges are not reported, since discordance with absolute values may lead to misinterpretation of CBC data. Current Interpretive Data was last revised on 2017. Monocyte pct 9.5 % [facility] Comment: Interpretive Data Percent cell count reference ranges are not reported, since discordance with absolute values may lead to misinterpretation of CBC data. Current Interpretive Data was last revised on 2017. Eosinophil pct 2.8 % [facility] Comment: Interpretive Data Percent cell count reference ranges are not reported, since discordance with absolute values may lead to misinterpretation of CBC data. Current Interpretive Data was last revised on 2017. Basophil pct 0.5 % [facility] Comment: Interpretive Data Percent cell count reference ranges are not reported, since discordance with absolute values may lead to misinterpretation of CBC data. Current Interpretive Data was last revised on 2017. Blood 03/02/2025 11:3 3 PM CDT 03/03/2025 12:25 AM CDT Promise Nelson NP LAB BLOOD ORDERABLES F inal Result [facility] [place] [address] * (ABNORMAL) CBC with auto differential (03/02/2025 11:33 PM CDT) WBC 8.82 3.80 - 9.90 K/cumm Hgb 11.0(L) 11.9 - 15.5 g/dL [facility] Hct 32.6(L) 35.6 - 45.5 % [facility] Plt 254 150 - 400 K/cumm [facility] MPV 10.4 9.1 - 12.3 fL [facility] RBC 3.55(L) 3.90 - 5.20 M/cumm [facility] MCV 91.8 81.3 - 96.4 fL [facility] MCH 31.0 27.1 - 33.3 pg [facility] MCHC 33.7 32.3 - 35.7 g/dL [facility] RDW CV 14.4 11.1 - 14.9 % [facility] RDW SD 48.6(H) 35.7 - 48.1 fL [facility] NRBC abs 0.00 0.00 - 0.01 K/cumm [facility] Blood 03/02/2025 11:3 3 PM CDT 03/03/2025 12:25 AM CDT Promise Nelson NP LAB BLOOD ORDERABLES F inal Result [facility] [place] [address] * (ABNORMAL) Basic metabolic panel (03/02/2025 11:33 PM CDT) Pathologist [facility] Sodium 138 135 - 145 mmol/L Potassium, pl 5.0(H) 3.3 - 4.9 mmol/L [facility] Chloride 99 97 - 110 mmol/L [facility] CO2 26 22 - 32 mmol/L [facility] Anion gap 13 2 - 15 mmol/L [facility] BUN 25 6 - 25 mg/dL [facility] Creatinine 1.30(H) 0.60 - 1.10 mg/dL [facility] Glucose 173 70 - 199 mg/dL [facility] Comment: Interpretive Data Fasting glucose >/= 126 [...] 2022. Calcium 9.6 8.5 - 10.3 mg/dL [facility] Blood 03/02/2025 11:3 3 PM CDT 03/03/2025 12:25 AM CDT Promise Nelson NP LAB BLOOD ORDERABLES F inal Result Performing Organization Address [facility] Co de Phone Number [facility] [place] [address] * (ABNORMAL) POCT glucose (03/02/2025 8:05 PM CDT) Glucose, POC 257(H) 70 - 199 mg/dL Blood 03/02/2025 8:05 PM CDT 03/02/2025 8:05 PM CDT Jung Arriola MD LAB POCT ORDERABLES - DEVICE Final Result Performing Organization Address [facility] de Phone Number [facility] [place] [address] * POCT glucose (03/02/2025 4:50 PM CDT) Glucose, POC 133 70 - 199 mg/dL Blood 03/02/2025 4:50 PM CDT 03/02/2025 4:50 PM CDT Jung Arriola MD LAB POCT ORDERABLES - DEVICE Final Result Performing Organization Address [facility] de Phone Number [facility] [place] [address] * (ABNORMAL) POCT glucose (03/02/2025 11:41 AM CDT) Glucose, POC 286(H) 70 - 199 mg/dL Comment:Glu2: RN/MD Notified Glucose comment 1 Glu2: RN/MD Notified [facility] Blood 03/02/2025 11:4 1 AM CDT 03/02/2025 11:41 AM CDT us Jung Arriola MD LAB POCT ORDERABLES - DEVICE Final Result Performing Organization Address [facility]/ZIP Co de Phone Number [facility] [place] [address] * (ABNORMAL) POCT glucose (03/02/2025 8:03 AM CDT) [facility] Glucose, POC 323(H) 70 - 199 mg/dL Comment:Glu2: RN/MD Notified Glucose comment 1 Glu2: RN/MD Notified [facility] Blood 03/02/2025 8:03 AM CDT 03/02/2025 8:03 AM CDT us Jung Arriola MD LAB POCT ORDERABLES - DEVICE Final Result Performing Organization Address [facility] Co de Phone Number [facility] [place] [address] * (ABNORMAL) eGFR (03/01/2025 9:01 PM CDT) [facility] eGFR 53(L) >=60 mL/min/1. 73 m2 Comment: [...] 9:01 PM CDT 03/01/2025 9:47 PM CDT us Promise Nelson NP LAB BLOOD ORDERABLES F inal Result [facility] [place] [address] * (ABNORMAL) Differential, auto (03/01/2025 9:01 PM CDT) Neutrophil abs 8.06(H) 1.50 - 6.50 K/cumm Imm gran abs 0.06 0.00 - 0.10 K/cumm [facility] Lymphocyte abs 1.14 0.80 - 3.30 K/cumm [facility] Monocyte abs 0.79 0.20 - 0.80 K/cumm [facility] Eosinophil abs 0.19 0.00 - 0.50 K/cumm [facility] Basophil abs 0.03 0.00 - 0.10 K/cumm [facility] Neutrophil pct 78.4 % [facility] Comment: Interpretive Data Percent cell count reference ranges are not reported, since discordance with absolute values may lead to misinterpretation of CBC data. Current Interpretive Data was last revised on 2017. Imm gran pct 0.6 % [facility] Comment: Interpretive Data Percent cell count reference ranges are not reported, since discordance with absolute values may lead to misinterpretation of CBC data. Current Interpretive Data was last revised on 2017. Lymphocyte pct 11.1 % [facility] Comment: Interpretive Data Percent cell count reference ranges are not reported, since discordance with absolute values may lead to misinterpretation of CBC data. Current Interpretive Data was last revised on 2017. Monocyte pct 7.7 % [facility] Comment: Interpretive Data Percent cell count reference ranges are not reported, since discordance with absolute values may lead to misinterpretation of CBC data. Current Interpretive Data was last revised on 2017. Eosinophil pct 1.9 % [facility] Comment: Interpretive Data Percent cell count reference ranges are not reported, since discordance with absolute values may lead to misinterpretation of CBC data. Current Interpretive Data was last revised on 2017. Basophil pct 0.3 % [facility] Comment: Interpretive Data Percent cell count reference ranges are not reported, since discordance with absolute values may lead to misinterpretation of CBC data. Current Interpretive Data was last revised on 2017. Blood 03/01/2025 9:01 PM CDT 03/01/2025 9:47 PM CDT Promise Nelson NP LAB BLOOD ORDERABLES F inal Result Performing Organization Address [facility]/ZIP Co de Phone Number [facility] Department [place] [employer] [place] [address] * (ABNORMAL) CBC with auto differential (03/01/2025 9:01 PM CDT) WBC 10.27(H) 3.80 - 9.90 K/cumm Hgb 10.8(L) 11.9 - 15.5 g/dL [facility] Hct 32.7(L) 35.6 - 45.5 % [facility] Plt 197 150 - 400 K/cumm [facility] MPV 10.4 9.1 - 12.3 fL [facility] RBC 3.47(L) 3.90 - 5.20 M/cumm [facility] MCV 94.2 81.3 - 96.4 fL [facility] MCH 31.1 27.1 - 33.3 pg [facility] MCHC 33.0 32.3 - 35.7 g/dL [facility] RDW CV 14.5 11.1 - 14.9 % [facility] RDW SD 49.6(H) 35.7 - 48.1 fL [facility] NRBC abs 0.00 0.00 - 0.01 K/cumm [facility] Blood 03/01/2025 9:01 PM CDT 03/01/2025 9:47 PM CDT Promise Nelson NP LAB BLOOD ORDERABLES F inal Result Performing Organization Address [facility]/ZIP Co de Phone Number [facility] Department [place] [employer] [place] [place] [address] * (ABNORMAL) Basic metabolic panel (03/01/2025 9:01 PM CDT) Pathologist [facility] Sodium 137 135 - 145 mmol/L Potassium, pl 4.4 3.3 - 4.9 mmol/L [facility] Chloride 104 97 - 110 mmol/L [facility] CO2 27 22 - 32 mmol/L [facility] Anion gap 6 2 - 15 mmol/L [facility] BUN 16 6 - 25 mg/dL [facility] Creatinine 1.18(H) 0.60 - 1.10 mg/dL [facility] Glucose 196 70 - 199 mg/dL [facility] Comment: Interpretive Data Fasting glucose >/= 126 [...] 2022. Calcium 9.1 8.5 - 10.3 mg/dL [facility] Blood 03/01/2025 9:01 PM CDT 03/01/2025 9:47 PM CDT Promise Nelson NP LAB BLOOD ORDERABLES F inal Result [facility] [place] [address] * (ABNORMAL) POCT glucose (03/01/2025 8:18 PM CDT) Pathologist [facility] Glucose, POC 212(H) 70 - 199 mg/dL Blood 03/01/2025 8:18 PM CDT 03/01/2025 8:18 PM CDT Jung Arriola MD LAB POCT ORDERABLES - DEVICE Final Result Performing Organization Address [facility] [place] [address] * POCT glucose (03/01/2025 5:24 PM CDT) Glucose, POC 167 70 - 199 mg/dL Comment:Glu2: RN/MD Notified Glucose comment 1 Glu2: RN/MD Notified [facility] Blood 03/01/2025 5:24 PM CDT 03/01/2025 5:24 PM CDT Jung Arriola MD LAB POCT ORDERABLES - DEVICE Final Result Performing Organization Address [facility] [place] [address] * (ABNORMAL) POCT glucose (03/01/2025 12:20 PM CDT) Glucose, POC 241(H) 70 - 199 mg/dL Blood 03/01/2025 12:2 0 PM CDT 03/01/2025 12:20 PM CDT Jung Arriola MD LAB POCT ORDERABLES - DEVICE Final Result Performing Organization Address [facility] [place] [address] * XR Foot Left 3 or More [...] by: Juan Jose Rachel M.D. Promise Nelson LINOTYPE MACHINIST APPRENTICE IMG XR PROCEDURES Jen l Result * (ABNORMAL) POCT glucose (03/01/2025 7:25 AM CDT) Glucose, POC 250(H) 70 - 199 mg/dL Comment:Glu2: RN/MD Notified Glucose comment 1 Glu2: RN/MD Notified [facility] Blood 03/01/2025 7:25 AM CDT 03/01/2025 7:25 AM CDT Jung Arriola MD LAB POCT ORDERABLES - DEVICE Final Result [facility] [place] [address] * (ABNORMAL) eGFR (02/28/2025 11:41 PM CDT) Pathologist [facility] eGFR 55(L) >=60 mL/min/1. 73 m2 Comment: [...] NP LAB BLOOD ORDERABLES F inal Result [facility] [place] [address] * (ABNORMAL) Differential, auto (02/28/2025 11:41 PM CDT) Pathologist [facility] Neutrophil abs 7.13(H) 1.50 - 6.50 K/cumm Imm gran abs 0.04 0.00 - 0.10 K/cumm [facility] Lymphocyte abs 1.30 0.80 - 3.30 K/cumm [facility] Monocyte abs 0.77 0.20 - 0.80 K/cumm [facility] Eosinophil abs 0.14 0.00 - 0.50 K/cumm [facility] Basophil abs 0.02 0.00 - 0.10 K/cumm [facility] Neutrophil pct 75.9 % [facility] Comment: Interpretive Data Percent cell count reference ranges are not reported, since discordance with absolute values may lead to misinterpretation of CBC data. Current Interpretive Data was last revised on 2017. Imm gran pct 0.4 % [facility] Comment: Interpretive Data Percent cell count reference ranges are not reported, since discordance with absolute values may lead to misinterpretation of CBC data. Current Interpretive Data was last revised on 2017. Lymphocyte pct 13.8 % [facility] Comment: Interpretive Data Percent cell count reference ranges are not reported, since discordance with absolute values may lead to misinterpretation of CBC data. Current Interpretive Data was last revised on 2017. Monocyte pct 8.2 % [facility] Comment: Interpretive Data Percent cell count reference ranges are not reported, since discordance with absolute values may lead to misinterpretation of CBC data. Current Interpretive Data was last revised on 2017. Eosinophil pct 1.5 % [facility] Comment: Interpretive Data Percent cell count reference ranges are not reported, since discordance with absolute values may lead to misinterpretation of CBC data. Current Interpretive Data was last revised on 2017. Basophil pct 0.2 % [facility] Comment: Interpretive Data Percent cell count reference ranges are not reported, since discordance with absolute values may lead to misinterpretation of CBC data. Current Interpretive Data was last revised on 2017. Blood 02/28/2025 11:4 1 PM CDT 03/01/2025 12:39 AM CDT us Promise Nelson NP LAB BLOOD ORDERABLES F inal Result [facility] [place] [address] * (ABNORMAL) CBC with auto differential (02/28/2025 11:41 PM CDT) WBC 9.40 3.80 - 9.90 K/cumm Hgb 11.0(L) 11.9 - 15.5 g/dL [facility] Hct 33.5(L) 35.6 - 45.5 % [facility] Plt 189 150 - 400 K/cumm [facility] MPV 10.6 9.1 - 12.3 fL [facility] RBC 3.57(L) 3.90 - 5.20 M/cumm [facility] MCV 93.8 81.3 - 96.4 fL [facility] MCH 30.8 27.1 - 33.3 pg [facility] MCHC 32.8 32.3 - 35.7 g/dL [facility] RDW CV 14.5 11.1 - 14.9 % [facility] RDW SD 49.9(H) 35.7 - 48.1 fL [facility] NRBC abs 0.00 0.00 - 0.01 K/cumm [facility] Blood 02/28/2025 11:4 1 PM CDT 03/01/2025 12:39 AM CDT us Promise Nelson NP LAB BLOOD ORDERABLES F inal Result [facility] [place] [address] * (ABNORMAL) Basic metabolic panel (02/28/2025 11:41 PM CDT) Sodium 136 135 - 145 mmol/L Potassium, pl 4.3 3.3 - 4.9 mmol/L [facility] Chloride 99 97 - 110 mmol/L [facility] CO2 27 22 - 32 mmol/L [facility] Anion gap 10 2 - 15 mmol/L [facility] BUN 17 6 - 25 mg/dL [facility] Creatinine 1.15(H) 0.60 - 1.10 mg/dL [facility] Glucose 194 70 - 199 mg/dL [facility] Comment: Interpretive Data Fasting glucose >/= 126 [...] 2022. Calcium 9.0 8.5 - 10.3 mg/dL [facility] Blood 02/28/2025 11:4 1 PM CDT 03/01/2025 12:39 AM CDT us Promise Nelson NP LAB BLOOD ORDERABLES F inal Result [facility] [place] [address] * (ABNORMAL) Urinalysis reflex to microscopic and culture Urine (02/28/2025 8:22 PM CDT) Color, ur Straw Yellow Clarity, ur Clear Clear [facility] Specific gravity, ur 1.016 1.003 - 1.030 [facility] pH, urine 6.0 [facility] Comment: Interpretive Data U rine pH is affected by diet, medications, systemic acid-base disturbances, and renal tubular function. pH may affect urinary stone formation. For example, urine pH below 6.0 may help reduce the tendency for calcium phosphate stones and pH greater than 6.0 may reduce the tendency for uric acid stone formation. Source: [facility] [employer] Current Interpretive Data was last revised on 2017 Protein, ur ql 1+(A) Negative [facility] Glucose, ur ql Negative Negative [facility] Ketones, ur Negative Negative [facility] Bilirubin, ur Negative Negative [facility] Blood, ur Trace(A) Negative [facility] Urobilinogen, ur <2.0 <2.0 mg/dL [facility] Nitrite, ur Negative Negative [facility] Leukocyte esterase, ur 2+(A) Negative [facility] UA reflex comment Reflex to microscopic UA will be performed. [facility] Urine 02/28/2025 8:22 PM CDT 02/28/2025 9:01 PM CDT us Promise Nelson NP LAB MICROBIOLOGY - GEN ERAL ORDERABLES Final Result Performing Organization Address [facility] Co de Phone Number [facility] [place] [address] * (ABNORMAL) Urinalysis, microscopic only (02/28/2025 8:22 PM CDT) WBC, ur 11-20(A) 0 - 5 /HPF RBC, ur 3-5(A) 0 - 2 /HPF [facility] Epithelial cells, squamous, ur 1-5 0 - 5 /HPF [facility] Bacteria, ur Trace(A) [facility] Mucous, ur Present(A) [facility] Culture Reflex Comment Reflex to urine culture will be performed. [facility] Urine 02/28/2025 8:22 PM CDT 02/28/2025 9:01 PM CDT Promise Nelson NP LAB URINE ORDERABLES F inal Result Performing Organization Address [facility] Co de Phone Number [facility] [place] [address] * Urine culture Urine (02/28/2025 8:22 PM CDT) Report Final Report: No growth Urine 02/28/2025 8:22 PM CDT 02/28/2025 10:46 PM CDT Narrative [facility] - 03/02/2025 7:46 AM CDT Urine culture reflexed based upon urinalysis results. Testing performed by [facility] ([phone]) Promise Nelson NP LAB MICROBIOLOGY - GEN ERAL ORDERABLES Final Result Performing Organization Address City/[facility] Co de Phone Number [facility] [place] [address] * (ABNORMAL) POCT glucose (02/28/2025 8:11 PM CDT) Glucose, POC 252(H) 70 - 199 mg/dL Blood 02/28/2025 8:11 PM CDT 02/28/2025 8:11 PM CDT Jung Arriola MD LAB POCT ORDERABLES - DEVICE Final Result [facility] [place] [address] * XR Chest 1 View (02/28/2025 5:22 [...] signed by: Juan Caldwell M.D. Promise Nelson LINOTYPE MACHINIST APPRENTICE IMG XR PROCEDURES Jen l Result * POCT glucose (02/28/2025 5:08 PM CDT) Glucose, POC 186 70 - 199 mg/dL Comment:Glu2: RN/MD Notified Glucose comment 1 Glu2: RN/MD Notified [facility] Blood 02/28/2025 5:08 PM CDT 02/28/2025 5:08 PM CDT Jung Arriola MD LAB POCT ORDERABLES - DEVICE Final Result Performing Organization Address [facility] Co de Phone Number [facility] Department [place] [employer] [place] [address] * (ABNORMAL) POCT glucose (02/28/2025 11:36 AM CDT) Glucose, POC 251(H) 70 - 199 mg/dL Comment:Glu2: RN/ Notified Glucose comment 1 Glu2: RN/MD Notified [facility] Blood 02/28/2025 11:3 6 AM CDT 02/28/2025 11:36 AM CDT Jung Arriola MD LAB POCT ORDERABLES - DEVICE Final Result [facility] [place] [place] [address] * (ABNORMAL) POCT glucose (02/28/2025 7:32 AM CDT) Glucose, POC 200(H) 70 - 199 mg/dL Comment:Glu2: RN/ Notified Glucose comment 1 Glu2: RN/ Notified [facility] Blood 02/28/2025 7:32 AM CDT 02/28/2025 7:32 AM CDT us Jung Arriola MD LAB POCT ORDERABLES - DEVICE Final Result Performing Organization Address City/State/[facility] Co de Phone Number [facility] [address] * POCT glucose (02/27/2025 10:38 PM CDT) Glucose, POC 191 70 - 199 mg/dL Blood 02/27/2025 10:3 8 PM CDT 02/27/2025 10:38 PM CDT us Jung Arriola MD LAB POCT ORDERABLES - DEVICE Final Result Performing Organization Address City/[facility] Co de Phone Number [facility] [place] [address] * eGFR (02/27/2025 10:37 PM CDT) eGFR [...] ORDERABLES Final Re sult Performing Organization Address [facility]/ZIP Co de Phone Number [facility] [place] [address] * (ABNORMAL) CBC without differential (02/27/2025 10:37 PM CDT) WBC 14.56(H) 3.80 - 9.90 K/cumm Hgb 12.5 11.9 - 15.5 g/dL [facility] Hct 38.3 35.6 - 45.5 % [facility] Plt 246 150 - 400 K/cumm [facility] MPV 10.1 9.1 - 12.3 fL [facility] RBC 4.10 3.90 - 5.20 M/cumm [facility] MCV 93.4 81.3 - 96.4 fL [facility] MCH 30.5 27.1 - 33.3 pg [facility] MCHC 32.6 32.3 - 35.7 g/dL [facility] RDW CV 14.7 11.1 - 14.9 % [facility] RDW SD 50.4(H) 35.7 - 48.1 fL [facility] NRBC abs 0.00 0.00 - 0.01 K/cumm [facility] Blood 02/27/2025 10:3 7 PM CDT 02/27/2025 11:25 PM CDT us Jung Arriola MD LAB BLOOD ORDERABLES Final Re sult Performing Organization Address City/[facility]/ZIP Co de Phone Number [facility] [place] [address] * Basic metabolic panel (02/27/2025 10:37 PM CDT) Sodium 135 135 - 145 mmol/L Potassium, pl 4.5 3.3 - 4.9 mmol/L [facility] Chloride 99 97 - 110 mmol/L [facility] CO2 27 22 - 32 mmol/L [facility] Anion gap 9 2 - 15 mmol/L [facility] BUN 21 6 - 25 mg/dL [facility] Creatinine 1.03 0.60 - 1.10 mg/dL [facility] Glucose 192 70 - 199 mg/dL [facility] Comment: Interpretive Data Fasting glucose >/= 126 [...] 2022. Calcium 9.0 8.5 - 10.3 mg/dL [facility] Blood 02/27/2025 10:3 7 PM CDT 02/27/2025 11:25 PM CDT us Jung Arriola MD LAB BLOOD ORDERABLES Final Re sult [facility] [place] [address] * X-ray chest 1 view (02/27/2025 8:21 [...] it. Electronically signed by: Angeli Handy M.D. us Keyon Ayon MD PhD IMG XR PROCEDURE S Final Result * POCT glucose (02/27/2025 5:37 PM CDT) Glucose, POC 144 70 - 199 mg/dL Blood 02/27/2025 5:37 PM CDT 02/27/2025 5:37 PM CDT us Jung Arriola MD LAB POCT ORDERABLES - DEVICE Final Result Performing Organization Address City/State/ZIP [place] Phone Number [facility] [place] [address] * (ABNORMAL) eGFR (02/27/2025 5:31 PM CDT) [...] ORDERABLES Final Re sult Performing Organization Address [facility]/ZIP Co de Phone Number [facility] [place] [address] * Cholesterol, LDL, direct (02/27/2025 5:31 PM [...] LAB BLOOD ORDERABLES Final Re sult [facility] [place] [address] * (ABNORMAL) Lipid panel (02/27/2025 5:31 PM [...] revised on 2018. Triglycerides 424(H) <=149 mg/dL [facility] Comment: Interpretive Data Ages < or = [...] revised on 2018. HDL 28(L) >=40 mg/dL [facility] Comment: Interpretive Data Ages < or = [...] on 2018. LDL, calculated See Comment <=129 [facility] Comment: Unable to calculate LDL due to [...] revised on 2024. Non-HDL Cholesterol 184 mg/dL [facility] Comment: Interpretive Data Ages < or = [...] last revised on 2018. Chol/HDL ratio 8 [facility] Blood 02/27/2025 5:31 PM CDT 02/27/2025 5:58 PM CDT Narrative [facility] - 02/28/2025 12:48 AM CDT Reflex us Jung Arriola MD LAB BLOOD ORDERABLES Final Re sult [facility] [place] [address] * (ABNORMAL) Basic metabolic panel (02/27/2025 5:31 PM CDT) [facility] Sodium 142 135 - 145 mmol/L Potassium, pl 4.4 3.3 - 4.9 mmol/L [facility] Chloride 104 97 - 110 mmol/L [facility] Comment:Repeated and Verifie d CO2 24 22 - 32 mmol/L [facility] Anion gap 14 2 - 15 mmol/L [facility] Comment:Repeated and Verifie d BUN 21 6 - 25 mg/dL [facility] Creatinine 1.11(H) 0.60 - 1.10 mg/dL [facility] Glucose 164 70 - 199 mg/dL [facility] Comment: Interpretive Data Fasting glucose >/= 126 [...] 2022. Calcium 8.8 8.5 - 10.3 mg/dL [facility] Blood 02/27/2025 5:31 PM CDT 02/27/2025 5:58 PM CDT Jung Arriola MD LAB BLOOD ORDERABLES Final Re sult [facility] [place] [address] * (ABNORMAL) CBC without differential (02/27/2025 5:11 PM CDT) [facility] WBC 15.72(H) 3.80 - 9.90 K/cumm Hgb 13.3 11.9 - 15.5 g/dL [facility] Hct 38.3 35.6 - 45.5 % [facility] Plt 263 150 - 400 K/cumm [facility] MPV 9.7 9.1 - 12.3 fL [facility] RBC 4.17 3.90 - 5.20 M/cumm [facility] MCV 91.8 81.3 - 96.4 fL [facility] MCH 31.9 27.1 - 33.3 pg [facility] MCHC 34.7 32.3 - 35.7 g/dL [facility] RDW CV 14.7 11.1 - 14.9 % [facility] RDW SD 49.6(H) 35.7 - 48.1 fL [facility] NRBC abs 0.00 0.00 - 0.01 K/cumm [facility] Blood 02/27/2025 5:11 PM CDT 02/27/2025 5:58 PM CDT us Jung Arriola MD LAB BLOOD ORDERABLES Final Re sult Performing Organization Address [facility] de Phone Number [facility] [place] [place] [address] * BYPASS GRAFT - FEMORAL ILIO (02/27/2025 5:08 PM CDT) Anatomical Region Laterality Modality X-Ray Angiograph y Narrative 02/27/2025 8:53 PM CDT Please see OpNote for result. us Jung Arriola MD CV CARDIAC CATH PROCEDURES Fi nal Result * POCT Activated clotting time, low range (02/27/2025 3:57 PM CDT) ACT 124 123 - 168 sec POC Device Number [id number] [facility] Blood 02/27/2025 3:57 PM CDT 02/27/2025 3:57 PM CDT us Jung Arriola MD LAB POCT ORDERABLES - DEVICE Final Result Performing Organization Address [facility]/ZIP Co de Phone Number [facility] [place] [address] * (ABNORMAL) POCT Activated clotting time, low range (02/27/2025 3:25 PM CDT) ACT 358(H) 123 - 168 sec POC Device Number [id number] [facility] Blood 02/27/2025 3:25 PM CDT 02/27/2025 3:25 PM CDT us Jung Arriola MD LAB POCT ORDERABLES - DEVICE Final Result Performing Organization Address [facility] Co [place] [address] * (ABNORMAL) POCT Activated clotting time, low range (02/27/2025 2:41 PM CDT) [facility] 253(H) 123 - 168 sec POC Device Number [id number] [facility] Blood 02/27/2025 2:41 PM CDT 02/27/2025 2:41 PM CDT us Jung Arriola MD LAB POCT ORDERABLES - DEVICE Final Result Performing Organization Address [facility] [place] [address] * POCT glucose (02/27/2025 2:08 PM CDT) Glucose, POC 91 70 - 199 mg/dL Blood 02/27/2025 2:08 PM CDT 02/27/2025 2:08 PM CDT us Jung Arriola MD LAB POCT ORDERABLES - DEVICE Final Result Performing Organization Address [facility] [place] [address] * (ABNORMAL) POCT Activated clotting time, low range (02/27/2025 2:05 PM CDT) ACT 339(H) 123 - 168 sec POC Device Number [id number] [facility] Blood 02/27/2025 2:05 PM CDT 02/27/2025 2:05 PM CDT us Jung Arriola MD LAB POCT ORDERABLES - DEVICE Final Result [facility] [place] [address] * (ABNORMAL) POC Blood Gas and Chemistries, Arterial - (02/27/2025 1:00 PM CDT) pH, Art POC 7.36 7.35 - 7.45 pCO2, Art POC 45 35 - 45 mmHg [facility] pO2, Art POC 166(H) 83 - [address] [facility] [facility] Na, POC 137 135 - 145 mmol/L [facility] K POC 4.3 3.3 - 4.9 mmol/L [facility] Comment: Interpretive Data Not all point of care methods assess for hemolysis. Confirm with instrument and retest K+ if not consistent with clinical signs and symptoms. Current Interpretive Data was last revised on 2023. Cl, POC 106 97 - 110 mmol/L [facility] Ionized Ca, POC 4.78 4.50 - 5.10 mg/dL [facility] Glucose, POC 100 70 - 199 mg/dL [facility] Lactate POC 2.0 0.7 - 2.0 mmol/L [facility] SO2 (dylan) arterial 100(H) 90 - 95 % [facility] Base excess, POC -0.4 mmol/L [facility] HCO3, Art POC 25 20 - 30 mmol/L [facility] Hct, POC 41.0 36.3 - 45.3 % [facility] Total Hb, POC 13.8 11.9 - 15.5 g/dL [facility] Blood 02/27/2025 1:00 PM CDT 02/27/2025 1:00 PM CDT us Jung Arriola MD LAB POCT ORDERABLES - DEVICE Final Result [facility] [place] [address] * MA AN PROCEDURE PLACEHOLDER (02/27/2025 12:17 PM CDT) [...] ORDERABLES Edited R esult - Final * MA AN CENTRAL LINE QUADRUPLE LUMEN, MA AN PROCEDURE PLACEHOLDER (02/27/2025 12:17 PM CDT) Narrative Rodolfo Cuellar MD - 02/27/2025 12:17 PM CDT Rodolfo Cuellar MD 02/27/2025 12:37 PM Central Venous Line Patient location: OR Indication: central venous access and CVP monitoring Staff: Supervising provider: Rodolfo Cuellar MD Placed by: MUD MIXER: Mackenzie Loco CRNA Procedure prep: Patient position: [...] ORDERABLES Edited R esult - Final * MA AN ELECTIVE ENDOTRACHEAL AIRWAY, MA AN PROCEDURE PLACEHOLDER (02/27/2025 12:16 PM CDT) Narrative Mackenzie Loco CRNA - 02/27/2025 12:16 PM CDT Mackenzie Loco CRNA 02/27/2025 12:16 PM Airway Patient location: OR Urgency: elective Indications for airway management: anesthesia Difficult airway: no Staff: Supervising provider: Rodolfo Cuellar MD Placed by: MUD MIXER: Mackenzie Loco CRNA Emergent airway documentation: Risks [...] 11:44 AM CDT) ABO Rh O Positive [facility] OTHER 02/27/2025 11:4 4 AM CDT 02/27/2025 11:51 AM CDT Jung Arriola MD LAB BLOOD ORDERABLES Final Re sult Performing Organization Address [facility] Co de Phone Number [facility] [place] [address] [facility] * TYPE AND SCREEN 14 DAY (02/22/2025 2:36 PM CDT) Charu, indirect Negative ABO Rh O Positive [facility] Blood 02/22/2025 2:36 PM CDT 02/22/2025 3:40 PM CDT Narrative [facility] - 02/22/2025 4:39 PM CDT Is this test being ordered in advance for a procedure?->Yes Expected date of procedure:->02/27/25 Has the patient been transfused in the past 3 months?->No Has the patient been in the past 3 months?->No Quyen Campa NP LAB BLOOD BANK TEST ORDE RABLES Final Result Performing Organization Address [facility] Co de Phone Number [facility] [place] [address] * (ABNORMAL) eGFR (02/22/2025 2:36 PM CDT) [...] Inclusion of Race in Diagnosing Kidney Disease, [employer] 2020). The CKD-EPI equation should not be used for patients with unstable renal function and has not been validated in children and those over 70. Current interpretive data was last reviewed 2021. Blood 02/22/2025 2:36 PM CDT 02/22/2025 3:35 PM CDT us Quyen Camap LINOTYPE MACHINIST APPRENTICE LAB BLOOD ORDERABLES Fin al Result [facility] [place] [address] * (ABNORMAL) Differential, auto (02/22/2025 2:36 PM CDT) Neutrophil abs 7.75(H) 1.50 - 6.50 K/cumm Imm gran abs 0.07 0.00 - 0.10 K/cumm [facility] Lymphocyte abs 1.79 0.80 - 3.30 K/cumm [facility] Monocyte abs 0.71 0.20 - 0.80 K/cumm [facility] Eosinophil abs 0.28 0.00 - 0.50 K/cumm [facility] Basophil abs 0.08 0.00 - 0.10 K/cumm [facility] Neutrophil pct 72.6 % [facility] Comment: Interpretive Data Percent cell count reference ranges are not reported, since discordance with absolute values may lead to misinterpretation of CBC data. Current Interpretive Data was last revised on 2017. Imm gran pct 0.7 % [facility] Comment: Interpretive Data Percent cell count reference ranges are not reported, since discordance with absolute values may lead to misinterpretation of CBC data. Current Interpretive Data was last revised on 2017. Lymphocyte pct 16.8 % [facility] Comment: Interpretive Data Percent cell count reference ranges are not reported, since discordance with absolute values may lead to misinterpretation of CBC data. Current Interpretive Data was last revised on 2017. Monocyte pct 6.6 % [facility] Comment: Interpretive Data Percent cell count reference ranges are not reported, since discordance with absolute values may lead to misinterpretation of CBC data. Current Interpretive Data was last revised on 2017. Eosinophil pct 2.6 % [facility] Comment: Interpretive Data Percent cell count reference ranges are not reported, since discordance with absolute values may lead to misinterpretation of CBC data. Current Interpretive Data was last revised on 2017. Basophil pct 0.7 % [facility] Comment: Interpretive Data Percent cell count reference ranges are not reported, since discordance with absolute values may lead to misinterpretation of CBC data. Current Interpretive Data was last revised on 2017. Blood 02/22/2025 2:36 PM CDT 02/22/2025 3:35 PM CDT us Quyen Campa LINOTYPE MACHINIST APPRENTICE LAB BLOOD ORDERABLES Fin al Result [facility] [place] [address] * Urinalysis reflex to microscopic and culture Urine, clean voided (02/22/2025 2:36 PM CDT) Color, ur See Comment Yellow Comment:Credited, quantity n ot sufficient. Clarity, ur See Comment Clear [facility] Comment:Credited, quantity n ot sufficient. Specific gravity, ur See Comment 1.003 - 1.030 [facility] Comment:Credited, quantity n ot sufficient. pH, urine See Comment [facility] Comment: Credited, quantity not sufficient. Interpretive Data U rine pH is affected by diet, medications, systemic acid-base disturbances, and renal tubular function. pH may affect urinary stone formation. For example, urine pH below 6.0 may help reduce the tendency for calcium phosphate stones and pH greater than 6.0 may reduce the tendency for uric acid stone formation. Source: Abine Current Interpretive Data was last revised on 2017 Protein, ur ql See Comment Negative [facility] Comment:Credited, quantity n ot sufficient. Glucose, ur ql See Comment Negative [facility] Comment:Credited, quantity n ot sufficient. Ketones, ur See Comment Negative [facility] Comment:Credited, quantity n ot sufficient. Bilirubin, ur See Comment Negative [facility] Comment:Credited, quantity n ot sufficient. Blood, ur See Comment Negative [facility] Comment:Credited, quantity n ot sufficient. Urobilinogen, ur See Comment <2.0 mg/dL [facility] Comment:Credited, quantity n ot sufficient. Nitrite, ur See Comment Negative [facility] Comment:Credited, quantity n ot sufficient. Leukocyte esterase, ur See Comment Negative [facility] Comment:Credited, quantity n ot sufficient. UA reflex comment Reflex conditions for microscopic UA and culture not met. [facility] Urine, clean voided 02/22/2025 2:36 PM CDT 02/22/2025 3:19 PM CDT us Quyen Campa LINOTYPE MACHINIST APPRENTICE LAB MICROBIOLOGY - GENER AL ORDERABLES Final Result [facility] [place] [address] * (ABNORMAL) CBC with auto differential (02/22/2025 2:36 PM CDT) WBC 10.68(H) 3.80 - 9.90 K/cumm Hgb 14.7 11.9 - 15.5 g/dL [facility] Hct 42.9 35.6 - 45.5 % [facility] Plt 265 150 - 400 K/cumm [facility] MPV 10.5 9.1 - 12.3 fL [facility] RBC 4.66 3.90 - 5.20 M/cumm [facility] MCV 92.1 81.3 - 96.4 fL [facility] MCH 31.5 27.1 - 33.3 pg [facility] MCHC 34.3 32.3 - 35.7 g/dL [facility] RDW CV 14.7 11.1 - 14.9 % [facility] RDW SD 50.1(H) 35.7 - 48.1 fL [facility] NRBC abs 0.00 0.00 - 0.01 K/cumm [facility] Blood 02/22/2025 2:36 PM CDT 02/22/2025 3:35 PM CDT Quyen Campa LINOTYPE MACHINIST APPRENTICE LAB BLOOD ORDERABLES Fin al Result Performing Organization Address [facility]/ZIP Co de Phone Number [facility] [place] [address] * (ABNORMAL) Basic metabolic panel (02/22/2025 2:36 PM CDT) [facility] Sodium 138 135 - 145 mmol/L Potassium, pl 4.7 3.3 - 4.9 mmol/L [facility] Chloride 96(L) 97 - 110 mmol/L [facility] CO2 27 22 - 32 mmol/L [facility] Anion gap 15 2 - 15 mmol/L [facility] BUN 22 6 - 25 mg/dL [facility] Creatinine 1.34(H) 0.60 - 1.10 mg/dL [facility] Glucose 175 70 - 199 mg/dL [facility] Comment: Interpretive Data Fasting glucose >/= 126 [...] 2022. Calcium 9.6 8.5 - 10.3 mg/dL [facility] Blood 02/22/2025 2:36 PM CDT 02/22/2025 3:35 PM CDT Quyen Campa LINOTYPE MACHINIST APPRENTICE LAB BLOOD ORDERABLES Fin al Result Performing Organization Address [facility] Co de Phone Number [facility] Department [place] [employer] [place] [place] [address] * (ABNORMAL) POCT hemoglobin A1c (02/22/2025 1:19 PM CDT) Hgb A1C, POC 7.7(H) 4.0 - 5.6 % Est Average Gluc POC 174 mg/dL [facility] Comment: The ADA recommends reporting an estimated Average Glucose (eAG) with all Hemoglobin A1c results using the equation derived from a study of 507 normal and diabetic adults. Minority populations were underrepresented and children were not included. (Diabetes Care 31:2672-6939, 2008). The eAG is not equivalent to a fasting glucose. Blood 02/22/2025 1:19 PM CDT 02/22/2025 1:19 PM CDT Jung Arriola MD POINT OF CARE TEST ORDERABLES Final Result [facility] [place] [address] * ECG 12 lead (02/22/2025 1:06 PM CDT) Pathologist [facility] Ventricular Rate EKG/Min 67 BPM [facility] Atrial Rate 67 BPM [facility] MA-Interval (MSEC) 170 ms [facility] QRS-Interval (MSEC) 104 ms [facility] QT-Interval (MSEC) 424 ms [facility] QTc 448 ms [facility] P [place] -8 degrees [facility] R [place] 6 degrees [facility] T [place] 105 degrees [facility] Diagnosis Normal sinus rhythm inferior infarction, age unknown ST segment elevation in Inferior leads Consider ischemic etiology ST depression and T wave inversions in lateral leads Abnormal ECG Compared to previous tracing of 06/23/22, no significant change Confirmed by fellow Juju Garay ([id number]) on 02/23/2025 8:48:28 AM Confirmed by CLARICE GARCIA M.D ([id number]) on 02/23/2025 9:25:42 AM [facility] 02/22/2025 1:06 PM CDT 02/23/2025 9:25 AM CDT us Quyen Rainlou Campa LINOTYPE MACHINIST APPRENTICE ECG ORDERABLES Final Re sult [facility] Organization Address City/State/ZIP Co de Phone Number [facility] from Last 3 Months Insurance [facility] MEDICARE [place] [address] [facility] MEDICARE ADVANTAGE [employer] Advance Directives For more information, please contact: [phone] * Full Code (Latest Code Status on File) Date Activated Date Inactivated Comments 02/27/2025 9:49 PM 03/03/2025 8:08 PM * Full Code Date Activated Date Inactivated Comments 06/23/2022 1:43 PM 06/23/2022 8:06 PM * Full Code Date Activated Date Inactivated Comments 03/08/2019 2:40 PM 03/09/2019 3:59 PM Care Teams Hot Room Attendant Relationship Specialty Start Date End Date No, Physician PCP - General 02/20/25
--- OUTSIDE RECORDS SUMMARY | 2025-05-22 13:12 | XMS_ITS | Clinical Summary ---
Author Organization [facility] Address [address] [place] [address] Care Team Providers Care Press Officer Name Role Phone Unavailable Primary Care Provider Unavailabl e Source Comments [facility],non-owned Affiliates and Associated Physician Practices is amultiple site organization consisting of ambulatory clinics and hospital sitesin [place], [place], [place] and [place]. This disclosure is being madepursuant to the Care Everywhere program and may not contain all information available regarding this patient. 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
--- OUTSIDE RECORDS SUMMARY | 2025-05-22 13:12 | XMS_ITS | Encounter Summary ---
Author Organization [facility] [employer] [facility] Address [address] [place] [phone] Phone Care Team Providers Care Rodbuster Name Role Phone Farhad Dolan MD Primary Care Provider [phone] Encounter Details Date Type Department Care Team (Late st Contact Info) Description 05/08/2021 Office Communication [place] [facility] [address] [place] [address] Giuseppe Lee DO [address] [address] Social History Tobacco Use Types [...] st Contact Info) Description 05/30/2025 4:00 PM DISPENSARY ATTENDANT Office Visit [facility], [facility] [address] [facility] [address] [place] [address] Giuseppe Lee, [address] [facility] 1 [place] [address] documented as of this encounter Visit Diagnoses Not on filedocumented in this encounter Care Teams Rodbuster Relationship Specialty Start Date End Date Farhad Dolan MD [address] [place] [address] PCP - General Internal Medicine 10/28/22 documented as of this encounter
--- OUTSIDE RECORDS SUMMARY | 2025-05-22 13:12 | XMS_ITS | Clinical Summary ---
Author Organization [facility] Address [address] [place] [address] Care Team Providers Care Cloth Handler Name Role Phone [facility], External Provider Primary Care Provider Celia vailable [...] gram Capsule Take by mouth. 1 Active bosutinib (Bosulif) 100 mg tabletIndication s:CML (chronic myelocytic leukemia) TAKE 3 TABLETS BY MOUTH EVERY DAY 90 Tablet 6 5 Active venlafaxine (EFFEXOR) 37.5 mg tablet Take 37.5 mg by mouth daily. 5 Active Eliquis 5 mg tablet Take 5 mg by mouth 2 times daily. Active Active Problems Problem Noted Date Diagnosed Date COPD (chronic obstructive pulmonary disease) 03/2020 CML in remission 09/15/2016 Chronic renal insufficiency, stage III (moderate ) 09/15/2016 Type 2 diabetes mellitus without complication Atherosclerosis of [place] co ronary artery without angina pectoris 09/15/2016 Encounters Date Type Department Care Team Description 05/17/2025 External Device Data STL ABSTRACTION Provider, Abstract 04/10/2025 2:45 PM CDT Office Visit [facility] Oncology and Hematology [facility] [address] [place] [address] Zelalem Shah MD CML (chronic myelocytic leukemia) (CMS/HCC) (Primary Dx) 03/28/2025 External Device Data STL ABSTRACTION Provider, Abstract 03/24/2025 Orders Only [facility] Oncology and Hematology - [place] [address] [place] [address] Zelalem Shah MD 03/22/2025 Abstract [facility] Oncology and Hematology - [place] [address] [place] [address] Zelalem Shah MD 03/22/2025 Orders Only [facility] Oncology and Hematology - [place] [address] [place] [address] Zelalem Shah MD 03/21/2025 Orders Only [facility] Oncology and Hematology - [place] [address] [place] [address] Zelalem Shah MD 03/14/2025 External Device Data [...] Smoking Tobacco: Former Cigarettes 2 26 1 - 2006 Alcohol Use Standard Drinks/Week Comments No 0 (1 standard drink = 0.6 oz pur e alcohol) Comments No Sex and Gender Information Value Date Recorded Sex Assigned at Not on file 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.] l Result from Last 3 Months Insurance [facility] Address: [facility] [address] [place] [address] Care Teams Cloth Handler Relationship Specialty Start Date End Date [facility], External Provider PCP - General 09/01/18
[2025-05-22 14:36] LABS: Albumin Level 4.3 g/dL (3.5-5.1); Anion Gap 9 mmol/L (4-12); Blood Urea Nitrogen 14 mg/dL (7-17); CRP 1.2 mg/dL (<1.0); Calcium 9.0 mg/dL (8.4-10.2); Carbon Dioxide 26 mmol/L (22-30); Chloride 102 mmol/L (98-107); Estimated Glomerular Filt Rate 37; Glucose 80 mg/dL (65-110); Potassium 4.4 mmol/L (3.4-5.0); Sodium 137 mmol/L (137-145)
[2025-05-23 10:09] LABS: eGFR 33 (>59)
== END 2025-05-22 11:31 | disposition home or self-care (01) ==
PROVIDERS: PCP Physician Assistant; Visit Provider Internal Medicine Nephrology
DX: E11.22 Type 2 diabetes mellitus with diabetic chronic kidney disease (principal); I12.9 Hypertensive chronic kidney disease with stage 1 through stage 4 chronic kidney disease, or unspecified chronic kidney disease; N18.32 Chronic kidney disease, stage 3b; E11.43 Type 2 diabetes mellitus with diabetic autonomic (poly)neuropathy; E78.00 Pure hypercholesterolemia, unspecified; K21.9 Gastro-esophageal reflux disease without esophagitis; E21.1 Secondary hyperparathyroidism, not elsewhere classified; I73.9 Peripheral vascular disease, unspecified; I25.84 Coronary atherosclerosis due to calcified coronary lesion; C92.10 Chronic myeloid leukemia, BCR/ABL-positive, not having achieved remission; J41.1 Mucopurulent chronic bronchitis; R80.1 Persistent proteinuria, unspecified
CPT/HCPCS: 36415; 80069; 82610; 85652; 86140

== ENCOUNTER 2025-07-12 07:17 | Outpatient (RCR) | payer MEDICARE, SELFPAY ==
--- NOTE | 2025-04-19 09:44 | WNDPHOTO ---
PHOTO ONLY - See Nursing Notes and/ or assessments for documentation.
[2025-04-19 12:12] VITALS: BMI 29.0
--- NOTE | 2025-05-10 07:52 | PCWOUND ---
WOCN NOTE Patient called to cancel today's appointment due to her foot being swollen and she is unable to apply weight to the foot. Patient has an Angiogram scheduled for Thursday05/12/25 for her right extremity. She plans on making her appointment next Thursday05/17/25, but will call to cancel if needed.
== END 2025-07-18 23:59 | disposition home or self-care (01) ==
LOC: ANHWOC 07:17
PROVIDERS: PCP Physician Assistant
DX: Z48.812 Encounter for surgical aftercare following surgery on the circulatory system (principal); I73.9 Peripheral vascular disease, unspecified; Z95.828 Presence of other vascular implants and grafts
CPT/HCPCS: 99213; 99214; A9270; G0463

== ENCOUNTER 2025-07-26 10:02 | Outpatient (CLI) | payer MEDICARE, SELFPAY ==
--- OUTSIDE RECORDS SUMMARY | 2025-07-26 10:20 | XMS_ITS | Encounter Summary ---
Author Organization [email or web address] [facility] Address [address] [facility] [place] [address] Phone Care Team Providers Care Hemstitching Machine Operator Name Role Phone Farhad Dolan MD Primary Care Provider [phone] Reason for Visit * Reason Comments Med Refill Encounter Details Date Type Department Care Team (Late st Contact Info) Description 02/22/2021 Refill [facility], [address] [place] [address] Giuseppe Lee DO [address] [facility] 1 [place] [address] Social History Tobacco Use Types [...] Department Care Team (Late Contact Info) Description 08/01/2025 2:00 PM RECREATION ENGINEER Office Visit [facility], [facility] [address] [facility] [address] [place] [address] Giuseppe Lee DO [address] [facility] 1 [place] [address] documented as of this encounter Visit Diagnoses Not on filedocumented in this encounter Care Teams Hemstitching Machine Operator Relationship Specialty Start Date End Date Farhad Dolan MD [address] [place] [address] PCP - General Internal Medicine 10/28/22 documented as of this encounter
--- OUTSIDE RECORDS SUMMARY | 2025-07-26 10:20 | XMS_ITS | Encounter Summary ---
Author Organization [facility] [employer] [facility] Address [address] [facility] [place] [address] Phone Care Team Providers Care Inside Finisher Name Role Phone Farhad Dolan MD Primary Care Provider [phone] Reason for Visit * Reason Onset Date Comments Med Refill 05/10/2024 Encounter Details Date Type Department Care Team (Late st Contact Info) Description 05/10/2024 Refill [place] [facility] [facility] [address] [address] Rachel Temple CMA [address] [place] [address] Social History Tobacco Use Types [...] Care Team (Late st Contact Info) Description 08/01/2025 2:00 PM VP [employer] Office Visit [place] Richard Pauer - 3P [facility] [address] [address] Giuseppe Lee DO [address] [place] [address] documented as of this encounter Visit Diagnoses Not on filedocumented in this encounter Care Teams Inside Finisher Relationship Specialty Start Date End Date Farhad Dolan MD [address] [place] [address] PCP - General Internal Medicine 10/28/22 documented as of this encounter
--- OUTSIDE RECORDS SUMMARY | 2025-07-26 10:20 | XMS_ITS | Clinical Summary ---
Author Organization [facility] Address [address] [place] [address] Care Team Providers Care Glazier Artist Name Role Phone No, Physician Primary Care Provider [phone] Allergies Active Allergy Reactions Criticality Noted Date Comments Atenolol Shortness of breath High 10/27/2012 Atropine Rash,Other (See comments) Medium 01/14/2022 Diphenoxylate-Atropine Swelling,Redness Medium 019 Dulaglutide Palpitations,Rash High 04/25/2020 Empagliflozin Other (See comments),Rash High 08/10/2019 Infection in groin area Ezetimibe Muscle pain High 02/25/2021 Kbqmjnv-Cgs-Usq Reductase Inhibitors Other (See comments),Nausea & Vomiting [...] (06/16/2022): Added automatically from request for surgery [id number] Type 2 diabetes mellitus wit h other [...] Plan (02/27/2025 9:50 AM CDT): See HF Surgical History Surgery Date Site/Laterality Comments TUBAL [...] on file 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 Gender Identity Not on file Sexual Orientation [...] history exists Medical Devices Implanted Type Area Hris Coordinator Device Identifier Shelf Expiration Date Model / Serial / Lot [employer] [id number] System Coronary Stent Xience Miriam Everolimus L15 Mm Od3.5 Mm Rapid Exchange - [id number] Implanted:Qty: 1 on 03/08/2019 by Joseph Grace MD at [facility] [employer] 11/26/2019 [id number] / / [employer] [id number] System Coronary Stent Xience Miriam Everolimus L12 Mm Od3.5 Mm Rapid Exchange - [id number] Implanted:Qty: 1 on 03/08/2019 by Joseph Grace MD at [facility] [employer] 01/03/2020 [id number] / / [employer] [id number] System Coronary Stent Xience Miriam Everolimus L18 Mm Od3.5 Mm Rapid Exchange - [id number] Implanted:Qty: 1 on 03/08/2019 by Joseph Grace MD at [facility] [employer] 12/17/2019 [id number] / / [employer] [id number] System Coronary Stent Xience Miriam Everolimus L15 Mm Od3 Mm Rapid Exchange - [id number] Implanted:Qty: 1 on 03/08/2019 by Joseph Grace MD at [facility] Vascular 11/23/2019 [id number] / / Med[employer] Everflex Entrust 7mm 120mm 120cm Triaxial Self Expand Low Profile - [id number] Implanted:Qty: 1 on 06/23/2022 by Joseph Grace MD at [facility] Left: Leg [employer] 09/16/2024 [id number] / / [id number] [employer] 6x1in Patch Thk1.65mm [place] [employer] Ptfe Sterile Latex Free [id number] - [id number] Implanted:Qty: 1 on 02/27/2025 by Jung Arriola MD at [facility] Left: Femoral [employer] [id number] 05/23/2029 [id number] / / [id number] [employer] [place] 6mm 90cm 70cm Removable Ring Stretch Thin Wall Graft [id number] - [id number] - [id number] Implanted:Qty: 1 on 02/27/2025 by Jung Arriola MD at [facility] Left: External Iliac Artery Wl [employer] [id number] 10/13/2027 [id number] / [id number] / Procedures Procedure Name Priority Date/Time Associated Diagnosis Comments EGFR STAT 04/11/2025 5:21 PM CDT LIPID PANEL STAT 02/27/2025 5:31 PM CDT POCT HEMOGLOBIN A1C Routine 02/22/2025 1 :19 PM CDT from Last 3 Months or Most Recently Relevant to Health Maintenance Results * eGFR (04/11/2025 5:21 PM CDT) eGFR [...] [facility] BLOOD ORDERABLES Final Result [facility] [address] Department [place] [address] * (ABNORMAL) Lipid panel (02/27/2025 5:31 PM [...] revised on 2018. Triglycerides 424(H) <=149 mg/dL [facility] Comment: Interpretive Data Ages < or [...] revised on 2018. HDL 28(L) >=40 mg/dL [facility] Comment: Interpretive Data Ages < or [...] on 2018. LDL, calculated See Comment <=129 [facility] Comment: Unable to calculate LDL due to elevated triglyceride. Interpretive Data Ages < or = 19 years Acceptable: <110 mg/dL Borderline high: 110-129 mg/dL High: >or= 130 mg/dL Ages > or = 20 years Optimal: <100 mg/dL Near optimal: 100-129 mg/dL Borderline high: 130-159 mg/dL High: >160 mg/dL Calculated using the Edmonds LDL-C estimating equation. This equation was implemented on 2024. Prior to this date LDL-C was estimated using the Friedewald equation. Literature References: 1. Expert Panel on Integrated Guidelines for Cardiovascular Health and Risk Reduction in Children and Adolescents. Pediatrics 2011;128:S213 2. NCEP Expert Panel. Circulation 2004;110:227 3. Grey Osborne et al. EMILEE Cardiol. 2020 November 24;5(5):540-548. doi: 10.1001/jamacardio.2020.0013 Current Interpretive Data was last revised on 2024. Non-HDL Cholesterol 184 mg/dL [facility] Comment: Interpretive Data Ages < or [...] last revised on 2018. Chol/HDL ratio 8 [facility] Blood 02/27/2025 5:31 PM CDT 02/27/2025 5:58 PM CDT Narrative [facility] - 02/28/2025 12:48 AM CDT Reflex us Jung Arriola MD LAB BLOOD ORDERABLES Final Re sult [facility] One [facility] Department [place] [address] * (ABNORMAL) POCT hemoglobin A1c (02/22/2025 1:19 PM CDT) Hgb A1C, POC 7.7(H) 4.0 - 5.6 % Est Average Gluc POC 174 mg/dL [facility] Comment: The ADA recommends reporting an estimated Average Glucose (eAG) with all Hemoglobin A1c results using the equation derived from a study of 507 normal and diabetic adults. Minority populations were underrepresented and children were not included. (Diabetes Care 31:0152-9296, 2008). The eAG is not equivalent to a fasting glucose. Blood 02/22/2025 1:19 PM CDT 02/22/2025 1:19 PM CDT Jung Arriola MD POINT OF CARE TEST ORDERABLES Final Result [facility] One [facility] Department [place] [address] from Last 3 Months or Most Recently Relevant to Health Maintenance Insurance [facility] MEDICARE ADVANTAGE [employer] [facility] MEDICARE ADVANTAGE [employer] Advance Directives For more information, please contact: [phone] * Full Code (Latest Code Status on File) Date Activated Date Inactivated Comments 02/27/2025 9:49 PM 03/03/2025 8:08 PM * Full Code Date Activated Date Inactivated Comments 06/23/2022 1:43 PM 06/23/2022 8:06 PM * Full Code Date Activated Date Inactivated Comments 03/08/2019 2:40 PM 03/09/2019 3:59 PM Care Teams Glazier Artist Relationship Specialty Start Date End Date No, Physician PCP - General 02/20/25
--- OUTSIDE RECORDS SUMMARY | 2025-07-26 10:20 | XMS_ITS | Clinical Summary ---
Author Organization [facility] Address [address] [place] [address] Care Team Providers Care Mothers Helper Name Role Phone [facility], External Provider Primary Care Provider Celia [...] gram Capsule Take by mouth. 1 Active venlafaxine (EFFEXOR) 37.5 mg tablet Take 37.5 mg by mouth daily. 5 Active Eliquis 5 mg tablet Take 5 mg by mouth 2 times daily. Active bosutinib (Bosulif) 100 mg tabletIndication s:CML (chronic myelocytic leukemia) ([facility]) TAKE 3 TABLETS BY MOUTH EVERY DAY 90 Tablet 6 5 Active Active Problems Problem Noted Date Diagnosed Date COPD (chronic obstructive pulmonary disease) 03/2020 CML in remission 09/15/2016 Chronic renal insufficiency, stage III (moderate ) 09/15/2016 Type 2 diabetes mellitus without complication Atherosclerosis of [place] ronary artery without angina pectoris 09/15/2016 Encounters Date Type Department Care Team Description 06/20/2025 External Device Data [facility] ABSTRACTION Provider, Abstract 06/02/2025 [facility] [address] [place] [phone] Zelalem Shah MD CML (chronic myelocytic leukemia) ([facility]) 05/31/2025 External Device Data [facility] ABSTRACTION Provider, Abstract 05/17/2025 External Device Data [facility] ABSTRACTION Provider, Abstract from Last 3 Months Family History Medical History Relation Name Comments Diabetes Father Heart Disease Father Relation Name Status Comments Brother Alive Father Mother Other Sister Alive Social History Tobacco Use Types Packs/Day Years Used Date Smoking Tobacco: Former Cigarettes 2 26 1 981 - 2007 Alcohol Use Standard Drinks/Week Comments No 0 (1 standard drink = 0.6 oz pur e alcohol) Comments No Sex and Gender Information Value Date Recorded Sex Assigned at Not on file 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
--- OUTSIDE RECORDS SUMMARY | 2025-07-26 10:20 | XMS_ITS | Encounter Summary ---
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
--- OUTSIDE RECORDS SUMMARY | 2025-07-26 10:20 | XMS_ITS ---
Author Organization [facility] Address [address] [place] [address] Care Team Providers Care Trial Justice Name Role Phone No, Physician Primary Care Provider [phone] Active Problems Problem Noted Date Diagnosed Date [...] (06/16/2022): Added automatically from request for surgery [id number] Type 2 diabetes mellitus wit h other circulatory complications 04/10/2021 Assessment & Plan (03/02/2025 3:52 PM CDT): A1c 7.7. on metformin and amaryl at home - hold home oral meds - Started low dose lantus and mealtime insulin while off amaryl d/t elevated BGs. Titrate as needed. Likely resume home regimen at [place] and stop insulin. Heart failure, unspecified 06/06/2020 [...]
--- OUTSIDE RECORDS SUMMARY | 2025-07-26 10:20 | XMS_ITS | Encounter Summary ---
Author Organization [facility] [employer] [facility] Address [address] [facility] [place] [address] Phone Care Team Providers Care Helper Shear Operator Name Role Phone Farhad Dolan MD Primary Care Provider [phone] Reason for Visit * Reason Comments Med Refill Encounter Details Date Type Department Care Team (Late st Contact Info) Description 01/16/2024 Refill [facility], [address] [place] [address] Giuseppe Lee DO [address] [facility] [address] [place] [address] Social History Tobacco Use Types [...] (Late Contact Info) Description 08/01/2025 2:00 PM TANKER DRIVER Office Visit [facility], [facility] [address] [facility] [address] [place] [address] Giuseppe Lee DO [address] [facility] [address] [place] [address] documented as of this encounter Visit Diagnoses Not on filedocumented in this encounter Care Teams Helper Shear Operator Relationship Specialty Start Date End Date Farhad Dolan MD [address] [place] [address] PCP - General Internal Medicine 10/28/22 documented as of this encounter
--- OUTSIDE RECORDS SUMMARY | 2025-07-26 10:21 | XMS_ITS | Clinical Summary ---
Author Organization [facility] Address [address] [address] Care Team Providers Care Driller Multiple Spindle Name Role Phone Farhad Dolan MD Primary Care Provider [phone] Medications insulin lispro (HumaLOG) 100 UNIT/ML injection Inject 4 Units under the skin 1 (one) time daily 30-60 minutes before a meal 12 mL 1 04/23/20 21 Active pregabalin (LYRICA) 75 MG capsule Take 1 capsule (75 mg total) by mouth every night 90 capsule 1 07/09/20 21 Active insulin glargine (LANTUS) 100 UNIT/ML injection Inject 8 Units under the skin every night 10 mL 1 02/19/20 22 Active minocycline (MINOCIN,DYNACIN ) 100 MG capsule Take 1 capsule (100 mg total) by mouth in the morning and 1 capsule (100 mg total) in the evening. 28 capsule 03/04/20 22 Active insulin degludec (TRESIBA FLEX TOUCH) 100 UNIT/ML injection Inject 25 Units under the skin every night 10 mL 1 03/25/20 22 Active Tresiba 100 UNIT/ML solution INJECT 10 UNITS UNDER THE SKIN EVERY NIGHT AT BEDTIME 10 mL 1 04/24/20 22 Active Tresiba 100 UNIT/ML solution INJECT 10 UNITS UNDER THE SKIN EVERY NIGHT AT BEDTIME 10 mL 1 04/24/20 22 Active magnesium oxide (MAG-OX) 400 MG tablet Take 1 tablet (400 mg total) by mouth in the morning and 1 tablet (400 mg total) in the evening. 180 tablet 1 03/03/20 23 Active amoxicillin-clav ulanate (AUGMENTIN) 875-125 MG per tablet Take 1 tablet by mouth in the morning and 1 tablet in the evening. 42 tablet 11/10/19 24 Active ciprofloxacin (CIPRO) 500 MG tablet Take 1 tablet (500 mg total) by mouth 1 (one) time each day 5 tablet 12/11/19 24 Active gabapentin (NEURONTIN) 100 MG capsule Take 1 capsule (100 mg total) by mouth 1 (one) time each day 90 capsule 1 01/18/20 24 Active nitrofurantoin (MACRODANTIN) 100 MG capsule Take 1 capsule (100 mg total) by mouth in the morning and 1 capsule (100 mg total) in the evening. 10 capsule 05/10/20 24 Active bumetanide (BUMEX) 1 MG tablet TAKE 1 AND 1/2 TABLETS(1.5 MG) BY MOUTH 1 TIME EACH DAY IN THE MORNING 135 tablet 1 02/29/20 25 Active venlafaxine (EFFEXOR) 37.5 MG tablet Take 1 tablet (37.5 mg total) by mouth 1 (one) time each day 90 tablet 1 03/28/20 25 Active albuterol HFA (PROVENTIL HFA;VENTOLIN HFA) 108 (90 Base) MCG/ACT inhaler INHALE 1 PUFF INTO LUNGS EVERY 6 HOURS NEEDED COUGH 8.5 g 1 03/29/20 25 Active betamethasone dipropionate (DIPROLENE) 0.05 % ointment APPLY TOPICALLY THREE TIMES DAILY 30 g 3 05/04/20 25 Active amoxicillin (AMOXIL) 875 MG tablet Take 1 tablet (875 mg total) by mouth in the morning and 1 tablet (875 mg total) in the evening. 42 tablet 05/30/20 25 Active doxycycline (ADOXA) 100 MG tablet Take 1 tablet (100 mg total) by mouth in the morning and 1 tablet (100 mg total) in the evening. Take with a full glass of water and do not lie down for at least 30 minutes after. 42 tablet 05/30/20 25 Active glimepiride (AMARYL) 4 MG tablet TAKE 1 TABLET(4 MG) BY MOUTH IN THE MORNING AND IN THE EVENING 180 tablet 1 06/01/20 25 Active gabapentin (NEURONTIN) 300 MG capsule TAKE 1 CAPSULE BY MOUTH IN THE MORNING, 1 CAPSULE AT NOON, 1 CAPSULE IN THE EVENING AND 1 CAPSULE BEFORE BEDTIME 120 capsule 1 06/02/20 25 Active famotidine (PEPCID) 40 MG tablet TAKE 1 TABLET(40 MG) BY MOUTH 1 TIME EACH DAY 90 tablet 1 07/18/20 Active telmisartan (MICARDIS) 40 MG tablet TAKE 1 TABLET(40 MG) BY MOUTH AT BEDTIME 90 tablet 1 07/18/20 25 Active famotidine (PEPCID) 40 MG tablet TAKE 1 TABLET(40 MG) BY MOUTH 1 TIME EACH DAY 90 tablet 1 01/17/20 025 Discontinued telmisartan (MICARDIS) 40 MG tablet TAKE 1 TABLET(40 MG) BY MOUTH AT BEDTIME 90 tablet 1 01/17/20 025 Discontinued Active Problems Problem Noted Date Diagnosed Date Essential hypertension 03/02/2025 Encounters Date Type Department Care Team Description 07/18/2025 Refill [facility], [address] [address] Giuseppe Lee, 06/02/2025 Refill [facility], [address] [phone] Giuseppe Lee, 06/01/2025 Refill [facility], [facility] [address] [address] Giuseppe Lee, 05/31/2025 Orders Only [facility], [address] [phone] Rachel Temple CMA 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 (HCC) (Primary Dx) 05/30/2025 4:00 PM HANDKERCHIEF SAMPLE CLERK Office Visit [facility], [facility] [address] [phone] Giuseppe Lee DO Stage 3b chronic kidney disease (HCC) (Primary Dx); Persistent proteinuria; Peripheral vascular disease (HCC); Open wound of lesser toe of right foot <Initial>; Cellulitis of right lower limb; Coronary artery disease due to calcified coronary lesion; Chronic myeloid leukemia (HCC); Mucopurulent chronic bronchitis (HCC); Type 2 diabetes mellitus with diabetic autonomic (poly)neuropathy, with long-term use of oral hypoglycemic drugs (HCC); Hypertensive chronic kidney disease; Pure hypercholesterolemia, not otherwise specified; Type 2 diabetes mellitus with diabetic chronic kidney disease, with long-term use of oral hypoglycemic drugs (HCC); Secondary hyperparathyroidism (HCC) 05/30/2025 Refill [facility], [facility] [address] [facility] [address] [place] [address] Rachel Temple, HOTEL SALES MANAGER 05/24/2025 Documentation Only [facility], [address] [phone] Giuseppe Lee, DO 05/23/2025 Documentation Only [facility], [address] [phone] Giuseppe Lee, DO 05/22/2025 Documentation Only [facility], [address] [address] Giuseppe Lee, DO 05/22/2025 Documentation Only [facility], [address] [phone] Giuseppe Lee, 05/04/2025 Refill [facility], [address] [place] [phone] Giuseppe Lee, DO from Last 3 Months Social History [...] Sign Reading Time Taken Comments Blood Pressure 120/60 05/30/2025 4:06 PM HANDKERCHIEF SAMPLE CLERK Pulse 84 05/30/2025 4:06 PM HANDKERCHIEF SAMPLE CLERK Temperature 36.1 C (97 F) 05/30/2025 4:06 PM HANDKERCHIEF SAMPLE CLERK Respiratory Rate 18 05/30/2025 4:06 PM HANDKERCHIEF SAMPLE CLERK Oxygen Saturation 97% 05/30/2025 4:06 PM HANDKERCHIEF SAMPLE CLERK Inhaled Oxygen Concentration - - Weight 86.6 kg (191 lb) 05/30/2025 4:06 PM HANDKERCHIEF SAMPLE CLERK Height 170.2 cm (5' 7) 03/25/2022 12:57 PM CDT Body Mass Index 29.91 03/25/2022 12:57 PM CDT Plan of Treatment Upcoming Encounters Date Type Department Care Team (Late st Contact Info) Description 08/01/2025 2:00 PM HANDKERCHIEF SAMPLE CLERK Office Visit [facility], [facility] [address] [facility] [address] [place] [address] Giuseppe Lee DO [address] [facility] 1 [place] [address] Health Maintenance Due Date Last [...] to complete this topic Insurance [facility] Medicare Care Teams Driller Multiple Spindle Relationship Specialty Start Date End Date Farhad Dolan MD [address] [place] [address] PCP - General Internal Medicine 10/28/22
[2025-07-26 10:36] LABS: Hematocrit 41.4 % (37.0-47.0); Hemoglobin 13.4 g/dL (12.0-15.0); Mean Corpuscular HGB Conc 32.4 g/dl (32-36); Mean Corpuscular Hemoglobin 30.5 pg (26-34); Mean Corpuscular Volume 94.3 fl (80-100); Platelet Count Result 276 k/mm3 (150-375); Red Blood Count 4.39 M/mm3 (4.2-5.4); White Blood Count 10.6 K/mm3 (4.5-10.0)
[2025-07-26 13:01] LABS: Albumin Level 4.2 g/dL (3.5-5.1); Anion Gap 8 mmol/L (4-12); Blood Urea Nitrogen 19 mg/dL (7-17); CRP 1.1 mg/dL (<1.0); Calcium 9.0 mg/dL (8.4-10.2); Carbon Dioxide 26 mmol/L (22-30); Chloride 105 mmol/L (98-107); Estimated Glomerular Filt Rate 43; Glucose 154 mg/dL (65-110); Magnesium 1.7 mg/dL (1.6-2.3); Potassium 4.3 mmol/L (3.4-5.0); Sodium 139 mmol/L (137-145)
[2025-07-26 13:07] LABS: Parathyroid Intact 37.7 pg/mL (14.5-75.2)
[2025-07-26 13:40] LABS: Ferritin 25.20 ng/mL (11.1-264)
[2025-07-27 10:08] LABS: eGFR 38 (>59)
== END 2025-07-26 10:03 | disposition home or self-care (01) ==
LOC: ANHLAB 10:04
PROVIDERS: PCP Physician Assistant; Visit Provider Internal Medicine Nephrology
DX: I12.9 Hypertensive chronic kidney disease with stage 1 through stage 4 chronic kidney disease, or unspecified chronic kidney disease (principal); N18.32 Chronic kidney disease, stage 3b; R80.1 Persistent proteinuria, unspecified; I73.9 Peripheral vascular disease, unspecified; S91.104A Unspecified open wound of right lesser toe(s) without damage to nail, initial encounter; L03.115 Cellulitis of right lower limb; C92.10 Chronic myeloid leukemia, BCR/ABL-positive, not having achieved remission; E11.43 Type 2 diabetes mellitus with diabetic autonomic (poly)neuropathy; Z79.84 Long term (current) use of oral hypoglycemic drugs; E11.22 Type 2 diabetes mellitus with diabetic chronic kidney disease; E21.1 Secondary hyperparathyroidism, not elsewhere classified
CPT/HCPCS: 36415; 80069; 82610; 82728; 83735; 83970; 85027; 85652; 86140